=== PATIENT | female | born 1960 | race Caucasian/White ===

== ENCOUNTER 2016-12-14 22:41 | Emergency (ER) | payer SELFPAY ==
[~2016-12-14] VITALS: Ht 157.5 cm; Wt 68.0 kg
[~2016-12-14 22:41] MED LIST: CYCL10TA9 PO; MULT-608 PO; NAPR-243 PO; OMEP40CA36 PO; PRD20T PO; PRX10T PO; TRM50T PO; VITAL; ZANTAC PO
[2016-12-14] MEDS ORDERED: SPIR1POW3 MC (23:03)
[2016-12-14] MEDS ORDERED: FURO-124 PO (23:03)
[2016-12-14] MEDS ORDERED: TETANUS,DIPTH,PERTUSS P/F (BOOSTRIX) 0.5 ML VIAL IM STA (23:11)
--- NOTE | 2016-12-14 23:56 | ED Lower Extremity ---
General Chief Complaint: Lower Extremity Stated Complaint: R FOOT PAIN AFTER STEPPING ON NAIL Nursing Triage Note: PT AMBULATED TO ROOM. PT STATES SHE STEPPED ON A NAIL FRIDAY, BUT PAIN JUST STARTED HURTING TODAY. Nursing Sepsis Screen: No Definite Risk History of Present Illness Time seen by provider: 23:55 Initial Comments evaluation for pain in the right foot. Patient reports that she stepped on a nail in her yard on 12/12/16. He did not initially bother her so she did not seek treatment. Today the pain began to get worse, her mother gave her half of a hydrocodone pain pill she had no improvement. Onset: other (3 days) Pain/Injury Location: right foot (pain swelling and erythema.) Method of Injury: incised (on now with puncture wound to plantar surface approximately second metatarsal head) Modifying Factors: Improves With Rest Allergies and Home Medications Allergies Coded Allergies: morphine (Unverified Allergy, Unknown, HIVES, 09/20/14) Uncoded Allergies: PENICILLIN (Adverse Reaction, Unknown, 09/20/14) Home Medications Cyclobenzaprine Hcl 10 Mg Tablet, 1 EACH PO Q8H, #15 Prescribed by: CHIRAG BELLA on 09/20/14 1736 Doxycycline Hyclate 100 Mg Capsule, 100 MG PO BID, #12 Ref 0 Prescribed by: HORACIO WHEELER on 12/15/16 0056 Furosemide 40 Mg Tablet, 40 MG PO, (Reported) Multivitamins 1 Tab Tablet, 1 TAB PO DAILY, (Reported) Naproxen 500 Mg Tablet, 1 EACH PO TID PRN for PAIN, #20 FOR PAIN Prescribed by: CHIRAG BELLA on 09/20/14 1736 Omeprazole 40 Mg Capsule.dr, 40 MG PO DAILY, (Reported) Paroxetine Hcl 10 Mg Tab, 40 MG PO DAILY, (Reported) Prednisone 20 Mg Tab, 20 MG PO BID for 5 Days, (Reported) Spironolactone, Micronized 1 Gm Powder, 1 GM MC, (Reported) Tramadol Hcl 50 Mg Tab, 50 MG PO every 4-6 hours PRN, (Reported) [Zantac] , 150 MG PO DAILY, (Reported) Constitutional: no symptoms reported, see HPI EENTM: no symptoms reported, see HPI Respiratory: no symptoms reported Cardiovascular: no symptoms reported, see HPI Gastrointestinal: no symptoms reported, see HPI Genitourinary: no symptoms reported, see HPI Musculoskeletal: see HPI, joint pain (right foot) Skin: see HPI, change in color (erythema right foot) Psychiatric/Neurological: No Symptoms Reported, See HPI All Other Systems Reviewed Negative Unless Noted: Yes Past Imzchxb-Lxpojv-Ipukhl Hx Patient Social History Alcohol Use: Denies Use Recreational Drug Use: No Smoking Status: Former Smoker Type Used: Cigarettes 2nd Hand Smoke Exposure: No Recent Foreign Travel: No Contact w/Someone Who Travel: No Recent Infectious Disease Expo: No Recent Hopitalizations: Yes (2 C-SECTIONS, GALLBLADDER) Immunizations Up To Date Tetanus Booster (TDap): Unknown Surgeries HX Surgeries: Yes Surgeries: Adenoidectomy, Appendectomy, Section, Gallbladder, Tonsillectomy Respiratory Hx Respiratory Disorders: No Cardiovascular Hx Cardiac Disorders: Yes Cardiac Disorders: Chronic Edema/Swelling Neurological Hx Neurological Disorders: No Reproductive System Hx Reproductive Disorders: No Genitourinary Hx Genitourinary Disorders: No Gastrointestinal Hx Gastrointestinal Disorders: Yes (HEPATITIS C--NO TREATMENT, SPLENOMEGALY) Gastrointestinal Disorders: Hepatitis, Cirrhosis Musculoskeletal Hx Musculoskeletal Disorders: No Endocrine Hx Endocrine Disorders: No HEENT HX ENT Disorders: No Cancer Hx Cancer: No Psychosocial Hx Psychiatric Problems: No Integumentary HX Skin/Integumentary Disorder: No Blood Transfusions Hx Blood Disorders: No Reviewed Nursing Assessment Reviewed/Agree w Nursing PMH: Yes Physical Exam Vital Signs Vital Sign - Last 12Hours 12/14/16 22:53 Temp 97.8 Pulse 76 Resp 18 B/P (MAP) 115/60 Pulse Ox 99 O2 Delivery Room Air Capillary Refill : Less Than 3 Seconds General Appearance: WD/WN, no apparent distress HEENT: PERRL/EOMI, normal ENT inspection, TMs normal, pharynx normal Neck: non-tender, full range of motion, supple, normal inspection Cardiovascular: normal peripheral pulses, regular rate, rhythm, no JVD, no murmur Respiratory: chest non-tender, lungs clear Gastrointestinal: normal bowel sounds, non tender, soft Feet: left foot non-tender, left foot normal range of motion, left foot no evidence of injury, right foot abrasions/lacerations (puncture wound to the plantar surface, over second metatarsal head. No active bleeding or drainage noted), right foot bone tenderness, right foot limited range of motion ( secondary to pain), right foot soft tissue tenderness, right foot swelling, right foot other (warmth and erythema to right foot.) Neurologic/Tendon: normal sensation, normal motor functions, normal tendon functions Neurologic/Psychiatric: no motor/sensory deficits, alert, normal mood/affect, oriented x 3 Skin: warm/dry, pallor (bilateral lower extremities), other (venous stasis changes bilateral lower extremities, Soni appearing) Lymphatic: no adenopathy, No inguinal node tender (R), No inguinal node tender (L) Progress/Results/Core Measures Results/Orders Lab Results Laboratory Tests Test 12/15/16 00:12 12/15/16 00:48 Range/Units White Blood Count 8.0 4.3-11.0 10^3/uL Red Blood Count 4.28 L 4.35-5.85 10^6/uL Hemoglobin 12.7 11.5-16.0 G/DL Hematocrit 37 35-52 % Mean Corpuscular Volume 86 80-99 FL Mean Corpuscular Hemoglobin 30 25-34 PG Mean Corpuscular Hemoglobin Concent 35 32-36 G/DL Red Cell Distribution Width 14.4 10.0-14.5 % Platelet Count 48 L 130-400 10^3/uL Mean Platelet Volume 10.3 7.4-10.4 FL Neutrophils (%) (Auto) 67 42-75 % Lymphocytes (%) (Auto) 14 12-44 % Monocytes (%) (Auto) 16 H 0-12 % Eosinophils (%) (Auto) 3 0-10 % Basophils (%) (Auto) 0 0-10 % Neutrophils # (Auto) 5.4 1.8-7.8 X 10^3 Lymphocytes # (Auto) 1.1 1.0-4.0 X 10^3 Monocytes # (Auto) 1.3 H 0.0-1.0 X 10^3 Eosinophils # (Auto) 0.3 0.0-0.3 10^3/uL Basophils # (Auto) 0.0 0.0-0.1 10^3/uL Erythrocyte Sedimentation Rate 34 H 0-30 MM/HR Sodium Level 133 L 135-145 MMOL/L Potassium Level 3.4 L 3.6-5.0 MMOL/L Chloride Level 100 98-107 MMOL/L Carbon Dioxide Level 22 21-32 MMOL/L Anion Gap 11 5-14 MMOL/L Blood Urea Nitrogen 16 7-18 MG/DL Creatinine 0.79 0.60-1.30 MG/DL Estimat Glomerular Filtration Rate > 60 BUN/Creatinine Ratio 20 Glucose Level 108 H 70-105 MG/DL Calcium Level 8.7 8.5-10.1 MG/DL Total Bilirubin 2.3 H 0.1-1.0 MG/DL Aspartate Amino Transf (AST/SGOT) 34 5-34 U/L Alanine Aminotransferase (ALT/SGPT) 24 0-55 U/L Alkaline Phosphatase 59 40-136 U/L Total Protein 6.9 6.4-8.2 G/DL Albumin 3.3 3.2-4.5 G/DL Urine Color YELLOW Urine Clarity CLEAR Urine pH 6 5-9 Urine Specific [place] 1.015 L 1.016-1.022 Urine Protein NEGATIVE NEGATIVE Urine Glucose (UA) NEGATIVE NEGATIVE Urine Ketones NEGATIVE NEGATIVE Urine Nitrite NEGATIVE NEGATIVE Urine Bilirubin NEGATIVE NEGATIVE Urine Urobilinogen 1 NORMAL MG/DL Urine Leukocyte Esterase 2+ H NEGATIVE Urine RBC (Auto) 2+ H NEGATIVE Urine RBC 0-2 /HPF Urine WBC 0-2 /HPF Urine Squamous Epithelial Cells 2-5 /HPF Urine Crystals NONE /LPF Urine Bacteria TRACE /HPF Urine Casts NONE /LPF Urine Mucus SMALL H /LPF Urine Culture Indicated NO My Orders Orders - HORACIO WHEELER Cbc With Automated Diff (12/15/16 00:01) Comprehensive Metabolic Panel (12/15/16 00:01) Erythrocyte Sedimentation Rate (12/15/16 00:01) Ua Culture If Indicated (12/15/16 00:01) Ibuprofen Tablet (Motrin Tablet) (12/15/16 00:01) Foot, Right, 3 View (12/15/16 00:20) Clindamycin Capsule (Cleocin Capsule) (12/15/16 00:41) Ceftriaxone Injection (Rocephin Injectio (12/15/16 01:00) Rx-Doxycycline Tablet (Rx-Vibramycin Tab (12/15/16 00:51) Medications Given in ED Current Medications Medications Dose Ordered Sig/Guerita Route Start Time Stop Time Status Last Admin Dose Admin Ceftriaxone Sodium 1000 mg/ Sodium Chloride 50 ml @ 100 mls/hr ONCE ONCE IV 12/15/16 01:00 12/15/16 01:29 12/15/16 01:01 100 MLS/HR Vital Signs/I&O Vital Sign - Last 12Hours 12/14/16 22:53 Temp 97.8 Pulse 76 Resp 18 B/P (MAP) 115/60 Pulse Ox 99 O2 Delivery Room Air Blood Pressure Mean: 78 Progress Note : Time: 23:55 Progress Note initial evaluation completed, we will obtain a CBC, ESR, CMP and UA. Temperature 99.6. Ibuprofen 600 mg by mouth. Will reevaluate after labs are completed. 0040 x-rays and CBC essentially normal, WBC 8.0, PLt 48,000 (she has chronic thrombocytopenia with review of labs since 2010.) Will start Rocephin 1 and discharge on doxycycline 100 mg twice a day for 7 days. Discussed the patient's assessment and plan of care with Dr. Barajas, he agreed with this management. 0050 Temp 97.8 ESR 34. 0110 UA essentially normal. Plan discharge after Rocephin has infused. Diagnostic Imaging Diagonstic Imaging: Xray Plain Films/CT/US/NM/MRI: other (right foot) Comments no fractures dislocations or acute bony abnormalities noted Reviewed: Reviewed by Me Departure Impression Impression: Primary Impression: Cellulitis of right foot Disposition: 01 HOME, SELF-CARE Condition: Stable Departure-Patient Inst. Decision time for Depature: 00:30 Referrals: ART WARNER DO (PCP/Family) Primary Care Physician Patient Instructions: Cellulitis (Skin Infection), Adult (DC) Add. Discharge Instructions: warm moist compresses to right foot 20 minutes every 2-3 hours. Alternate between Tylenol 650 mg and ibuprofen 600 mg as needed for pain or fever. Take all of the antibiotic as prescribed. Return to emergency department for increased pain, fevers, discharge or drainage from the right foot, or new problems. [facility] 2-3 days sooner if symptoms worsen All discharge instructions reviewed with patient and/or family. Voiced understanding. Scripts Doxycycline Hyclate (Vibramycin) 100 Mg Capsule 100 MG PO BID, #12 CAP 0 Refills Prov: HORACIO WHEELER 12/15/16 Copy Copies To 1: ART WARNER AMY ARNP Dec 14, 2016 23:55
[2016-12-15] MEDS ORDERED: IBUPROFEN TABLET 200 MG TAB PO STA (00:01)
[2016-12-15 00:21] LABS: BASOPHILS % (AUTO) 0 % (0-10); EOSINOPHILS # (AUTO) 0.3 10^3/uL (0.0-0.3); EOSINOPHILS % (AUTO) 3 % (0-10); LYMPHOCYTES # (AUTO) 1.1 X 10^3 (1.0-4.0); LYMPHOCYTES % (AUTO) 14 % (12-44); MEAN CORPUSCULAR HEMOGLOBIN 30 PG (25-34); MEAN CORPUSCULAR HGB CONC 35 G/DL (32-36); MEAN CORPUSCULAR VOLUME 86 FL (80-99); MEAN PLATELET VOLUME 10.3 FL (7.4-10.4); MONOCYTES # (AUTO) 1.3 X 10^3 (0.0-1.0); MONOCYTES % (AUTO) 16 % (0-12); NEUTROPHILS # (AUTO) 5.4 X 10^3 (1.8-7.8); NEUTROPHILS % (AUTO) 67 % (42-75); PLATELET COUNT 48 10^3/uL (130-400); RED BLOOD COUNT 4.28 10^6/uL (4.35-5.85); RED CELL DISTRIBUTION WIDTH 14.4 % (10.0-14.5)
[2016-12-15] MEDS ORDERED: CLINDAMYCIN 150 MG (CLEOCIN) CAP PO STA (00:41)
[2016-12-15 00:44] LABS: ANION GAP 11 MMOL/L (5-14); BLOOD UREA NITROGEN 16 MG/DL (7-18); CARBON DIOXIDE 22 MMOL/L (21-32); CHLORIDE 100 MMOL/L (98-107); CREATININE SERUM 0.79 MG/DL (0.60-1.30); POTASSIUM 3.4 MMOL/L (3.6-5.0); SODIUM 133 MMOL/L (135-145)
[2016-12-15 00:45] LABS: ALANINE AMINOTRANSFERASE 24 U/L (0-55); ALBUMIN 3.3 G/DL (3.2-4.5); ASPARTATE AMINO TRANSFERASE 34 U/L (5-34); BILIRUBIN,TOTAL 2.3 MG/DL (0.1-1.0); BUN/CREATININE RATIO 20; CALCIUM 8.7 MG/DL (8.5-10.1); GFR ESTIMATED > 60; GLUCOSE 108 MG/DL (70-105); TOTAL PROTEIN 6.9 G/DL (6.4-8.2)
[2016-12-15] MEDS ORDERED: RX-DOXYCYCLINE 100 MG (VIBRAMYCIN) TAB PPK#2 PO STA (00:51)
[2016-12-15 00:56] LABS: BILIRUBIN,URINE NEGATIVE (NEGATIVE); KETONES,URINE NEGATIVE (NEGATIVE); LEUKOCYTE ESTERASE ,URINE 2+ (NEGATIVE); NITRITE,URINE NEGATIVE (NEGATIVE); PH,URINE 6 (5-9); PROTEIN,URINE NEGATIVE (NEGATIVE); UROBILINOGEN,URINE 1 MG/DL (NORMAL)
[2016-12-15] MEDS ORDERED: DOXY100C PO (00:56)
[2016-12-15] MEDS ORDERED: cefTRIAXone INJECTION 1,000 MG in NS (IVPB) 50 ML IV ONE (01:00)
[2016-12-15 01:05] LABS: ERYTHROCYTE SEDIMENTATION RATE 34 MM/HR (0-30)
[2016-12-15 01:07] LABS: WBC,URINE 0-2 /HPF
[2016-12-15 01:35] VITALS: BP 110/64
--- NOTE | 2016-12-15 09:24 | Diagnostic Imaging Report ---
INDICATION: Stepped on a nail. 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 There is no fracture or dislocation. There are otherwise mild diffuse degenerative changes. There are no radiopaque foreign bodies. IMPRESSION: Degenerative changes as well as metatarsus primus varus with hallux valgus, otherwise unremarkable. Dictated by: Dictated on workstation # [id number]
== END 2016-12-15 01:35 | disposition home or self-care (01) ==
LOC: EDUNIT# 22:41 → ER 22:43
DX: L03.115 Cellulitis of right lower limb (principal); Z87.891 Personal history of nicotine dependence; X58.XXXA Exposure to other specified factors, initial encounter
CPT/HCPCS: 36415; 73630; 80053; 81000; 85025; 85652; 90715

== ENCOUNTER 2017-04-20 04:04 | Emergency (ER) | payer SELFPAY ==
[~2017-04-20] VITALS: Ht 157.5 cm; Wt 63.5 kg
[~2017-04-20 04:04] MED LIST changes: +DOXY100C PO; +FURO-124 PO; +SPIR1POW3 MC
--- OUTSIDE RECORDS SUMMARY | 2017-04-20 04:11 | XMS REPORT ---
Author Author DENZEL QUINN Organization [facility] Address [address] [place] [address] Care Team Providers Care Frame Sample And Pattern Supervisor Name Role Phone DENZEL QUINN Unavailable PROBLEMS Type Condition ICD9-CM Code [id number] Code Onset Dates Condition Status SNOMED Code Problem Other ascites R18.8 Active 072530370 Problem Increased ammonia level R79.89 Active 823386565 Problem Cirrhosis of liver with ascites, unspecified hepatic cirrhosis type K74.60 Active 81988483 Problem Cirrhosis of liver without ascites, unspecified hepatic cirrhosis type K74.60 Active 132674204 Problem Dysthymia F34.1 Active 65444851 Problem Psoriasis L40.9 Active 6759413 Problem Drug abuse and dependence F19.20 Active 3998852 ALLERGIES Substance Reaction Event Type Date Status N.K.D.A. Unknown Non Drug Allergy Jul, Unknown SOCIAL HISTORY No smoking Hx information available PLAN OF CARE Activity Details Follow Up 3 Months Reason:cirrhosis VITAL SIGNS Height 62 in 2016-07-23 Weight 164.4 lbs 2016-07-23 Temperature 97.9 degrees Fahrenheit 2016-07-23 Heart Rate 82 bpm 2016-07-23 Respiratory Rate 20 2016-07-23 BMI 30.07 kg/m2 2016-07-23 Blood pressure systolic 122 mmHg 2016-07-23 Blood pressure diastolic 74 mmHg 2016-07-23 MEDICATIONS Medication Instructions Dosage Frequency Start Date End Date Duration Status Tumersaid by oral route Jun, Active Ascorbic Acid 1,000 mg 1 Tablet 1 time per day Jun, Active Multivitamin Active Sertraline HCl 50 mg Orally Once a day 1/2 tablet daily X 4 days then 1 tab a day 24h Jul, 90 days Active Clobetasol Propionate 0.05 % Externally Twice a day Stop when rash gets better and then restart when gets bad again 1 application to affected area Feb, Active Spironolactone 100 MG Orally Once a day 1 tablet 24h 90 days Active Furosemide 40 MG Orally Once a day 1 tablet 24h Jul, 90 days Active Potassium Chloride 20 MEQ Orally Once a day 1 tablet 24h Jul, 90 days Active RESULTS Name Result Date Reference Range [facility] 2016-07-23 Glucose, Serum 108 65-99 BUN 13 6-24 Creatinine, Serum 0.71 0.57-1.00 eGFR If NonAfricn Am 95 >59 eGFR If Africn Am 109 >59 BUN/Creatinine Ratio 18 9-23 Sodium, Serum 141 134-144 Potassium, Serum 3.6 3.5-5.2 Chloride, Serum 102 96-106 Carbon Dioxide, Total 24 18-29 Calcium, Serum 9.0 8.7-10.2 Protein, Total, Serum 6.9 6.0-8.5 Albumin, Serum 3.5 3.5-5.5 Globulin, Total 3.4 1.5-4.5 A/G Ratio 1.0 1.1-2.5 Bilirubin, Total 1.5 0.0-1.2 Alkaline Phosphatase, S 70 39-117 AST (SGOT) 133 0-40 ALT (SGPT) 95 0-32 PROCEDURES Procedure Date Ordered Related Diagnosis Body Site COMPREHEN METABOLIC PANEL Jul 23, 2016 VENIPUNCT, ROUTINE* Jul 23, 2016 FLUARIX QUAD P-FREE 3 AND UP .50 2015Jul 23, 2016 Office Visit, Est Pt., Level 3 Jul 23, 2016 SINGLE IMMUNIZATION ADMIN Jul 23, 2016 IMMUNIZATIONS Vaccine Route Administration Date Status FLUARIX QUAD P-FREE 3 AND UP .50 2015 IM Intramuscular Jul 23, 2016 Administered
[2017-04-20 04:24] LABS: BASOPHILS # (AUTO) 0.1 10^3/uL (0.0-0.1); BASOPHILS % (AUTO) 2 % (0-10); EOSINOPHILS # (AUTO) 0.2 10^3/uL (0.0-0.3); EOSINOPHILS % (AUTO) 6 % (0-10); LYMPHOCYTES % (AUTO) 24 % (12-44); MEAN CORPUSCULAR HEMOGLOBIN 30 PG (25-34); MEAN CORPUSCULAR HGB CONC 34 G/DL (32-36); MEAN CORPUSCULAR VOLUME 87 FL (80-99); MONOCYTES # (AUTO) 0.7 X 10^3 (0.0-1.0); MONOCYTES % (AUTO) 17 % (0-12); NEUTROPHILS # (AUTO) 2.1 X 10^3 (1.8-7.8); NEUTROPHILS % (AUTO) 52 % (42-75); PLATELET COUNT 69 10^3/uL (130-400); RED BLOOD COUNT 4.57 10^6/uL (4.35-5.85); RED CELL DISTRIBUTION WIDTH 14.1 % (10.0-14.5)
[2017-04-20 04:37] LABS: INR 1.2 (0.8-1.4); PROTHROMBIN TIME PATIENT 14.9 SEC (12.2-14.7)
[2017-04-20 04:45] LABS: ALBUMIN 3.6 GM/DL (3.2-4.5); BILIRUBIN,TOTAL 1.4 MG/DL (0.1-1.0); CALCIUM 9.3 MG/DL (8.5-10.1); CREATININE SERUM 0.98 MG/DL (0.60-1.30); POTASSIUM 3.4 MMOL/L (3.6-5.0); TOTAL PROTEIN 7.3 GM/DL (6.4-8.2)
[2017-04-20] MEDS ORDERED: MUPI15CR TP (05:12)
[2017-04-20] MEDS ORDERED: SULF1TAB35 PO (05:12)
--- NOTE | 2017-04-20 05:13 | ED Lower Extremity ---
General Chief Complaint: Lower Extremity Stated Complaint: SWELLING IN LEGS Nursing Triage Note: PT TO ED 5 W/ C/O CHRONIC LEG SWELLING, WORSE TODAY. REPORTS SHE HAS BEEN ON HER FEET MORE RECENTLY SHE HAS FAMILY COMING TO VISIT Nursing Sepsis Screen: No Definite Risk Source: patient, old records History of Present Illness Time seen by provider: 04:15 Initial Comments PT ARRIVES VIA POV FROM HOME C/O SWELLING TO BOTH LEGS--CHRONIC PROBLEMS WITH LEG SWELLING, BUT WORSE THE LAST COUPLE OF DAYS STATES SHE HAS BEEN ON HER FEET ALOT MORE THE LAST COUPLE OF DAYS, CLEANING HOUSE PT STATES SHE IS SUPPOSED TO TAKE BOTH SPIRONOLACTONE AND LASIX ONCE A DAY FOR THIS PROBLEM, BUT HAS NOT BEEN TAKING IT, BUT DID TAKE THEM TODAY PT HAS CIRRHOSIS AND HEPATITIS C, AND IS SUPPOSED TO BE TAKING LACTULOSE EVERY DAY, BUT HAS BEEN OUT FOR OVER A WEEK AND STATES SHE CANNOT AFFORD TO GET IT REFILLED--PT HAS NOT ATTEMPTED TO CONTACT [facility] FOR ASSISTANCE IN GETTING HER PRESCRIPTIONS FILLED NO CHEST PAIN NO SHORTNESS OF BREATH NO FEVER 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 AND HAS CHRONIC SORES TO BILATERAL LOWER LEGS WELL--NO DRAINAGE FROM WOUNDS PCP: [facility] Allergies and Home Medications Allergies Coded Allergies: morphine (Unverified Allergy, Unknown, HIVES, 09/20/14) Uncoded Allergies: PENICILLIN (Adverse Reaction, Unknown, 09/20/14) Home Medications Furosemide 40 Mg Tablet, 40 MG PO, (Reported) Multivitamins 1 Tab Tablet, 1 TAB PO DAILY, (Reported) Mupirocin Calcium 15 Gm Cream..g., 15 GM TP BID, #22 Prescribed by: CHIRAG BELLA on 04/20/17511 Omeprazole 40 Mg Capsule.dr, 40 MG PO DAILY, (Reported) Paroxetine Hcl 10 Mg Tab, 40 MG PO DAILY, (Reported) Spironolactone, Micronized 1 Gm Powder, 1 GM MC, (Reported) Sulfamethoxazole/Trimethoprim 1 Each Tablet, 1 EACH PO BID, #20 Prescribed by: CHIRAG BELLA on 04/20/17511 Constitutional: no symptoms reported Respiratory: no symptoms reported, No dyspnea on exertion, No short of breath Cardiovascular: see HPI, No chest pain, edema, No palpitations, No syncope Gastrointestinal: no symptoms reported Genitourinary: no symptoms reported Musculoskeletal: see HPI Skin: see HPI Psychiatric/Neurological: No Symptoms Reported, Denies Numbness, Denies Paresthesia, Denies Tingling, Denies Weakness Past Gwelxjn-Hfuclq-Xscsdw Hx Patient Social History Alcohol Use: Past History (HISTORY OF ABUSE, DENIES RECENT USE, PER PT ON 04/20) Recreational Drug Use: Yes (HX OF IV METH USE, CLAIMS NO RECENT USE, PER PT ON 04/20/17) Smoking Status: Former Smoker (1 PPD, QUIT > 25 YEARS AGO) Type Used: Cigarettes Former Smoker, Quit: Apr 06, 1978 2nd Hand Smoke Exposure: No Recent Foreign Travel: No Contact w/Someone Who Travel: No Recent Infectious Disease Expo: No Recent Hopitalizations: No Physical Abuse: No Sexual Abuse: No Mistreated: No Fear: No Immunizations Up To Date Tetanus Booster (TDap): Unknown Surgeries History of Surgeries: Yes Surgeries: Adenoidectomy, Appendectomy, Section, Gallbladder, Tonsillectomy Respiratory History of Respiratory Disorde: No Cardiovascular History of Cardiac Disorders: Yes Cardiac Disorders: Chronic Edema/Swelling Neurological History of Neurological Disord: No Reproductive System Hx Reproductive Disorders: No Genitourinary History of Genitourinary Disor: No Gastrointestinal History of Gastrointestinal Di: Yes (HEPATITIS C--NO TREATMENT, SPLENOMEGALY) Gastrointestinal Disorders: Liver Disease/Jaundice, Hepatitis, Cirrhosis Musculoskeletal History of Musculoskeletal Dis: No Endocrine History of Endocrine Disorders: No HEENT History of HEENT Disorders: No Cancer History of Cancer: No Psychosocial History of Psychiatric Problem: No Suicide Risk Score: 0 Integumentary History of Skin or Integumenta: Yes ("PSORIASIS" TO LOWER LEGS ( ? SELF DX ? ) ) Blood Transfusions History of Blood Disorders: No Physical Exam Vital Signs Vital Sign - Last 12Hours 04/20/17 04:08 Temp 97.4 Pulse 81 Resp 18 B/P (MAP) 133/70 Pulse Ox 100 O2 Delivery Room Air Capillary Refill : Less Than 3 Seconds General Appearance: WD/WN, no apparent distress HEENT: other (EXTENSIVE DENTAL DECAY--FEW REMAINING TEETH DECAYED DOWN TO GUMS) Neck: normal inspection Cardiovascular: regular rate, rhythm, no JVD, no murmur Respiratory: normal breath sounds, no respiratory distress, no accessory muscle use Gastrointestinal: non tender, soft Legs: bilateral leg non-tender, bilateral leg normal range of motion, bilateral leg other (BILATERAL LOWER LEGS WITH 2+ EDEMA, WITH CHRONIC VENOUS STASIS CHANGES BILATERALLY. EXTENSIVE SORES/SCABS/SCARS TO MOSTLY THE ANTERIOR ASPECT OF BOTH LOWER LEGS, WITH MILD ERYTHEMA TO BILATERAL LOWER LEGS--RIGHT > LEFT. NO AREAS OF FLUCTUANCE. NO DRAINAGE OR STREAKS FROM WOUNDS. DISTAL MOTOR/ SENSORY/VASCULAR INTACT. ) Ankles: bilateral ankle other ( ABOVE) Feet: bilateral foot other (NO SWELLING TO FEET THEMSELVES. ) Neurologic/Tendon: normal sensation, normal motor functions, normal tendon functions Neurologic/Psychiatric: [employer] II-XII nml as tested, no motor/sensory deficits, alert, normal mood/affect, oriented x 3 Skin: normal color, warm/dry, other ( ABOVE) Progress/Results/Core Measures Results/Orders Lab Results Laboratory Tests Test 04/20/17 04:16 Range/Units White Blood Count 4.0 L 4.3-11.0 10^3/uL Red Blood Count 4.57 4.35-5.85 10^6/uL Hemoglobin 13.5 11.5-16.0 G/DL Hematocrit 40 35-52 % Mean Corpuscular Volume 87 80-99 FL Mean Corpuscular Hemoglobin 30 25-34 PG Mean Corpuscular Hemoglobin Concent 34 32-36 G/DL Red Cell Distribution Width 14.1 10.0-14.5 % Platelet Count 69 L 130-400 10^3/uL Mean Platelet Volume 10.0 7.4-10.4 FL Neutrophils (%) (Auto) 52 42-75 % Lymphocytes (%) (Auto) 24 12-44 % Monocytes (%) (Auto) 17 H 0-12 % Eosinophils (%) (Auto) 6 0-10 % Basophils (%) (Auto) 2 0-10 % Neutrophils # (Auto) 2.1 1.8-7.8 X 10^3 Lymphocytes # (Auto) 1.0 1.0-4.0 X 10^3 Monocytes # (Auto) 0.7 0.0-1.0 X 10^3 Eosinophils # (Auto) 0.2 0.0-0.3 10^3/uL Basophils # (Auto) 0.1 0.0-0.1 10^3/uL Prothrombin Time 14.9 H 12.2-14.7 SEC INR Comment 1.2 0.8-1.4 Activated Partial Thromboplast Time 34 24-35 SEC Sodium Level 135 135-145 MMOL/L Potassium Level 3.4 L 3.6-5.0 MMOL/L Chloride Level 104 98-107 MMOL/L Carbon Dioxide Level 19 L 21-32 MMOL/L Anion Gap 12 5-14 MMOL/L Blood Urea Nitrogen 18 7-18 MG/DL Creatinine 0.98 0.60-1.30 MG/DL Estimat Glomerular Filtration Rate 58 BUN/Creatinine Ratio 18 Glucose Level 116 H 70-105 MG/DL Calcium Level 9.3 8.5-10.1 MG/DL Magnesium Level 2.0 1.8-2.4 MG/DL Total Bilirubin 1.4 H 0.1-1.0 MG/DL Aspartate Amino Transf (AST/SGOT) 78 H 5-34 U/L Alanine Aminotransferase (ALT/SGPT) 76 H 0-55 U/L Alkaline Phosphatase 78 40-136 U/L B-Type Natriuretic Peptide 10.9 <100.0 PG/ML Total Protein 7.3 6.4-8.2 GM/DL Albumin 3.6 3.2-4.5 GM/DL [facility] [place] Testing 2.05 0.35-4.94 UIU/ML My Orders Orders - CHIRAG BELLA DO BNP (04/20/17 04:16) Cbc With Automated Diff (04/20/17 04:16) Comprehensive Metabolic Panel (04/20/17 04:16) Magnesium (04/20/17 04:16) Protime With Inr (04/20/17 04:16) Partial Thromboplastin Time (04/20/17 04:16) Thyroid Analyzer (04/20/17 04:16) Vital Signs/I&O Vital Sign - Last 12Hours 04/20/17 04:08 Temp 97.4 Pulse 81 Resp 18 B/P (MAP) 133/70 Pulse Ox 100 O2 Delivery Room Air Blood Pressure Mean: 91 Departure Impression Impression: Primary Impression: DEPENDENT LEG EDEMA Additional Impressions: Non-compliance Bilateral lower leg cellulitis HX OF CIRRHOSIS AND HEPATITIS C Disposition: 01 HOME, SELF-CARE Condition: Stable Departure-Patient Inst. Referrals: [facility] (PCP) Primary Care Physician ART WARNER DO (Family) Primary Care Physician Patient Instructions: Cellulitis (Skin Infection), Adult (DC), Dependent Edema (DC) Add. Discharge Instructions: RESTART YOUR LACTULOSE AND TAKE PRESCRIBED FOR THE NEXT 2 DAYS, TAKE YOUR SPIRONOLACTONE AND LASIX TWICE A DAY CALL [facility] TOMORROW FOR FOLLOW UP APPOINTMENT AND FOR MEDICATION REFILLS All discharge instructions reviewed with patient and/or family. Voiced understanding. Scripts Mupirocin Calcium (Bactroban) 15 Gm Cream..g. 15 GM TP BID, #22 TUBE Prov: CHIRAG BELLA DO 04/20/17 Sulfamethoxazole/Trimethoprim (Bactrim Ds Tablet) 1 Each Tablet 1 EACH PO BID, #20 TAB Prov: CHIRAG BELLA DO 04/20/17 CHIRAG BELLA DO Apr 20, 2017 05:13
[2017-04-20 05:15] VITALS: BP 0/0
== END 2017-04-20 05:15 | disposition home or self-care (01) ==
LOC: EDUNIT# 04:04 → ER 04:07
DX: R60.0 Localized edema (principal); L03.116 Cellulitis of left lower limb; L03.115 Cellulitis of right lower limb; B19.20 Unspecified viral hepatitis C without hepatic coma; Z87.19 Personal history of other diseases of the digestive system; Z87.891 Personal history of nicotine dependence; Z90.49 Acquired absence of other specified parts of digestive tract; Z87.59 Personal history of other complications of pregnancy, childbirth and the puerperium; Z91.19 Patient's noncompliance with other medical treatment and regimen
CPT/HCPCS: 36415; 80053; 83735; 83880; 84443; 85025; 85610; 85730; 99282

== ENCOUNTER 2017-09-17 19:41 | Emergency (ER) | payer SELFPAY ==
[~2017-09-17] VITALS: Ht 157.5 cm; Wt 70.3 kg
[~2017-09-17 19:41] MED LIST changes: +MUPI15CR TP; +SULF1TAB35 PO
[2017-09-17] MEDS ORDERED: LACT10SO33 PO (20:27)
--- NOTE | 2017-09-17 20:49 | ED Integumentary General ---
General Chief Complaint: Skin/Wound Problems Stated Complaint: LEG RASH Nursing Triage Note: pt c/o itchy rash to bilat lower legs x 1 month. multiple open areas. fever/chills x 1 week. has seen miguel luna at [facility], but is transitioning to dr oneil for treatment of cirrhosis of the liver. Source: patient Exam Limitations: no limitations (EDSON JACKSON) History of Present Illness Date Seen by Provider: Sep 17, 2017 Time Seen by Provider: 20:49 (EDSON JACKSON) Allergies and Home Medications Allergies Coded Allergies: morphine (Unverified Allergy, Unknown, HIVES, 09/20/14) meperidine (Unverified Adverse Reaction, Unknown, 09/17/17) Home Medications Clindamycin HCl 300 Mg Capsule, 300 MG PO QID Prescribed by: EDSON JACKSON on 09/17/172201 Clotrimazole/Betamethasone Dip 15 Gm Cream..g., 15 GM TP UD Apply to the affected area twice daily 2-3 weeks for rash Prescribed by: EDSON JACKSON on 09/17/17 4429 Patient Home Medication List Home Medication List Reviewed: Yes (FRANK HUERTA) Past Hjgjhwu-Wlofgu-Dlscli Hx Patient Social History Alcohol Use: Past History Recreational Drug Use: Yes Smoking Status: Former Smoker Type Used: Cigarettes Former Smoker, Quit: Apr 06, 1978 2nd Hand Smoke Exposure: No Recent Foreign Travel: No Contact w/Someone Who Travel: No Recent Infectious Disease Expo: No Recent Hopitalizations: No (EDSON JACKSON) Immunizations Up To Date Tetanus Booster (TDap): Unknown Date of Influenza Vaccine: Apr 07, 2017 (EDSON JACKSON) Surgeries History of Surgeries: Yes Surgeries: Adenoidectomy, Appendectomy, Section, Gallbladder, Tonsillectomy (EDSON JACKSON) Respiratory History of Respiratory Disorde: No (EDSON JACKSON) Cardiovascular History of Cardiac Disorders: Yes Cardiac Disorders: Chronic Edema/Swelling (EDSON JACKSON) Neurological History of Neurological Disord: No (EDSON JACKSON) Reproductive System Hx Reproductive Disorders: No (EDSON JACKSON) Genitourinary History of Genitourinary Disor: No (EDSON JACKSON) Gastrointestinal History of Gastrointestinal Di: Yes (HEPATITIS C--NO TREATMENT, SPLENOMEGALY) Gastrointestinal Disorders: Liver Disease/Jaundice, Hepatitis, Cirrhosis (EDSON JACKSON) Musculoskeletal History of Musculoskeletal Dis: No (EDSON JACKSON) Endocrine History of Endocrine Disorders: No (EDSON JACKSON) HEENT History of HEENT Disorders: No (EDSON JACKSON) Cancer History of Cancer: No (EDSON JACKSON) Psychosocial History of Psychiatric Problem: No (EDSON JACKSON) Integumentary History of Skin or Integumenta: Yes ("PSORIASIS" TO LOWER LEGS ) (EDSON JACKSON) Blood Transfusions History of Blood Disorders: No (EDSON JACKSON) Physical Exam Vital Signs Vital Signs - First Documented 09/17/17 20:17 Temp 99.8 Pulse 87 Resp 18 B/P (MAP) 110/66 (81) Pulse Ox 97 O2 Delivery Room Air (FRANK HUERTA) Vital Signs Capillary Refill : Less Than 3 Seconds (EDSON JACKSON) Progress/Results/Core Measures Results/Orders Lab Results Laboratory Tests Test 09/17/17 20:40 Range/Units White Blood Count 4.8 4.3-11.0 10^3/uL Red Blood Count 4.11 L 4.35-5.85 10^6/uL Hemoglobin 12.6 11.5-16.0 G/DL Hematocrit 35 35-52 % Mean Corpuscular Volume 86 80-99 FL Mean Corpuscular Hemoglobin 31 25-34 PG Mean Corpuscular Hemoglobin Concent 36 32-36 G/DL Red Cell Distribution Width 14.5 10.0-14.5 % Platelet Count 72 L 130-400 10^3/uL Mean Platelet Volume 11.1 H 7.4-10.4 FL Neutrophils (%) (Auto) 63 42-75 % Lymphocytes (%) (Auto) 18 12-44 % Monocytes (%) (Auto) 13 H 0-12 % Eosinophils (%) (Auto) 6 0-10 % Basophils (%) (Auto) 1 0-10 % Neutrophils # (Auto) 3.0 1.8-7.8 X 10^3 Lymphocytes # (Auto) 0.9 L 1.0-4.0 X 10^3 Monocytes # (Auto) 0.6 0.0-1.0 X 10^3 Eosinophils # (Auto) 0.3 0.0-0.3 10^3/uL Basophils # (Auto) 0.0 0.0-0.1 10^3/uL Sodium Level 132 L 135-145 MMOL/L Potassium Level 4.0 3.6-5.0 MMOL/L Chloride Level 100 98-107 MMOL/L Carbon Dioxide Level 23 21-32 MMOL/L Anion Gap 9 5-14 MMOL/L Blood Urea Nitrogen 16 7-18 MG/DL Creatinine 0.81 0.60-1.30 MG/DL Estimat Glomerular Filtration Rate > 60 BUN/Creatinine Ratio 20 Glucose Level 99 70-105 MG/DL Calcium Level 8.6 8.5-10.1 MG/DL Total Bilirubin 1.7 H 0.1-1.0 MG/DL Aspartate Amino Transf (AST/SGOT) 149 H 5-34 U/L Alanine Aminotransferase (ALT/SGPT) 161 H 0-55 U/L Alkaline Phosphatase 74 40-136 U/L C-Reactive Protein High Sensitivity 3.07 H 0.00-0.50 MG/DL Total Protein 7.1 6.4-8.2 GM/DL Albumin 3.3 3.2-4.5 GM/DL (FRANK HUERTA) Micro Results Microbiology 09/17/17 Gram Stain - Final, Resulted 09/17/17 Wound Culture - Preliminary, Resulted Staphylococcus aureus (FRANK HUERTA) Vital Signs/I&O Vital Sign - Last 12Hours 09/17/17 09/17/17 20:17 23:15 Temp 99.8 Pulse 87 81 Resp 18 18 B/P (MAP) 110/66 (81) 98/56 Pulse Ox 97 98 O2 Delivery Room Air Room Air (FRANK HUERTA) Blood Pressure Mean: 81 Progress Note : Time: 17:37 Progress Note 09/18/17: Patient called this afternoon stating that the cream and antibiotic there were sent to the pharmacy were too expensive and she does not have insurance therefore she cannot afford them because they're over $70 piece. She says that her allergy to penicillin is not a real allergy; she gets yeast infections when she took penicillin in the past. She would like the penicillin allergy removed from her allergy list. We will send out Keflex to [facility]. (FRANK HUERTA) Departure Impression Impression: Primary Impression: Cellulitis of lower extremity Additional Impression: Cirrhosis of liver Disposition: 01 HOME, SELF-CARE Condition: Improved Departure-Patient Inst. Decision time for Depature: 22:00 (EDSON JACKSON) Referrals: [facility] (PCP) Primary Care Physician ART WARNER DO (Family) Primary Care Physician Patient Instructions: Cellulitis (Skin Infection), Adult (DC), Cirrhosis (DC) Add. Discharge Instructions: All discharge instructions reviewed with patient and/or family. Voiced understanding. Medications as instructed. Continue usual home medications. Elevate the bilateral legs on pillows above the level of the heart. Cover with 4 x 4 gauze and Marco A wrap's. Follow-up with [facility] tomorrow for recheck. Return to the emergency department for worsened redness, fever, or any other concerns. Scripts Cephalexin (Cephalexin) 500 Mg Tablet 500 MG PO QID for 10 Days, #40 TAB 0 Refills Prov: FRANK HUERTA 09/18/17 Clotrimazole/Betamethasone Dip (Lotrisone Cream) 15 Gm Cream..g. 15 GM TP UD, #1 TUBE 1 Refill Apply to the affected area twice daily 2-3 weeks for rash Prov: EDSON JACKSON 09/17/17 EDSON JACKSON Sep 17, 2017 20:49 FRANK HUERTA Sep 18, 2017 17:41
--- OUTSIDE RECORDS SUMMARY | 2017-09-17 21:04 | XMS REPORT ---
Author Author DENZEL QUINN [facility] Address [address] [place] [address] Care Team Providers Care Realtime Court Reporter Name Role Phone DENZEL QUINN Unavailable PROBLEMS Type Condition ICD9-CM Code [id number] Code Onset Dates Condition Status SNOMED Code Problem Cirrhosis of liver without ascites, unspecified hepatic cirrhosis type K74.60 Active 258318873 Problem Other ascites R18.8 Active 397293251 Problem Other cirrhosis of liver K74.69 Active 39248234 Problem Chronic hepatitis C without hepatic coma B18.2 Active 006024473 Problem Drug abuse and dependence F19.20 Active 5122834 Problem Dysthymia F34.1 Active 94351587 Problem Increased ammonia level R79.89 Active 454384275 Problem Psoriasis L40.9 Active 7703401 ALLERGIES No Information SOCIAL HISTORY Never Assessed PLAN OF CARE VITAL SIGNS MEDICATIONS Medication Instructions Dosage Frequency Start Date End Date Duration Status Lactulose 20 GM/30ML Orally twice a day 30 ml 12h November, 30 days Active RESULTS No Results PROCEDURES No Known procedures IMMUNIZATIONS No Known Immunizations MEDICAL (GENERAL) HISTORY Type Description Date Medical History post cholecystectomy Medical History viral infection hepatitis C D x 11/14 Dr. 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
--- OUTSIDE RECORDS SUMMARY | 2017-09-17 21:04 | XMS REPORT ---
Author Author DENZEL QUINN [facility] Address [address] [place] [address] Care Team Providers Care Tire Repairer Name Role Phone DENZEL QUINN Unavailable PROBLEMS Type Condition ICD9-CM Code [id number] Code Onset Dates Condition Status SNOMED Code Problem Cirrhosis of liver without ascites, unspecified hepatic cirrhosis type K74.60 Active 862162801 Problem Other ascites R18.8 Active 209017700 Problem Other cirrhosis of liver K74.69 Active 88222750 Problem Chronic hepatitis C without hepatic coma B18.2 Active 836564433 Problem Drug abuse and dependence F19.20 Active 4650449 Problem Dysthymia F34.1 Active 67807908 Problem Increased ammonia level R79.89 Active 078689210 Problem Psoriasis L40.9 Active 9093064 ALLERGIES No Known Allergies SOCIAL HISTORY Never Assessed PLAN OF CARE Activity Details Follow Up 4 Weeks Reason:cirrhosis VITAL SIGNS Height 62 in 2016-11-20 Weight 161.4 lbs 2016-11-20 Temperature 98.1 degrees Fahrenheit 2016-11-20 Heart Rate 88 bpm 2016-11-20 Respiratory Rate 20 2016-11-20 BMI 29.52 kg/m2 2016-11-20 Blood pressure systolic 116 mmHg 2016-11-20 Blood pressure diastolic 60 mmHg 2016-11-20 MEDICATIONS Medication Instructions Dosage Frequency Start Date End Date Duration Status Spironolactone 100 MG Orally Once a day 1 tablet 24h 90 days Active Tumersaid - Orally Once a day 1 tablet 24h Jun, Active Ascorbic Acid 1,000 mg 1 Tablet 1 time per day Jun, Active Benadryl Allergy 25 MG Orally every 8 hrs 1 tablet as needed 8h Active Furosemide 40 MG Orally Once a day 1 tablet 24h Jul, 90 days Active Potassium Chloride 20 MEQ Orally Once a day 1 tablet 24h Jul, 90 days Active Milk Thistle by oral route Jun, Active Cranberry Concentrate 140-100 mg 6 Capsule 1 time per day Jun, Active RESULTS Name Result Date Reference Range AMMONIA 2016-11-20 Ammonia, Plasma 132 19-87 CMP 2016-11-20 Glucose, Serum 108 65-99 BUN 10 6-24 Creatinine, Serum 0.77 0.57-1.00 eGFR If NonAfricn Am 86 >59 eGFR If Africn Am 99 >59 BUN/Creatinine Ratio 13 9-23 Sodium, Serum 139 134-144 Potassium, Serum 3.7 3.5-5.2 Chloride, Serum 104 96-106 Carbon Dioxide, Total 21 18-29 Calcium, Serum 8.5 8.7-10.2 Protein, Total, Serum 6.2 6.0-8.5 Albumin, Serum 3.3 3.5-5.5 Globulin, Total 2.9 1.5-4.5 A/G Ratio 1.1 1.2-2.2 Bilirubin, Total 1.2 0.0-1.2 Alkaline Phosphatase, S 63 39-117 AST (SGOT) 44 0-40 ALT (SGPT) 23 0-32 PROCEDURES Procedure Date Ordered Result Body Site COMPREHEN METABOLIC PANEL November 20, 2016 ASSAY OF AMMONIA November 20, 2016 KENALOG 40 MG/ML (PER 10 MG) November 20, 2016 VENIPUNCT, ROUTINE* November 20, 2016 THER/PROPH/DIAG INJ, SC/IM November 20, 2016 IMMUNIZATIONS Vaccine Route Administration Date Status KENALOG 40 MG/ML (PER 10 MG) IM Intramuscular November 20, 2016 Administered MEDICAL (GENERAL) HISTORY Type Description Date Medical History post cholecystectomy Medical History viral infection hepatitis C D x 11/14 Dr. 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
--- OUTSIDE RECORDS SUMMARY | 2017-09-17 21:04 | XMS REPORT ---
Author Author DNEZEL QUINN [facility] Address [address] [place] [address] Care Team Providers Care Tenant Relations Coordinator Name Role Phone DENZEL QUINN Unavailable PROBLEMS Type Condition ICD9-CM Code [id number] Code Onset Dates Condition Status SNOMED Code Problem Cirrhosis of liver without ascites, unspecified hepatic cirrhosis type K74.60 Active 447687265 Problem Other ascites R18.8 Active 665441574 Problem Other cirrhosis of liver K74.69 Active 40284338 Problem Chronic hepatitis C without hepatic coma B18.2 Active 189934460 Problem Drug abuse and dependence F19.20 Active 1813321 Problem Dysthymia F34.1 Active 88304981 Problem Increased ammonia level R79.89 Active 467508925 Problem Psoriasis L40.9 Active 0974333 ALLERGIES No Information SOCIAL HISTORY Never Assessed PLAN OF CARE VITAL SIGNS MEDICATIONS No Known Medications RESULTS No Results PROCEDURES No Known procedures [...]
--- OUTSIDE RECORDS SUMMARY | 2017-09-17 21:05 | XMS REPORT | Continuity of Care Document ---
Author Author [facility] [address] Organization [facility] [address] Address Unknown Phone Unavailable Allergies Active Description Code Type Severity Reaction Onset Reported/Identified Relationship to Patient Clinical Status Yes morphine [id number] Drug Allergy Unknown HIVES 09/20/2014 Yes PENICILLIN PENICILLIN Unknown N/A 09/20/2014 Medications There is no data. Problems Date Dx Coded Attending Type Code Diagnosis Diagnosed By 02/11/2008 DENZEL QUINN APRN S 784.0 HEADACHE 02/11/2008 MAGAN QUINN APRNNDA S V58.69 MEDICATION HIGH RISK 02/11/2008 LIO GARCIA APRNINA R 784.0 HEADACHE 02/11/2008 LIO GARCIA APRNINA R V58.69 MEDICATION HIGH RISK 02/11/2008 KAI HAILE DENZEL S 784.0 HEADACHE 02/11/2008 KAI HAILE, DENZEL S V58.69 MEDICATION HIGH RISK 02/11/2008 KAI HAILE DENZEL S 784.0 HEADACHE 02/11/2008 KAI HAILE, DENZEL S V58.69 MEDICATION HIGH RISK 02/11/2008 KAI HAILE DENZEL S 784.0 HEADACHE 02/11/2008 KAI HAILE DENZEL S V58.69 MEDICATION HIGH RISK 02/11/2008 KAI HAILE, DENZEL S 784.0 HEADACHE 02/11/2008 KAI HAILE, DENZEL S V58.69 MEDICATION HIGH RISK 02/25/2008 MAGAN QUINN APRNNDA S 780.52 INSOMNIA UNSPECIFIED 02/25/2008 RADHA HAILE CATERINA R 780.52 INSOMNIA UNSPECIFIED 02/25/2008 KAI HAILE DENZEL S 780.52 INSOMNIA UNSPECIFIED 02/25/2008 MAGAN QUINN APRNNDA S 780.52 INSOMNIA UNSPECIFIED 02/25/2008 KAI ASSISTANT PROFESSOR OF CHEMISTRY, DENZEL S 780.52 INSOMNIA UNSPECIFIED 02/25/2008 KAI ASSISTANT PROFESSOR OF CHEMISTRY, DENZEL S 780.52 INSOMNIA UNSPECIFIED 05/30/2008 KAI ASSISTANT PROFESSOR OF CHEMISTRY, DENZEL S 465.9 UPPER RESPIRATORY INFECTION 05/30/2008 KAI ASSISTANT PROFESSOR OF CHEMISTRY, DENZEL S 625.6 STRESS INCONTINENCE FEMALE 05/30/2008 RADHA ASSISTANT PROFESSOR OF CHEMISTRY, CATERINA R 465.9 UPPER RESPIRATORY INFECTION 05/30/2008 RADHA ASSISTANT PROFESSOR OF CHEMISTRY, CATERINA R 625.6 STRESS INCONTINENCE FEMALE 05/30/2008 KAI ASSISTANT PROFESSOR OF CHEMISTRY, DENZEL S 465.9 UPPER RESPIRATORY INFECTION 05/30/2008 KAI ASSISTANT PROFESSOR OF CHEMISTRY, DENZEL S 625.6 STRESS INCONTINENCE FEMALE 05/30/2008 KAI ASSISTANT PROFESSOR OF CHEMISTRY, DENZEL S 465.9 UPPER RESPIRATORY INFECTION 05/30/2008 KAI ASSISTANT PROFESSOR OF CHEMISTRY, DENZEL S 625.6 STRESS INCONTINENCE FEMALE 05/30/2008 KAI ASSISTANT PROFESSOR OF CHEMISTRY, DENZEL S 465.9 UPPER RESPIRATORY INFECTION 05/30/2008 KAI ASSISTANT PROFESSOR OF CHEMISTRY, DENZEL S 625.6 STRESS INCONTINENCE FEMALE 05/30/2008 KAI ASSISTANT PROFESSOR OF CHEMISTRY, DENZEL S 465.9 UPPER RESPIRATORY INFECTION 05/30/2008 KAI ASSISTANT PROFESSOR OF CHEMISTRY, DENZEL S 625.6 STRESS INCONTINENCE FEMALE 06/22/2008 KAI ASSISTANT PROFESSOR OF CHEMISTRY, DENZEL S 782.1 RASH 06/22/2008 RADHA ASSISTANT PROFESSOR OF CHEMISTRY, CATERINA R 782.1 RASH 06/22/2008 KAI ASSISTANT PROFESSOR OF CHEMISTRY, DENZEL S 782.1 RASH 06/22/2008 KAI ASSISTANT PROFESSOR OF CHEMISTRY, DENZEL S 782.1 RASH 06/22/2008 KAI ASSISTANT PROFESSOR OF CHEMISTRY, DENZEL S 782.1 RASH 06/22/2008 KAI ASSISTANT PROFESSOR OF CHEMISTRY, DENZEL S 782.1 RASH 09/12/2009 KAI ASSISTANT PROFESSOR OF CHEMISTRY, DENZEL S 780.4 DIZZINESS AND GIDDINESS 09/12/2009 KAI ASSISTANT PROFESSOR OF CHEMISTRY, DENZEL S 787.02 NAUSEA ALONE 09/12/2009 RADHA ASSISTANT PROFESSOR OF CHEMISTRY, CATERINA R 780.4 DIZZINESS AND GIDDINESS 09/12/2009 RADHA ASSISTANT PROFESSOR OF CHEMISTRY, CATERINA R 787.02 NAUSEA ALONE 09/12/2009 KAI ASSISTANT PROFESSOR OF CHEMISTRY, DENZEL S 780.4 DIZZINESS AND GIDDINESS 09/12/2009 KAI ASSISTANT PROFESSOR OF CHEMISTRY, DENZEL S 787.02 NAUSEA ALONE 09/12/2009 KAI ASSISTANT PROFESSOR OF CHEMISTRY, DENZEL S 780.4 DIZZINESS AND GIDDINESS 09/12/2009 KAI ASSISTANT PROFESSOR OF CHEMISTRY, DENZEL S 787.02 NAUSEA ALONE 09/12/2009 KAI ASSISTANT PROFESSOR OF CHEMISTRY, DENZEL S 780.4 DIZZINESS AND GIDDINESS 09/12/2009 KAI ASSISTANT PROFESSOR OF CHEMISTRY, DENZEL S 787.02 NAUSEA ALONE 09/12/2009 KAI ASSISTANT PROFESSOR OF CHEMISTRY, DENZEL S 780.4 DIZZINESS AND GIDDINESS 09/12/2009 KAI ASSISTANT PROFESSOR OF CHEMISTRY, DENZEL S 787.02 NAUSEA ALONE 09/28/2009 KAI ASSISTANT PROFESSOR OF CHEMISTRYMAGANDENZEL S 354.0 CARPAL TUNNEL SYNDROME 09/28/2009 KAI FAJARDON DENZEL S 381.81 DYSFUNCTION OF EUSTACHIAN TUBE 09/28/2009 RADHA HAILE CATERINA R 354.0 CARPAL TUNNEL SYNDROME 09/28/2009 LIO GARCIA APRNINA R 381.81 DYSFUNCTION OF EUSTACHIAN TUBE 09/28/2009 MAGAN QUINN APRNNDA S 354.0 CARPAL TUNNEL SYNDROME 09/28/2009 MAGAN QUINN APRNNDA S 381.81 DYSFUNCTION OF EUSTACHIAN TUBE 09/28/2009 KAI FAJARDON DENZEL S 354.0 CARPAL TUNNEL SYNDROME 09/28/2009 KAI HAILE DENZEL S 381.81 DYSFUNCTION OF EUSTACHIAN TUBE 09/28/2009 MAGAN QUINN APRNNDA S 354.0 CARPAL TUNNEL SYNDROME 09/28/2009 MAGAN QUINN APRNNDA S 381.81 DYSFUNCTION OF EUSTACHIAN TUBE 09/28/2009 KAI FAJARDON DENZEL S 354.0 CARPAL TUNNEL SYNDROME 09/28/2009 KAI HAILE DENZEL S 381.81 DYSFUNCTION OF EUSTACHIAN TUBE 05/01/2010 MAGAN QUINN APRNNDA S 715.04 OSTEOARTHROSIS GENERALIZED INVOLVING HAND 05/01/2010 RADHA FAJARDON CATERINA R 715.04 OSTEOARTHROSIS GENERALIZED INVOLVING HAND 05/01/2010 MAGAN QUINN APRNNDA S 715.04 OSTEOARTHROSIS GENERALIZED INVOLVING HAND 05/01/2010 KAI ASSISTANT PROFESSOR OF CHEMISTRY, DENZEL S 715.04 OSTEOARTHROSIS GENERALIZED INVOLVING HAND 05/01/2010 KAI ASSISTANT PROFESSOR OF CHEMISTRY, DENZEL S 715.04 OSTEOARTHROSIS GENERALIZED INVOLVING HAND 05/01/2010 KAI ASSISTANT PROFESSOR OF CHEMISTRY, DENZEL S 715.04 OSTEOARTHROSIS GENERALIZED INVOLVING HAND 06/15/2010 KAI ASSISTANT PROFESSOR OF CHEMISTRY, DENZEL S 466.0 BRONCHITIS, ACUTE 06/15/2010 RADHA ASSISTANT PROFESSOR OF CHEMISTRY, CATERINA R 466.0 BRONCHITIS, ACUTE 06/15/2010 KAI ASSISTANT PROFESSOR OF CHEMISTRY, DENZEL S 466.0 BRONCHITIS, ACUTE 06/15/2010 KAI ASSISTANT PROFESSOR OF CHEMISTRY, DENZEL S 466.0 BRONCHITIS, ACUTE 06/15/2010 KAI ASSISTANT PROFESSOR OF CHEMISTRY, DENZEL S 466.0 BRONCHITIS, ACUTE 06/15/2010 KAI ASSISTANT PROFESSOR OF CHEMISTRY, DENZEL S 466.0 BRONCHITIS, ACUTE 10/11/2010 KAI ASSISTANT PROFESSOR OF CHEMISTRY, DENZEL S 382.9 OTITIS MEDIA 10/11/2010 RADHA ASSISTANT PROFESSOR OF CHEMISTRY, CATERINA R 382.9 OTITIS MEDIA 10/11/2010 KAI ASSISTANT PROFESSOR OF CHEMISTRY, DENZEL S 382.9 OTITIS MEDIA 10/11/2010 KAI ASSISTANT PROFESSOR OF CHEMISTRY, DENZEL S 382.9 OTITIS MEDIA 10/11/2010 KAI ASSISTANT PROFESSOR OF CHEMISTRY, DENZEL S 382.9 OTITIS MEDIA 10/11/2010 KAI ASSISTANT PROFESSOR OF CHEMISTRY, DENZEL S 382.9 OTITIS MEDIA 11/27/2010 KAI ASSISTANT PROFESSOR OF CHEMISTRY, DENZEL S 070.70 UNSPECIFIED VIRAL HEPATITIS C WITHOUT HEPATIC COMA 11/27/2010 KAI ASSISTANT PROFESSOR OF CHEMISTRY, DENZEL S 682.4 CELLULITIS AND ABSCESS OF HAND EXCEPT FINGERS AND THUMB 11/27/2010 RADHA ASSISTANT PROFESSOR OF CHEMISTRY, CATERINA R 070.70 UNSPECIFIED VIRAL HEPATITIS C WITHOUT HEPATIC COMA 11/27/2010 RADHA ASSISTANT PROFESSOR OF CHEMISTRY, CATERINA R 682.4 CELLULITIS AND ABSCESS OF HAND EXCEPT FINGERS AND THUMB 11/27/2010 KAI ASSISTANT PROFESSOR OF CHEMISTRY, DENZEL S 070.70 UNSPECIFIED VIRAL HEPATITIS C WITHOUT HEPATIC COMA 11/27/2010 KAI ASSISTANT PROFESSOR OF CHEMISTRY, DENZEL S 682.4 CELLULITIS AND ABSCESS OF HAND EXCEPT FINGERS AND THUMB 11/27/2010 KAI ASSISTANT PROFESSOR OF CHEMISTRY, DENZEL S 070.70 UNSPECIFIED VIRAL HEPATITIS C WITHOUT HEPATIC COMA 11/27/2010 KAI ASSISTANT PROFESSOR OF CHEMISTRY, DENZEL S 682.4 CELLULITIS AND ABSCESS OF HAND EXCEPT FINGERS AND THUMB 11/27/2010 KAI ASSISTANT PROFESSOR OF CHEMISTRY, DENZEL S 070.70 UNSPECIFIED VIRAL HEPATITIS C WITHOUT HEPATIC COMA 11/27/2010 KAI ASSISTANT PROFESSOR OF CHEMISTRY, DENZEL S 682.4 CELLULITIS AND ABSCESS OF HAND EXCEPT FINGERS AND THUMB 11/27/2010 KAI ASSISTANT PROFESSOR OF CHEMISTRY, DENZEL S 070.70 UNSPECIFIED VIRAL HEPATITIS C WITHOUT HEPATIC COMA 11/27/2010 KAI ASSISTANT PROFESSOR OF CHEMISTRY, DENZEL S 682.4 CELLULITIS AND ABSCESS OF HAND EXCEPT FINGERS AND THUMB 03/23/2011 KAI ASSISTANT PROFESSOR OF CHEMISTRY, DENZEL S 296.30 MAJOR DEPRESSIVE AFFECTIVE DISORDER RECURRENT EPISODE UNSPECIFIED DEGREE 03/23/2011 KAI ASSISTANT PROFESSOR OF CHEMISTRY, DENZEL S 461.9 ACUTE SINUSITIS UNSPECIFIED 03/23/2011 RADHA ASSISTANT PROFESSOR OF CHEMISTRY, CATERINA R 296.30 MAJOR DEPRESSIVE AFFECTIVE DISORDER RECURRENT EPISODE UNSPECIFIED DEGREE 03/23/2011 RADHA FAJARDON, CATERINA R 461.9 ACUTE SINUSITIS UNSPECIFIED 03/23/2011 KAI HAILE, DENZEL S 296.30 MAJOR DEPRESSIVE AFFECTIVE DISORDER RECURRENT EPISODE UNSPECIFIED DEGREE 03/23/2011 KAI FAJARDON, DENZEL S 461.9 ACUTE SINUSITIS UNSPECIFIED 03/23/2011 KAI FAJARDON, DENZEL S 296.30 MAJOR DEPRESSIVE AFFECTIVE DISORDER RECURRENT EPISODE UNSPECIFIED DEGREE 03/23/2011 KAI ASSISTANT PROFESSOR OF CHEMISTRY, DENZEL S 461.9 ACUTE SINUSITIS UNSPECIFIED 03/23/2011 KAI HAILE, DENZEL S 296.30 MAJOR DEPRESSIVE AFFECTIVE DISORDER RECURRENT EPISODE UNSPECIFIED DEGREE 03/23/2011 KAI ASSISTANT PROFESSOR OF CHEMISTRY, DENZEL S 461.9 ACUTE SINUSITIS UNSPECIFIED 03/23/2011 KAI ASSISTANT PROFESSOR OF CHEMISTRY, DENZEL S 296.30 MAJOR DEPRESSIVE AFFECTIVE DISORDER RECURRENT EPISODE UNSPECIFIED DEGREE 03/23/2011 KAI ASSISTANT PROFESSOR OF CHEMISTRY, DENZEL S 461.9 ACUTE SINUSITIS UNSPECIFIED 06/08/2012 KAI HAILE, DENZEL S 300.00 ANXIETY UNSPEC 06/08/2012 RADHA ASSISTANT PROFESSOR OF CHEMISTRY, CATERINA R 300.00 ANXIETY UNSPEC 06/08/2012 KAI HAILE, DENZEL S 300.00 ANXIETY UNSPEC 06/08/2012 KAI ASSISTANT PROFESSOR OF CHEMISTRY, DENZEL S 300.00 ANXIETY UNSPEC 06/08/2012 KAI ASSISTANT PROFESSOR OF CHEMISTRY, DENZEL S 300.00 ANXIETY UNSPEC 06/08/2012 KAI ASSISTANT PROFESSOR OF CHEMISTRY, DENZEL S 300.00 ANXIETY UNSPEC 06/26/2013 RADHA LIO HAILEINA R 786.09 RESPIRATORY ABNORMALITY OTHER 06/26/2013 KAI ASSISTANT PROFESSOR OF CHEMISTRY, DENZEL S 786.09 RESPIRATORY ABNORMALITY OTHER 06/26/2013 KAI ASSISTANT PROFESSOR OF CHEMISTRY, DENZEL S 786.09 RESPIRATORY ABNORMALITY OTHER 06/26/2013 KAI ASSISTANT PROFESSOR OF CHEMISTRY, DENZEL S 786.09 RESPIRATORY ABNORMALITY OTHER 06/26/2013 KAI ASSISTANT PROFESSOR OF CHEMISTRY, DENZEL S 786.09 RESPIRATORY ABNORMALITY OTHER 07/01/2013 KAI ASSISTANT PROFESSOR OF CHEMISTRY, DENZEL S 070.54 HEPATITIS C CHRONIC 07/01/2013 KAI ASSISTANT PROFESSOR OF CHEMISTRY, DENZEL S 789.59 ASCITES OTHER 07/01/2013 KAI ASSISTANT PROFESSOR OF CHEMISTRY, DENZEL S V04.81 FLU SHOT 07/01/2013 KAI ASSISTANT PROFESSOR OF CHEMISTRY, DENZEL S 070.54 HEPATITIS C CHRONIC 07/01/2013 KAI ASSISTANT PROFESSOR OF CHEMISTRY, DENZEL S 789.59 ASCITES OTHER 07/01/2013 KAI ASSISTANT PROFESSOR OF CHEMISTRY, DENZEL S V04.81 FLU SHOT 07/01/2013 KAI ASSISTANT PROFESSOR OF CHEMISTRY, DENZEL S 070.54 HEPATITIS C CHRONIC 07/01/2013 KAI ASSISTANT PROFESSOR OF CHEMISTRY, DENZEL S 789.59 ASCITES OTHER 07/01/2013 KAI FAJARDON, DENZEL S V04.81 FLU SHOT 07/01/2013 KAI ASSISTANT PROFESSOR OF CHEMISTRY, DENZEL S 070.54 HEPATITIS C CHRONIC 07/01/2013 KAI ASSISTANT PROFESSOR OF CHEMISTRY, DENZEL S 789.59 ASCITES OTHER 07/01/2013 KAI ASSISTANT PROFESSOR OF CHEMISTRY, DENZEL S V04.81 FLU SHOT 07/26/2013 KAI ASSISTANT PROFESSOR OF CHEMISTRY, DENZEL S 729.82 CRAMP OF LIMB 07/26/2013 KAI ASSISTANT PROFESSOR OF CHEMISTRY, DENZEL S 729.82 CRAMP OF LIMB 07/26/2013 KAI ASSISTANT PROFESSOR OF CHEMISTRY, DENZEL S 729.82 CRAMP OF LIMB 09/14/2013 KAI FAJARDON, DENZEL S 287.5 THROMBOCYTOPENIA 09/14/2013 KAI ASSISTANT PROFESSOR OF CHEMISTRY, DENZEL S 288.3 EOSINOPHILIA 09/14/2013 KAI ASSISTANT PROFESSOR OF CHEMISTRY, DENZEL S 287.5 THROMBOCYTOPENIA 09/14/2013 KAI ASSISTANT PROFESSOR OF CHEMISTRY, DENZEL S 288.3 EOSINOPHILIA 09/14/2013 KAI ASSISTANT PROFESSOR OF CHEMISTRY, DENZEL S 287.5 THROMBOCYTOPENIA 09/14/2013 KAI ASSISTANT PROFESSOR OF CHEMISTRY, DENZEL S 288.3 EOSINOPHILIA 01/03/2014 JESUS GREEN MD Ot 070.70 UNSPECIFIED VIRAL HEPATITIS C WITHOUT HE 01/03/2014 JESUS GREEN MD Ot 287.5 THROMBOCYTOPENIA NOS 01/03/2014 JESUS GREEN MD Ot 288.50 LEUKOCYTOPENIA, UNSPECIFIED 01/03/2014 JESUS GREEN MD Ot 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 01/03/2014 JESUS GREEN MD Ot 571.5 CIRRHOSIS OF LIVER NOS 01/03/2014 JESUS GREEN MD Ot 780.79 OTH MALAISE FATIGUE 05/30/2014 Ot 070.70 05/30/2014 Ot 287.5 05/30/2014 Ot 288.50 05/30/2014 Ot 305.90 05/30/2014 Ot 571.5 05/30/2014 Ot 780.79 09/20/2014 Ot 786.50 CHEST PAIN NOS 09/20/2014 Ot 786.52 PAINFUL RESPIRATION 12/15/2016 HORACIO WHEELER Ot L03.115 CELLULITIS OF RIGHT LOWER LIMB 12/15/2016 HORACIO WHEELER Ot M79.671 PAIN IN RIGHT FOOT 12/15/2016 HORACIO WHEELER Ot X58.XXXA EXPOSURE TO OTHER SPECIFIED FACTORS, INI 12/15/2016 HORACIO WHEELER Ot Z87.891 PERSONAL HISTORY OF NICOTINE DEPENDENCE 12/15/2016 DENZEL QUINN Ot 070.54 CHRONIC HEPATITIS C W/O HEPATIC COMA 12/15/2016 DENZEL QUINN Ot 789.59 OTHER ASCITES 04/20/2017 DENZEL QUINN Ot 070.54 CHRONIC HEPATITIS C W/O HEPATIC COMA 04/20/2017 DENZEL QUINN Ot 789.59 OTHER ASCITES 04/20/2017 CHIRAG BELLA DO Ot B19.20 UNSPECIFIED VIRAL HEPATITIS C WITHOUT HE 04/20/2017 CHIRAG BELLA DO Ot L03.115 CELLULITIS OF RIGHT LOWER LIMB 04/20/2017 SHAYNE CARRERO CHIRAG Mak Ot L03.116 CELLULITIS OF LEFT LOWER LIMB 04/20/2017 CHIRAG BELLA DO Ot M79.89 OTHER SPECIFIED SOFT TISSUE DISORDERS 04/20/2017 SHAYNE CARRERO CHIRAG Mak Ot R60.0 LOCALIZED EDEMA 04/20/2017 SHAYNE CARRERO CHIRAG Aubree Ot Z87.19 PERSONAL HISTORY OF OTHER DISEASES OF TH 04/20/2017 SHAYNE CARRERO CHIRAG Aubree Ot Z87.59 PERSONAL HISTORY OF COMP OF PREG, CHLDBR 04/20/2017 SHAYNE CARRERO CHIRAG Aubree Chaparro Z87.891 PERSONAL HISTORY OF NICOTINE DEPENDENCE 04/20/2017 SHAYNE CARRERO CHIRAG Aubree Ot Z90.49 ACQUIRED ABSENCE OF OTHER SPECIFIED PART 04/20/2017 SHAYNE CARRERO CHIRAG Mak Ot Z91.19 PATIENT'S NONCOMPLIANCE W [facility] Procedures Code Description [place] [address] OXIMETRY 06/26/2013 97814 ROUTINE VENIPUNCTURE 07/01/2013 17340 XRAY CHEST 2 VIEW 07/01/2013 23801 HEP B SURFACE ANTIGEN (STATE ) 07/01/2013 63027 OXIMETRY 07/01/2013 55919 URINE DRUG SCREEN (IN-HOUSE ) 07/01/2013 29346 CMP 07/01/2013 [id number] GFR CALC (RESULT ONLY) 07/01/2013 85213 HEP A ANTIBODY, IGM (RML) 07/01/2013 13309 PT/INR 07/01/2013 20362 CBC 07/01/2013 97735 HIV ANTIBODIES (RML) 07/02/2013 92883 HEP B SURFACE ANTIBODY 07/02/2013 86735 HEP C PCR QUANT W/KRYSTAL 07/06/2013 88081 US ABDOMINAL ULTRASOUND, COMPLETE 07/14/2013 13262 GENOTYPE DNA HEPATITIS C 07/15/2013 53905 ROUTINE VENIPUNCTURE 07/26/2013 Medical O [facility] 07/26/2013 54151 URINE DRUG SCREEN (IN-HOUSE ) 07/26/2013 [id number] GFR CALC (RESULT ONLY) 07/26/2013 57847 CMP 07/26/2013 85287 FERRITIN 07/26/2013 Results Test Result Range Complete blood count (CBC) with automated white blood cell (WBC) differential - 12/15/16 00:12 Blood leukocytes automated count (number/volume) 8.0 10*3/uL 4.3-11.0 Blood erythrocytes automated count (number/volume) 4.28 10*6/uL 4.35-5.85 Venous blood hemoglobin measurement (mass/volume) 12.7 g/dL 11.5-16.0 Blood hematocrit (volume fraction) 37 % 35-52 Automated erythrocyte mean corpuscular volume 86 [foz_us] 80-99 Automated erythrocyte mean corpuscular hemoglobin (mass per erythrocyte) 30 pg 25-34 Automated erythrocyte mean corpuscular hemoglobin concentration measurement ( mass/volume) 35 g/dL 32-36 Automated erythrocyte distribution width ratio 14.4 % 10.0-14.5 Automated blood platelet count (count/volume) 48 10*3/uL 130-400 Automated blood platelet mean volume measurement 10.3 [foz_us] 7.4-10.4 Automated blood neutrophils/100 leukocytes 67 % 42-75 Automated blood lymphocytes/100 leukocytes 14 % 12-44 Blood monocytes/100 leukocytes 16 % 0-12 Automated blood eosinophils/100 leukocytes 3 % 0-10 Automated blood basophils/100 leukocytes 0 % 0-10 Blood neutrophils automated count (number/volume) 5.4 10*3 1.8-7.8 Blood lymphocytes automated count (number/volume) 1.1 10*3 1.0-4.0 Blood monocytes automated count (number/volume) 1.3 10*3 0.0-1.0 Automated eosinophil count 0.3 10*3/uL 0.0-0.3 Automated blood basophil count (count/volume) 0.0 10*3/uL 0.0-0.1 Comprehensive metabolic panel - 12/15/16 00:12 Serum or plasma sodium measurement (moles/volume) 133 mmol/L 135-145 Serum or plasma potassium measurement (moles/volume) 3.4 mmol/L 3.6-5.0 Serum or plasma chloride measurement (moles/volume) 100 mmol/L 98-107 Carbon dioxide 22 mmol/L 21-32 Serum or plasma anion gap determination (moles/volume) 11 mmol/L 5-14 Serum or plasma urea nitrogen measurement (mass/volume) 16 mg/dL 7-18 Serum or plasma creatinine measurement (mass/volume) 0.79 mg/dL 0.60-1.30 Serum or plasma urea nitrogen/creatinine mass ratio 20 NRG Serum or plasma creatinine measurement with calculation of estimated glomerular filtration rate > NRG Serum or plasma glucose measurement (mass/volume) 108 mg/dL 70-105 Serum or plasma calcium measurement (mass/volume) 8.7 mg/dL 8.5-10.1 Serum or plasma total bilirubin measurement (mass/volume) 2.3 mg/dL 0.1-1.0 Serum or plasma alkaline phosphatase measurement (enzymatic activity/volume) 59 U/L 40-136 Serum or plasma aspartate aminotransferase measurement (enzymatic activity/ volume) 34 U/L 5-34 Serum or plasma alanine aminotransferase measurement (enzymatic activity/volume ) 24 U/L 0-55 Serum or plasma protein measurement (mass/volume) 6.9 g/dL 6.4-8.2 Serum or plasma albumin measurement (mass/volume) 3.3 g/dL 3.2-4.5 Erythrocyte sedimentation rate by westergren method - 12/15/16 00:12 Erythrocyte sedimentation rate by westergren method 34 mm 0-30 Complete urinalysis with reflex to culture - 12/15/16 00:48 Urine color determination YELLOW NRG Urine clarity determination CLEAR NRG Urine pH measurement by test strip 6 5-9 Specific gravity of urine by test strip 1.015 1.016- 1.022 Urine protein assay by test strip, semi-quantitative NEGATIVE NEGATIVE Urine glucose detection by automated test strip NEGATIVE NEGATIVE Erythrocytes detection in urine sediment by light microscopy 2+ NEGATIVE Urine ketones detection by automated test strip NEGATIVE NEGATIVE Urine nitrite detection by test strip NEGATIVE NEGATIVE Urine total bilirubin detection by test strip NEGATIVE NEGATIVE Urine urobilinogen measurement by automated test strip (mass/volume) 1 mg/dL NORMAL Urine leukocyte esterase detection by dipstick 2+ NEGATIVE Automated urine sediment erythrocyte count by microscopy (number/high power field) [HPF] NRG Automated urine sediment leukocyte count by microscopy (number/high power field ) [HPF] NRG Bacteria detection in urine sediment by light microscopy TRACE NRG Squamous epithelial cells detection in urine sediment by light microscopy 2-5 NRG Crystals detection in urine sediment by light microscopy NONE NRG Casts detection in urine sediment by light microscopy NONE NRG Mucus detection in urine sediment by light microscopy SMALL NRG Complete urinalysis with reflex to culture NO NRG Complete blood count (CBC) with automated white blood cell (WBC) differential - 04/20/17 04:16 Blood leukocytes automated count (number/volume) 4.0 10*3/uL 4.3-11.0 Blood erythrocytes automated count (number/volume) 4.57 10*6/uL 4.35-5.85 Venous blood hemoglobin measurement (mass/volume) 13.5 g/dL 11.5-16.0 Blood hematocrit (volume fraction) 40 % 35-52 Automated erythrocyte mean corpuscular volume 87 [foz_us] 80-99 Automated erythrocyte mean corpuscular hemoglobin (mass per erythrocyte) 30 pg 25-34 Automated erythrocyte mean corpuscular hemoglobin concentration measurement ( mass/volume) 34 g/dL 32-36 Automated erythrocyte distribution width ratio 14.1 % 10.0-14.5 Automated blood platelet count (count/volume) 69 10*3/uL 130-400 Automated blood platelet mean volume measurement 10.0 [foz_us] 7.4-10.4 Automated blood neutrophils/100 leukocytes 52 % 42-75 Automated blood lymphocytes/100 leukocytes 24 % 12-44 Blood monocytes/100 leukocytes 17 % 0-12 Automated blood eosinophils/100 leukocytes 6 % 0-10 Automated blood basophils/100 leukocytes 2 % 0-10 Blood neutrophils automated count (number/volume) 2.1 10*3 1.8-7.8 Blood lymphocytes automated count (number/volume) 1.0 10*3 1.0-4.0 Blood monocytes automated count (number/volume) 0.7 10*3 0.0-1.0 Automated eosinophil count 0.2 10*3/uL 0.0-0.3 Automated blood basophil count (count/volume) 0.1 10*3/uL 0.0-0.1 PT panel in platelet poor plasma by coagulation assay - 04/20/17 04:16 Prothrombin time (PT) in platelet poor plasma by coagulation assay 14.9 s 12.2-14.7 INR in platelet poor plasma or blood by coagulation assay 1.2 0.8-1.4 Activated partial thromboplastin time (aPTT) in platelet poor plasma bycoagulation assay - 04/20/17 04:16 Activated partial thromboplastin time (aPTT) in platelet poor plasma bycoagulation assay 34 s 24-35 Comprehensive metabolic panel - 04/20/17 04:16 Serum or plasma sodium measurement (moles/volume) 135 mmol/L 135-145 Serum or plasma potassium measurement (moles/volume) 3.4 mmol/L 3.6-5.0 Serum or plasma chloride measurement (moles/volume) 104 mmol/L 98-107 Carbon dioxide 19 mmol/L 21-32 Serum or plasma anion gap determination (moles/volume) 12 mmol/L 5-14 Serum or plasma urea nitrogen measurement (mass/volume) 18 mg/dL 7-18 Serum or plasma creatinine measurement (mass/volume) 0.98 mg/dL 0.60-1.30 Serum or plasma urea nitrogen/creatinine mass ratio 18 NRG Serum or plasma creatinine measurement with calculation of estimated glomerular filtration rate 58 NRG Serum or plasma glucose measurement (mass/volume) 116 mg/dL 70-105 Serum or plasma calcium measurement (mass/volume) 9.3 mg/dL 8.5-10.1 Serum or plasma total bilirubin measurement (mass/volume) 1.4 mg/dL 0.1-1.0 Serum or plasma alkaline phosphatase measurement (enzymatic activity/volume) 78 U/L 40-136 Serum or plasma aspartate aminotransferase measurement (enzymatic activity/ volume) 78 U/L 5-34 Serum or plasma alanine aminotransferase measurement (enzymatic activity/volume ) 76 U/L 0-55 Serum or plasma protein measurement (mass/volume) 7.3 g/dL 6.4-8.2 Serum or plasma albumin measurement (mass/volume) 3.6 g/dL 3.2-4.5 Magnesium - 04/20/17 04:16 Magnesium 2.0 mg/dL 1.8-2.4 Serum or plasma lithium measurement (moles/volume) - 04/20/17 04:16 BNP level 10.9 pg/mL <100.0 Serum or plasma thyrotropin measurement by detection limit <=0.05 miu/l (units/ volume) - 04/20/17 04:16 Serum or plasma thyrotropin measurement by detection limit <=0.05 miu/l (units/ volume) 2.05 u[iU]/mL 0.35-4.94 Encounters ACCT No. Visit Date/Time Discharge Status Pt. Type Provider Facility Loc./Unit Complaint [id number] 04/20/2017 04:07:00 04/20/2017 05:15:00 DIS Emergency SHAYNE CHIRAG CARRERO K [facility] [address] ER SWELLING IN LEGS [id number] 12/14/2016 22:43:00 12/15/2016 01:35:00 DIS Emergency HORACIO WHEELER [facility] [address] ER R FOOT PAIN AFTER STEPPING ON NAIL [id number] 02/16/2014 12:22:00 02/16/2014 23:59:59 CLS Outpatient [id number] 10/05/2013 13:03:00 01/03/2014 00:01:00 DIS Outpatient PETER REYES, SHERRILLDWAYNE [facility] [address] ONC [id number] 07/12/2013 07:23:00 07/12/2013 23:59:59 CLS Outpatient DENZEL QUINN [facility] [address] RAD HX OF HEP C, ASCITES [id number] 09/20/2014 14:22:00 Document Registration [id number] 06/07/2014 14:06:00 Document Registration [id number] 07/06/2014 10:23:00 07/06/2014 23:59:59 CLS Outpatient DENZEL QUINN APRN [id number] 01/25/2014 00:00:00 01/25/2014 23:59:59 CLS Outpatient DENZEL QUINN APRN [id number] 07/26/2013 11:42:00 07/26/2013 23:59:59 CLS Outpatient DENZEL QUINN APRN [id number] 07/01/2013 10:39:00 07/01/2013 23:59:59 CLS Outpatient DENZEL QUINN APRN [id number] 06/26/2013 09:01:00 06/26/2013 23:59:59 CLS Outpatient CATERINA GARCIA APRN [id number] 06/08/2012 10:08:00 06/08/2012 23:59:59 CLS Outpatient DENZEL QUINN APRN S
[2017-09-17] MEDS ORDERED: KETOROLAC 30 MG/ML VIAL IVP STA (21:06)
[2017-09-17 21:14] LABS: BASOPHILS % (AUTO) 1 % (0-10); EOSINOPHILS # (AUTO) 0.3 10^3/uL (0.0-0.3); EOSINOPHILS % (AUTO) 6 % (0-10); HEMATOCRIT 35 % (35-52); HEMOGLOBIN 12.6 G/DL (11.5-16.0); LYMPHOCYTES # (AUTO) 0.9 X 10^3 (1.0-4.0); LYMPHOCYTES % (AUTO) 18 % (12-44); MEAN CORPUSCULAR HEMOGLOBIN 31 PG (25-34); MEAN CORPUSCULAR HGB CONC 36 G/DL (32-36); MEAN CORPUSCULAR VOLUME 86 FL (80-99); MEAN PLATELET VOLUME 11.1 FL (7.4-10.4); MONOCYTES # (AUTO) 0.6 X 10^3 (0.0-1.0); MONOCYTES % (AUTO) 13 % (0-12); NEUTROPHILS % (AUTO) 63 % (42-75); PLATELET COUNT 72 10^3/uL (130-400); RED BLOOD COUNT 4.11 10^6/uL (4.35-5.85); RED CELL DISTRIBUTION WIDTH 14.5 % (10.0-14.5); WHITE BLOOD COUNT 4.8 10^3/uL (4.3-11.0)
[2017-09-17 21:26] LABS: ALANINE AMINOTRANSFERASE 161 U/L (0-55); ALBUMIN 3.3 GM/DL (3.2-4.5); ALKALINE PHOSPHATASE 74 U/L (40-136); BILIRUBIN,TOTAL 1.7 MG/DL (0.1-1.0); BUN/CREATININE RATIO 20; CALCIUM 8.6 MG/DL (8.5-10.1); CARBON DIOXIDE 23 MMOL/L (21-32); CHLORIDE 100 MMOL/L (98-107); CREATININE SERUM 0.81 MG/DL (0.60-1.30); GFR ESTIMATED > 60; GLUCOSE 99 MG/DL (70-105); SODIUM 132 MMOL/L (135-145); TOTAL PROTEIN 7.1 GM/DL (6.4-8.2)
[2017-09-17] MEDS ORDERED: CLIN300C11 PO (22:02)
[2017-09-17] MEDS ORDERED: SILVER SULFADIAZINE 50 GM CREAM ONE (22:49)
[2017-09-17] MEDS ORDERED: FUROSEMIDE 20 MG (LASIX) TAB ONE (22:59)
[2017-09-17] MEDS ORDERED: CLOT15CR4 TP (22:59)
[2017-09-17] MEDS ORDERED: FUROSEMIDE 40 MG (LASIX) TAB PO ONE (23:00)
[2017-09-17] MEDS ORDERED: CLINDAMYCIN 150 MG (CLEOCIN) CAP PO ONE (23:00)
[2017-09-17 23:15] VITALS: BP 98/56
[2017-09-18] MEDS ORDERED: SILVER SULFADIAZINE 50 GM CREAM TOP SCH (09:00)
[2017-09-18] MEDS ORDERED: CEPH500T PO (17:41)
== END 2017-09-17 23:15 | disposition home or self-care (01) ==
LOC: EDUNIT# 19:41 → ER 19:43
DX: L03.115 Cellulitis of right lower limb (principal); L03.116 Cellulitis of left lower limb; K74.60 Unspecified cirrhosis of liver; B19.20 Unspecified viral hepatitis C without hepatic coma; Z87.19 Personal history of other diseases of the digestive system; Z88.5 Allergy status to narcotic agent; Z87.891 Personal history of nicotine dependence; Z90.49 Acquired absence of other specified parts of digestive tract; Z87.59 Personal history of other complications of pregnancy, childbirth and the puerperium; Z90.89 Acquired absence of other organs
CPT/HCPCS: 36415; 80053; 85025; 86141; 87070; 87077; 87186; 87205

== ENCOUNTER → 2017-10-02 | Outpatient (CLI) | payer SELFPAY ==
[~2017-10-02] MED LIST changes: +CEPH500T PO; +CLIN300C11 PO; +CLOT15CR4 TP; +LACT10SO33 PO
--- NOTE | 2017-10-02 10:50 | Diagnostic Imaging Report ---
INDICATION: Cirrhosis. FINDINGS: The liver measures 12.6 cm in size. There is somewhat of a nodular contour. There is diffuse parenchymal heterogeneity and features are suggestive of cirrhosis. No discrete liver mass is identified. The portal vein remains patent and demonstrates normal direction of flow. The gallbladder is surgically absent. No biliary ductal dilatation is seen. The pancreas is obscured. The right kidney is unremarkable. No ascites is detected. IMPRESSION: Findings are suggestive of cirrhosis. No discrete liver mass is detected. No ascites is seen. Dictated by: Dictated on workstation # [id number]
== END ==
LOC: RAD 09:36
PROVIDERS: ATTEND Pediatrics
DX: K74.60 Unspecified cirrhosis of liver (principal)
CPT/HCPCS: 76705

== ENCOUNTER 2017-10-08 22:52 | Emergency (ER) | payer SELFPAY ==
[~2017-10-08] VITALS: Ht 157.5 cm; Wt 70.3 kg
[2017-10-09 00:45] LABS: BASOPHILS % (AUTO) 1 % (0-10); EOSINOPHILS # (AUTO) 0.4 10^3/uL (0.0-0.3); EOSINOPHILS % (AUTO) 6 % (0-10); HEMATOCRIT 41 % (35-52); HEMOGLOBIN 14.5 G/DL (11.5-16.0); LYMPHOCYTES # (AUTO) 0.9 X 10^3 (1.0-4.0); LYMPHOCYTES % (AUTO) 13 % (12-44); MEAN CORPUSCULAR HEMOGLOBIN 31 PG (25-34); MEAN CORPUSCULAR HGB CONC 36 G/DL (32-36); MEAN CORPUSCULAR VOLUME 86 FL (80-99); MEAN PLATELET VOLUME 10.3 FL (7.4-10.4); MONOCYTES # (AUTO) 0.7 X 10^3 (0.0-1.0); MONOCYTES % (AUTO) 11 % (0-12); NEUTROPHILS # (AUTO) 4.5 X 10^3 (1.8-7.8); NEUTROPHILS % (AUTO) 69 % (42-75); PLATELET COUNT 84 10^3/uL (130-400); RED BLOOD COUNT 4.76 10^6/uL (4.35-5.85); RED CELL DISTRIBUTION WIDTH 14.4 % (10.0-14.5); WHITE BLOOD COUNT 6.4 10^3/uL (4.3-11.0)
[2017-10-09 01:03] LABS: ALBUMIN 3.8 GM/DL (3.2-4.5); BILIRUBIN,TOTAL 1.8 MG/DL (0.1-1.0); CALCIUM 9.6 MG/DL (8.5-10.1); CREATININE SERUM 1.27 MG/DL (0.60-1.30); POTASSIUM 4.3 MMOL/L (3.6-5.0); TOTAL PROTEIN 8.3 GM/DL (6.4-8.2)
[2017-10-09] MEDS ORDERED: LORA-404 PO (01:40)
[2017-10-09] MEDS ORDERED: PERM60CR17 TP (01:40)
--- NOTE | 2017-10-09 01:40 | ED General ---
General Chief Complaint: Lower Extremity Stated Complaint: SCRATCHES ON LEGS, POSS INFECTION Nursing Triage Note: PT PRESENTS TO ER WITH COMPLAINT OF LOWER EXTREMITY ITCHING AND CELLUTITIS. STATES SHE WAS SEEN A FEW WEEKS AGO HERE IN THE ER. Nursing Sepsis Screen: No Definite Risk Source of Information: Patient, Old Records Exam Limitations: No Limitations History of Present Illness Date Seen by Provider: Oct 08, 2017 Time Seen by Provider: 23:51 Initial Comments This 57-year-old woman presents to the emergency room with complaints of extreme itching and irritation to the lower extremities. This has been an ongoing problem for 2 months. She has been treated for cellulitis. The itching is believed to be primarily related to cirrhosis. She has tried numerous therapies including Lotrisone cream, anti-itch creams, antihistamine such as hydroxyzine and Benadryl, lorazepam, lidocaine spray, etc. She has found no relief. She is afebrile at present. She has numerous excoriated wounds on her lower extremities from scratching. Allergies and Home Medications Allergies Coded Allergies: morphine (Unverified Allergy, Unknown, HIVES, 09/20/14) meperidine (Unverified Adverse Reaction, Unknown, 09/17/17) Home Medications Cephalexin 500 Mg Tablet, 500 MG PO QID Prescribed by: FRANK HUERTA on 09/18/17 174 Cephalexin 500 Mg Capsule, 500 MG PO TID Prescribed by: DAMIAN GUY on 10/09/17 014 Cholestyramine (with Sugar) 4 Gm Powd.pack, 4 GM PO BID PRN for ITCHING Prescribed by: DAMIAN GUY on 10/09/17 0611 Clotrimazole/Betamethasone Dip 15 Gm Cream..g., 15 GM TP UD Apply to the affected area twice daily 2-3 weeks for rash Prescribed by: EDSON JACKSON on 09/17/17 6601 Lorazepam 0.5 Mg Tablet, 0.5 MG PO Q6H PRN for ITCHING Prescribed by: DAMIAN GUY on 10/09/17 014 Permethrin 60 Gm Cream..g., 60 GM TP ONCE Repeat in one week if needed. Prescribed by: DAMIAN GUY on 10/09/17 014 Sertraline HCl 50 Mg Tablet, 50 MG PO DAILY Prescribed by: DAMIAN GUY on 10/09/17 0611 Patient Home Medication List Home Medication List Reviewed: Yes Constitutional: no symptoms reported EENTM: no symptoms reported Respiratory: no symptoms reported Cardiovascular: no symptoms reported Gastrointestinal: see HPI Genitourinary: no symptoms reported : No Musculoskeletal: no symptoms reported Skin: see HPI Psychiatric/Neurological: No Symptoms Reported Hematologic/Lymphatic: No Symptoms Reported Immunological/Allergic: no symptoms reported Past Kwigwnl-Tqwwpj-Dsptyn Hx Patient Social History Alcohol Use: Past History Recreational Drug Use: Yes Smoking Status: Former Smoker Type Used: Cigarettes Former Smoker, Quit: Apr 06, 1978 2nd Hand Smoke Exposure: No Recent Foreign Travel: No Contact w/Someone Who Travel: No Recent Infectious Disease Expo: No Recent Hopitalizations: No Immunizations Up To Date Tetanus Booster (TDap): Unknown Date of Influenza Vaccine: Apr 07, 2017 Surgeries History of Surgeries: Yes Surgeries: Adenoidectomy, Appendectomy, Section, Gallbladder, Tonsillectomy Respiratory History of Respiratory Disorde: No Cardiovascular History of Cardiac Disorders: Yes Cardiac Disorders: Chronic Edema/Swelling Neurological History of Neurological Disord: No Reproductive System Hx Reproductive Disorders: No Genitourinary History of Genitourinary Disor: No Gastrointestinal History of Gastrointestinal Di: Yes (HEPATITIS C--NO TREATMENT, SPLENOMEGALY) Gastrointestinal Disorders: Liver Disease/Jaundice, Hepatitis, Cirrhosis Musculoskeletal History of Musculoskeletal Dis: No Endocrine History of Endocrine Disorders: No HEENT History of HEENT Disorders: No Cancer History of Cancer: No Psychosocial History of Psychiatric Problem: No Integumentary History of Skin or Integumenta: Yes ("PSORIASIS" TO LOWER LEGS ) Blood Transfusions History of Blood Disorders: No Family Medical History Significant Family History: No Pertinent Family Hx Physical Exam Vital Signs Vital Signs - First Documented 10/08/17 23:30 Temp 98.1 Pulse 92 Resp 20 B/P (MAP) 120/68 (85) Pulse Ox 98 O2 Delivery Room Air Capillary Refill : Less Than 3 Seconds General Appearance: No Apparent Distress, Mild Distress HEENT: PERRL/EOMI, Normal ENT Inspection Neck: Normal Inspection Respiratory: Lungs Clear, Normal Breath Sounds, No Accessory Muscle Use, No Respiratory Distress Cardiovascular: Regular Rate, Rhythm, No Edema, No Murmur Extremity: Swelling, Other (Erythematous rash distributed evenly on the lower legs with numerous excoriated areas on both legs.) Neurologic/Psychiatric: Alert, Oriented x3, No Motor/Sensory Deficits, Normal 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, 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 Norm as Tested Skin: Other (See above) Progress/Results/Core Measures Suspected Sepsis Recent Fever Within 48 Hours: No Infection Criteria Present: None New/Unexplained Altered Menta: No Sepsis Screen: No Definite Risk Sepsis Diagnosis: SIRS Temperature:98.1 Pulse: 92 Respiratory Rate: 20 Laboratory Tests 10/09/17 00:19: White Blood Count 6.4 Blood Pressure 120 /68 Mean: 85 Laboratory Tests 10/09/17 00:19: Creatinine 1.27, Platelet Count 84L, Total Bilirubin 1.8H Results/Orders Lab Results Laboratory Tests Test 10/09/17 00:19 Range/Units White Blood Count 6.4 4.3-11.0 10^3/uL Red Blood Count 4.76 4.35-5.85 10^6/uL Hemoglobin 14.5 11.5-16.0 G/DL Hematocrit 41 35-52 % Mean Corpuscular Volume 86 80-99 FL Mean Corpuscular Hemoglobin 31 25-34 PG Mean Corpuscular Hemoglobin Concent 36 32-36 G/DL Red Cell Distribution Width 14.4 10.0-14.5 % Platelet Count 84 L 130-400 10^3/uL Mean Platelet Volume 10.3 7.4-10.4 FL Neutrophils (%) (Auto) 69 42-75 % Lymphocytes (%) (Auto) 13 12-44 % Monocytes (%) (Auto) 11 0-12 % Eosinophils (%) (Auto) 6 0-10 % Basophils (%) (Auto) 1 0-10 % Neutrophils # (Auto) 4.5 1.8-7.8 X 10^3 Lymphocytes # (Auto) 0.9 L 1.0-4.0 X 10^3 Monocytes # (Auto) 0.7 0.0-1.0 X 10^3 Eosinophils # (Auto) 0.4 H 0.0-0.3 10^3/uL Basophils # (Auto) 0.0 0.0-0.1 10^3/uL Sodium Level 132 L 135-145 MMOL/L Potassium Level 4.3 3.6-5.0 MMOL/L Chloride Level 97 L 98-107 MMOL/L Carbon Dioxide Level 22 21-32 MMOL/L Anion Gap 13 5-14 MMOL/L Blood Urea Nitrogen 21 H 7-18 MG/DL Creatinine 1.27 0.60-1.30 MG/DL Estimat Glomerular Filtration Rate 43 BUN/Creatinine Ratio 17 Glucose Level 89 70-105 MG/DL Calcium Level 9.6 8.5-10.1 MG/DL Total Bilirubin 1.8 H 0.1-1.0 MG/DL Aspartate Amino Transf (AST/SGOT) 174 H 5-34 U/L Alanine Aminotransferase (ALT/SGPT) 157 H 0-55 U/L Alkaline Phosphatase 83 40-136 U/L Ammonia 72 H 11-32 UMOL/L C-Reactive Protein High Sensitivity 1.44 H 0.00-0.50 MG/DL Total Protein 8.3 H 6.4-8.2 GM/DL Albumin 3.8 3.2-4.5 GM/DL My Orders Orders - DAMIAN GRIMALDO MD Ammonia (10/09/17 00:01) Cbc With Automated Diff (10/09/17 00:01) Comprehensive Metabolic Panel (10/09/17 00:01) Saline Lock/Iv-Start (10/09/17 00:01) Hs C Reactive Protein (10/09/17 00:01) Lorazepam Tablet (Ativan Tablet) (10/09/17 01:45) Medications Given in ED Current Medications Medications Dose Ordered Sig/Guerita Route Start Time Stop Time Status Last Admin Dose Admin Lorazepam 0.5 mg ONCE ONCE PO 10/09/17 01:45 10/09/17 01:46 DC 10/09/17 01:57 0.5 MG Vital Signs/I&O Vital Sign - Last 12Hours 10/08/17 10/09/17 23:30 02:02 Temp 98.1 98.1 Pulse 92 92 Resp 20 20 B/P (MAP) 120/68 (85) 120/68 (85) Pulse Ox 98 98 O2 Delivery Room Air Capillary Refill : Less Than 3 Seconds Blood Pressure Mean: 85 Progress Note : Progress Note Labs were obtained. Patient was found to have elevated ammonia levels. I suggested increasing actual dosing but patient stated that was recently increased to 3 times a day. Every suggestion I had for the patient she had already tried. I gave her a dose of lorazepam before dismissal. Patient called later stating that the itching was uncontrolled and she was very distraught and tearful. I advised icing which she states she had already tried. I then additionally prescribed sertraline and cholestyramine. Departure Impression Impression: Primary Impression: Pruritus Additional Impressions: Liver failure Qualified Codes: K72.10 - Chronic hepatic failure without coma Cellulitis of leg Qualified Codes: L03.119 - Cellulitis of unspecified part of limb Disposition: HOME, SELF-CARE Condition: Improved Departure-Patient Inst. Decision time for Depature: 01:30 Referrals: [facility]/ (PCP) Primary Care Physician Patient Instructions: Cirrhosis Add. Discharge Instructions: Your itching is likely due to liver failure but we will treat with permethrin cream to treat potential scabies. Continue with the lactulose as prescribed and discuss increasing dosing again with your provider. Try Ativan as prescribed for itching. Follow-up with your primary care provider soon as possible to evaluate other treatment possibilities and discuss referral to a calf skinner. Continue with antibiotic therapy as prescribed. All discharge instructions reviewed with patient and/or family. Voiced understanding. Scripts Sertraline HCl (Sertraline HCl) 50 Mg Tablet 50 MG PO DAILY, #30 TAB Prov: DAMIAN GRIMALDO MD 10/09/17 Cholestyramine (with Sugar) (Questran Packet) 4 Gm Powd.pack 4 GM PO BID Y for ITCHING, #30 EACH Prov: DAMIAN GRIMALDO MD 10/09/17 Cephalexin (Keflex) 500 Mg Capsule 500 MG PO TID, #30 CAP Prov: DAMIAN GRIMALDO MD 10/09/17 Permethrin (Elimite) 60 Gm Cream..g. 60 GM TP ONCE, #1 TUBE 1 Refill Repeat in one week if needed. Prov: DAMIAN GRIMALDO MD 10/09/17 Lorazepam (Ativan) 0.5 Mg Tablet 0.5 MG PO Q6H Y for ITCHING, #10 TAB Prov: DAMIAN GRIMALDO MD 10/09/17 Copy Copies To 1: FABRICIO ROSALES MD, JOSHUA T MD Oct 09, 2017 01:40
[2017-10-09] MEDS ORDERED: CEPH-507 PO (01:42)
[2017-10-09] MEDS ORDERED: LORazepam 0.5 MG (ATIVAN) TABLET PO ONE (01:45)
[2017-10-09 02:02] VITALS: BP 120/68
[2017-10-09] MEDS ORDERED: CHOL4PAC16 PO (06:11)
[2017-10-09] MEDS ORDERED: SERT50TA9 PO (06:11)
--- OUTSIDE RECORDS SUMMARY | 2017-10-09 10:00 | XMS REPORT | Continuity of Care Document ---
Author Author [facility] Organization [facility] Address Unknown Phone Unavailable Allergies Active Description Code Type Severity Reaction Onset Reported/Identified Relationship to Patient Clinical Status Yes morphine [id number] Drug Allergy Unknown HIVES 09/20/2014 Yes PENICILLIN PENICILLIN Unknown N/A 09/20/2014 Yes meperidine [id number] Drug Allergy Unknown N/A 09/17/2017 Medications There is no data. Problems Date Dx Coded Attending Type Code Diagnosis Diagnosed By 02/11/2008 DENZEL QUINN APRN S 784.0 HEADACHE 02/11/2008 MAGAN QUINN APRNNDA S V58.69 MEDICATION HIGH RISK 02/11/2008 RADHA HAILE CATERINA R 784.0 HEADACHE 02/11/2008 RADHA HAILE CATERINA R V58.69 MEDICATION HIGH RISK 02/11/2008 KAI HAILE DENZEL S 784.0 HEADACHE 02/11/2008 KAI HAILE DENZEL S V58.69 MEDICATION HIGH RISK 02/11/2008 KAI HAILE DENZEL S 784.0 HEADACHE 02/11/2008 KAI AHILE, DENZEL S V58.69 MEDICATION HIGH RISK 02/11/2008 MAGAN QUINN APRNNDA S 784.0 HEADACHE 02/11/2008 KAI HAILE, DENZEL S V58.69 MEDICATION HIGH RISK 02/11/2008 KAI HAILE DENZEL S 784.0 HEADACHE 02/11/2008 KAI HAILE DENZEL S V58.69 MEDICATION HIGH RISK 02/25/2008 MAGAN QUINN APRNNDA S 780.52 INSOMNIA UNSPECIFIED 02/25/2008 RADHA HAILE CATERINA R 780.52 INSOMNIA UNSPECIFIED 02/25/2008 MAGAN QUINN APRNNDA S 780.52 INSOMNIA UNSPECIFIED 02/25/2008 MAGAN QUINN APRNNDA S 780.52 INSOMNIA UNSPECIFIED 02/25/2008 KAI SQL DATABASE ADMINISTRATOR, DENZEL S 780.52 INSOMNIA UNSPECIFIED 02/25/2008 KAI SQL DATABASE ADMINISTRATOR, DENZEL S 780.52 INSOMNIA UNSPECIFIED 05/30/2008 KAI SQL DATABASE ADMINISTRATOR, DENZEL S 465.9 UPPER RESPIRATORY INFECTION 05/30/2008 KAI SQL DATABASE ADMINISTRATOR, DENZEL S 625.6 STRESS INCONTINENCE FEMALE 05/30/2008 RADHA SQL DATABASE ADMINISTRATOR, CATERINA R 465.9 UPPER RESPIRATORY INFECTION 05/30/2008 RADHA SQL DATABASE ADMINISTRATOR, CATERINA R 625.6 STRESS INCONTINENCE FEMALE 05/30/2008 KAI SQL DATABASE ADMINISTRATOR, DENZEL S 465.9 UPPER RESPIRATORY INFECTION 05/30/2008 KAI SQL DATABASE ADMINISTRATOR, DNEZEL S 625.6 STRESS INCONTINENCE FEMALE 05/30/2008 KAI SQL DATABASE ADMINISTRATOR, DENZEL S 465.9 UPPER RESPIRATORY INFECTION 05/30/2008 KAI SQL DATABASE ADMINISTRATOR, DENZEL S 625.6 STRESS INCONTINENCE FEMALE 05/30/2008 KAI SQL DATABASE ADMINISTRATOR, DENZEL S 465.9 UPPER RESPIRATORY INFECTION 05/30/2008 KAI SQL DATABASE ADMINISTRATOR, DENZEL S 625.6 STRESS INCONTINENCE FEMALE 05/30/2008 KAI SQL DATABASE ADMINISTRATOR, DENZEL S 465.9 UPPER RESPIRATORY INFECTION 05/30/2008 KAI SQL DATABASE ADMINISTRATOR, DENZEL S 625.6 STRESS INCONTINENCE FEMALE 06/22/2008 KAI SQL DATABASE ADMINISTRATOR, DENZEL S 782.1 RASH 06/22/2008 RADHA SQL DATABASE ADMINISTRATOR, CATERINA R 782.1 RASH 06/22/2008 KAI SQL DATABASE ADMINISTRATOR, DENZEL S 782.1 RASH 06/22/2008 KAI SQL DATABASE ADMINISTRATOR, DENZEL S 782.1 RASH 06/22/2008 KAI SQL DATABASE ADMINISTRATOR, DENZEL S 782.1 RASH 06/22/2008 KAI SQL DATABASE ADMINISTRATOR, DENZEL S 782.1 RASH 09/12/2009 KAI SQL DATABASE ADMINISTRATOR, DENZEL S 780.4 DIZZINESS AND GIDDINESS 09/12/2009 KAI SQL DATABASE ADMINISTRATOR, DENZEL S 787.02 NAUSEA ALONE 09/12/2009 RADHA SQL DATABASE ADMINISTRATOR, CATERINA R 780.4 DIZZINESS AND GIDDINESS 09/12/2009 RADHA FAJARDON, CATERINA R 787.02 NAUSEA ALONE 09/12/2009 KAI SQL DATABASE ADMINISTRATOR, DNEZEL S 780.4 DIZZINESS AND GIDDINESS 09/12/2009 KAI SQL DATABASE ADMINISTRATOR, DENZEL S 787.02 NAUSEA ALONE 09/12/2009 KAI SQL DATABASE ADMINISTRATOR, DENZEL S 780.4 DIZZINESS AND GIDDINESS 09/12/2009 KAI SQL DATABASE ADMINISTRATOR, DENZEL S 787.02 NAUSEA ALONE 09/12/2009 KAI SQL DATABASE ADMINISTRATOR, DENZEL S 780.4 DIZZINESS AND GIDDINESS 09/12/2009 KAI SQL DATABASE ADMINISTRATOR, DENZEL S 787.02 NAUSEA ALONE 09/12/2009 KAI SQL DATABASE ADMINISTRATOR, DENZEL S 780.4 DIZZINESS AND GIDDINESS 09/12/2009 KAI SQL DATABASE ADMINISTRATOR, DENZEL S 787.02 NAUSEA ALONE 09/28/2009 KAI SQL DATABASE ADMINISTRATORMAGANDENZEL S 354.0 CARPAL TUNNEL SYNDROME 09/28/2009 KAI FAJARDON DENZEL S 381.81 DYSFUNCTION OF EUSTACHIAN TUBE 09/28/2009 LIO GARCIA APRNINA R 354.0 CARPAL TUNNEL SYNDROME 09/28/2009 LIO GARCIA APRNINA R 381.81 DYSFUNCTION OF EUSTACHIAN TUBE 09/28/2009 MAGAN QUINN APRNNDA S 354.0 CARPAL TUNNEL SYNDROME 09/28/2009 MAGAN QUINN APRNNDA S 381.81 DYSFUNCTION OF EUSTACHIAN TUBE 09/28/2009 KAI FAJARDONMAGANDENZEL S 354.0 CARPAL TUNNEL SYNDROME 09/28/2009 KAI HAILE DENZEL S 381.81 DYSFUNCTION OF EUSTACHIAN TUBE 09/28/2009 KAI FAJARDON DENZEL S 354.0 CARPAL TUNNEL SYNDROME 09/28/2009 KAI FAJARDON DENZEL S 381.81 DYSFUNCTION OF EUSTACHIAN TUBE 09/28/2009 KAI SQL DATABASE ADMINISTRATOR DENZEL S 354.0 CARPAL TUNNEL SYNDROME 09/28/2009 KAI FAJARDON DENZEL S 381.81 DYSFUNCTION OF EUSTACHIAN TUBE 05/01/2010 MAGAN QUINN APRNNDA S 715.04 OSTEOARTHROSIS GENERALIZED INVOLVING HAND 05/01/2010 RADHA FAJARDON, CATERINA R 715.04 OSTEOARTHROSIS GENERALIZED INVOLVING HAND 05/01/2010 KAI SQL DATABASE ADMINISTRATOR, DENZEL S 715.04 OSTEOARTHROSIS GENERALIZED INVOLVING HAND 05/01/2010 KAI SQL DATABASE ADMINISTRATOR, DENZEL S 715.04 OSTEOARTHROSIS GENERALIZED INVOLVING HAND 05/01/2010 KAI SQL DATABASE ADMINISTRATOR, DENZEL S 715.04 OSTEOARTHROSIS GENERALIZED INVOLVING HAND 05/01/2010 KAI SQL DATABASE ADMINISTRATOR, DENZEL S 715.04 OSTEOARTHROSIS GENERALIZED INVOLVING HAND 06/15/2010 KAI SQL DATABASE ADMINISTRATOR, DENZEL S 466.0 BRONCHITIS, ACUTE 06/15/2010 RADHA SQL DATABASE ADMINISTRATOR, CATERINA R 466.0 BRONCHITIS, ACUTE 06/15/2010 KAI SQL DATABASE ADMINISTRATOR, DENZEL S 466.0 BRONCHITIS, ACUTE 06/15/2010 KAI SQL DATABASE ADMINISTRATOR, DENZEL S 466.0 BRONCHITIS, ACUTE 06/15/2010 KAI SQL DATABASE ADMINISTRATOR, DENZEL S 466.0 BRONCHITIS, ACUTE 06/15/2010 KAI SQL DATABASE ADMINISTRATOR, DENZEL S 466.0 BRONCHITIS, ACUTE 10/11/2010 KAI SQL DATABASE ADMINISTRATOR, DENZEL S 382.9 OTITIS MEDIA 10/11/2010 RADHA SQL DATABASE ADMINISTRATOR, CATERINA R 382.9 OTITIS MEDIA 10/11/2010 KAI SQL DATABASE ADMINISTRATOR, DENZEL S 382.9 OTITIS MEDIA 10/11/2010 KAI SQL DATABASE ADMINISTRATOR, DENZEL S 382.9 OTITIS MEDIA 10/11/2010 KAI SQL DATABASE ADMINISTRATOR, DENZEL S 382.9 OTITIS MEDIA 10/11/2010 KAI SQL DATABASE ADMINISTRATOR, DENZEL S 382.9 OTITIS MEDIA 11/27/2010 KAI SQL DATABASE ADMINISTRATOR, DENZEL S 070.70 UNSPECIFIED VIRAL HEPATITIS C WITHOUT HEPATIC COMA 11/27/2010 KAI SQL DATABASE ADMINISTRATOR, DENZEL S 682.4 CELLULITIS AND ABSCESS OF HAND EXCEPT FINGERS AND THUMB 11/27/2010 RADHA SQL DATABASE ADMINISTRATOR, CATERINA R 070.70 UNSPECIFIED VIRAL HEPATITIS C WITHOUT HEPATIC COMA 11/27/2010 RADHA SQL DATABASE ADMINISTRATOR, CATERINA R 682.4 CELLULITIS AND ABSCESS OF HAND EXCEPT FINGERS AND THUMB 11/27/2010 KAI SQL DATABASE ADMINISTRATOR, DENZEL S 070.70 UNSPECIFIED VIRAL HEPATITIS C WITHOUT HEPATIC COMA 11/27/2010 KAI SQL DATABASE ADMINISTRATOR, DENZEL S 682.4 CELLULITIS AND ABSCESS OF HAND EXCEPT FINGERS AND THUMB 11/27/2010 KAI SQL DATABASE ADMINISTRATOR, DENZEL S 070.70 UNSPECIFIED VIRAL HEPATITIS C WITHOUT HEPATIC COMA 11/27/2010 KAI SQL DATABASE ADMINISTRATOR, EDNZEL S 682.4 CELLULITIS AND ABSCESS OF HAND EXCEPT FINGERS AND THUMB 11/27/2010 KAI SQL DATABASE ADMINISTRATOR, DENEZL S 070.70 UNSPECIFIED VIRAL HEPATITIS C WITHOUT HEPATIC COMA 11/27/2010 KAI SQL DATABASE ADMINISTRATOR, DENZEL S 682.4 CELLULITIS AND ABSCESS OF HAND EXCEPT FINGERS AND THUMB 11/27/2010 KAI SQL DATABASE ADMINISTRATOR, DENZEL S 070.70 UNSPECIFIED VIRAL HEPATITIS C WITHOUT HEPATIC COMA 11/27/2010 KAI SQL DATABASE ADMINISTRATOR, DENZEL S 682.4 CELLULITIS AND ABSCESS OF HAND EXCEPT FINGERS AND THUMB 03/23/2011 KAI FAJARDON, DENZEL S 296.30 MAJOR DEPRESSIVE AFFECTIVE DISORDER RECURRENT EPISODE UNSPECIFIED DEGREE 03/23/2011 KAI SQL DATABASE ADMINISTRATOR, DENZEL S 461.9 ACUTE SINUSITIS UNSPECIFIED 03/23/2011 RADHA SQL DATABASE ADMINISTRATOR, CATERINA R 296.30 MAJOR DEPRESSIVE AFFECTIVE DISORDER RECURRENT EPISODE UNSPECIFIED DEGREE 03/23/2011 RADHA SQL DATABASE ADMINISTRATOR, CATERINA R 461.9 ACUTE SINUSITIS UNSPECIFIED 03/23/2011 KAI SQL DATABASE ADMINISTRATOR, DENZEL S 296.30 MAJOR DEPRESSIVE AFFECTIVE DISORDER RECURRENT EPISODE UNSPECIFIED DEGREE 03/23/2011 KAI FAJARDON, DENZEL S 461.9 ACUTE SINUSITIS UNSPECIFIED 03/23/2011 KAI SQL DATABASE ADMINISTRATOR, DENZEL S 296.30 MAJOR DEPRESSIVE AFFECTIVE DISORDER RECURRENT EPISODE UNSPECIFIED DEGREE 03/23/2011 KAI SQL DATABASE ADMINISTRATOR, DENZEL S 461.9 ACUTE SINUSITIS UNSPECIFIED 03/23/2011 KAI SQL DATABASE ADMINISTRATOR, DENZEL S 296.30 MAJOR DEPRESSIVE AFFECTIVE DISORDER RECURRENT EPISODE UNSPECIFIED DEGREE 03/23/2011 KAI SQL DATABASE ADMINISTRATOR, DENZEL S 461.9 ACUTE SINUSITIS UNSPECIFIED 03/23/2011 KAI SQL DATABASE ADMINISTRATOR, DENZEL S 296.30 MAJOR DEPRESSIVE AFFECTIVE DISORDER RECURRENT EPISODE UNSPECIFIED DEGREE 03/23/2011 KAI SQL DATABASE ADMINISTRATOR, DENZEL S 461.9 ACUTE SINUSITIS UNSPECIFIED 06/08/2012 KAI SQL DATABASE ADMINISTRATOR, DENZEL S 300.00 ANXIETY UNSPEC 06/08/2012 RADHA SQL DATABASE ADMINISTRATOR, CATERINA R 300.00 ANXIETY UNSPEC 06/08/2012 KAI SQL DATABASE ADMINISTRATOR, DENZEL S 300.00 ANXIETY UNSPEC 06/08/2012 KAI SQL DATABASE ADMINISTRATOR, DENZEL S 300.00 ANXIETY UNSPEC 06/08/2012 KAI SQL DATABASE ADMINISTRATOR, DENZEL S 300.00 ANXIETY UNSPEC 06/08/2012 KAI SQL DATABASE ADMINISTRATOR, DENZEL S 300.00 ANXIETY UNSPEC 06/26/2013 RADHA LIO HAILEINA R 786.09 RESPIRATORY ABNORMALITY OTHER 06/26/2013 KAI SQL DATABASE ADMINISTRATOR, DENZEL S 786.09 RESPIRATORY ABNORMALITY OTHER 06/26/2013 KAI SQL DATABASE ADMINISTRATOR, DENZEL S 786.09 RESPIRATORY ABNORMALITY OTHER 06/26/2013 KAI SQL DATABASE ADMINISTRATOR, DENZEL S 786.09 RESPIRATORY ABNORMALITY OTHER 06/26/2013 KAI SQL DATABASE ADMINISTRATOR, DENZEL S 786.09 RESPIRATORY ABNORMALITY OTHER 07/01/2013 KAI SQL DATABASE ADMINISTRATOR, DENZEL S 070.54 HEPATITIS C CHRONIC 07/01/2013 KAI SQL DATABASE ADMINISTRATOR, DENZEL S 789.59 ASCITES OTHER 07/01/2013 KAI SQL DATABASE ADMINISTRATOR, DENZEL S V04.81 FLU SHOT 07/01/2013 KAI SQL DATABASE ADMINISTRATOR, DENZEL S 070.54 HEPATITIS C CHRONIC 07/01/2013 KAI SQL DATABASE ADMINISTRATOR, DENZEL S 789.59 ASCITES OTHER 07/01/2013 KAI SQL DATABASE ADMINISTRATOR, DENZEL S V04.81 FLU SHOT 07/01/2013 KAI SQL DATABASE ADMINISTRATOR, DENZEL S 070.54 HEPATITIS C CHRONIC 07/01/2013 KAI SQL DATABASE ADMINISTRATOR, DENZEL S 789.59 ASCITES OTHER 07/01/2013 KAI SQL DATABASE ADMINISTRATOR, DENZEL S V04.81 FLU SHOT 07/01/2013 KIA SQL DATABASE ADMINISTRATOR, DENZEL S 070.54 HEPATITIS C CHRONIC 07/01/2013 KAI SQL DATABASE ADMINISTRATOR, DENZEL S 789.59 ASCITES OTHER 07/01/2013 KAI SQL DATABASE ADMINISTRATOR, DENZEL S V04.81 FLU SHOT 07/26/2013 KAI SQL DATABASE ADMINISTRATOR, DENZEL S 729.82 CRAMP OF LIMB 07/26/2013 KAI SQL DATABASE ADMINISTRATOR, DENZEL S 729.82 CRAMP OF LIMB 07/26/2013 KAI SQL DATABASE ADMINISTRATOR, DENZEL S 729.82 CRAMP OF LIMB 09/14/2013 KAI SQL DATABASE ADMINISTRATOR, DENZEL S 287.5 THROMBOCYTOPENIA 09/14/2013 KAI SQL DATABASE ADMINISTRATOR, DENZEL S 288.3 EOSINOPHILIA 09/14/2013 KAI SQL DATABASE ADMINISTRATOR, DENZEL S 287.5 THROMBOCYTOPENIA 09/14/2013 KAI SQL DATABASE ADMINISTRATOR, DENZEL S 288.3 EOSINOPHILIA 09/14/2013 KAI SQL DATABASE ADMINISTRATOR, DENZEL S 287.5 THROMBOCYTOPENIA 09/14/2013 KAI SQL DATABASE ADMINISTRATOR, DENZEL S 288.3 EOSINOPHILIA 01/03/2014 JESUS GREEN [...] DENZEL QUINN Ot 789.59 OTHER ASCITES 04/20/2017 SHAYNE CARRERO, CHIRAG K Ot B19.20 UNSPECIFIED VIRAL HEPATITIS C WITHOUT HE 04/20/2017 RAHEEL BELLA DOA K Ot L03.115 CELLULITIS OF RIGHT LOWER LIMB 04/20/2017 SHAYNE CARRERO, CHIRAG K Ot L03.116 CELLULITIS OF LEFT LOWER LIMB 04/20/2017 SHAYNE , CHIRAG K Ot M79.89 OTHER SPECIFIED SOFT TISSUE DISORDERS 04/20/2017 SHAYNE CHIRAG K Ot R60.0 LOCALIZED EDEMA 04/20/2017 SHAYNE , CHIRAG K Ot Z87.19 PERSONAL HISTORY OF OTHER DISEASES OF 04/20/2017 SHAYNE RAHEEL CARREROA K Ot Z87.59 PERSONAL HISTORY OF COMP OF PREG, CHLDBR 04/20/2017 SHAYNE CHIRAG K Ot Z87.891 PERSONAL HISTORY OF NICOTINE DEPENDENCE 04/20/2017 SHAYNE CHIRAG K Ot Z90.49 ACQUIRED ABSENCE OF OTHER SPECIFIED PART 04/20/2017 SHAYNE CHIRAG K Ot Z91.19 PATIENT'S NONCOMPLIANCE W [facility] 09/17/2017 EDSON DOVER Ot B19.20 UNSPECIFIED VIRAL HEPATITIS C WITHOUT HE 09/17/2017 EDSON DOVER Ot K74.60 UNSPECIFIED CIRRHOSIS OF LIVER 09/17/2017 EDSON DOVER Ot L03.115 CELLULITIS OF RIGHT LOWER LIMB 09/17/2017 EDSON DOVER Ot L03.116 CELLULITIS OF LEFT LOWER LIMB 09/17/2017 EDSON DOVER Ot R51 HEADACHE 09/17/2017 EDSON DOVER Ot Z87.19 PERSONAL HISTORY OF OTHER DISEASES OF 09/17/2017 EDSON DOVER Ot Z87.59 PERSONAL HISTORY OF COMP OF PREG, CHLDBR 09/17/2017 EDSON DOVER Ot Z87.891 PERSONAL HISTORY OF NICOTINE DEPENDENCE 09/17/2017 EDSON DOVER Ot Z88.5 ALLERGY STATUS TO NARCOTIC AGENT STATUS 09/17/2017 EDSON DOVER Ot Z90.49 ACQUIRED ABSENCE OF OTHER SPECIFIED PART 09/17/2017 EDSON DOVER Ot Z90.89 ACQUIRED ABSENCE OF OTHER ORGANS 09/18/2017 Ot 070.70 UNSPECIFIED VIRAL HEPATITIS C WITHOUT HE 09/18/2017 Ot 287.5 THROMBOCYTOPENIA NOS 09/18/2017 Ot 288.50 LEUKOCYTOPENIA, UNSPECIFIED 09/18/2017 Ot 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 09/18/2017 Ot 571.5 CIRRHOSIS OF LIVER NOS 09/18/2017 Ot 780.79 OTH MALAISE FATIGUE 09/19/2017 Ot 070.70 UNSPECIFIED VIRAL HEPATITIS C WITHOUT HE 09/19/2017 Ot 287.5 THROMBOCYTOPENIA NOS 09/19/2017 Ot 288.50 LEUKOCYTOPENIA, UNSPECIFIED 09/19/2017 Ot 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 09/19/2017 Ot 571.5 CIRRHOSIS OF LIVER NOS 09/19/2017 Ot 780.79 OTH MALAISE FATIGUE 09/24/2017 EDSON DOVER Ot B19.20 UNSPECIFIED VIRAL HEPATITIS C WITHOUT HE 09/24/2017 EDSON DOVER Ot K74.60 UNSPECIFIED CIRRHOSIS OF LIVER 09/24/2017 EDSON DOVER Ot L03.115 CELLULITIS OF RIGHT LOWER LIMB 09/24/2017 EDSON DOVER Ot L03.116 CELLULITIS OF LEFT LOWER LIMB 09/24/2017 EDSON DOVER Ot R51 HEADACHE 09/24/2017 EDSON DOVER Ot Z87.19 PERSONAL HISTORY OF OTHER DISEASES OF TH 09/24/2017 EDSON DOVER Ot Z87.59 PERSONAL HISTORY OF COMP OF PREG, CHLDBR 09/24/2017 EDSON DOVER Ot Z87.891 PERSONAL HISTORY OF NICOTINE DEPENDENCE 09/24/2017 EDSON DOVER Ot Z88.5 ALLERGY STATUS TO NARCOTIC AGENT STATUS 09/24/2017 EDSON DOVER Ot Z90.49 ACQUIRED ABSENCE OF OTHER SPECIFIED PART 09/24/2017 EDSON DOVER Ot Z90.89 ACQUIRED ABSENCE OF OTHER ORGANS 10/03/2017 ALEXANDRO REYES, FABRICIO Naqvi Ot K74.60 UNSPECIFIED CIRRHOSIS OF LIVER Procedures Code Description [place] [address] OXIMETRY 06/26/2013 56324 ROUTINE VENIPUNCTURE 07/01/2013 17533 XRAY CHEST 2 VIEW 07/01/2013 38770 HEP B SURFACE ANTIGEN (STATE ) 07/01/2013 81030 OXIMETRY 07/01/2013 44778 URINE DRUG SCREEN (IN-HOUSE ) 07/01/2013 34218 CMP 07/01/2013 5836779 GFR CALC (RESULT ONLY) 07/01/2013 52662 HEP A ANTIBODY, IGM (RML) 07/01/2013 79496 PT/INR 07/01/2013 94886 CBC 07/01/2013 90119 HIV ANTIBODIES (RML) 07/02/2013 01290 HEP B SURFACE ANTIBODY 07/02/2013 78366 HEP C PCR QUANT W/KRYSTAL 07/06/2013 83669 US ABDOMINAL ULTRASOUND, COMPLETE 07/14/2013 57858 GENOTYPE DNA HEPATITIS C 07/15/2013 26074 ROUTINE VENIPUNCTURE 07/26/2013 Medical O [facility] 07/26/2013 09585 URINE DRUG SCREEN (IN-HOUSE ) 07/26/20135399937 GFR CALC (RESULT ONLY) 07/26/2013 37122 CMP 07/26/2013 83224 FERRITIN 07/26/2013 Results Test Result Range Comp. Metabolic Panel (14) - 07/23/16 10:56 Glucose, Serum 108 mg/dL 65-99 BUN 13 mg/dL 6-24 Creatinine, Serum 0.71 mg/dL 0.57-1.00 eGFR If NonAfricn Am 95 mL/min/1.73 >59 eGFR If Africn Am 109 mL/min/1.73 >59 BUN/Creatinine Ratio 18 9-23 Sodium, Serum 141 mmol/L 134-144 Potassium, Serum 3.6 mmol/L 3.5-5.2 Chloride, Serum 102 mmol/L 96-106 Carbon Dioxide, Total 24 mmol/L 18-29 Calcium, Serum 9.0 mg/dL 8.7-10.2 Protein, Total, Serum 6.9 g/dL 6.0-8.5 Albumin, Serum 3.5 g/dL 3.5-5.5 Globulin, Total 3.4 g/dL 1.5-4.5 A/G Ratio 1.0 1.1-2.5 Bilirubin, Total 1.5 mg/dL 0.0-1.2 Alkaline Phosphatase, S 70 IU/L 39-117 AST (SGOT) 133 IU/L 0-40 ALT (SGPT) 95 IU/L 0-32 Comp. Metabolic Panel (14) - 11/20/16 15:35 Glucose, Serum 108 mg/dL 65-99 BUN 10 mg/dL 6-24 Creatinine, Serum 0.77 mg/dL 0.57-1.00 eGFR If NonAfricn Am 86 mL/min/1.73 >59 eGFR If Africn Am 99 mL/min/1.73 >59 BUN/Creatinine Ratio 13 9-23 Sodium, Serum 139 mmol/L 134-144 Potassium, Serum 3.7 mmol/L 3.5-5.2 Chloride, Serum 104 mmol/L 96-106 Carbon Dioxide, Total 21 mmol/L 18-29 Calcium, Serum 8.5 mg/dL 8.7-10.2 Protein, Total, Serum 6.2 g/dL 6.0-8.5 Albumin, Serum 3.3 g/dL 3.5-5.5 Globulin, Total 2.9 g/dL 1.5-4.5 A/G Ratio 1.1 1.2-2.2 Bilirubin, Total 1.2 mg/dL 0.0-1.2 Alkaline Phosphatase, S 63 IU/L 39-117 AST (SGOT) 44 IU/L 0-40 ALT (SGPT) 23 IU/L 0-32 Ammonia, Plasma - 11/20/16 15:35 Ammonia, Plasma 132 ug/dL 19-87 Complete blood count (CBC) with automated white [...] <=0.05 miu/l (units/ volume) 2.05 u[iU]/mL 0.35-4.94 CBC MORPHOLOGY - 08/18/17 16:00 CBC MORPHOLOGY NORMAL AMMONIA - 08/18/17 16:00 AMMONIA (P) 53 umol/L < OR=47 Complete blood count (CBC) with automated white blood cell (WBC) differential - 09/17/17 20:40 Blood leukocytes automated count (number/volume) 4.8 10*3/uL 4.3-11.0 Blood erythrocytes automated count (number/volume) 4.11 10*6/uL 4.35-5.85 Venous blood hemoglobin measurement (mass/volume) 12.6 g/dL 11.5-16.0 Blood hematocrit (volume fraction) 35 % 35-52 Automated erythrocyte mean corpuscular volume 86 [foz_us] 80-99 Automated erythrocyte mean corpuscular hemoglobin (mass per erythrocyte) 31 pg 25-34 Automated erythrocyte mean corpuscular hemoglobin concentration measurement ( mass/volume) 36 g/dL 32-36 Automated erythrocyte distribution width ratio 14.5 % 10.0-14.5 Automated blood platelet count (count/volume) 72 10*3/uL 130-400 Automated blood platelet mean volume measurement 11.1 [foz_us] 7.4-10.4 Automated blood neutrophils/100 leukocytes 63 % 42-75 Automated blood lymphocytes/100 leukocytes 18 % 12-44 Blood monocytes/100 leukocytes 13 % 0-12 Automated blood eosinophils/100 leukocytes 6 % 0-10 Automated blood basophils/100 leukocytes 1 % 0-10 Blood neutrophils automated count (number/volume) 3.0 10*3 1.8-7.8 Blood lymphocytes automated count (number/volume) 0.9 10*3 1.0-4.0 Blood monocytes automated count (number/volume) 0.6 10*3 0.0-1.0 Automated eosinophil count 0.3 10*3/uL 0.0-0.3 Automated blood basophil count (count/volume) 0.0 10*3/uL 0.0-0.1 Comprehensive metabolic panel - 09/17/17 20:40 Serum or plasma sodium measurement (moles/volume) 132 mmol/L 135-145 Serum or plasma potassium measurement (moles/volume) 4.0 mmol/L 3.6-5.0 Serum or plasma chloride measurement (moles/volume) 100 mmol/L 98-107 Carbon dioxide 23 mmol/L 21-32 Serum or plasma anion gap determination (moles/volume) 9 mmol/L 5-14 Serum or plasma urea nitrogen measurement (mass/volume) 16 mg/dL 7-18 Serum or plasma creatinine measurement (mass/volume) 0.81 mg/dL 0.60-1.30 Serum or plasma urea nitrogen/creatinine mass ratio 20 NRG Serum or plasma creatinine measurement with calculation of estimated glomerular filtration rate > NRG Serum or plasma glucose measurement (mass/volume) 99 mg/dL 70-105 Serum or plasma calcium measurement (mass/volume) 8.6 mg/dL 8.5-10.1 Serum or plasma total bilirubin measurement (mass/volume) 1.7 mg/dL 0.1-1.0 Serum or plasma alkaline phosphatase measurement (enzymatic activity/volume) 74 U/L 40-136 Serum or plasma aspartate aminotransferase measurement (enzymatic activity/ volume) 149 U/L 5-34 Serum or plasma alanine aminotransferase measurement (enzymatic activity/volume ) 161 U/L 0-55 Serum or plasma protein measurement (mass/volume) 7.1 g/dL 6.4-8.2 Serum or plasma albumin measurement (mass/volume) 3.3 g/dL 3.2-4.5 Serum or plasma C reactive protein measurement (mass/volume) - 09/17/17 20:40 Serum or plasma C reactive protein measurement (mass/volume) 3.07 mg /dL 0.00-0.50 Gram stain microscopy - 09/17/17 20:40 GRAM STAIN RESULT ON DIRECT GRAM STAIN NRG Bacteria identification in wound by culture - 09/17/17 20:40 Bacteria identification in wound by culture [id number] NRG FREE TEXT EXTERNAL SENSITIVITY REPORTED AT 1938, 3 NRG QUANTITY OF GROWTH Abundant Growth NRG MRSA AGAR MRSA isolated (Screening test for MRSA is positive) NRG CALL POSITIVES (F1 HELP) REPORT PRINTED TO ED NS NR Bacterial susceptibility panel - 09/17/17 20:40 Oxacillin susceptibility test by minimum inhibitory concentration R NRG Gentamicin susceptibility test by minimum inhibitory concentration < = NRG Clindamycin susceptibility test by minimum inhibitory concentration <= NRG Erythromycin susceptibility test by minimum inhibitory concentration >= NRG Trimethoprim/sulfamethoxazole susceptibility test by minimum inhibitoryconcentration S NRG Vancomycin susceptibility test by minimum inhibitory concentration 1 NRG Levofloxacin susceptibility test by minimum inhibitory concentration <= NRG Rifampin susceptibility test by minimum inhibitory concentration <= NRG Tetracycline susceptibility test by minimum inhibitory concentration <= NRG Complete blood count (CBC) with automated white blood cell (WBC) differential - 10/09/17 00:19 Blood leukocytes automated count (number/volume) 6.4 10*3/uL 4.3-11.0 Blood erythrocytes automated count (number/volume) 4.76 10*6/uL 4.35-5.85 Venous blood hemoglobin measurement (mass/volume) 14.5 g/dL 11.5-16.0 Blood hematocrit (volume fraction) 41 % 35-52 Automated erythrocyte mean corpuscular volume 86 [foz_us] 80-99 Automated erythrocyte mean corpuscular hemoglobin (mass per erythrocyte) 31 pg 25-34 Automated erythrocyte mean corpuscular hemoglobin concentration measurement ( mass/volume) 36 g/dL 32-36 Automated erythrocyte distribution width ratio 14.4 % 10.0-14.5 Automated blood platelet count (count/volume) 84 10*3/uL 130-400 Automated blood platelet mean volume measurement 10.3 [foz_us] 7.4-10.4 Automated blood neutrophils/100 leukocytes 69 % 42-75 Automated blood lymphocytes/100 leukocytes 13 % 12-44 Blood monocytes/100 leukocytes 11 % 0-12 Automated blood eosinophils/100 leukocytes 6 % 0-10 Automated blood basophils/100 leukocytes 1 % 0-10 Blood neutrophils automated count (number/volume) 4.5 10*3 1.8-7.8 Blood lymphocytes automated count (number/volume) 0.9 10*3 1.0-4.0 Blood monocytes automated count (number/volume) 0.7 10*3 0.0-1.0 Automated eosinophil count 0.4 10*3/uL 0.0-0.3 Automated blood basophil count (count/volume) 0.0 10*3/uL 0.0-0.1 Comprehensive metabolic panel - 10/09/17 00:19 Serum or plasma sodium measurement (moles/volume) 132 mmol/L 135-145 Serum or plasma potassium measurement (moles/volume) 4.3 mmol/L 3.6-5.0 Serum or plasma chloride measurement (moles/volume) 97 mmol/L 98-107 Carbon dioxide 22 mmol/L 21-32 Serum or plasma anion gap determination (moles/volume) 13 mmol/L 5-14 Serum or plasma urea nitrogen measurement (mass/volume) 21 mg/dL 7-18 Serum or plasma creatinine measurement (mass/volume) 1.27 mg/dL 0.60-1.30 Serum or plasma urea nitrogen/creatinine mass ratio 17 NRG Serum or plasma creatinine measurement with calculation of estimated glomerular filtration rate 43 NRG Serum or plasma glucose measurement (mass/volume) 89 mg/dL 70-105 Serum or plasma calcium measurement (mass/volume) 9.6 mg/dL 8.5-10.1 Serum or plasma total bilirubin measurement (mass/volume) 1.8 mg/dL 0.1-1.0 Serum or plasma alkaline phosphatase measurement (enzymatic activity/volume) 83 U/L 40-136 Serum or plasma aspartate aminotransferase measurement (enzymatic activity/ volume) 174 U/L 5-34 Serum or plasma alanine aminotransferase measurement (enzymatic activity/volume ) 157 U/L 0-55 Serum or plasma protein measurement (mass/volume) 8.3 g/dL 6.4-8.2 Serum or plasma albumin measurement (mass/volume) 3.8 g/dL 3.2-4.5 Ammonia - 10/09/17 00:19 Ammonia 72 umol/L 11-32 Serum or plasma C reactive protein measurement (mass/volume) - 10/09/17 00:19 Serum or plasma C reactive protein measurement (mass/volume) 1.44 mg /dL 0.00-0.50 Encounters ACCT No. Visit Date/Time Discharge Status Pt. Type Provider Facility Loc./Unit Complaint [id number] 10/02/2017 09:36:00 10/02/2017 23:59:59 CLS Outpatient FABRICIO MC MD [facility] RAD CIRRHOSIS OF LIVER WO ASCITES [id number] 09/17/2017 19:43:00 09/17/2017 23:15:00 DIS Emergency [facility] [place] [facility] LEG RASH [id number] 04/20/2017 04:07:00 04/20/2017 05:15:00 DIS Emergency CHIRAG BELLA DO [facility] SWELLING IN LEGS [id number] 12/14/2016 22:43:00 12/15/2016 01:35:00 DIS Emergency HORACIO WHEELER [facility] ER R FOOT PAIN AFTER STEPPING ON NAIL [id number] 02/16/2014 12:22:00 02/16/2014 23:59:59 CLS Outpatient [id number] 10/05/2013 13:03:00 01/03/2014 00:01:00 DIS Outpatient JESUS GREEN MD [facility] ONC [id number] 07/12/2013 07:23:00 07/12/2013 23:59:59 CLS Outpatient DENZEL QUINN [facility] RAD HX OF HEP C, ASCITES [id number] 10/09/2017 00:46:00 Document Registration [id number] 09/20/2014 14:22:00 Document Registration [id number] 06/07/2014 14:06:00 Document Registration [id number] 11/21/2016 10:09:00 Document Registration [id number] 09/29/2017 15:00:00 09/29/2017 23:59:59 CLS Outpatient DENZEL QUINN APRN [facility] [id number] 08/18/2017 09:40:00 Document Registration [id number] 07/06/2014 10:23:00 07/06/2014 23:59:59 CLS Outpatient DENZEL QUINN APRN [id number] 01/25/2014 00:00:00 01/25/2014 23:59:59 CLS Outpatient DENZEL QUINN APRN [id number] 07/26/2013 11:42:00 07/26/2013 23:59:59 CLS Outpatient DENZEL QUINN APRN [id number] 07/01/2013 10:39:00 07/01/2013 23:59:59 CLS Outpatient DENZEL QUINN APRN [id number] 06/26/2013 09:01:00 06/26/2013 23:59:59 CLS Outpatient CATERINA GARCIA APRN [id number] 06/08/2012 10:08:00 06/08/2012 23:59:59 CLS Outpatient DENZEL QUINN APRN [id number] 07/24/2016 08:42:00 Document Registration [id number] 11/21/2016 10:09:00 Document Registration
== END 2017-10-09 02:02 | disposition home or self-care (01) ==
LOC: EDUNIT# 22:52 → ER 22:54
DX: L29.9 Pruritus, unspecified (principal); K72.90 Hepatic failure, unspecified without coma; L03.115 Cellulitis of right lower limb; L03.116 Cellulitis of left lower limb; B19.20 Unspecified viral hepatitis C without hepatic coma; Z87.19 Personal history of other diseases of the digestive system; Z88.5 Allergy status to narcotic agent; Z87.891 Personal history of nicotine dependence; Z90.89 Acquired absence of other organs; Z90.49 Acquired absence of other specified parts of digestive tract; Z87.59 Personal history of other complications of pregnancy, childbirth and the puerperium
CPT/HCPCS: 36415; 80053; 82140; 85025; 86141

== ENCOUNTER → 2017-12-12 | Outpatient (CLI) | payer MEDICAID ==
[~2017-12-12] MED LIST changes: +CEPH-507 PO; +CHOL4PAC16 PO; +LORA-404 PO; +ONDA4TAB8 PO; +PANT40TA2 PO; +PERM60CR17 TP; +SERT50TA9 PO
== END ==
LOC: WOUNDCARE 10:20
PROVIDERS: ATTEND Surgery
DX: L97.212 Non-pressure chronic ulcer of right calf with fat layer exposed (principal); L97.211 Non-pressure chronic ulcer of right calf limited to breakdown of skin; L97.221 Non-pressure chronic ulcer of left calf limited to breakdown of skin; I87.333 Chronic venous hypertension (idiopathic) with ulcer and inflammation of bilateral lower extremity; I89.0 Lymphedema, not elsewhere classified; B18.2 Chronic viral hepatitis C; K74.69 Other cirrhosis of liver; T43.622A Poisoning by amphetamines, intentional self-harm, initial encounter
CPT/HCPCS: 29580

== ENCOUNTER → 2017-12-15 | Outpatient (CLI) | payer MEDICAID | LOC: WOUNDCARE 10:23 | PROVIDERS: ATTEND Surgery | DX: I87.333 Chronic venous hypertension (idiopathic) with ulcer and inflammation of bilateral lower extremity (principal); L97.211 Non-pressure chronic ulcer of right calf limited to breakdown of skin; L97.221 Non-pressure chronic ulcer of left calf limited to breakdown of skin; I89.0 Lymphedema, not elsewhere classified; B18.2 Chronic viral hepatitis C; K74.69 Other cirrhosis of liver; T43.622A Poisoning by amphetamines, intentional self-harm, initial encounter ==

== ENCOUNTER → 2017-12-22 | Outpatient (CLI) | payer MEDICAID | LOC: WOUNDCARE 10:11 | PROVIDERS: ATTEND Surgery | DX: L97.212 Non-pressure chronic ulcer of right calf with fat layer exposed (principal); L97.221 Non-pressure chronic ulcer of left calf limited to breakdown of skin; I87.333 Chronic venous hypertension (idiopathic) with ulcer and inflammation of bilateral lower extremity; I89.0 Lymphedema, not elsewhere classified; B18.2 Chronic viral hepatitis C; K74.69 Other cirrhosis of liver; T43.622A Poisoning by amphetamines, intentional self-harm, initial encounter | CPT/HCPCS: 11042; 97597 ==

== ENCOUNTER → 2018-01-05 | Outpatient (CLI) | payer MEDICAID | LOC: WOUNDCARE 10:03 | PROVIDERS: ATTEND Surgery | DX: L97.212 Non-pressure chronic ulcer of right calf with fat layer exposed (principal); L97.221 Non-pressure chronic ulcer of left calf limited to breakdown of skin; I87.333 Chronic venous hypertension (idiopathic) with ulcer and inflammation of bilateral lower extremity; I89.0 Lymphedema, not elsewhere classified; B18.2 Chronic viral hepatitis C; K74.69 Other cirrhosis of liver; T43.622A Poisoning by amphetamines, intentional self-harm, initial encounter | CPT/HCPCS: 11042; 97597 ==

== ENCOUNTER → 2018-01-12 | Outpatient (CLI) | payer MEDICAID | LOC: WOUNDCARE 10:14 | PROVIDERS: ATTEND Surgery | DX: I87.332 Chronic venous hypertension (idiopathic) with ulcer and inflammation of left lower extremity (principal); L97.221 Non-pressure chronic ulcer of left calf limited to breakdown of skin; I89.0 Lymphedema, not elsewhere classified; B18.2 Chronic viral hepatitis C; K74.69 Other cirrhosis of liver; T43.622A Poisoning by amphetamines, intentional self-harm, initial encounter | CPT/HCPCS: 97597 ==

== ENCOUNTER → 2018-01-21 | Outpatient (CLI) | payer MEDICAID | LOC: WOUNDCARE 12:48 | PROVIDERS: ATTEND Surgery | DX: I87.323 Chronic venous hypertension (idiopathic) with inflammation of bilateral lower extremity (principal); I89.0 Lymphedema, not elsewhere classified; B18.2 Chronic viral hepatitis C; K74.69 Other cirrhosis of liver; T43.622D Poisoning by amphetamines, intentional self-harm, subsequent encounter ==

== ENCOUNTER → 2018-01-28 | Outpatient (CLI) | payer MEDICAID | LOC: WOUNDCARE 11:19 | PROVIDERS: ATTEND Surgery | DX: I87.323 Chronic venous hypertension (idiopathic) with inflammation of bilateral lower extremity (principal); I89.0 Lymphedema, not elsewhere classified; B18.2 Chronic viral hepatitis C; K74.69 Other cirrhosis of liver; T43.622A Poisoning by amphetamines, intentional self-harm, initial encounter | CPT/HCPCS: 99213 ==

== ENCOUNTER 2018-03-31 05:54 | Outpatient (CLI) | payer MEDICAID ==
[~2018-03-31] VITALS: Ht 157.5 cm; Wt 65.8 kg
[~2018-03-31 05:54] MED LIST changes: +HYDR50CA PO; +MUPI1OIN6 TP
[2018-03-31] MEDS ORDERED: OMEP40CA36 PO (10:09)
[2018-03-31] MEDS ORDERED: FURO40TA4 PO (10:09)
[2018-03-31] MEDS ORDERED: SPIR100T4 PO (10:09)
[2018-03-31] MEDS ORDERED: POTA20TA15 PO (10:09)
== END 2018-03-31 10:14 | disposition home or self-care (01) ==
LOC: PREOP 05:54
PROVIDERS: ATTEND Specialist
DX: Z01.818 Encounter for other preprocedural examination (principal)

== ENCOUNTER 2018-04-01 09:10 | Day surgery (SDC) | payer MEDICAID ==
[~2018-04-01] VITALS: Ht 157.5 cm; Wt 65.8 kg
[~2018-04-01 09:10] MED LIST changes: +FURO40TA4 PO; +POTA20TA15 PO; +SPIR100T4 PO
[2018-04-01] MEDS ORDERED: POVIDONE (BETADINE) OPHTH SOLN 5% 30 ML OP ONE (09:30)
[2018-04-01] MEDS ORDERED: LIDOCAINE PF 1% 2 ML AMP IR PRN (09:30)
[2018-04-01] MEDS ORDERED: EPINEPHrine INJECTION 1 MG/ML AMP INJ ONE (09:30)
[2018-04-01] MEDS ORDERED: MOXIFLOXACIN OPHTH SOLN 5 MG/ML 0.3 ML SYRINGE OP ONE (09:30)
[2018-04-01] MEDS ORDERED: TIMOLOL MALEATE 0.5% 5 ML (TIMOPTIC) BTL OU PRN (09:30)
[2018-04-01 09:37] VITALS: BP 109/45
[2018-04-01] MEDS: TETRACAINE 0.5% OPHTH SOLN 4 ML BTL (SINGLE DOSE ONLY) OU PRN ×4 (09:41→09:57)
[2018-04-01] MEDS: PHENYLEPHRINE 10% OPHTH (NEO-SYN) 5 ML BTL OU SCH ×3 (09:47→09:57)
[2018-04-01] MEDS: CYCLOPENTOLATE 1% (CYCLOGYL) 2 ML DROPS OP SCH ×3 (09:47→09:57)
[2018-04-01] MEDS ORDERED: MIDAZOLAM 2 MG/2 ML (VERSED) VIAL ONE (10:28)
--- NOTE | 2018-04-01 11:15 | Ophthalmologist Pre-Op Note ---
Pre-Operative Progress Note H&P Reviewed The H&P was reviewed, patient examined and no changes noted. Date H&P Reviewed: Apr 01, 2018 Time H&P Reviewed: 10:51 Pre-Op Dx Cataract, Right Eye JORGE YANES MD Apr 01, 2018 11:15
--- NOTE | 2018-04-01 11:15 | Ophthalmology Operative Report ---
Cataract removal/placement IOL PREOPERATIVE DIAGNOSIS: 1. Mature Cataract Right Eye 2. Stain the anterior capsule with Vision Blue. POSTOPERATIVE DIAGNOSIS: 1. Mature Cataract Right Eye 2. Stain the anterior capsule with Vision Blue. PROCEDURE: 1. Cataract removal and placement of posterior chamber implant , right eye. 2. Stain the anterior capsule with Vision Blue. SURGEON: Ralph Yanes ANESTHESIA: Topical with sedation COMPLICATIONS: None ESTIMATED BLOOD LOSS: Minimal DESCRIPTION OF PROCEDURE: After proper informed consent was obtained, the patient was taken to the Operating Room and the right eye was anesthetized with tetracaine. The right eye was then prepped and draped in the usual manner. A wire lid speculum was placed. A paracentesis was made at the left hand position. Preservative free lidocaine was injected into anterior chamber followed by viscoelastic. A clear corneal incision was made in the temporal position. A capsulorrhexis was performed and the central nuclear and cortical material were removed. Vision blue was used to visualize capsule. The posterior capsule was polished and Lawrence 23.0 AU00T0 IOL was placed into the capsular bag. The residual viscoelastic was aspirated and balanced saline solution was injected into the anterior chamber. Moxifloxacin was injected into the anterior chamber. The wound was checked and found to be water tight. The patient tolerated the procedure well without complications. RALPH YANES MD Apr 01, 2018 11:15
[2018-04-01 11:30] VITALS: BP 100/52
== END 2018-04-01 11:30 | disposition home or self-care (01) ==
LOC: SDC 09:10
PROVIDERS: ATTEND Specialist
DX: H26.9 Unspecified cataract (principal); B19.20 Unspecified viral hepatitis C without hepatic coma; K21.9 Gastro-esophageal reflux disease without esophagitis; H81.09 Meniere's disease, unspecified ear; Z79.899 Other long term (current) drug therapy

== ENCOUNTER 2018-04-15 06:36 | Outpatient (CLI) | payer MEDICAID ==
[~2018-04-15] VITALS: Ht 157.5 cm; Wt 65.8 kg
== END 2018-04-15 15:58 | disposition home or self-care (01) ==
LOC: PREOP 06:36
PROVIDERS: ATTEND Specialist
DX: Z01.818 Encounter for other preprocedural examination (principal)

== ENCOUNTER 2018-06-23 22:12 | Emergency (ER) | payer MEDICAID ==
[~2018-06-23] VITALS: Ht 157.5 cm; Wt 65.8 kg
--- OUTSIDE RECORDS SUMMARY | 2018-06-23 22:21 | XMS REPORT ---
Author Author DENZEL QUINN [facility] Address [address] [place] [address] Care Team Providers Care Fiberglass Quality Technician Name Role Phone DENZEL QUINN Unavailable PROBLEMS Type Condition ICD9-CM Code YZV33-OO Code Onset Dates Condition Status SNOMED Code Problem Chronic hepatitis C without hepatic coma B18.2 Active 403951576 Problem Cirrhosis of liver without ascites, unspecified hepatic cirrhosis type K74.60 Active 481153235 Problem Methamphetamine dependence, 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 Active 329459897 Problem Primary osteoarthritis, right hand M19.041 Active 5609837680001144 Problem Venous insufficiency of both lower extremities I87.2 Active 499552383 Problem Lymphedema in adult patient I89.0 Active 169244739 Problem Mild acid reflux K21.9 Active 233273600 Problem 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 Active 99380078 Problem Arthritis of hand M19.049 Active 879076086 Problem Dysthymia F34.1 Active 45645902 Problem Drug abuse and dependence F19.20 Active 7217955 Problem Increased ammonia level R79.89 Active 094680795 Problem Other ascites R18.8 Active 635492890 Problem Other cirrhosis of liver K74.69 Active 11695719 ALLERGIES No Information ENCOUNTERS Encounter Location Date Diagnosis [facility] [id number] [address] Mar, [facility] [id number] [address] Feb, [facility] [address] [address] Feb, [facility] [id number] [address] Feb, [facility] [id number] [place] [address]17- 7675 Jan, [facility] [id number] [place] [address] 28410- 4294 Jan, Dysuria R30.0 and Cystitis N30.90 [facility] [id number] [place] [address] 85832- 7767 Jan, [facility] [address] [address] Dec, Mild acid reflux K21.9 [facility] [id number] [place] [address] 00047- 7179 Dec, [facility] [id number] [place] [address] 11152- 9763 November, Cellulitis of right lower limb L03.115 ; Lymphedema in adult patient I89.0 and Venous insufficiency of both lower extremities I87.2 [facility] [id number] [place] [address] 35884- 7977 November, Lymphedema in adult patient I89.0 ; Cellulitis of right lower limb L03.115 ; Venous insufficiency of both lower extremities I87.2 ; Arthritis of hand M19.049 and Drug abuse and dependence F19.20 [facility] [id number] [place] [address] 79457- 8473 November, Cellulitis of right lower limb L03.115 [facility] [id number] [place] [address] 88768- 9735 November, [facility] [id number] [place] [address] 50889- 9356 November, [facility] [id number] [place] [address] 39100- 4447 November, Ulcer of lower extremity, unspecified laterality, unspecified ulcer stage L97.909 ; Chronic hepatitis C without hepatic coma B18.2 ; Cirrhosis of liver without ascites, unspecified hepatic cirrhosis type K74.60 and Lymphedema in adult patient I89.0 [facility] [id number] [place] [address] 68323- 0056 November, Cellulitis of left lower extremity L03.116 and Cellulitis of right lower extremity L03.115 [facility] [id number] [place] [address] 88741- 5431 Oct, Chronic hepatitis C without hepatic coma B18.2 ; Cirrhosis of liver without ascites, unspecified hepatic cirrhosis type K74.60 ; Methamphetamine dependence, 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 and Dermatitis L30.9 [facility] [id number] [place] [address] 02581- 2772 Oct, [facility] [id number] [place] [address] 75988- 6545 Sep, Cirrhosis of liver without ascites, unspecified hepatic cirrhosis type K74.60 ; Chronic hepatitis C without hepatic coma B18.2 ; Methamphetamine dependence, 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 ; Psoriasis L40.9 and Encounter for immunization Z23 [facility] [id number] [place] [address] 18981- 9947 Sep, Cellulitis of right lower limb L03.115 [facility] [id number] [place] [address] 68445- 4681 Sep, Cellulitis of left lower extremity L03.116 ; Cellulitis of right lower extremity L03.115 ; Cholestatic pruritus L29.8 ; Cirrhosis of liver without ascites, unspecified hepatic cirrhosis type K74.60 and Mild acid reflux K21.9 [id number] [place] [address] 15140- 0673 Sep, Cellulitis of right lower extremity L03.115 and Cellulitis of left lower extremity L03.116 [facility] [id number] [place] [address] 82372- 2930 Sep, Cellulitis of left lower extremity L03.116 and Cellulitis of right lower limb L03.115 [facility] [id number] [place] [address] 92565- 7108 Aug, [facility] [address] [address] Aug, [facility] [id number] [place] [address] 18558- 7599 Aug, Unspecified cirrhosis of liver K74.60 ; Drug abuse and dependence F19.20 and Chronic hepatitis C without hepatic coma B18.2 [facility] [id number] [place] [address] 29359- 6942 Jul, [facility] [id number] [place] [address] 47808- 5558 Jul, [facility] [id number] [place] [address] 28055- 1646 Jul, [facility] [id number] [place] [address] 30245- 5554 Apr, Other cirrhosis of liver K74.69 and Unspecified viral hepatitis C without hepatic coma B19.20 [facility] [address] [address] 60[address] Apr, [facility] [id number] [place] [address] 75595- 2882 Apr, [facility] [address] [address] 7008 Mar, Alopecia L65.9 ; Dysthymia F34.1 and Vision changes H53.9 [facility] [address] [address] 43[address] Feb, [facility] [id number] [place] [address] 96963- 5402 November, Increased ammonia level R79.89 [facility] [address] [address] 3265 November, Cirrhosis of liver with ascites, unspecified hepatic cirrhosis type K74.60 ; Psoriasis L40.9 and Drug abuse and dependence F19.20 [facility] [address] [address]- 0259 November, [address] [address] [address]- 1691 Oct, [facility] [address] [address] Jul, Cirrhosis of liver without ascites, unspecified hepatic cirrhosis type K74.60 ; Encounter for immunization Z23 ; Vision changes H53.9 and Dysthymia F34.1 [address] [address] [address]- [address] Feb, Osteoarthritis of carpometacarpal joint of right thumb, unspecified osteoarthritis type M18.9 [facility] [address] [address] 8435 Feb, Psoriasis L40.9 ; Pain of left thumb M79.645 ; Cirrhosis of liver without ascites, unspecified hepatic cirrhosis type K74.60 ; Chronic hepatitis C without hepatic coma B18.2 ; Urinary tract infection without hematuria, site unspecified N39.0 ; Vision changes H53.9 and Face pain R51 [place] [address] [address]- 9201 Feb, Chronic hepatitis C without hepatic coma B18.2 [place] [address] [address]- 4731 Feb, Psoriasis L40.9 ; Pain of left thumb M79.645 ; Cirrhosis of liver without ascites, unspecified hepatic cirrhosis type K74.60 ; Chronic hepatitis C without hepatic coma B18.2 ; Urinary tract infection without hematuria, site unspecified N39.0 ; Vision changes H53.9 and Face pain R51 [address] [place] [address] [address]- 8456 Jan, [address] [address] [address]- 5850 Sep, [place] [id number] [address]- 7295 Aug, [facility] [address] [address]- 2916 Jun, 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 and Unspecified cirrhosis of liver K74.60 [facility] [address] [place] [address]306 Feb, Eye pain 379.91 [facility] [address] [address]- 6149 Oct, [facility] [address] [place] [address]- 6669 Oct, [facility] [address] [address] [address] Jul, [facility] [address] [address] Jul, [facility] [address] [address]- 6545 Jul, [facility] [address] [address]- 9979 Jul, [facility] [address] [address] 4484 Jul, [facility] [address] 7[address] Jul, [facility] [address] [address] 5844 Jun, [facility] [address] [address]- 6436 Jun, [facility] [address] [address]- 2846 Feb, [facility] [id number] [place] [address]- 4426 Feb, [facility] [place] [facility] [address] [id number] [place] [address]- 5464 Dec, [facility] [place] [facility] [address] [id number] [place] [address]- 1551 Dec, [facility] [place] [facility] [address] [id number] [place] [address]- 3008 Dec, [facility] [place] [facility] [address] [id number] [place] [address]- 1632 Dec, [facility] [place] [facility] [address] [id number] [place] [address]- 9095 November, [facility] [place] [facility] [address] [id number] [place] [address]- 5821 November, [facility] [place] [facility] [address] [id number] [place] [address]- 4264 Sep, [facility] [place] [facility] [address] [id number] [place] [address]- 4113 Sep, [facility] [place] [facility] [address] [id number] [place] [address]- 1494 Sep, [facility] [place] [facility] [address] [id number] [place] [address]- 1101 Sep, [facility] [place] [facility] [address] [id number] [place] [address]- 2846 Sep, [facility] [place] [facility] [address] [id number] [place] [address]- 3352 Sep, [facility] [place] [facility] [address] [id number] [place] [address]- 8645 Jul, [facility] [place] [facility] [address] [id number] [place] [address]- 4155 Jul, [facility] [place] [facility] [address] [id number] [place] [address]- 5193 Jul, [facility] [place] [facility] [address] [id number] [place] [address]- 9085 Jul, [facility] [address] [id number] [place] [address]- 1067 Jul, [facility] [place] [facility] [address] [id number] [place] [address]- 3766 Jul, [facility] [address] [id number] [place] [address]- 5727 Jul, [facility] [address] [id number] [place] [address]- 8715 Jun, [facility] [address] [id number] [place] [address]- 0866 Jun, [facility] [place] [facility] [address] [id number] [place] [address]- 8200 Jun, [facility] [address] [id number] [place] [address]- 0912 Jun, [facility] [address] [id number] [place] [address]- 8784 Jun, [facility] [place] [facility] [address] [id number] [place] [address]- 8975 Jun, [facility] [place] [facility] [address] [id number] [place] [address]- 4525 Jun, [facility] [place] [facility] [address] [id number] [place] [address]- 4053 Jun, [facility] [place] [facility] [address] [id number] [address]- 0182 Jun, [facility] [place] [facility] [address] [id number] [place] [address]- 3801 Jul, [facility] [place] [facility] [address] [id number] [place] [address]- 7881 Jun, [facility] [place] [facility] [address] [id number] [place] [address]- 8537 Jun, [facility] [place] [facility] [address] [facility] [id number] [place] [address]- 2546 Mar, [facility] [id number] [address]- 8086 Jun, [facility] [id number] [address]- 2546 Jun, [facility] [id number] [address]- 6556 Apr, [facility] [id number] [address]- 7326 Apr, IMMUNIZATIONS No Known Immunizations SOCIAL HISTORY Never Assessed REASON FOR VISIT Refill request PLAN OF CARE VITAL SIGNS MEDICATIONS Unknown Medications RESULTS No Results PROCEDURES No Known procedures INSTRUCTIONS MEDICATIONS ADMINISTERED No Known Medications MEDICAL (GENERAL) HISTORY Type Description Date Medical History post cholecystectomy Medical History viral infection hepatitis C D x 11/14 Dr. 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
--- OUTSIDE RECORDS SUMMARY | 2018-06-23 22:21 | XMS REPORT ---
Author Author DENZEL QUINN [facility] Address [address] [place] [address] Care Team Providers Care Architect Manager Name Role Phone DENZEL QUINN Unavailable PROBLEMS Type Condition ICD9-CM Code ZGS79-AN Code Onset Dates Condition Status SNOMED Code Problem Chronic hepatitis C without hepatic coma B18.2 Active 695580182 Problem Cirrhosis of liver without ascites, unspecified hepatic cirrhosis type K74.60 Active 581581515 Problem Methamphetamine dependence, 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 Active 773357223 Problem Primary osteoarthritis, right hand M19.041 Active [id number] Problem Venous insufficiency of both lower extremities I87.2 Active 643819026 Problem Lymphedema in adult patient I89.0 Active 616586737 Problem Mild acid reflux K21.9 Active 078302090 Problem 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 Active 55769430 Problem Arthritis of hand M19.049 Active 583170827 Problem Dysthymia F34.1 Active 90096827 Problem Drug abuse and dependence F19.20 Active 0465684 Problem Increased ammonia level R79.89 Active 679614976 Problem Other ascites R18.8 Active 565311066 Problem Other cirrhosis of liver K74.69 Active 75031860 ALLERGIES No Information ENCOUNTERS Encounter Location Date Diagnosis [facility], [place] [id number] [address] Mar, [facility], [place] [id number] [address] Feb, [facility], [place] [address] [address] Feb, [facility], [place] [id number] [address] Feb, [facility], [place] [id number] [place] [address]33- 6713 Jan, [facility] [facility] [id number] [place] [address] 7[address]88- 4873 Jan, Dysuria R30.0 and Cystitis N30.90 [facility] [facility] [id number] [place] [address] 81125- 8482 Jan, [place] [address] [address] Dec, Mild acid reflux K21.9 [facility] [facility] [id number] [place] [address] 85017- 9067 Dec, [facility] [facility] [id number] [place] [address] 33842- 0167 November, Cellulitis of right lower limb L03.115 ; Lymphedema in adult patient I89.0 and Venous insufficiency of both lower extremities I87.2 [facility] [facility] [id number] [place] [address] 96808- 5339 November, Lymphedema in adult patient I89.0 ; Cellulitis of right lower limb L03.115 ; Venous insufficiency of both lower extremities I87.2 ; Arthritis of hand M19.049 and Drug abuse and dependence F19.20 [facility] [facility] [id number] [place] [address] 09375- 9746 November, Cellulitis of right lower limb L03.115 [facility] [facility] [id number] [place] [address] 29099- 3451 November, [facility] [id number] [place] [address] 44679- 3047 November, [facility] [facility] [id number] [place] [address] 58634- 7443 November, Ulcer of lower extremity, unspecified laterality, unspecified ulcer stage L97.909 ; Chronic hepatitis C without hepatic coma B18.2 ; Cirrhosis of liver without ascites, unspecified hepatic cirrhosis type K74.60 and Lymphedema in adult patient I89.0 [facility] [facility] [id number] [place] [address] 78597- 4495 November, Cellulitis of left lower extremity L03.116 and Cellulitis of right lower extremity L03.115 [facility] [facility] [id number] [place] [address] 14411- 3056 Oct, Chronic hepatitis C without hepatic coma B18.2 ; Cirrhosis of liver without ascites, unspecified hepatic cirrhosis type K74.60 ; Methamphetamine dependence, 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 and Dermatitis L30.9 [place] [id number] [place] [address] 09084- 9395 Oct, [facility] [id number] [place] [address] 09023- 6363 Sep, Cirrhosis of liver without ascites, unspecified hepatic cirrhosis type K74.60 ; Chronic hepatitis C without hepatic coma B18.2 ; Methamphetamine dependence, 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 ; Psoriasis L40.9 and Encounter for immunization Z23 [facility] [facility] [id number] [place] [address] 88868- 1691 Sep, Cellulitis of right lower limb L03.115 [place] [id number] [place] [address] 95133- 5967 Sep, Cellulitis of left lower extremity L03.116 ; Cellulitis of right lower extremity L03.115 ; Cholestatic pruritus L29.8 ; Cirrhosis of liver without ascites, unspecified hepatic cirrhosis type K74.60 and Mild acid reflux K21.9 [place] [id number] [place] [address] 02944- 7528 Sep, Cellulitis of right lower extremity L03.115 and Cellulitis of left lower extremity L03.116 [place] [id number] [place] [address] 14490- 1060 Sep, Cellulitis of left lower extremity L03.116 and Cellulitis of right lower limb L03.115 [facility] [facility] [id number] [place] [address] 03862- 2058 Aug, [facility], [place] [address], [place] [address] 2[address] Aug, [facility], [place] [id number] [place] [address] 39549- 7401 Aug, Unspecified cirrhosis of liver K74.60 ; Drug abuse and dependence F19.20 and Chronic hepatitis C without hepatic coma B18.2 [facility], [place] [id number] [place] [address] 19350- 5623 Jul, [facility], [place] [id number] [place] [address] 84698- 7573 Jul, [facility], [place] [id number] [place] [address] 81880- 2401 Jul, [facility], [place] [id number] [place] [address] 47925- 3985 Apr, Other cirrhosis of liver K74.69 and Unspecified viral hepatitis C without hepatic coma B19.20 [facility], [place] [address], [place] [address] 6953 Apr, [facility], [place] [id number] [place] [address] 21501- 3645 Apr, [facility], [place] [address], [place] [address] 0309 Mar, Alopecia L65.9 ; Dysthymia F34.1 and Vision changes H53.9 [facility], [place] [address], [place] [address] 9460 Feb, [facility], [place] [id number] [place] [address] 75840- 6382 November, Increased ammonia level R79.89 [facility], [place] [address], [place] [address]- 8979 November, Cirrhosis of liver with ascites, unspecified hepatic cirrhosis type K74.60 ; Psoriasis L40.9 and Drug abuse and dependence F19.20 [facility], [place] [address], [place] [address]- 5990 November, [place] [address], [place] [address]- 7839 Oct, [facility], [place] [address], [place] [address]- 9284 Jul, Cirrhosis of liver without ascites, unspecified hepatic cirrhosis type K74.60 ; Encounter for immunization Z23 ; Vision changes H53.9 and Dysthymia F34.1 [place] [address], [place] [address]- 9745 Feb, Osteoarthritis of carpometacarpal joint of right thumb, unspecified osteoarthritis type M18.9 [place] [address], [place] [address]- 9141 Feb, Psoriasis L40.9 ; Pain of left thumb M79.645 ; Cirrhosis of liver without ascites, unspecified hepatic cirrhosis type K74.60 ; Chronic hepatitis C without hepatic coma B18.2 ; Urinary tract infection without hematuria, site unspecified N39.0 ; Vision changes H53.9 and Face pain R51 [place] [address], [place] [address]- 5015 Feb, Chronic hepatitis C without hepatic coma B18.2 [place] [address], [place] [address]- 8405 Feb, Psoriasis L40.9 ; Pain of left thumb M79.645 ; Cirrhosis of liver without ascites, unspecified hepatic cirrhosis type K74.60 ; Chronic hepatitis C without hepatic coma B18.2 ; Urinary tract infection without hematuria, site unspecified N39.0 ; Vision changes H53.9 and Face pain R51 [place] [address], [place] [address]- 5150 Jan, [place] [address], [place] [address]- 0513 Sep, [facility] [id number] [place] [address]- 6364 Aug, [facility], [place] [address], [place] [address]- 0256 Jun, 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 and Unspecified cirrhosis of liver K74.60 [facility] [id number] [place] [address]- 5106 Feb, Eye pain 379.91 [facility] [address], [place] [address]- 6298 Oct, [facility], [place] [id number] [place] [address]- 5207 Oct, [facility] [address] 4000 Jul, [facility], [place] [address] 0227 Jul, [facility] [address], [place] [address]- 1722 Jul, [facility] [address], [place] [address]- 9302 Jul, [facility] [address] 7857 Jul, [facility], [place] [address] 0097 Jul, [facility] [address] 0891 Jun, [facility] [address], [place] [address]- 5016 Jun, [facility] [address], [place] [address]- 5776 Feb, [facility] [id number] [place] [address]- 6916 Feb, [facility] [place] [facility] [address] [id number] [place] [address]- 8679 Dec, [facility] [place] [facility] [address] [id number] [place] [address]- 4173 Dec, [facility] [place] [facility] [address] [id number] [place] [address]- 9986 Dec, [facility] [place] [facility] [address] [id number] [place] [address]- 7000 Dec, [facility] [place] [facility] [address] [id number] [place] [address]- 7132 November, [facility] [place] [facility] [address] [id number] [place] [address]- 5925 November, [facility] [place] [facility] [address] [id number] [place] [address]- 1590 Sep, [facility] [place] [facility] [address] [id number] [place] [address]- 4612 Sep, [facility] [place] [facility] [address] [id number] [place] [address]- 2931 Sep, [facility] [place] [facility] [address] [id number] [place] [address]- 9757 Sep, [facility] [place] [facility] [address] [id number] [place] [address]- 0322 Sep, [facility] [place] [facility] [address] [id number] [place] [address]- 4797 Sep, [facility] [place] [facility] [address] [id number] [place] [address]- 4715 Jul, [facility] [place] [facility] [address] [id number] [place] [address]- 9106 Jul, [facility] [place] [facility] [address] [id number] [place] [address]- 8427 Jul, [facility] [place] [facility] [address] [id number] [place] [address]- 2018 Jul, [facility] [address] [id number] [place] [address]- 4413 Jul, [facility] [place] [facility] [address] [id number] [place] [address]- 4258 Jul, [facility] [address] [id number] [place] [address]- 6432 Jul, [facility] [address] [id number] [place] [address]- 8547 Jun, [facility] [address] [id number] [place] [address]- 3870 Jun, [facility] [place] [facility] [address] [id number] [place] [address]- 4907 Jun, [facility] [address] [id number] [place] [address]- 9296 Jun, [facility] [address] [id number] [place] [address]- 6222 Jun, [facility] [place] [facility] [address] [id number] [place] [address]- 2253 Jun, [facility] [place] [facility] [address] [id number] [place] [address]- 1908 Jun, [facility] [place] [facility] [address] [id number] [place] [address]- 9830 Jun, [facility] [place] [facility] [address] [id number], [place] [address]- 3752 Jun, [facility] [place] [facility] [address] [id number] [place] [address]- 4547 Jul, [facility] [place] [facility] [address] [id number] [place] [address]- 7164 Jun, [facility] [place] [facility] [address] [id number] [place] [address]- 8345 Jun, [facility] [place] [facility] [address] [facility] [id number] [place] [address]- 2546 Mar, [facility] [place] [id number], [place] [address]- 8112 Jun, [facility] [place] [id number] [address]- 6656 Jun, [facility] [place] [address] [facility] [id number], [place] [address]- 4291 Apr, [facility], [place] [address] [facility] [id number], [place] [address]- 4432 Apr, IMMUNIZATIONS No Known Immunizations SOCIAL HISTORY Never Assessed REASON FOR VISIT Home Health Order request PLAN OF CARE VITAL SIGNS MEDICATIONS [...]
--- OUTSIDE RECORDS SUMMARY | 2018-06-23 22:22 | XMS REPORT ---
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 Active 811007390 Problem Primary osteoarthritis, right hand M19.041 Active [id number] Problem Venous insufficiency of both lower extremities I87.2 Active 312095254 Problem Lymphedema in adult patient I89.0 Active 778576215 Problem Mild acid reflux K21.9 Active 622993571 Problem 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 Active 66428043 Problem Arthritis of hand M19.049 Active 018195699 Problem Dysthymia F34.1 Active 75171630 Problem Drug abuse and dependence F19.20 Active 8650089 Problem Increased ammonia level R79.89 Active 427289749 Problem Other ascites R18.8 Active 686084224 Problem Other cirrhosis of liver K74.69 Active 89802376 ALLERGIES No Information ENCOUNTERS Encounter Location Date Diagnosis [facility] [id number] [address] Feb, [facility] [id number], [place] [address] Feb, [facility] [address], [place] [address] Feb, [facility] [id number], [place] [address] Jan, [facility] [id number] [place] [address]85- 0683 13 Jan, 2018 Dysuria R30.0 and Cystitis N30.90 [facility] [address] [address] Jan, [facility] [id number] [place] [address]- 3182 Dec, Mild acid reflux K21.9 [facility] [id number] [place] [address] 66643- 3427 Dec, [facility] [id number] [place] [address]86- 4844 November, Cellulitis of right lower limb L03.115 ; Lymphedema in adult patient I89.0 and Venous insufficiency of both lower extremities I87.2 [facility] [id number] [place] [address]326- 7845 November, Lymphedema in adult patient I89.0 ; Cellulitis of right lower limb L03.115 ; Venous insufficiency of both lower extremities I87.2 ; Arthritis of hand M19.049 and Drug abuse and dependence F19.20 [facility] [id number] [place] [address] 84416- 8192 November, Cellulitis of right lower limb L03.115 [facility] [id number] [place] [address]38- 1350 November, [facility] [id number] [place] [address] 44905- 5131 November, [facility] [id number] [place] [address] 71741- 3484 November, Ulcer of lower extremity, unspecified laterality, unspecified ulcer stage L97.909 ; Chronic hepatitis C without hepatic coma B18.2 ; Cirrhosis of liver without ascites, unspecified hepatic cirrhosis type K74.60 and Lymphedema in adult patient I89.0 [facility] [id number] [place] [address] 20168- 5622 November, Cellulitis of left lower extremity L03.116 and Cellulitis of right lower extremity L03.115 [facility] [address] [address]- [address]33 Oct, Chronic hepatitis C without hepatic coma B18.2 ; Cirrhosis of liver without ascites, unspecified hepatic cirrhosis type K74.60 ; Methamphetamine dependence, 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 and Dermatitis L30.9 [place] [address] [address]- [address] Oct, [facility] [address] [address]- [address] Sep, Cirrhosis of liver without ascites, unspecified hepatic cirrhosis type K74.60 ; Chronic hepatitis C without hepatic coma B18.2 ; Methamphetamine dependence, 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 ; Psoriasis L40.9 and Encounter for immunization Z23 [facility] [address] [address]- [address] Sep, Cellulitis of right lower limb L03.115 [facility] [address] 56[address]- 6554 Sep, Cellulitis of left lower extremity L03.116 ; Cellulitis of right lower extremity L03.115 ; Cholestatic pruritus L29.8 ; Cirrhosis of liver without ascites, unspecified hepatic cirrhosis type K74.60 and Mild acid reflux K21.9 [facility] [id number] [place] [address] 52718- 7938 Sep, Cellulitis of right lower extremity L03.115 and Cellulitis of left lower extremity L03.116 [facility] [id number] [place] [address] 95095- 5251 Sep, Cellulitis of left lower extremity L03.116 and Cellulitis of right lower limb L03.115 [facility] [address] 7[address]14- 0600 Aug, [facility] [address] [address]- 2750 Aug, [facility] [address], [place] [address] Aug, Unspecified cirrhosis of liver K74.60 ; Drug abuse and dependence F19.20 and Chronic hepatitis C without hepatic coma B18.2 [facility] [address] [address] Jul, [facility] [id number] [place] [address] 09735- 1306 Jul, [facility] [id number] [place] [address] 99372- 6659 Jul, [facility] [id number] [place] [address] 00624- 3997 Apr, Other cirrhosis of liver K74.69 and Unspecified viral hepatitis C without hepatic coma B19.20 [facility] [id number] [place] [address] 16450- 5531 Apr, [facility] [id number] [place] [address] 49633- 7276 Apr, [facility] [id number] [place] [address] 15916- 5744 Mar, Alopecia L65.9 ; Dysthymia F34.1 and Vision changes H53.9 [facility] [id number] [place] [address] 37609- 6871 Feb, [facility] [id number] [place] [address] 96093- 8950 November, Increased ammonia level R79.89 [facility] [id number] [place] [address] 36272- 5355 November, Cirrhosis of liver with ascites, unspecified hepatic cirrhosis type K74.60 ; Psoriasis L40.9 and Drug abuse and dependence F19.20 [facility] [id number] [place] [address] 85961- 5586 November, [facility] [address], [place] [address]- 6241 Oct, [facility] [id number] [place] [address] 35430- 9581 Jul, Cirrhosis of liver without ascites, unspecified hepatic cirrhosis type K74.60 ; Encounter for immunization Z23 ; Vision changes H53.9 and Dysthymia F34.1 [facility] [id number] [place] [address] 52629- 8760 Feb, Osteoarthritis of carpometacarpal joint of right thumb, unspecified osteoarthritis type M18.9 [facility] [address] [place] [address] 92562- 9566 Feb, Psoriasis L40.9 ; Pain of left thumb M79.645 ; Cirrhosis of liver without ascites, unspecified hepatic cirrhosis type K74.60 ; Chronic hepatitis C without hepatic coma B18.2 ; Urinary tract infection without hematuria, site unspecified N39.0 ; Vision changes H53.9 and Face pain R51 [facility] [address] [address] 7035 Feb, Chronic hepatitis C without hepatic coma B18.2 [facility] [address] [place] [address] 29259- 0670 Feb, Psoriasis L40.9 ; Pain of left thumb M79.645 ; Cirrhosis of liver without ascites, unspecified hepatic cirrhosis type K74.60 ; Chronic hepatitis C without hepatic coma B18.2 ; Urinary tract infection without hematuria, site unspecified N39.0 ; Vision changes H53.9 and Face pain R51 [facility] [address], [place] [address]- 2285 Jan, [facility] [id number] [place] [address] 90710- 9698 Sep, [facility] [address], [place] [address]- 3133 Aug, [facility] [id number] [address] [address] Jun, 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 and Unspecified cirrhosis of liver K74.60 [facility] [address] [address] Feb, Eye pain 379.91 [facility] [id number] [address]- 3236 Oct, [facility] [address], [place] [address]- 1177 Oct, [facility] [id number] [place] [address]- 2425 Jul, [facility] [address], [place] [address]- 6761 Jul, [facility] [address], [place] [address]- 9879 Jul, [facility] [address], [place] [address]- 2357 Jul, [facility] [address], [place] [address]- 1102 Jul, [facility] [address], [place] [address]- 7867 Jul, [facility] [address], [place] [address]- 4773 Jun, [facility] [address], [place] [address]- 9875 Jun, [facility] [address], [place] [address]- 3449 Feb, [facility] [address] [address] Feb, [facility] [address], [place] [address]- 8141 Dec, [facility] [place] [facility] [address] [facility] [id number] [place] [address]- 3737 Dec, [facility] [place] [facility] [address] [id number] [place] [address]- 3071 Dec, [facility] [place] [facility] [address] [id number] [place] [address]- 3353 Dec, [facility] [place] [facility] [address] [id number] [place] [address]- 8465 November, [facility] [place] [facility] [address] [id number] [place] [address]- 2768 November, [facility] [place] [facility] [address] [id number] [place] [address]- 8534 Sep, [facility] [place] [facility] [address] [id number] [place] [address]- 6358 Sep, [facility] [place] [facility] [address] [id number] [place] [address]- 3770 Sep, [facility] [place] [facility] [address] [id number] [place] [address]- 4031 Sep, [facility] [place] [facility] [address] [id number] [place] [address]- 4893 Sep, [facility] [place] [facility] [address] [id number] [place] [address]- 0416 Sep, [facility] [place] [facility] [address] [id number] [place] [address]- 5472 Jul, [facility] [place] [facility] [address] [id number] [place] [address]- 8494 Jul, [facility] [place] [facility] [address] [id number] [place] [address]- 9551 Jul, [facility] [place] [facility] [address] [id number] [place] [address]- 6986 Jul, [facility] [place] [facility] [address] [id number] [place] [address]- 4063 Jul, [facility] [address] [id number] [place] [address]- 8589 Jul, [facility] [address] [id number] [place] [address]- 5853 Jul, [facility] [address] [id number] [place] [address]- 3343 Jun, [facility] [place] [facility] [address] [id number] [place] [address]- 7190 Jun, [facility] [address] [id number] [place] [address]- 2864 Jun, [facility] [place] [facility] [address] [id number] [place] [address]- 8464 Jun, [facility] [address] [id number] [place] [address]- 5878 Jun, [facility] [address] [id number] [place] [address]- 8988 Jun, [facility] [address] [id number] [place] [address]- 4119 Jun, [facility] [address] [id number] [place] [address]- 4583 Jun, [facility] [place] [facility] [address] [id number] [place] [address]- 8086 Jun, [facility] [place] [facility] [address] [id number] [address]- 2753 Jul, [facility] [place] [facility] [address] [id number] [place] [address]- 7300 Jun, [facility] [place] [facility] [address] [id number] [place] [address]- 1123 Jun, [facility] [place] [facility] [address] [id number] [place] [address]- 3281 17 Mar, 2011 [facility] [place] [facility] [address] [facility] [id number] [place] [address] [address] Jun, [facility] [address] [facility] [id number] [address]- 1890 Jun, [facility] [address] [facility] [id number], [place] [address]- 0329 Apr, [facility] [address] [facility] [id number] [address]14 Apr, IMMUNIZATIONS No Known Immunizations SOCIAL HISTORY Never Assessed REASON FOR VISIT Requests return call PLAN OF CARE VITAL SIGNS MEDICATIONS Unknown [...]
--- OUTSIDE RECORDS SUMMARY | 2018-06-23 22:22 | XMS REPORT ---
Author Author DENZEL QUINN [facility] Address [address] [place] [address] Care Team Providers Care Motor Assembly Supervisor Name Role Phone DENZEL QUINN Unavailable PROBLEMS Type Condition ICD9-CM Code EIM95-XW Code Onset Dates Condition Status SNOMED Code Problem Chronic hepatitis C without hepatic coma B18.2 Active 242081705 Problem Cirrhosis of liver without ascites, unspecified hepatic cirrhosis type K74.60 Active 728847275 Problem Methamphetamine dependence, 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 Active 093086855 Problem Primary osteoarthritis, right hand M19.041 Active [id number] Problem Venous insufficiency of both lower extremities I87.2 Active 794135251 Problem Lymphedema in adult patient I89.0 Active 474410358 Problem Mild acid reflux K21.9 Active 033120451 Problem 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 Active 90083009 Problem Arthritis of hand M19.049 Active 326720908 Problem Dysthymia F34.1 Active 27763182 Problem Drug abuse and dependence F19.20 Active 4334044 Problem Increased ammonia level R79.89 Active 724528895 Problem Other ascites R18.8 Active 767532692 Problem Other cirrhosis of liver K74.69 Active 84319415 ALLERGIES No Information ENCOUNTERS Encounter Location Date Diagnosis [facility] [id number] [address] Feb, [facility] [id number] [address] Feb, [facility] [address] [address] Feb, [facility] [id number] [address] Jan, [facility] [id number] [place] [address]177- 3852 13 Jan, 2018 Dysuria R30.0 and Cystitis N30.90 [facility] [address] [address]- [address] Jan, [facility] [id number] [place] [address]20- 0006 Dec, Mild acid reflux K21.9 [facility] [id number] [place] [address] 50199- 7868 Dec, [facility] [id number] [place] [address] 04348- 7542 November, Cellulitis of right lower limb L03.115 ; Lymphedema in adult patient I89.0 and Venous insufficiency of both lower extremities I87.2 [facility] [id number] [place] [address]1898- 9141 November, Lymphedema in adult patient I89.0 ; Cellulitis of right lower limb L03.115 ; Venous insufficiency of both lower extremities I87.2 ; Arthritis of hand M19.049 and Drug abuse and dependence F19.20 [facility] [id number] [place] [address] 44751- 2685 November, Cellulitis of right lower limb L03.115 [facility] [id number] [place] [address] 82908- 5302 November, [facility] [id number] [place] [address] 45088- 4053 November, [facility] [id number] [place] [address] 55320- 4221 November, Ulcer of lower extremity, unspecified laterality, unspecified ulcer stage L97.909 ; Chronic hepatitis C without hepatic coma B18.2 ; Cirrhosis of liver without ascites, unspecified hepatic cirrhosis type K74.60 and Lymphedema in adult patient I89.0 [facility] [id number] [place] [address] 63472- 2872 November, Cellulitis of left lower extremity L03.116 and Cellulitis of right lower extremity L03.115 [facility] [address] [address]463- 9985 Oct, Chronic hepatitis C without hepatic coma B18.2 ; Cirrhosis of liver without ascites, unspecified hepatic cirrhosis type K74.60 ; Methamphetamine dependence, 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 and Dermatitis L30.9 [place] [facility] [address] [address]- [address] Oct, [facility] [address] [address]- 3648 Sep, Cirrhosis of liver without ascites, unspecified hepatic cirrhosis type K74.60 ; Chronic hepatitis C without hepatic coma B18.2 ; Methamphetamine dependence, 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 ; Psoriasis L40.9 and Encounter for immunization Z23 [place] [address] [address]16- [address]678 Sep, Cellulitis of right lower limb L03.115 [place] [address] 76257- 1240 Sep, Cellulitis of left lower extremity L03.116 ; Cellulitis of right lower extremity L03.115 ; Cholestatic pruritus L29.8 ; Cirrhosis of liver without ascites, unspecified hepatic cirrhosis type K74.60 and Mild acid reflux K21.9 [facility] [id number] [place] [address] 81724- 1931 Sep, Cellulitis of right lower extremity L03.115 and Cellulitis of left lower extremity L03.116 [facility] [id number] [place] [address] 58189- 6612 Sep, Cellulitis of left lower extremity L03.116 and Cellulitis of right lower limb L03.115 [place] [address] 33563- 4715 Aug, [facility] [address] 90503- 5137 Aug, [facility] [address] [address] 27[address] Aug, Unspecified cirrhosis of liver K74.60 ; Drug abuse and dependence F19.20 and Chronic hepatitis C without hepatic coma B18.2 [facility] [address] [address] Jul, [facility] [id number] [place] [address] 88090- 1135 Jul, [facility] [id number] [place] [address] 57651- 9527 Jul, [facility] [id number] [place] [address] 02699- 3300 Apr, Other cirrhosis of liver K74.69 and Unspecified viral hepatitis C without hepatic coma B19.20 [facility] [id number] [place] [address] 58301- 0170 Apr, [facility] [id number] [place] [address] 59237- 6135 Apr, [facility] [id number] [place] [address] 32191- 1333 Mar, Alopecia L65.9 ; Dysthymia F34.1 and Vision changes H53.9 [facility] [id number] [place] [address] 52962- 8608 Feb, [facility] [id number] [place] [address] 83997- 3881 November, Increased ammonia level R79.89 [facility] [id number] [place] [address] 61481- 8599 November, Cirrhosis of liver with ascites, unspecified hepatic cirrhosis type K74.60 ; Psoriasis L40.9 and Drug abuse and dependence F19.20 [facility] [id number] [place] [address] 97013- 6995 November, [facility] [address] [address]- 2225 Oct, [facility] [address] [place] [address] 56302- 2877 Jul, Cirrhosis of liver without ascites, unspecified hepatic cirrhosis type K74.60 ; Encounter for immunization Z23 ; Vision changes H53.9 and Dysthymia F34.1 [facility] [id number] [place] [address] 94281- 3224 Feb, Osteoarthritis of carpometacarpal joint of right thumb, unspecified osteoarthritis type M18.9 [facility] [address] [place] [address] 49467- 8163 Feb, Psoriasis L40.9 ; Pain of left thumb M79.645 ; Cirrhosis of liver without ascites, unspecified hepatic cirrhosis type K74.60 ; Chronic hepatitis C without hepatic coma B18.2 ; Urinary tract infection without hematuria, site unspecified N39.0 ; Vision changes H53.9 and Face pain R51 [facility] [address] [address]- 8223 Feb, Chronic hepatitis C without hepatic coma B18.2 [place] [address] [place] [address] 20764- 1809 Feb, Psoriasis L40.9 ; Pain of left thumb M79.645 ; Cirrhosis of liver without ascites, unspecified hepatic cirrhosis type K74.60 ; Chronic hepatitis C without hepatic coma B18.2 ; Urinary tract infection without hematuria, site unspecified N39.0 ; Vision changes H53.9 and Face pain R51 [place] [address] [address]- 6566 Jan, [facility] [id number] [place] [address] 83842- 8597 Sep, [facility] [address] [address]- 3755 Aug, [facility] [id number] [address] [address] Jun, 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 and Unspecified cirrhosis of liver K74.60 [facility] [address] [address] Feb, Eye pain 379.91 [facility] [address] [place] [address] 8406 Oct, [facility] [address] [address]- 3969 Oct, [facility] [address] [place] [address]- 7261 Jul, [facility] [address] [address]- 4084 Jul, [facility] [address] [address]- 4822 Jul, [facility] [address] [address]- 6913 Jul, [facility] [address] [address]- 8911 Jul, [facility] [address] [address]- 2599 Jul, [facility] [address] [address]- 8697 Jun, [facility] [address] [address]- 2299 Jun, [facility] [address] [address]- 7032 Feb, [facility] [address] [address] Feb, [facility] [address] [address]- 8402 Dec, [facility] [place] [facility] [address] [facility] [id number] [place] [address]- 6896 Dec, [facility] [place] [facility] [address] [id number] [place] [address]- 4333 Dec, [facility] [place] [facility] [address] [id number] [place] [address]- 7664 Dec, [facility] [place] [facility] [address] [id number] [place] [address]- 4113 November, [facility] [place] [facility] [address] [id number] [place] [address]- 4922 November, [facility] [place] [facility] [address] [id number] [place] [address]- 3562 Sep, [facility] [place] [facility] [address] [id number] [place] [address]- 9579 Sep, [facility] [place] [facility] [address] [id number] [place] [address]- 6744 Sep, [facility] [place] [facility] [address] [id number] [place] [address]- 2770 Sep, [facility] [place] [facility] [address] [id number] [place] [address]- 7728 Sep, [facility] [place] [facility] [address] [id number] [place] [address]- 2540 Sep, [facility] [place] [facility] [address] [id number] [place] [address]- 3968 Jul, [facility] [place] [facility] [address] [id number] [place] [address]- 6143 Jul, [facility] [place] [facility] [address] [id number] [place] [address]- 4100 Jul, [facility] [place] [facility] [address] [id number] [place] [address]- 2866 Jul, [facility] [place] [facility] [address] [id number] [place] [address]- 2982 Jul, [facility] [address] [id number] [place] [address]- 5404 Jul, [facility] [address] [id number] [place] [address]- 7022 Jul, [facility] [address] [id number] [place] [address]- 8178 Jun, [facility] [place] [facility] [address] [id number] [place] [address]- 7566 Jun, [facility] [address] [id number] [place] [address]- 2770 Jun, [facility] [place] [facility] [address] [id number] [place] [address]- 2766 Jun, [facility] [address] [id number] [place] [address]- 2350 Jun, [facility] [address] [id number] [place] [address]- 4888 Jun, [facility] [address] [id number] [place] [address]- 1944 Jun, [facility] [address] [id number] [place] [address]- 2693 Jun, [facility] [place] [facility] [address] [id number] [place] [address]- 7945 Jun, [facility] [place] [facility] [address] [id number] [place] [address]- 4695 Jul, [facility] [place] [facility] [address] [id number] [place] [address]- 9691 Jun, [facility] [place] [facility] [address] [id number] [place] [address]- 1199 Jun, [facility] [place] [facility] [address] [id number] [place] [address]- 5073 17 Mar, 2011 [facility] [place] [facility] [address] [facility] [id number] [place] [address]- 4484 Jun, [facility] [address] [facility] [id number] [place] [address]- 5422 Jun, [facility] [address] [facility] [id number] [place] [address]- 7806 Apr, [facility] [address] [facility] [id number] [place] [address]- 6067 Apr, IMMUNIZATIONS No Known Immunizations SOCIAL HISTORY Never Assessed REASON FOR VISIT EYE EXAM PLAN OF CARE VITAL SIGNS MEDICATIONS Unknown [...]
--- OUTSIDE RECORDS SUMMARY | 2018-06-23 22:22 | XMS REPORT ---
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 Active 160263510 Problem Primary osteoarthritis, right hand M19.041 Active 5595262988670761 Problem Venous insufficiency of both lower extremities I87.2 Active 260431739 Problem Lymphedema in adult patient I89.0 Active 671985843 Problem Mild acid reflux K21.9 Active 924362676 Problem 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 Active 61961996 Problem Arthritis of hand M19.049 Active 823635667 Problem Dysthymia F34.1 Active 32607071 Problem Drug abuse and dependence F19.20 Active 9732581 Problem Increased ammonia level R79.89 Active 077798943 Problem Other ascites R18.8 Active 952837381 Problem Other cirrhosis of liver K74.69 Active 14063751 ALLERGIES No Information ENCOUNTERS Encounter Location Date Diagnosis [facility] [id number], [place] [address] Feb, [facility] [id number], [place] [address] Feb, [facility] [address], [place] [address] Feb, [facility] [id number], [place] [address] Jan, [facility] [id number] [place] [address]295- 4014 13 Jan, 2018 Dysuria R30.0 and Cystitis N30.90 [facility] [address] [address] Jan, [facility] [id number] [place] [address]89- 9355 Dec, Mild acid reflux K21.9 [facility] [id number] [place] [address] 83905- 0620 Dec, [facility] [id number] [place] [address] 6[address]67- 2583 November, Cellulitis of right lower limb L03.115 ; Lymphedema in adult patient I89.0 and Venous insufficiency of both lower extremities I87.2 [facility] [id number] [place] [address]- 3[address] November, Lymphedema in adult patient I89.0 ; Cellulitis of right lower limb L03.115 ; Venous insufficiency of both lower extremities I87.2 ; Arthritis of hand M19.049 and Drug abuse and dependence F19.20 [facility] [id number] [place] [address] 68482- 4766 November, Cellulitis of right lower limb L03.115 [facility] [id number] [place] [address] 51380- 1280 November, [facility] [id number] [place] [address] 47319- 8126 November, [facility] [id number] [place] [address] 82516- 5861 November, Ulcer of lower extremity, unspecified laterality, unspecified ulcer stage L97.909 ; Chronic hepatitis C without hepatic coma B18.2 ; Cirrhosis of liver without ascites, unspecified hepatic cirrhosis type K74.60 and Lymphedema in adult patient I89.0 [facility] [id number] [place] [address] 91375- 2911 November, Cellulitis of left lower extremity L03.116 and Cellulitis of right lower extremity L03.115 [facility] [address] [address]- [address] Oct, Chronic hepatitis C without hepatic coma B18.2 ; Cirrhosis of liver without ascites, unspecified hepatic cirrhosis type K74.60 ; Methamphetamine dependence, 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 and Dermatitis L30.9 [facility] [address] [address]- [address] Oct, [facility] [address] [address]- [address] Sep, Cirrhosis of liver without ascites, unspecified hepatic cirrhosis type K74.60 ; Chronic hepatitis C without hepatic coma B18.2 ; Methamphetamine dependence, 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 ; Psoriasis L40.9 and Encounter for immunization Z23 [facility] [facility] [address] [address]- [address] Sep, Cellulitis of right lower limb L03.115 [facility] [address] [address]- 8616 Sep, Cellulitis of left lower extremity L03.116 ; Cellulitis of right lower extremity L03.115 ; Cholestatic pruritus L29.8 ; Cirrhosis of liver without ascites, unspecified hepatic cirrhosis type K74.60 and Mild acid reflux K21.9 [facility] [id number] [place] [address] 16345- 2272 Sep, Cellulitis of right lower extremity L03.115 and Cellulitis of left lower extremity L03.116 [facility] [id number] [place] [address] 24239- 7742 Sep, Cellulitis of left lower extremity L03.116 and Cellulitis of right lower limb L03.115 [facility] [address] 9[address]- [address]337 Aug, [facility] [address] [address]- [address]31 Aug, [facility] [address], [place] [address] Aug, Unspecified cirrhosis of liver K74.60 ; Drug abuse and dependence F19.20 and Chronic hepatitis C without hepatic coma B18.2 [facility] [address], [place] [address] 8[address] Jul, [facility] [id number] [place] [address] 56291- 1109 Jul, [facility] [id number] [place] [address] 99016- 0114 Jul, [facility] [id number] [place] [address] 24760- 2247 Apr, Other cirrhosis of liver K74.69 and Unspecified viral hepatitis C without hepatic coma B19.20 [facility] [id number] [place] [address] 63840- 7252 Apr, [facility] [id number] [place] [address] 99114- 6647 Apr, [facility] [id number] [place] [address] 44756- 3028 Mar, Alopecia L65.9 ; Dysthymia F34.1 and Vision changes H53.9 [facility] [id number] [place] [address] 23657- 0414 Feb, [facility] [id number] [place] [address] 46970- 2845 November, Increased ammonia level R79.89 [facility] [id number] [place] [address] 92689- 9019 November, Cirrhosis of liver with ascites, unspecified hepatic cirrhosis type K74.60 ; Psoriasis L40.9 and Drug abuse and dependence F19.20 [facility] [id number] [place] [address] 31299- 6094 November, [facility] [address], [place] [address]- 30[address] Oct, [facility] [id number] [place] [address] 25921- 4301 Jul, Cirrhosis of liver without ascites, unspecified hepatic cirrhosis type K74.60 ; Encounter for immunization Z23 ; Vision changes H53.9 and Dysthymia F34.1 [facility] [id number] [place] [address] 79245- 3602 Feb, Osteoarthritis of carpometacarpal joint of right thumb, unspecified osteoarthritis type M18.9 [facility] [id number] [place] [address] 83894- 9925 Feb, Psoriasis L40.9 ; Pain of left thumb M79.645 ; Cirrhosis of liver without ascites, unspecified hepatic cirrhosis type K74.60 ; Chronic hepatitis C without hepatic coma B18.2 ; Urinary tract infection without hematuria, site unspecified N39.0 ; Vision changes H53.9 and Face pain R51 [facility] [facility] [address], [place] [address]- 2423 Feb, Chronic hepatitis C without hepatic coma B18.2 [facility] [id number] [place] [address] 74281- 6704 Feb, Psoriasis L40.9 ; Pain of left thumb M79.645 ; Cirrhosis of liver without ascites, unspecified hepatic cirrhosis type K74.60 ; Chronic hepatitis C without hepatic coma B18.2 ; Urinary tract infection without hematuria, site unspecified N39.0 ; Vision changes H53.9 and Face pain R51 [facility] [facility] [address], [place] [address] Jan, [facility] [id number] [place] [address] 17240- 5755 Sep, [facility] [address], [place] [address]- 4358 Aug, [facility] [id number] [address] Jun, 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 and Unspecified cirrhosis of liver K74.60 [facility] [address] [address] [address] Feb, Eye pain 379.91 [facility] [address] [place] [address]- 3956 Oct, [facility] [address], [place] [address]- 1970 Oct, [facility] [address] [place] [address]- 4397 Jul, [facility] [address], [place] [address]- 9049 Jul, [facility] [address], [place] [address]- 0582 Jul, [facility] [address], [place] [address]- 7977 Jul, [facility] [address], [place] [address]- 8856 Jul, [facility] [address], [place] [address]- 0400 Jul, [facility] [address], [place] [address]- 5462 Jun, [facility] [address], [place] [address]- 8129 Jun, [facility] [address], [place] [address]- 8320 Feb, [facility] [address] [address] Feb, [facility] [address], [place] [address]- 1552 Dec, [facility] [place] [facility] [address] [facility] [id number] [place] [address]- 1305 Dec, [facility] [place] [facility] [address] [id number] [place] [address]- 0948 Dec, [facility] [place] [facility] [address] [id number] [place] [address]- 3390 Dec, [facility] [place] [facility] [address] [id number] [place] [address]- 1921 November, [facility] [place] [facility] [address] [id number] [place] [address]- 5480 November, [facility] [place] [facility] [address] [id number] [place] [address]- 4857 Sep, [facility] [place] [facility] [address] [id number] [place] [address]- 7192 Sep, [facility] [place] [facility] [address] [id number] [place] [address]- 4710 Sep, [facility] [place] [facility] [address] [id number] [place] [address]- 0280 Sep, [facility] [place] [facility] [address] [id number] [place] [address]- 8741 Sep, [facility] [place] [facility] [address] [id number] [place] [address]- 6140 Sep, [facility] [place] [facility] [address] [id number] [place] [address]- 0981 Jul, [facility] [place] [facility] [address] [id number] [place] [address]- 1404 Jul, [facility] [place] [facility] [address] [id number] [place] [address]- 0617 Jul, [facility] [place] [facility] [address] [id number] [place] [address]- 3546 Jul, [facility] [place] [facility] [address] [id number] [place] [address]- 1511 Jul, [facility] [address] [id number] [place] [address]- 1073 Jul, [facility] [address] [id number] [place] [address]- 7088 Jul, [facility] [address] [id number] [place] [address]- 0954 Jun, [facility] [place] [facility] [address] [id number] [place] [address]- 1573 Jun, [facility] [address] [id number] [place] [address]- 1511 Jun, [facility] [place] [facility] [address] [id number] [place] [address]- 5916 Jun, [facility] [address] [id number] [place] [address]- 3744 Jun, [facility] [address] [id number] [place] [address]- 9428 Jun, [facility] [address] [id number] [place] [address]- 9021 Jun, [facility] [address] [id number] [place] [address]- 0537 Jun, [facility] [place] [facility] [address] [id number] [place] [address]- 4230 Jun, [facility] [place] [facility] [address] [id number], [place] [address]- 9557 Jul, [facility] [place] [facility] [address] [id number] [place] [address]- 7512 Jun, [facility] [place] [facility] [address] [id number] [place] [address]- 5843 Jun, [facility] [place] [facility] [address] [id number] [place] [address]- 9319 17 Mar, 2011 [facility] [place] [facility] [address] [facility] [id number] [place] [address]- 6868 Jun, [facility] [address] [facility] [id number], [place] [address]- 3702 Jun, [facility] [address] [facility] [id number], [place] [address]- 2399 Apr, [facility] [address] [facility] [id number], [place] [address]- 0424 Apr, IMMUNIZATIONS No Known Immunizations SOCIAL HISTORY Never Assessed REASON FOR VISIT Controlled Med Refill/Denied PLAN OF CARE VITAL SIGNS MEDICATIONS Unknown [...]
--- OUTSIDE RECORDS SUMMARY | 2018-06-23 22:23 | XMS REPORT ---
Author Author FABRICIO ROSALES Organization [facility] Address [address] [place] [address] Care Team Providers Care Rap Artist Name Role Phone FABRICIO ROSALES Unavailable PROBLEMS Type Condition ICD9-CM Code NTV59-IZ Code Onset Dates Condition Status SNOMED Code Problem Chronic hepatitis C without hepatic coma B18.2 Active 203249132 Problem Cirrhosis of liver without ascites, unspecified hepatic cirrhosis type K74.60 Active 445666403 Problem Methamphetamine dependence, 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 Active 140253128 Problem Primary osteoarthritis, right hand M19.041 Active 4632900938998466 Problem Venous insufficiency of both lower extremities I87.2 Active 524189269 Problem Lymphedema in adult patient I89.0 Active 538463026 Problem Mild acid reflux K21.9 Active 089544768 Problem 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 Active 05796051 Problem Arthritis of hand M19.049 Active 855139355 Problem Dysthymia F34.1 Active 75605181 Problem Drug abuse and dependence F19.20 Active 7163506 Problem Increased ammonia level R79.89 Active 181242865 Problem Other ascites R18.8 Active 755913984 Problem Other cirrhosis of liver K74.69 Active 06869479 ALLERGIES No Information ENCOUNTERS Encounter Location Date Diagnosis [facility] [id number] [address] Feb, [facility] [address] [address] Feb, [facility] [address] [address] Feb, [facility] [id number] [address] Jan, [facility] [id number] [place] [address]143- 0765 Jan, Dysuria R30.0 and Cystitis N30.90 [facility] [id number] [place] [address] 59604- 3545 Jan, [facility] [id number] [place] [address] 80665- 1264 Dec, Mild acid reflux K21.9 [facility] [id number] [place] [address] 39582- 1414 Dec, [facility] [id number] [place] [address] 31424- 4714 November, Cellulitis of right lower limb L03.115 ; Lymphedema in adult patient I89.0 and Venous insufficiency of both lower extremities I87.2 [facility] [id number] [place] [address] 27306- 9406 November, Lymphedema in adult patient I89.0 ; Cellulitis of right lower limb L03.115 ; Venous insufficiency of both lower extremities I87.2 ; Arthritis of hand M19.049 and Drug abuse and dependence F19.20 [facility] [id number] [place] [address] 95084- 7577 November, Cellulitis of right lower limb L03.115 [facility] [address] [address] November, [facility] [id number] [place] [address] 11041- 2459 November, [facility] [id number] [place] [address] 05412- 2591 November, Ulcer of lower extremity, unspecified laterality, unspecified ulcer stage L97.909 ; Chronic hepatitis C without hepatic coma B18.2 ; Cirrhosis of liver without ascites, unspecified hepatic cirrhosis type K74.60 and Lymphedema in adult patient I89.0 [facility] [id number] [place] [address] 91954- 3448 November, Cellulitis of left lower extremity L03.116 and Cellulitis of right lower extremity L03.115 [facility] [id number] [place] [address] 04824- 1877 Oct, Chronic hepatitis C without hepatic coma B18.2 ; Cirrhosis of liver without ascites, unspecified hepatic cirrhosis type K74.60 ; Methamphetamine dependence, 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 and Dermatitis L30.9 [facility] [address] [address]- [address] Oct, [facility] [id number] [place] [address] 25124- 8933 Sep, Cirrhosis of liver without ascites, unspecified hepatic cirrhosis type K74.60 ; Chronic hepatitis C without hepatic coma B18.2 ; Methamphetamine dependence, 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 ; Psoriasis L40.9 and Encounter for immunization Z23 [facility] [id number] [place] [address] 01450- 6407 Sep, Cellulitis of right lower limb L03.115 [facility] [id number] [place] [address] 72856- 2922 Sep, Cellulitis of left lower extremity L03.116 ; Cellulitis of right lower extremity L03.115 ; Cholestatic pruritus L29.8 ; Cirrhosis of liver without ascites, unspecified hepatic cirrhosis type K74.60 and Mild acid reflux K21.9 [facility] [id number] [place] [address] 14764- 1520 Sep, Cellulitis of right lower extremity L03.115 and Cellulitis of left lower extremity L03.116 [facility] [id number] [place] [address] 17624- 0029 Sep, Cellulitis of left lower extremity L03.116 and Cellulitis of right lower limb L03.115 [facility] [id number] [place] [address] 24507- 3958 Aug, [facility] [id number] [place] [address] 00923- 9123 Aug, [facility] [id number] [place] [address] 93104- 2694 Aug, Unspecified cirrhosis of liver K74.60 ; Drug abuse and dependence F19.20 and Chronic hepatitis C without hepatic coma B18.2 [facility] [id number] [place] [address] 62635- 5808 Jul, [facility] [address] [address]- [address] Jul, [facility] [id number] [place] [address] 45760- 1809 Jul, [facility] [id number] [place] [address] 32719- 1317 Apr, Other cirrhosis of liver K74.69 and Unspecified viral hepatitis C without hepatic coma B19.20 [facility] [id number] [place] [address] 66843- 1153 Apr, [facility] [id number] [place] [address] 62650- 8712 Apr, [facility] [id number] [place] [address] 57619- 1160 Mar, Alopecia L65.9 ; Dysthymia F34.1 and Vision changes H53.9 [facility] [id number] [place] [address] 38176- 5536 Feb, [facility] [id number] [place] [address] 71936- 3724 November, Increased ammonia level R79.89 [facility] [id number] [place] [address] 31692- 9722 November, Cirrhosis of liver with ascites, unspecified hepatic cirrhosis type K74.60 ; Psoriasis L40.9 and Drug abuse and dependence F19.20 [facility] [id number] [place] [address] 64742- 0804 November, [facility] [address] [address]- 0347 Oct, [facility] [id number] [place] [address] 38929- 9592 Jul, Cirrhosis of liver without ascites, unspecified hepatic cirrhosis type K74.60 ; Encounter for immunization Z23 ; Vision changes H53.9 and Dysthymia F34.1 [facility] [id number] [place] [address] 21758- 3322 Feb, Osteoarthritis of carpometacarpal joint of right thumb, unspecified osteoarthritis type M18.9 [facility] [id number] [place] [address] 10948- 3486 Feb, Psoriasis L40.9 ; Pain of left thumb M79.645 ; Cirrhosis of liver without ascites, unspecified hepatic cirrhosis type K74.60 ; Chronic hepatitis C without hepatic coma B18.2 ; Urinary tract infection without hematuria, site unspecified N39.0 ; Vision changes H53.9 and Face pain R51 [facility] [id number] [place] [address] 92125- 6959 Feb, Chronic hepatitis C without hepatic coma B18.2 [facility] [id number] [place] [address] 00962- 6833 Feb, Psoriasis L40.9 ; Pain of left thumb M79.645 ; Cirrhosis of liver without ascites, unspecified hepatic cirrhosis type K74.60 ; Chronic hepatitis C without hepatic coma B18.2 ; Urinary tract infection without hematuria, site unspecified N39.0 ; Vision changes H53.9 and Face pain R51 [facility] [facility] [address] [address]- 0853 Jan, [facility] [id number] [place] [address] 11856- 3262 Sep, [facility] [id number] [place] [address] 40293- 7431 Aug, [facility] [id number] [place] [address] [place] [address]- 3548 Jun, 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 and Unspecified cirrhosis of liver K74.60 [facility] [address] [address]- 2176 Feb, Eye pain 379.91 [facility] [address] [address] Oct, [facility] [id number] [place] [address] 44058- 6048 Oct, [facility] [address] [address]- 8435 Jul, [facility] [id number] [place] [address] 77422- 7394 Jul, [facility] [address] 3176 Jul, [facility] [address] [address]- 0585 Jul, [facility] [address] [address]- 3109 Jul, [facility] [address] [address] Jul, [facility] [address] [address]- 5845 Jun, [facility] [address] [address]- 1342 Jun, [facility] [address] [address]- 8966 Feb, [facility] [address] [address]- 0496 Feb, [facility] [address] [address]- 0636 Dec, [facility] [id number] [address]- 3274 Dec, [facility] [place] [facility] [address] [id number] [place] [address]- 3388 Dec, [facility] [place] [facility] [address] [id number] [place] [address]- 4209 Dec, [facility] [place] [facility] [address] [id number] [place] [address]- 2165 November, [facility] [place] [facility] [address] [id number] [place] [address]- 5107 November, [facility] [place] [facility] [address] [id number] [place] [address]- 6820 Sep, [facility] [place] [facility] [address] [id number] [place] [address]- 7292 Sep, [facility] [place] [facility] [address] [id number] [place] [address]- 5489 Sep, [facility] [place] [facility] [address] [id number] [place] [address]- 6193 Sep, [facility] [place] [facility] [address] [id number] [place] [address]- 0623 Sep, [facility] [place] [facility] [address] [id number] [place] [address]- 9506 Sep, [facility] [place] [facility] [address] [id number] [place] [address]- 9823 Jul, [facility] [place] [facility] [address] [id number] [place] [address]- 1858 Jul, [facility] [place] [facility] [address] [id number] [place] [address]- 2576 Jul, [facility] [place] [facility] [address] [id number] [place] [address]- 3668 Jul, [facility] [place] [facility] [address] [id number] [place] [address]- 8468 Jul, [facility] [place] [facility] [address] [id number] [place] [address]- 8211 Jul, [facility] [address] [id number] [place] [address]- 8380 Jul, [facility] [address] [id number] [place] [address]- 3755 Jun, [facility] [address] [id number] [place] [address]- 1546 Jun, [facility] [address] [id number] [place] [address] Jun, [facility] [address] [id number] [place] [address]- 2920 Jun, [facility] [address] [id number] [place] [address]- 8262 Jun, [facility] [address] [id number] [place] [address]- 0939 Jun, [facility] [address] [id number] [place] [address]- 2584 Jun, [facility] [address] [id number] [place] [address]- 9509 Jun, [facility] [address] [id number] [place] [address]- 4229 Jun, [facility] [address] [id number] [place] [address]- 0434 Jul, [facility] [address] [id number] [place] [address]- 1459 Jun, [facility] [address] [id number] [place] [address]- 9577 Jun, [facility] [address] [id number] [place] [address]- 0461 Mar, [facility] [address] [id number] [place] [address]- 5836 Jun, [facility] [address] [facility] [id number] [place] [address]- 8876 Jun, [facility] [address] [facility] [id number] [place] [address]- 4496 Apr, [facility] [address] [facility] [id number] [place] [address]- 8456 Apr, IMMUNIZATIONS No Known Immunizations SOCIAL HISTORY Never Assessed REASON FOR VISIT Wound Care FYI PLAN OF CARE VITAL SIGNS MEDICATIONS Unknown [...]
--- OUTSIDE RECORDS SUMMARY | 2018-06-23 22:23 | XMS REPORT ---
Author Author FABRICIO ROSALES Organization [facility] Address [address] 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 Active 251655001 Problem Primary osteoarthritis, right hand M19.041 Active [id number] Problem Venous insufficiency of both lower extremities I87.2 Active 832466754 Problem Lymphedema in adult patient I89.0 Active 016921129 Problem Mild acid reflux K21.9 Active 570215757 Problem 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 Active 29934323 Problem Arthritis of hand M19.049 Active 955622343 Problem Dysthymia F34.1 Active 12964201 Problem Drug abuse and dependence F19.20 Active 4027742 Problem Increased ammonia level R79.89 Active 631639101 Problem Other ascites R18.8 Active 141778614 Problem Other cirrhosis of liver K74.69 Active 79710959 ALLERGIES No Known Allergies ENCOUNTERS Encounter Location Date Diagnosis [facility] [id number] [address] Feb, [facility] [id number], [place] [address] Feb, [facility] [address], [place] [address] Feb, [facility] [id number], [place] [address] Jan, [facility] [address] [place] [address]35- 1564 Jan, Dysuria R30.0 and Cystitis N30.90 [facility] [id number] [place] [address] 24951- 2174 Jan, [facility] [id number] [place] [address] 35215- 0942 Dec, Mild acid reflux K21.9 [facility] [id number] [place] [address] 73686- 8161 Dec, [facility] [id number] [place] [address] 26211- 2539 November, Cellulitis of right lower limb L03.115 ; Lymphedema in adult patient I89.0 and Venous insufficiency of both lower extremities I87.2 [facility] [id number] [place] [address] 21510- 5022 November, Lymphedema in adult patient I89.0 ; Cellulitis of right lower limb L03.115 ; Venous insufficiency of both lower extremities I87.2 ; Arthritis of hand M19.049 and Drug abuse and dependence F19.20 [facility] [id number] [place] [address] 08190- 3701 November, Cellulitis of right lower limb L03.115 [facility] [address], [place] [address] November, [facility] [id number] [place] [address] 02127- 5957 November, [facility] [address] [place] [address] 54636- 7294 November, Ulcer of lower extremity, unspecified laterality, unspecified ulcer stage L97.909 ; Chronic hepatitis C without hepatic coma B18.2 ; Cirrhosis of liver without ascites, unspecified hepatic cirrhosis type K74.60 and Lymphedema in adult patient I89.0 [facility] [address] [place] [address] 16127- 3141 November, Cellulitis of left lower extremity L03.116 and Cellulitis of right lower extremity L03.115 [facility] [id number] [place] [address] 39431- 0396 Oct, Chronic hepatitis C without hepatic coma B18.2 ; Cirrhosis of liver without ascites, unspecified hepatic cirrhosis type K74.60 ; Methamphetamine dependence, 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 and Dermatitis L30.9 [facility] [address] [address]- [address] Oct, [facility] [id number] [place] [address] 30773- 8647 Sep, Cirrhosis of liver without ascites, unspecified hepatic cirrhosis type K74.60 ; Chronic hepatitis C without hepatic coma B18.2 ; Methamphetamine dependence, 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 ; Psoriasis L40.9 and Encounter for immunization Z23 [facility] [id number] [place] [address] 89949- 4533 Sep, Cellulitis of right lower limb L03.115 [facility] [address] [address]49- 7532 Sep, Cellulitis of left lower extremity L03.116 ; Cellulitis of right lower extremity L03.115 ; Cholestatic pruritus L29.8 ; Cirrhosis of liver without ascites, unspecified hepatic cirrhosis type K74.60 and Mild acid reflux K21.9 [facility] [id number] [place] [address] 33751- 3704 Sep, Cellulitis of right lower extremity L03.115 and Cellulitis of left lower extremity L03.116 [facility] [id number] [place] [address] 07462- 5260 Sep, Cellulitis of left lower extremity L03.116 and Cellulitis of right lower limb L03.115 [facility] [id number] [place] [address] 73087- 5261 Aug, [facility] [id number] [place] [address] 51777- 9193 Aug, [facility] [address], [place] [address] 5717 Aug, Unspecified cirrhosis of liver K74.60 ; Drug abuse and dependence F19.20 and Chronic hepatitis C without hepatic coma B18.2 [facility] [id number] [place] [address] 84340- 5580 Jul, [facility] [address] [address]- 7531 Jul, [facility] [id number] [place] [address] 30017- 9988 Jul, [facility] [id number] [place] [address] 43106- 1272 Apr, Other cirrhosis of liver K74.69 and Unspecified viral hepatitis C without hepatic coma B19.20 [facility] [id number] [place] [address] 02043- 2258 Apr, [facility] [id number] [place] [address] 26348- 8996 Apr, [facility] [id number] [place] [address] 36001- 0417 Mar, Alopecia L65.9 ; Dysthymia F34.1 and Vision changes H53.9 [facility] [id number] [place] [address] 18025- 2839 Feb, [facility] [id number] [place] [address] 19938- 1219 November, Increased ammonia level R79.89 [facility] [id number] [place] [address] 67182- 5927 November, Cirrhosis of liver with ascites, unspecified hepatic cirrhosis type K74.60 ; Psoriasis L40.9 and Drug abuse and dependence F19.20 [facility] [id number] [place] [address] 34208- 6335 November, [facility] [address], [place] [address]- 7085 Oct, [facility] [id number] [place] [address] 76541- 9911 Jul, Cirrhosis of liver without ascites, unspecified hepatic cirrhosis type K74.60 ; Encounter for immunization Z23 ; Vision changes H53.9 and Dysthymia F34.1 [facility] [id number] [place] [address] 98108- 7000 Feb, Osteoarthritis of carpometacarpal joint of right thumb, unspecified osteoarthritis type M18.9 [facility] [address] [place] [address] 98939- 1942 Feb, Psoriasis L40.9 ; Pain of left thumb M79.645 ; Cirrhosis of liver without ascites, unspecified hepatic cirrhosis type K74.60 ; Chronic hepatitis C without hepatic coma B18.2 ; Urinary tract infection without hematuria, site unspecified N39.0 ; Vision changes H53.9 and Face pain R51 [facility] [address] [place] [address] 80251- 2502 Feb, Chronic hepatitis C without hepatic coma B18.2 [facility] [id number] [place] [address] 76838- 8359 Feb, Psoriasis L40.9 ; Pain of left thumb M79.645 ; Cirrhosis of liver without ascites, unspecified hepatic cirrhosis type K74.60 ; Chronic hepatitis C without hepatic coma B18.2 ; Urinary tract infection without hematuria, site unspecified N39.0 ; Vision changes H53.9 and Face pain R51 [facility] [address], [place] [address]- 3390 Jan, [facility] [id number] [place] [address] 62966- 1471 Sep, [facility] [address] [place] [address] 63815- 1591 Aug, [facility] [id number], [place] [address]- 8035 Jun, 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 and Unspecified cirrhosis of liver K74.60 [facility] [address], [place] [address]- 5326 Feb, Eye pain 379.91 [facility] [address], [place] [address]- 6896 Oct, [facility] [address], [place] [address]- 9521 Oct, [facility] [address] [address] Jul, [facility] [address], [place] [address]- 0201 Jul, [facility] [address], [place] [address]- 8873 Jul, [facility] [address], [place] [address]- 9780 Jul, [facility] [address] 6444 Jul, [facility] [address], [place] [address]- 5830 Jul, [facility] [id number] 8080 Jun, [facility] [address], [place] [address]- 5512 Jun, [facility] [address], [place] [address]- 9314 Feb, [facility] [address], [place] [address]- 6638 Feb, [facility] [id number], [place] [address]- 0900 Dec, [facility] [id number] [place] [address]- 1115 Dec, [facility] [address] [id number] [place] [address]- 5481 Dec, [facility] [place] [facility] [address] [id number] [place] [address]- 9657 Dec, [facility] [address] [id number] [place] [address]- 1412 November, [facility] [place] [facility] [address] [id number] [place] [address]- 9801 November, [facility] [address] [id number] [place] [address]- 5707 Sep, [facility] [place] [facility] [address] [id number] [place] [address]- 9231 Sep, [facility] [address] [id number] [place] [address]- 1204 Sep, [facility] [address] [id number] [place] [address]- 1325 Sep, [facility] [place] [facility] [address] [id number] [place] [address]- 7704 Sep, [facility] [address] [id number] [place] [address]- 2763 Sep, [facility] [place] [facility] [address] [id number] [place] [address]- 1028 Jul, [facility] [place] [facility] [address] [id number] [place] [address]- 9612 Jul, [facility] [place] [facility] [address] [id number] [place] [address]- 4037 Jul, [facility] [place] [facility] [address] [id number] [place] [address]- 8808 Jul, [facility] [place] [facility] [address] [id number] [place] [address]- 8302 Jul, [facility] [place] [facility] [address] [id number] [place] [address]- 3786 Jul, [facility] [address] [id number] [place] [address]- 3883 Jul, [facility] [address] [id number] [place] [address]- 6826 Jun, [facility] [place] [facility] [address] [id number] [place] [address]- 6361 Jun, [facility] [address] [id number] [place] [address]- 9440 Jun, [facility] [address] [id number] [place] [address]- 2261 Jun, [facility] [address] [id number] [place] [address]- 4331 Jun, [facility] [address] [id number] [place] [address]- 7104 Jun, [facility] [address] [id number] [place] [address]- 8575 Jun, [facility] [address] [id number] [place] [address]- 9375 Jun, [facility] [address] [id number] [place] [address]- 5722 Jun, [facility] [address] [id number] [address]- 1091 Jul, [facility] [address] [id number] [place] [address]- 4969 Jun, [facility] [place] [facility] [address] [id number] [place] [address]- 4840 Jun, [facility] [address] [id number] [place] [address]- 4547 17 Mar, 2011 [facility] [address] [id number] [address]- 0936 Jun, [facility] [address] [facility] [id number] [address]- 2416 Jun, [facility] [address] [facility] [id number] [address]- 0286 Apr, [facility] [address] [facility] [id number] [address]- 5656 Apr, IMMUNIZATIONS No Known Immunizations SOCIAL HISTORY Never Assessed REASON FOR VISIT Wound Care follow up, PT reports she got sick to her stomach this morning which caused her to reschedule her wound care f/U. PT notes that on her way to her apointment today at [facility], she was sitting in the car when she turned her head she felt water in her ears which she feels it is throwing off her equilibrium - [facility] PLAN OF CARE Activity Details Follow Up with Dr Tinoco and Juli Reason: VITAL SIGNS Height 62 in 2017-12-03 Weight 148.0 lbs 2017-12-03 Temperature 97.6 degrees Fahrenheit 2017-12-03 Heart Rate 83 bpm 2017-12-03 Respiratory Rate 20 2017-12-03 BMI 27.07 kg/m2 2017-12-03 Blood pressure systolic 118 mmHg 2017-12-03 Blood pressure diastolic 70 mmHg 2017-12-03 MEDICATIONS Medication Instructions Dosage Frequency Start Date End Date Duration Status Milk Thistle by oral route Jun, Active Spironolactone 100 mg Orally Once a day 2 tablet 24h Active Potassium Chloride 20 meq Orally Once a day 2 tablet 24h Jul, Active Vistaril 50 MG Orally every 8 hrs 1 capsule as needed 8h 30 day(s) Not-Taking Furosemide 40 mg Orally Once a day 2 tablet 24h Jul, 30 Active Omeprazole 40 mg Orally twice a day 1 capsule 12h Sep, 90 days Active Vitamin C 500 MG Active Lactulose 20 GM/30ML Orally twice a day [...] History C - section Hospitalization History cellulitis 2010
--- OUTSIDE RECORDS SUMMARY | 2018-06-23 22:23 | XMS REPORT ---
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 Name Role Phone MAXI GRIJALVA Unavailable PROBLEMS Type Condition ICD9-CM Code RZM59-FX Code Onset Dates Condition Status SNOMED Code Problem Chronic hepatitis C without hepatic coma B18.2 Active 653903428 Problem Cirrhosis of liver without ascites, unspecified hepatic cirrhosis type K74.60 Active 243414712 Problem Methamphetamine dependence, 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 Active 493542323 Problem Primary osteoarthritis, right hand M19.041 Active 0467865712905854 Problem Venous insufficiency of both lower extremities I87.2 Active 525070078 Problem Lymphedema in adult patient I89.0 Active 744360121 Problem Mild acid reflux K21.9 Active 622390722 Problem 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 Active 71788088 Problem Arthritis of hand M19.049 Active 144366465 Problem Dysthymia F34.1 Active 63440276 Problem Drug abuse and dependence F19.20 Active 7449408 Problem Increased ammonia level R79.89 Active 645686978 Problem Other ascites R18.8 Active 189377694 Problem Other cirrhosis of liver K74.69 Active 03508003 ALLERGIES No Known Allergies ENCOUNTERS Encounter Location Date Diagnosis [facility] [id number] [address] Feb, [facility] [id number] [address] Feb, [facility] [address], [place] [address] Feb, [facility] [id number] [address] Jan, [facility] [id number] [place] [address] 38952- 6414 Jan, Dysuria R30.0 and Cystitis N30.90 [facility] [id number] [place] [address] 23855- 8825 Jan, [facility] [id number] [place] [address] 25643- 7009 Dec, Mild acid reflux K21.9 [facility] [id number] [place] [address] 10690- 7615 Dec, [facility] [id number] [place] [address] 90267- 2960 November, Cellulitis of right lower limb L03.115 ; Lymphedema in adult patient I89.0 and Venous insufficiency of both lower extremities I87.2 [place] [facility] [id number] [place] [address] 48473- 6871 November, Lymphedema in adult patient I89.0 ; Cellulitis of right lower limb L03.115 ; Venous insufficiency of both lower extremities I87.2 ; Arthritis of hand M19.049 and Drug abuse and dependence F19.20 [place] [id number] [place] [address] 22273- 1614 November, Cellulitis of right lower limb L03.115 [facility] [address] [address] November, [facility] [id number] [place] [address] 24189- 2666 November, [facility] [id number] [place] [address] 68031- 0951 November, Ulcer of lower extremity, unspecified laterality, unspecified ulcer stage L97.909 ; Chronic hepatitis C without hepatic coma B18.2 ; Cirrhosis of liver without ascites, unspecified hepatic cirrhosis type K74.60 and Lymphedema in adult patient I89.0 [facility] [id number] [place] [address] 89237- 9899 November, Cellulitis of left lower extremity L03.116 and Cellulitis of right lower extremity L03.115 [place] [id number] [place] [address] 55206- 2927 Oct, Chronic hepatitis C without hepatic coma B18.2 ; Cirrhosis of liver without ascites, unspecified hepatic cirrhosis type K74.60 ; Methamphetamine dependence, 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 and Dermatitis L30.9 [place] [address] [address]- [address]254 Oct, [place] [address] 28673- 5112 Sep, Cirrhosis of liver without ascites, unspecified hepatic cirrhosis type K74.60 ; Chronic hepatitis C without hepatic coma B18.2 ; Methamphetamine dependence, 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 ; Psoriasis L40.9 and Encounter for immunization Z23 [place] [id number] [place] [address] 26223- 7244 Sep, Cellulitis of right lower limb L03.115 [place] [address] 94833- 2557 Sep, Cellulitis of left lower extremity L03.116 ; Cellulitis of right lower extremity L03.115 ; Cholestatic pruritus L29.8 ; Cirrhosis of liver without ascites, unspecified hepatic cirrhosis type K74.60 and Mild acid reflux K21.9 [place] [id number] [place] [address] 92602- 3341 Sep, Cellulitis of right lower extremity L03.115 and Cellulitis of left lower extremity L03.116 [place] [id number] [place] [address] 02968- 1643 Sep, Cellulitis of left lower extremity L03.116 and Cellulitis of right lower limb L03.115 [place] [id number] [place] [address] 55121- 3801 Aug, [place] [id number] [place] [address] 68016- 7060 Aug, [facility] [address] [address] 7[address] Aug, Unspecified cirrhosis of liver K74.60 ; Drug abuse and dependence F19.20 and Chronic hepatitis C without hepatic coma B18.2 [facility] [address], [place] [address] Jul, [facility] [id number] [place] [address] 18783- 6086 Jul, [facility] [id number] [place] [address] 60762- 6092 Jul, [facility] [id number] [place] [address] 10117- 8316 Apr, Other cirrhosis of liver K74.69 and Unspecified viral hepatitis C without hepatic coma B19.20 [facility] [id number] [place] [address] 51243- 1517 Apr, [facility] [id number] [place] [address] 37844- 1082 Apr, [facility] [id number] [place] [address] 69160- 0058 Mar, Alopecia L65.9 ; Dysthymia F34.1 and Vision changes H53.9 [facility] [id number] [place] [address] 03559- 4421 Feb, [facility] [id number] [place] [address] 69456- 4290 November, Increased ammonia level R79.89 [facility] [id number] [place] [address] 88808- 8144 November, Cirrhosis of liver with ascites, unspecified hepatic cirrhosis type K74.60 ; Psoriasis L40.9 and Drug abuse and dependence F19.20 [facility] [id number] [place] [address] 33170- 8895 November, [facility] [address], [place] [address] 5510 Oct, [facility] [id number] [place] [address] 54607- 8002 Jul, Cirrhosis of liver without ascites, unspecified hepatic cirrhosis type K74.60 ; Encounter for immunization Z23 ; Vision changes H53.9 and Dysthymia F34.1 [facility] [id number] [place] [address] 55217- 3653 Feb, Osteoarthritis of carpometacarpal joint of right thumb, unspecified osteoarthritis type M18.9 [place] [id number] [place] [address] 33887- 4697 Feb, Psoriasis L40.9 ; Pain of left thumb M79.645 ; Cirrhosis of liver without ascites, unspecified hepatic cirrhosis type K74.60 ; Chronic hepatitis C without hepatic coma B18.2 ; Urinary tract infection without hematuria, site unspecified N39.0 ; Vision changes H53.9 and Face pain R51 [place] [address], [place] [address]- 6770 Feb, Chronic hepatitis C without hepatic coma B18.2 [place] [address] [place] [address] 70589- 1677 Feb, Psoriasis L40.9 ; Pain of left thumb M79.645 ; Cirrhosis of liver without ascites, unspecified hepatic cirrhosis type K74.60 ; Chronic hepatitis C without hepatic coma B18.2 ; Urinary tract infection without hematuria, site unspecified N39.0 ; Vision changes H53.9 and Face pain R51 [place] [address], [place] [address]- 6038 Jan, [place] [id number] [place] [address] 89717- 3083 Sep, [facility] [id number] [place] [address] 68322- 3184 Aug, [place] [id number] [address] Jun, 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 and Unspecified cirrhosis of liver K74.60 [facility] [address] [place] [address]- 7832 Feb, Eye pain 379.91 [facility] [address] [place] [address]- 7916 Oct, [facility] [address] [address] Oct, [facility] [id number] [place] [address]- 6759 Jul, [facility] [address], [place] [address]- 9827 Jul, [facility] [address], [place] [address]- 9829 Jul, [facility] [address], [place] [address]- 6065 Jul, [facility] [address] 4079 Jul, [facility] [address], [place] [address]- 0064 Jul, [facility] [id number] 2812 Jun, [facility] [address] 9759 Jun, [facility] [address] [place] [address]- 1848 Feb, [facility] [address] [address] Feb, [facility] [place] [facility] [id number], [place] [address]- 2586 Dec, [facility] [id number] [place] [address]- 6285 Dec, [facility] [address] [id number] [place] [address]- 5872 Dec, [facility] [place] [facility] [address] [id number] [place] [address]- 3244 Dec, [facility] [address] [id number] [place] [address]- 3666 November, [facility] [place] [facility] [address] [id number] [place] [address]- 3941 November, [facility] [address] [id number] [place] [address]- 6953 Sep, [facility] [place] [facility] [address] [id number] [place] [address]- 3318 Sep, [facility] [place] [facility] [address] [id number] [place] [address]- 5506 Sep, [facility] [address] [id number] [place] [address]- 8328 Sep, [facility] [place] [facility] [address] [id number] [place] [address]- 7110 Sep, [facility] [address] [id number] [place] [address]- 1951 Sep, [facility] [place] [facility] [address] [id number] [place] [address]- 2585 Jul, [facility] [place] [facility] [address] [id number] [place] [address]- 2190 Jul, [facility] [place] [facility] [address] [id number] [place] [address]- 6061 Jul, [facility] [place] [facility] [address] [id number] [place] [address]- 9522 Jul, [facility] [place] [facility] [address] [id number] [place] [address]- 5123 Jul, [facility] [address] [id number] [place] [address]- 1574 Jul, [facility] [address] [id number] [place] [address]- 8506 Jul, [facility] [address] [id number] [place] [address]- 3259 Jun, [facility] [place] [facility] [address] [id number] [place] [address]- 5194 Jun, [facility] [address] [id number] [place] [address]- 2631 Jun, [facility] [address] [id number] [place] [address]- 4756 Jun, [facility] [address] [id number] [place] [address]- 7239 Jun, [facility] [address] [id number] [place] [address]- 6315 Jun, [facility] [address] [id number] [place] [address]- 3459 Jun, [facility] [address] [id number] [place] [address]- 4768 Jun, [facility] [place] [facility] [address] [id number] [place] [address]- 0349 Jun, [facility] [place] [facility] [address] [id number] [address]- 3910 Jul, [facility] [place] [facility] [address] [id number] [place] [address]- 0386 Jun, [facility] [place] [facility] [address] [id number] [place] [address]- 9536 Jun, [facility] [place] [facility] [address] [id number] [address]- 1026 17 Mar, 2011 [facility] [place] [facility] [address] [id number] [address]- 3586 Jun, [facility] [address] [facility] [id number] [address]- 1516 Jun, [facility] [address] [facility] [id number] [address]- 6606 Apr, [facility] [address] [facility] [id number] [address]- 2156 Apr, IMMUNIZATIONS No Known Immunizations SOCIAL HISTORY Never Assessed REASON FOR VISIT Possible UTI, burning, does not feel bladder is emptying x 4 days----DBennettRN PLAN OF CARE Activity Details Follow Up Routine appt Reason: VITAL SIGNS Height 62 in 2018-01-16 Weight 150 lbs 2018-01-16 Temperature 97.8 degrees Fahrenheit 2018-01-16 Heart Rate 90 bpm 2018-01-16 Respiratory Rate 20 2018-01-16 BMI 27.43 kg/m2 2018-01-16 Blood pressure systolic 94 mmHg 2018-01-16 Blood pressure diastolic 62 mmHg 2018-01-16 MEDICATIONS Medication Instructions Dosage Frequency Start Date End Date Duration Status Milk Thistle by oral route Jun, Active Omeprazole 40 mg Orally twice a day 1 capsule 12h Sep, 90 days Active Vistaril 50 MG Orally every 8 hrs 1 capsule as needed 8h 30 day(s) Not-Taking Vitamin C 500 mg Orally Once a day 24h Active Spironolactone 100 mg Orally Once a day 2 tablet 24h 90 Active Bactrim DS 800-160 MG Orally Twice a day 1 tablet 12h 13 Jan, 2018Jan 03 days Active Lactulose 20 GM/30ML Orally 3 times a day 30 ml 8h November, Active Potassium Chloride 20 meq Orally Once a day 1 tablet 24h Jul, Active Furosemide 40 mg Orally Once a day 2 tablet 24h Jul, 90 Active RESULTS Name Result Date Reference Range UA LONG DIP (IN HOUSE) 2018-01-16 Lot # [id number] Exp date 10/23 Clarity cloudy Color yellow Odor foul GLU negative CHER negative KET negative SG 1.025 BLO 1+ pH 6.0 Protein trace URO 1.0 NIT negative NARAYAN 3+ Lot # Exp date PROCEDURES Procedure Date Ordered Result Body Site URINALYSIS, AUTO, W/O SCOPE January 16, 2018 INSTRUCTIONS MEDICATIONS ADMINISTERED No Known Medications MEDICAL [...]
--- OUTSIDE RECORDS SUMMARY | 2018-06-23 22:30 | XMS REPORT | Continuity of Care Document ---
Author Author [facility] [place] Address Unknown Phone Unavailable Allergies Active Description Code Type Severity Reaction Onset Reported/Identified Relationship to Patient Clinical Status Yes NO KNOWN DRUG ALLERGIES UNKNOWN NO KNOWN DRUG ALLERG Yes morphine [id number] Drug Allergy Unknown HIVES 09/20/2014 Yes PENICILLIN PENICILLIN Unknown N/A 09/20/2014 Yes meperidine [id number] Drug Allergy Unknown N/A 09/17/2017 Medications There is no data. Problems Date Dx Coded Attending Type Code Diagnosis Diagnosed By 02/11/2008 VERNELL QUINN APRNA S 784.0 HEADACHE 02/11/2008 MAGAN QUINN APRNNDA S V58.69 MEDICATION HIGH RISK 02/11/2008 RADHA MANAGER PARK, CATERINA R 784.0 HEADACHE 02/11/2008 RADHA MANAGER PARK, CATERINA R V58.69 MEDICATION HIGH RISK 02/11/2008 MAGAN QUINN APRNNDA S 784.0 HEADACHE 02/11/2008 KAI HAILE DENZEL S V58.69 MEDICATION HIGH RISK 02/11/2008 MAGAN QUINN APRNNDA S 784.0 HEADACHE 02/11/2008 MAGAN QUINN APRNNDA S V58.69 MEDICATION HIGH RISK 02/11/2008 KAI HAILE DENZEL S 784.0 HEADACHE 02/11/2008 KAI HAILE DENZEL S V58.69 MEDICATION HIGH RISK 02/11/2008 KAI HAILE DENZEL S 784.0 HEADACHE 02/11/2008 KAI HAILE DENZEL S V58.69 MEDICATION HIGH RISK 02/25/2008 MAGAN QUINN APRNNDA S 780.52 INSOMNIA UNSPECIFIED 02/25/2008 RADHA FAJARDON, CATERINA R 780.52 INSOMNIA UNSPECIFIED 02/25/2008 MAGAN QUINN APRNNDA S 780.52 INSOMNIA UNSPECIFIED 02/25/2008 KAI MANAGER PARK, DENZEL S 780.52 INSOMNIA UNSPECIFIED 02/25/2008 KAI MANAGER PARK, DENZEL S 780.52 INSOMNIA UNSPECIFIED 02/25/2008 KAI MANAGER PARK, DENZEL S 780.52 INSOMNIA UNSPECIFIED 05/30/2008 KAI MANAGER PARK, DENZEL S 465.9 UPPER RESPIRATORY INFECTION 05/30/2008 KAI MANAGER PARK, DENZEL S 625.6 STRESS INCONTINENCE FEMALE 05/30/2008 RADHA MANAGER PARK, CATERINA R 465.9 UPPER RESPIRATORY INFECTION 05/30/2008 RADHA MANAGER PARK, CATERINA R 625.6 STRESS INCONTINENCE FEMALE 05/30/2008 KAI MANAGER PARK, DENZEL S 465.9 UPPER RESPIRATORY INFECTION 05/30/2008 KAI MANAGER PARK, DENZEL S 625.6 STRESS INCONTINENCE FEMALE 05/30/2008 KAI MANAGER PARK, DENZEL S 465.9 UPPER RESPIRATORY INFECTION 05/30/2008 KAI MANAGER PARK, DENZEL S 625.6 STRESS INCONTINENCE FEMALE 05/30/2008 KAI MANAGER PARK, DENZEL S 465.9 UPPER RESPIRATORY INFECTION 05/30/2008 KAI MANAGER PARK, DENZEL S 625.6 STRESS INCONTINENCE FEMALE 05/30/2008 KAI MANAGER PARK, DENZEL S 465.9 UPPER RESPIRATORY INFECTION 05/30/2008 KAI MANAGER PARK, DENZEL S 625.6 STRESS INCONTINENCE FEMALE 06/22/2008 KAI MANAGER PARK, DENZEL S 782.1 RASH 06/22/2008 RADHA MANAGER PARK, CATERINA R 782.1 RASH 06/22/2008 KAI MANAGER PARK, DENZEL S 782.1 RASH 06/22/2008 KAI MANAGER PARK, DENZEL S 782.1 RASH 06/22/2008 KAI MANAGER PARK, DENZEL S 782.1 RASH 06/22/2008 KAI MANAGER PARK, DENZEL S 782.1 RASH 09/12/2009 KAI MANAGER PARK, DENZEL S 780.4 DIZZINESS AND GIDDINESS 09/12/2009 KAI MANAGER PARK, DENZEL S 787.02 NAUSEA ALONE 09/12/2009 RADHA FAJARDON, CATERINA R 780.4 DIZZINESS AND GIDDINESS 09/12/2009 RADHA MANAGER PARK, CATERINA R 787.02 NAUSEA ALONE 09/12/2009 KAI MANAGER PARK, DENZEL S 780.4 DIZZINESS AND GIDDINESS 09/12/2009 KAI MANAGER PARK, DENZEL S 787.02 NAUSEA ALONE 09/12/2009 KAI MANAGER PARK, DENZEL S 780.4 DIZZINESS AND GIDDINESS 09/12/2009 KAI MANAGER PARK, DENZEL S 787.02 NAUSEA ALONE 09/12/2009 KAI MANAGER PARK, DENZEL S 780.4 DIZZINESS AND GIDDINESS 09/12/2009 KAI MANAGER PARK, DENZEL S 787.02 NAUSEA ALONE 09/12/2009 KAI MANAGER PARK, DENZEL S 780.4 DIZZINESS AND GIDDINESS 09/12/2009 KAI MANAGER PARK, DENZEL S 787.02 NAUSEA ALONE 09/28/2009 KAI MANAGER PARK, DENZEL S 354.0 CARPAL TUNNEL SYNDROME 09/28/2009 KAI FAJARDON, DENZEL S 381.81 DYSFUNCTION OF EUSTACHIAN TUBE 09/28/2009 RADHA HAILE CATERINA R 354.0 CARPAL TUNNEL SYNDROME 09/28/2009 RADHA FAJARDON CATERINA R 381.81 DYSFUNCTION OF EUSTACHIAN TUBE 09/28/2009 KAI HAILE, DENZEL S 354.0 CARPAL TUNNEL SYNDROME 09/28/2009 KAI MANAGER PARK, DENZEL S 381.81 DYSFUNCTION OF EUSTACHIAN TUBE 09/28/2009 KAI MANAGER PARK, DENZEL S 354.0 CARPAL TUNNEL SYNDROME 09/28/2009 KAI FAJARDON, DENZEL S 381.81 DYSFUNCTION OF EUSTACHIAN TUBE 09/28/2009 KAI MANAGER PARK, DENZEL S 354.0 CARPAL TUNNEL SYNDROME 09/28/2009 KAI MANAGER PARK, DENZEL S 381.81 DYSFUNCTION OF EUSTACHIAN TUBE 09/28/2009 KAI MANAGER PARK, DENZEL S 354.0 CARPAL TUNNEL SYNDROME 09/28/2009 KAI MANAGER PARK, DENZEL S 381.81 DYSFUNCTION OF EUSTACHIAN TUBE 05/01/2010 KAI FAJARDON, DENZEL S 715.04 OSTEOARTHROSIS GENERALIZED INVOLVING HAND 05/01/2010 RADHA FAJARDON, CATERINA R 715.04 OSTEOARTHROSIS GENERALIZED INVOLVING HAND 05/01/2010 KAI MANAGER PARK, DENZEL S 715.04 OSTEOARTHROSIS GENERALIZED INVOLVING HAND 05/01/2010 KAI MANAGER PARK, DENZEL S 715.04 OSTEOARTHROSIS GENERALIZED INVOLVING HAND 05/01/2010 KAI MANAGER PARK, DENZEL S 715.04 OSTEOARTHROSIS GENERALIZED INVOLVING HAND 05/01/2010 KAI MANAGER PARK, DENZEL S 715.04 OSTEOARTHROSIS GENERALIZED INVOLVING HAND 06/15/2010 KAI MANAGER PARK, DENZEL S 466.0 BRONCHITIS, ACUTE 06/15/2010 RADHA MANAGER PARK, CATERINA R 466.0 BRONCHITIS, ACUTE 06/15/2010 KAI MANAGER PARK, DENZEL S 466.0 BRONCHITIS, ACUTE 06/15/2010 KAI MANAGER PARK, DENZEL S 466.0 BRONCHITIS, ACUTE 06/15/2010 KAI MANAGER PARK, DENZEL S 466.0 BRONCHITIS, ACUTE 06/15/2010 KAI MANAGER PARK, DENZEL S 466.0 BRONCHITIS, ACUTE 10/11/2010 KAI MANAGER PARK, DENZEL S 382.9 OTITIS MEDIA 10/11/2010 RADHA MANAGER PARK, CATERINA R 382.9 OTITIS MEDIA 10/11/2010 KAI MANAGER PARK, DENZEL S 382.9 OTITIS MEDIA 10/11/2010 KAI MANAGER PARK, DENZEL S 382.9 OTITIS MEDIA 10/11/2010 KAI MANAGER PARK, DENZEL S 382.9 OTITIS MEDIA 10/11/2010 KAI MANAGER PARK, DENZEL S 382.9 OTITIS MEDIA 11/27/2010 KAI MANAGER PARK, DENZEL S 070.70 UNSPECIFIED VIRAL HEPATITIS C WITHOUT HEPATIC COMA 11/27/2010 KAI MANAGER PARK, DENZEL S 682.4 CELLULITIS AND ABSCESS OF HAND EXCEPT FINGERS AND THUMB 11/27/2010 RADHA MANAGER PARK, CATERINA R 070.70 UNSPECIFIED VIRAL HEPATITIS C WITHOUT HEPATIC COMA 11/27/2010 RADHA MANAGER PARK, CATERINA R 682.4 CELLULITIS AND ABSCESS OF HAND EXCEPT FINGERS AND THUMB 11/27/2010 KAI MANAGER PARK, DENZEL S 070.70 UNSPECIFIED VIRAL HEPATITIS C WITHOUT HEPATIC COMA 11/27/2010 KAI MANAGER PARK, DENZEL S 682.4 CELLULITIS AND ABSCESS OF HAND EXCEPT FINGERS AND THUMB 11/27/2010 KAI MANAGER PARK, DENZEL S 070.70 UNSPECIFIED VIRAL HEPATITIS C WITHOUT HEPATIC COMA 11/27/2010 KAI MANAGER PARK, DENZEL S 682.4 CELLULITIS AND ABSCESS OF HAND EXCEPT FINGERS AND THUMB 11/27/2010 KAI MANAGER PARK, DENZEL S 070.70 UNSPECIFIED VIRAL HEPATITIS C WITHOUT HEPATIC COMA 11/27/2010 KAI MANAGER PARK, DENZEL S 682.4 CELLULITIS AND ABSCESS OF HAND EXCEPT FINGERS AND THUMB 11/27/2010 KAI MANAGER PARK, DENZEL S 070.70 UNSPECIFIED VIRAL HEPATITIS C WITHOUT HEPATIC COMA 11/27/2010 KAI MANAGER PARK, DENZEL S 682.4 CELLULITIS AND ABSCESS OF HAND EXCEPT FINGERS AND THUMB 03/23/2011 KAI MANAGER PARK, DENZEL S 296.30 MAJOR DEPRESSIVE AFFECTIVE DISORDER RECURRENT EPISODE UNSPECIFIED DEGREE 03/23/2011 KAI MANAGER PARK, DENZEL S 461.9 ACUTE SINUSITIS UNSPECIFIED 03/23/2011 RADHA MANAGER PARK, CATERINA R 296.30 MAJOR DEPRESSIVE AFFECTIVE DISORDER RECURRENT EPISODE UNSPECIFIED DEGREE 03/23/2011 RADHA MANAGER PARK, CATERINA R 461.9 ACUTE SINUSITIS UNSPECIFIED 03/23/2011 KAI MANAGER PARK, DENZEL S 296.30 MAJOR DEPRESSIVE AFFECTIVE DISORDER RECURRENT EPISODE UNSPECIFIED DEGREE 03/23/2011 KAI MANAGER PARK, DENZEL S 461.9 ACUTE SINUSITIS UNSPECIFIED 03/23/2011 KAI MANAGER PARK, DENZEL S 296.30 MAJOR DEPRESSIVE AFFECTIVE DISORDER RECURRENT EPISODE UNSPECIFIED DEGREE 03/23/2011 KAI MANAGER PARK, DENZEL S 461.9 ACUTE SINUSITIS UNSPECIFIED 03/23/2011 KAI MANAGER PARK, DENZEL S 296.30 MAJOR DEPRESSIVE AFFECTIVE DISORDER RECURRENT EPISODE UNSPECIFIED DEGREE 03/23/2011 KAI MANAGER PARK, DENZEL S 461.9 ACUTE SINUSITIS UNSPECIFIED 03/23/2011 KAI MANAGER PARK, DENZEL S 296.30 MAJOR DEPRESSIVE AFFECTIVE DISORDER RECURRENT EPISODE UNSPECIFIED DEGREE 03/23/2011 KAI MANAGER PARK, DENZEL S 461.9 ACUTE SINUSITIS UNSPECIFIED 06/08/2012 KAI MANAGER PARK, DENZEL S 300.00 ANXIETY UNSPEC 06/08/2012 RADHA MANAGER PARK, CATERINA R 300.00 ANXIETY UNSPEC 06/08/2012 KAI MANAGER PARK, DENZEL S 300.00 ANXIETY UNSPEC 06/08/2012 KAI MANAGER PARK, DENZEL S 300.00 ANXIETY UNSPEC 06/08/2012 KAI MANAGER PARK, DENZEL S 300.00 ANXIETY UNSPEC 06/08/2012 KAI MANAGER PARK, DENZEL S 300.00 ANXIETY UNSPEC 06/26/2013 RADHA FAJARDON, CATERINA R 786.09 RESPIRATORY ABNORMALITY OTHER 06/26/2013 KAI MANAGER PARK, DENZEL S 786.09 RESPIRATORY ABNORMALITY OTHER 06/26/2013 KAI MANAGER PARK, DENZEL S 786.09 RESPIRATORY ABNORMALITY OTHER 06/26/2013 KAI MANAGER PARK, DENZEL S 786.09 RESPIRATORY ABNORMALITY OTHER 06/26/2013 KAI MANAGER PARK, DENZEL S 786.09 RESPIRATORY ABNORMALITY OTHER 07/01/2013 KAI FAJARDON, DENZEL S 070.54 HEPATITIS C CHRONIC 07/01/2013 KAI FAJARDON, DENZEL S 789.59 ASCITES OTHER 07/01/2013 KAI MANAGER PARK, DENZEL S V04.81 FLU SHOT 07/01/2013 KAI MANAGER PARK, DENZEL S 070.54 HEPATITIS C CHRONIC 07/01/2013 KAI MANAGER PARK, DENZEL S 789.59 ASCITES OTHER 07/01/2013 KAI MANAGER PARK, DENZEL S V04.81 FLU SHOT 07/01/2013 KAI HAILE, DENZEL S 070.54 HEPATITIS C CHRONIC 07/01/2013 KAI FAJARDON, DENZEL S 789.59 ASCITES OTHER 07/01/2013 KAI MANAGER PARK, DENZEL S V04.81 FLU SHOT 07/01/2013 KAI MANAGER PARK, DENZEL S 070.54 HEPATITIS C CHRONIC 07/01/2013 KAI MANAGER PARK, DENZEL S 789.59 ASCITES OTHER 07/01/2013 KAI MANAGER PARK, DENZEL S V04.81 FLU SHOT 07/26/2013 KAI FAJARDON, DENZEL S 729.82 CRAMP OF LIMB 07/26/2013 KAI FAJARDON, DENZEL S 729.82 CRAMP OF LIMB 07/26/2013 KAI MANAGER PARK, DENZEL S 729.82 CRAMP OF LIMB 09/14/2013 KAI MANAGER PARK, DENZEL S 287.5 THROMBOCYTOPENIA 09/14/2013 KAI MANAGER PARK, DENZEL S 288.3 EOSINOPHILIA 09/14/2013 KAI MANAGER PARK, DENZEL S 287.5 THROMBOCYTOPENIA 09/14/2013 KAI MANAGER PARK, DENZEL S 288.3 EOSINOPHILIA 09/14/2013 KAI MANAGER PARK, DENZEL S 287.5 THROMBOCYTOPENIA 09/14/2013 KAI MANAGER PARK, DENZEL S 288.3 EOSINOPHILIA 01/03/2014 JESUS GREEN [...] C W/O HEPATIC COMA 04/20/2017 DENZEL QUINN PATENT LAWYER Ot 789.59 OTHER ASCITES 04/20/2017 SHAYNE CARRERO CHIRAG Mak Ot B19.20 UNSPECIFIED VIRAL HEPATITIS C WITHOUT HE 04/20/2017 SHAYNE CARRERO CHIRAG K Ot L03.115 CELLULITIS OF RIGHT LOWER LIMB 04/20/2017 SHAYNE CARRERO CHIRAG K Ot L03.116 CELLULITIS OF LEFT LOWER LIMB 04/20/2017 SHAYNE CARRERO CHIRAG K Ot M79.89 OTHER SPECIFIED SOFT TISSUE DISORDERS 04/20/2017 SHAYNE CARRERORAHEELA K Ot R60.0 LOCALIZED EDEMA 04/20/2017 SHAYNE CARRERO CHIRAG K Ot Z87.19 PERSONAL HISTORY OF OTHER DISEASES OF 04/20/2017 SHAYNE CARRERORAHEELA Aubree Ot Z87.59 PERSONAL HISTORY OF COMP OF PREG, CHLDBR 04/20/2017 SHAYNE CARRERORAHEELA K Ot Z87.891 PERSONAL HISTORY OF NICOTINE DEPENDENCE 04/20/2017 SHAYNE CARRERORAHEELA Aubree Ot Z90.49 ACQUIRED ABSENCE OF OTHER SPECIFIED PART 04/20/2017 SHAYNE CARRERORAHEELA K Ot Z91.19 PATIENT'S NONCOMPLIANCE W OT MEDICAL TR 09/17/2017 EDSON DOVER Ot B19.20 UNSPECIFIED VIRAL HEPATITIS C WITHOUT HE 09/17/2017 EDSON DOVER Ot K74.60 UNSPECIFIED CIRRHOSIS OF LIVER 09/17/2017 EDSON DOVER Ot L03.115 CELLULITIS OF RIGHT LOWER LIMB 09/17/2017 EDSON DOVER Ot L03.116 CELLULITIS OF LEFT LOWER LIMB 09/17/2017 EDSON DOVER Ot R51 HEADACHE 09/17/2017 EDSON DOVER Ot Z87.19 PERSONAL HISTORY OF OTHER DISEASES OF TH 09/17/2017 EDSON DOVER Ot Z87.59 PERSONAL HISTORY OF COMP OF PREG, CHLDBR 09/17/2017 EDSON DOVER Ot Z87.891 PERSONAL HISTORY OF NICOTINE DEPENDENCE 09/17/2017 EDSON DOVER Ot Z88.5 ALLERGY STATUS TO NARCOTIC AGENT STATUS 09/17/2017 EDSON DOVER Ot Z90.49 ACQUIRED ABSENCE OF OTHER SPECIFIED PART 09/17/2017 MANUEL PA, EDSON L Ot Z90.89 ACQUIRED ABSENCE OF OTHER ORGANS [...] Z90.89 ACQUIRED ABSENCE OF OTHER ORGANS 10/03/2017 FABRICIO MC MD Ot K74.60 UNSPECIFIED CIRRHOSIS OF LIVER 10/09/2017 DAMIAN GRIMALDO MD Ot B19.20 UNSPECIFIED VIRAL HEPATITIS C WITHOUT HE 10/09/2017 DAMIAN GRIMALDO MD Ot K72.90 HEPATIC FAILURE, UNSPECIFIED WITHOUT COM 10/09/2017 DAMIAN GRIMALDO MD Ot L03.115 CELLULITIS OF RIGHT LOWER LIMB 10/09/2017 DAMIAN GRIMALDO MD Ot L03.116 CELLULITIS OF LEFT LOWER LIMB 10/09/2017 DAMIAN GRIMALDO MD Ot L29.9 PRURITUS, UNSPECIFIED 10/09/2017 DAMIAN GRIMALDO MD Ot Z87.19 PERSONAL HISTORY OF OTHER DISEASES OF 10/09/2017 DAMIAN GRIMALDO MD Ot Z87.59 PERSONAL HISTORY OF COMP OF PREG, CHLDBR 10/09/2017 DAMIAN GRIMALDO MD Ot Z87.891 PERSONAL HISTORY OF NICOTINE DEPENDENCE 10/09/2017 DAMIAN GRIMALDO MD Ot Z88.5 ALLERGY STATUS TO NARCOTIC AGENT STATUS 10/09/2017 DAMIAN GRIMALDO MD Ot Z90.49 ACQUIRED ABSENCE OF OTHER SPECIFIED PART 10/09/2017 DAMIAN GRIMALDO MD Ot Z90.89 ACQUIRED ABSENCE OF OTHER ORGANS 10/09/2017 FABRICIO MC MD Ot K74.60 UNSPECIFIED CIRRHOSIS OF LIVER 10/09/2017 FABRICIO MC MD Ot K74.60 UNSPECIFIED CIRRHOSIS OF LIVER 10/10/2017 DAMIAN GRIMALDO MD Ot B19.20 UNSPECIFIED VIRAL HEPATITIS C WITHOUT HE 10/10/2017 DAMIAN GRIMALDO MD Ot K72.90 HEPATIC FAILURE, UNSPECIFIED WITHOUT COM 10/10/2017 DAMIAN GRIMALDO MD Ot L03.115 CELLULITIS OF RIGHT LOWER LIMB 10/10/2017 DAMIAN GRIMALDO MD Ot L03.116 CELLULITIS OF LEFT LOWER LIMB 10/10/2017 DAMIAN GRIMALDO MD Ot L29.9 PRURITUS, UNSPECIFIED 10/10/2017 DAMIAN GRIMALDO MD Ot Z87.19 PERSONAL HISTORY OF OTHER DISEASES OF 10/10/2017 DAMIAN GRIMALDO MD Ot Z87.59 PERSONAL HISTORY OF COMP OF PREG, CHLDBR 10/10/2017 DAMIAN GRIMALDO MD Ot Z87.891 PERSONAL HISTORY OF NICOTINE DEPENDENCE 10/10/2017 DAMIAN GRIMALDO MD Ot Z88.5 ALLERGY STATUS TO NARCOTIC AGENT STATUS 10/10/2017 RE REYES, DAMIAN Davis Ot Z90.49 ACQUIRED ABSENCE OF OTHER SPECIFIED PART 10/10/2017 DAMIAN GRIMALDO MD Ot Z90.89 ACQUIRED ABSENCE OF OTHER ORGANS 10/27/2017 SHAYNE DO CHIRAG K Ot B19.20 UNSPECIFIED VIRAL HEPATITIS C WITHOUT HE 10/27/2017 SHAYNE DO CHIRAG K Ot F14.10 COCAINE ABUSE, UNCOMPLICATED 10/27/2017 SHAYNE DO CHIRAG K Ot F15.10 OTHER STIMULANT ABUSE, UNCOMPLICATED 10/27/2017 SHAYNE DO CHIRAG K Ot F19.10 OTHER PSYCHOACTIVE SUBSTANCE ABUSE, UNCO 10/27/2017 SHAYNE RAHEEL CARREROA K Ot K21.9 GASTRO-ESOPHAGEAL REFLUX DISEASE WITHOUT 10/27/2017 SHAYNE DO CHIRAG K Ot K72.90 HEPATIC FAILURE, UNSPECIFIED WITHOUT COM 10/27/2017 RAHEEL BELLA DOA K Ot R11.2 NAUSEA WITH VOMITING, UNSPECIFIED 10/27/2017 SHAYNE RAHEEL CARREROA K Ot R93.5 ABN FINDINGS ON DX IMAGING OF ABD REGION 10/27/2017 RAHEEL BELLA DOA K Ot Z87.19 PERSONAL HISTORY OF OTHER DISEASES OF TH 10/27/2017 CHIRAG BELLA DO Ot Z87.59 PERSONAL HISTORY OF COMP OF PREG, CHLDBR 10/27/2017 RAHEEL BELLA DOA K Ot Z87.891 PERSONAL HISTORY OF NICOTINE DEPENDENCE 10/27/2017 RAHEEL BELLA DOA K Ot Z88.5 ALLERGY STATUS TO NARCOTIC AGENT STATUS 10/27/2017 SHAYNE RAHEEL CARREROA K Ot Z88.6 ALLERGY STATUS TO ANALGESIC AGENT STATUS 10/27/2017 SHAYNE RAHEEL CARREROA K Ot Z90.49 ACQUIRED ABSENCE OF OTHER SPECIFIED PART 10/27/2017 SHAYNE RAHEEL CARREROA K Ot Z90.89 ACQUIRED ABSENCE OF OTHER ORGANS 10/27/2017 SHAYNE DO CHIRAG K Ot Z91.14 PATIENT'S OTHER NONCOMPLIANCE WITH MEDIC 10/29/2017 RAHEEL BELLA DOA K Ot B19.20 UNSPECIFIED VIRAL HEPATITIS C WITHOUT HE 10/29/2017 SHAYNE DO, CHIRAG K Ot F14.10 COCAINE ABUSE, UNCOMPLICATED 10/29/2017 SHAYNE CHIRAG Ot F15.10 OTHER STIMULANT ABUSE, UNCOMPLICATED 10/29/2017 CHIRAG BELLA DO Ot F19.10 OTHER PSYCHOACTIVE SUBSTANCE ABUSE, UNCO 10/29/2017 CHIRAG BELLA DO Ot K21.9 GASTRO-ESOPHAGEAL REFLUX DISEASE WITHOUT 10/29/2017 SHAYNE RAHEEL CARREROA Aubree Ot K72.90 HEPATIC FAILURE, UNSPECIFIED WITHOUT COM 10/29/2017 CHIRAG BELLA DO Ot R11.2 NAUSEA WITH VOMITING, UNSPECIFIED 10/29/2017 CHIRAG BELLA DO Ot R93.5 ABN FINDINGS ON DX IMAGING OF ABD REGION 10/29/2017 CHIRAG BELLA DO, Ot Z87.19 PERSONAL HISTORY OF OTHER DISEASES OF TH 10/29/2017 HCIRAG BELLA DO Ot Z87.59 PERSONAL HISTORY OF COMP OF PREG, CHLDBR 10/29/2017 CHIRAG BELLA DO Ot Z87.891 PERSONAL HISTORY OF NICOTINE DEPENDENCE 10/29/2017 CHIRAG BELLA DO Ot Z88.5 ALLERGY STATUS TO NARCOTIC AGENT STATUS 10/29/2017 CHIRAG BELLA DO Ot Z88.6 ALLERGY STATUS TO ANALGESIC AGENT STATUS 10/29/2017 CHIRAG BELLA DO Ot Z90.49 ACQUIRED ABSENCE OF OTHER SPECIFIED PART 10/29/2017 CHIRAG BELLA DO Ot Z90.89 ACQUIRED ABSENCE OF OTHER ORGANS 10/29/2017 CHIRAG BELLA DO Ot Z91.14 PATIENT'S OTHER NONCOMPLIANCE WITH MEDIC 11/24/2017 YARY HAMILTON MD Ot B18.2 CHRONIC VIRAL HEPATITIS C 11/24/2017 YARY HAMILTON MD, Ot I70.232 ATHSCL [place] ARTERIES OF RIGHT LEG W UL 11/24/2017 YARY HAMILTON MD, Ot I87.322 CHRONIC VENOUS HYPERTENSION W INFLAMMATI 11/24/2017 YARY HAMILTON MD, Ot I87.331 CHRONIC VENOUS HTN W ULCER AND INFLAMMAT 11/24/2017 YARY HAMILTON MD, Ot I89.0 LYMPHEDEMA, NOT ELSEWHERE CLASSIFIED 11/24/2017 YARY HAMILTON MD, Ot K74.69 OTHER CIRRHOSIS OF LIVER 11/24/2017 YARY HAMILTON MD, Ot L97.212 NON-PRESSURE CHRONIC ULCER OF RIGHT CALF 11/24/2017 YARY HAMILTON MD, Ot M05.241 RHEUMATOID VASCULITIS W RHEUMATOID ARTHR 11/24/2017 YARY HAMILTON MD, Ot 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, INTENTIONAL S 11/24/2017 YARY HAMILTON MD, Ot B18.2 CHRONIC VIRAL HEPATITIS C 11/24/2017 YARY HAMILTON MD Ot I70.232 ATHSCL [place] ARTERIES OF RIGHT LEG W UL 11/24/2017 YARY HAMILTON MD Ot I87.322 CHRONIC VENOUS HYPERTENSION W INFLAMMATI 11/24/2017 YARY HAMILTON MD Ot I87.331 CHRONIC VENOUS HTN W ULCER AND INFLAMMAT 11/24/2017 YARY HAMILTON MD Ot I89.0 LYMPHEDEMA, NOT ELSEWHERE CLASSIFIED 11/24/2017 YARY HAMILTON MD Ot K74.69 OTHER CIRRHOSIS OF LIVER 11/24/2017 YARY HAMILTON MD, Ot L97.212 NON-PRESSURE CHRONIC ULCER OF RIGHT CALF 11/24/2017 YARY HAMILTON MD, Ot M05.241 RHEUMATOID VASCULITIS W RHEUMATOID ARTHR 11/24/2017 YARY HAMILTON MD, Ot 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, INTENTIONAL S 11/24/2017 YARY HAMILTON MD, Ot B18.2 CHRONIC VIRAL HEPATITIS C 11/24/2017 YARY HAMILTON MD Ot I70.232 ATHSCL [place] ARTERIES OF RIGHT LEG W UL 11/24/2017 YARY HAMILTON MD Ot I87.322 CHRONIC VENOUS HYPERTENSION W INFLAMMATI 11/24/2017 YARY HAMILTON MD Ot I87.331 CHRONIC VENOUS HTN W ULCER AND INFLAMMAT 11/24/2017 YARY HAMILTON MD Ot I89.0 LYMPHEDEMA, NOT ELSEWHERE CLASSIFIED 11/24/2017 YARY HAMILTON MD Ot K74.69 OTHER CIRRHOSIS OF LIVER 11/24/2017 YARY HAMILTON MD Ot L97.212 NON-PRESSURE CHRONIC ULCER OF RIGHT CALF 11/24/2017 YARY HAMILTON MD, Ot M05.241 RHEUMATOID VASCULITIS W RHEUMATOID ARTHR 11/24/2017 YARY HAMILTON MD, Ot 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, INTENTIONAL S 11/24/2017 YARY HAMILTON MD Ot B18.2 CHRONIC VIRAL HEPATITIS C 11/24/2017 YARY HAMILTON MD Ot I70.232 ATHSCL [place] ARTERIES OF RIGHT LEG W UL 11/24/2017 YARY HAMILTON MD Ot I87.322 CHRONIC VENOUS HYPERTENSION W INFLAMMATI 11/24/2017 YARY HAMILTON MD Ot I87.331 CHRONIC VENOUS HTN W ULCER AND INFLAMMAT 11/24/2017 YARY HAMILTON MD Ot I89.0 LYMPHEDEMA, NOT ELSEWHERE CLASSIFIED 11/24/2017 YARY HAMILTON MD Ot K74.69 OTHER CIRRHOSIS OF LIVER 11/24/2017 YARY HAMILTON MD Ot L97.212 NON-PRESSURE CHRONIC ULCER OF RIGHT CALF 11/24/2017 YARY HAMILTON MD Ot M05.241 RHEUMATOID VASCULITIS W RHEUMATOID ARTHR 11/24/2017 YARY HAMILTON MD Ot 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, INTENTIONAL S 11/27/2017 YARY HAMILTON MD, Ot B18.2 CHRONIC VIRAL HEPATITIS C 11/27/2017 YARY HAMILTON MD Ot I70.232 ATHSCL [place] ARTERIES OF RIGHT LEG W UL 11/27/2017 YARY HAMILTON MD, Ot I87.322 CHRONIC VENOUS HYPERTENSION W INFLAMMATI 11/27/2017 YARY HAMILTON MD Ot I87.331 CHRONIC VENOUS HTN W ULCER AND INFLAMMAT 11/27/2017 YARY HAMILTON MD Ot I89.0 LYMPHEDEMA, NOT ELSEWHERE CLASSIFIED 11/27/2017 YARY HAMILTON MD Ot K74.69 OTHER CIRRHOSIS OF LIVER 11/27/2017 YARY HAMILTON MD Ot L97.212 NON-PRESSURE CHRONIC ULCER OF RIGHT CALF 11/27/2017 YARY HAMILTON MD Ot M05.241 RHEUMATOID VASCULITIS W RHEUMATOID ARTHR 11/27/2017 YARY HAMILTON MD Ot 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, INTENTIONAL S 12/03/2017 YARY HAMILTON MD Ot B18.2 CHRONIC VIRAL HEPATITIS C 12/03/2017 YARY HAMILTON MD Ot I70.232 ATHSCL [place] ARTERIES OF RIGHT LEG W UL 12/03/2017 YARY HAMILTON MD Ot I87.322 CHRONIC VENOUS HYPERTENSION W INFLAMMATI 12/03/2017 YARY HAMILTON MD Ot I87.331 CHRONIC VENOUS HTN W ULCER AND INFLAMMAT 12/03/2017 YARY HAMILTON MD Ot I89.0 LYMPHEDEMA, NOT ELSEWHERE CLASSIFIED 12/03/2017 YARY HAMILTON MD Ot K74.69 OTHER CIRRHOSIS OF LIVER 12/03/2017 YARY HAMILTON MD, Ot L97.212 NON-PRESSURE CHRONIC ULCER OF RIGHT CALF 12/03/2017 YARY HAMILTON MD, Ot M05.241 RHEUMATOID VASCULITIS W RHEUMATOID ARTHR 12/03/2017 YARY HAMILTON MD, Ot 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, INTENTIONAL S 12/03/2017 YARY HAMILTON MD, Ot B18.2 CHRONIC VIRAL HEPATITIS C 12/03/2017 YARY HAMILTON MD, Ot I70.232 ATHSCL [place] ARTERIES OF RIGHT LEG W UL 12/03/2017 YARY HAMILTON MD, Ot I87.322 CHRONIC VENOUS HYPERTENSION W INFLAMMATI 12/03/2017 YARY HAMILTON MD, Ot I87.331 CHRONIC VENOUS HTN W ULCER AND INFLAMMAT 12/03/2017 YARY HAMILTON MD, Ot I89.0 LYMPHEDEMA, NOT ELSEWHERE CLASSIFIED 12/03/2017 YARY HAMILTON MD, Ot K74.69 OTHER CIRRHOSIS OF LIVER 12/03/2017 YARY HAMILTON MD, Ot L97.212 NON-PRESSURE CHRONIC ULCER OF RIGHT CALF 12/03/2017 YARY HAMILTON MD, Ot M05.241 RHEUMATOID VASCULITIS W RHEUMATOID ARTHR 12/03/2017 YARY HAMILTON MD, Ot 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, INTENTIONAL S 12/15/2017 YARY HAMILTON MD, Ot B18.2 CHRONIC VIRAL HEPATITIS C 12/15/2017 YARY HAMILTON MD, Ot I87.333 CHRONIC VENOUS HTN W ULCER AND INFLAM OF 12/15/2017 YARY HAMILTON MD, Ot I89.0 LYMPHEDEMA, NOT ELSEWHERE CLASSIFIED 12/15/2017 YARY HAMILTON MD, Ot K74.69 OTHER CIRRHOSIS OF LIVER 12/15/2017 YARY HAMILTON MD, Ot L97.211 NON-PRS CHRONIC ULCER OF RIGHT CALF LIMI 12/15/2017 YARY HAMILTON MD Ot L97.212 NON-PRESSURE CHRONIC ULCER OF RIGHT CALF 12/15/2017 YARY HAMILTON MD, Ot L97.221 NON-PRS CHRONIC ULCER OF LEFT CALF LIMIT 12/15/2017 YARY HAMILTON MD, Ot 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, INTENTIONAL S 12/16/2017 YARY HAMILTON MD, Ot B18.2 CHRONIC VIRAL HEPATITIS C 12/16/2017 YARY HAMILTON MD Ot I87.333 CHRONIC VENOUS HTN W ULCER AND INFLAM OF 12/16/2017 YARY HAMILTON MD, Ot I89.0 LYMPHEDEMA, NOT ELSEWHERE CLASSIFIED 12/16/2017 YARY HAMILTON MD Ot K74.69 OTHER CIRRHOSIS OF LIVER 12/16/2017 AYRY HAMILTON MD, Ot L97.211 NON-PRS CHRONIC ULCER OF RIGHT CALF LIMI 12/16/2017 YARY HAMILTON MD, Ot L97.221 NON-PRS CHRONIC ULCER OF LEFT CALF LIMIT 12/16/2017 YARY HAMILTON MD, Ot 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, INTENTIONAL S 12/18/2017 FABRICIO MC MD, Ot K74.60 UNSPECIFIED CIRRHOSIS OF LIVER 12/18/2017 FABRICIO MC MD, Ot K74.60 UNSPECIFIED CIRRHOSIS OF LIVER 12/18/2017 YARY HAMILTON MD, Ot B18.2 CHRONIC VIRAL HEPATITIS C 12/18/2017 YARY HAMILTON MD, Ot I70.232 ATHSCL [place] ARTERIES OF RIGHT LEG W UL 12/18/2017 YARY HAMILTON MD Ot I87.322 CHRONIC VENOUS HYPERTENSION W INFLAMMATI 12/18/2017 YARY HAMILOTN MD Ot I87.331 CHRONIC VENOUS HTN W ULCER AND INFLAMMAT 12/18/2017 YARY HAMILTON MD, Ot I89.0 LYMPHEDEMA, NOT ELSEWHERE CLASSIFIED 12/18/2017 YARY HAMILTON MD, Ot K74.69 OTHER CIRRHOSIS OF LIVER 12/18/2017 YARY HAMILTON MD, Ot L97.212 NON-PRESSURE CHRONIC ULCER OF RIGHT CALF 12/18/2017 YARY HAMILTON MD Ot M05.241 RHEUMATOID VASCULITIS W RHEUMATOID ARTHR 12/18/2017 YARY HAMILTON MD, Ot 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, INTENTIONAL S 12/18/2017 YARY HAMILTON MD Ot B18.2 CHRONIC VIRAL HEPATITIS C 12/18/2017 YARY HAMILTON MD Ot I70.232 ATHSCL [place] ARTERIES OF RIGHT LEG W UL 12/18/2017 YARY HAMILTON MD Ot I87.322 CHRONIC VENOUS HYPERTENSION W INFLAMMATI 12/18/2017 YARY HAMILTON MD Ot I87.331 CHRONIC VENOUS HTN W ULCER AND INFLAMMAT 12/18/2017 YARY HAMILTON MD Ot I89.0 LYMPHEDEMA, NOT ELSEWHERE CLASSIFIED 12/18/2017 YARY HAMILTON MD Ot K74.69 OTHER CIRRHOSIS OF LIVER 12/18/2017 YARY HAMILTON MD Ot L97.212 NON-PRESSURE CHRONIC ULCER OF RIGHT CALF 12/18/2017 YARY HAMILTON MD Ot M05.241 RHEUMATOID VASCULITIS W RHEUMATOID ARTHR 12/18/2017 YARY HAMILTON MD, Ot 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, INTENTIONAL S 12/18/2017 YARY HAMILTON MD, Ot B18.2 CHRONIC VIRAL HEPATITIS C 12/18/2017 YARY HAMILTON MD Ot I87.333 CHRONIC VENOUS HTN W ULCER AND INFLAM OF 12/18/2017 YARY HAMILTON MD Ot I89.0 LYMPHEDEMA, NOT ELSEWHERE CLASSIFIED 12/18/2017 YARY HAMILTON MD Ot K74.69 OTHER CIRRHOSIS OF LIVER 12/18/2017 YARY HAMILTON MD Ot L97.211 NON-PRS CHRONIC ULCER OF RIGHT CALF LIMI 12/18/2017 YARY HAMILTON MD Ot L97.212 NON-PRESSURE CHRONIC ULCER OF RIGHT CALF 12/18/2017 YARY HAMILTON MD Ot L97.221 NON-PRS CHRONIC ULCER OF LEFT CALF LIMIT 12/18/2017 YARY HAMILTON MD, Ot 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, INTENTIONAL S 12/18/2017 YARY HAMILTON MD Ot B18.2 CHRONIC VIRAL HEPATITIS C 12/18/2017 YARY HAMILTON MD, Ot I87.333 CHRONIC VENOUS HTN W ULCER AND INFLAM OF 12/18/2017 YARY HAMILTON MD Ot I89.0 LYMPHEDEMA, NOT ELSEWHERE CLASSIFIED 12/18/2017 YARY HAMILTON MD Ot K74.69 OTHER CIRRHOSIS OF LIVER 12/18/2017 YARY HAMILTON MD Ot L97.211 NON-PRS CHRONIC ULCER OF RIGHT CALF LIMI 12/18/2017 YARY HAMILTON MD Ot L97.221 NON-PRS CHRONIC ULCER OF LEFT CALF LIMIT 12/18/2017 YARY HAMILTON MD Ot 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, INTENTIONAL S 12/23/2017 YARY HAMILTON MD Ot B18.2 CHRONIC VIRAL HEPATITIS C 12/23/2017 YARY HAMILTON MD Ot I87.333 CHRONIC VENOUS HTN W ULCER AND INFLAM OF 12/23/2017 YARY HAMILTON MD Ot I89.0 LYMPHEDEMA, NOT ELSEWHERE CLASSIFIED 12/23/2017 YARY HAMILTON MD Ot K74.69 OTHER CIRRHOSIS OF LIVER 12/23/2017 YARY HAMILTON MD Ot L97.211 NON-PRS CHRONIC ULCER OF RIGHT CALF LIMI 12/23/2017 YARY HAMILTON MD Ot L97.212 NON-PRESSURE CHRONIC ULCER OF RIGHT CALF 12/23/2017 YARY HAMILTON MD Ot L97.221 NON-PRS CHRONIC ULCER OF LEFT CALF LIMIT 12/23/2017 YARY HAMILTON MD Ot 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, INTENTIONAL S 12/25/2017 YARY HAMILTON MD Ot B18.2 CHRONIC VIRAL HEPATITIS C 12/25/2017 YARY HAMILTON MD, Ot I87.333 CHRONIC VENOUS HTN W ULCER AND INFLAM OF 12/25/2017 YARY HAMILTON MD, Ot I89.0 LYMPHEDEMA, NOT ELSEWHERE CLASSIFIED 12/25/2017 YARY HAMILTON MD Ot K74.69 OTHER CIRRHOSIS OF LIVER 12/25/2017 YARY HAMILTON MD Ot L97.212 NON-PRESSURE CHRONIC ULCER OF RIGHT CALF 12/25/2017 YARY HAMILTON MD Ot L97.221 NON-PRS CHRONIC ULCER OF LEFT CALF LIMIT 12/25/2017 YARY HAMILTON MD, Ot 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, INTENTIONAL S 12/26/2017 YARY HAMILTON MD Ot B18.2 CHRONIC VIRAL HEPATITIS C 12/26/2017 YARY HAMILTON MD Ot I87.333 CHRONIC VENOUS HTN W ULCER AND INFLAM OF 12/26/2017 YARY HAMILTON MD Ot I89.0 LYMPHEDEMA, NOT ELSEWHERE CLASSIFIED 12/26/2017 YARY HAMILTON MD Ot K74.69 OTHER CIRRHOSIS OF LIVER 12/26/2017 YARY HAMILTON MD Ot L97.211 NON-PRS CHRONIC ULCER OF RIGHT CALF LIMI 12/26/2017 YARY HAMILTON MD Ot L97.221 NON-PRS CHRONIC ULCER OF LEFT CALF LIMIT 12/26/2017 YARY HAMILTON MD, Ot 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, INTENTIONAL S 12/28/2017 YARY HAMILTON MD Ot B18.2 CHRONIC VIRAL HEPATITIS C 12/28/2017 YARY HAMILTON MD Ot I87.333 CHRONIC VENOUS HTN W ULCER AND INFLAM OF 12/28/2017 YARY HAMILTON MD Ot I89.0 LYMPHEDEMA, NOT ELSEWHERE CLASSIFIED 12/28/2017 YARY HAMILTON MD, Ot K74.69 OTHER CIRRHOSIS OF LIVER 12/28/2017 YARY HAMILTON MD, Ot L97.212 NON-PRESSURE CHRONIC ULCER OF RIGHT CALF 12/28/2017 YARY HAMILTON MD Ot L97.221 NON-PRS CHRONIC ULCER OF LEFT CALF LIMIT 12/28/2017 YARY HAMILTON MD, Ot 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, INTENTIONAL S 01/02/2018 FABRICIO MC MD Ot K74.60 UNSPECIFIED CIRRHOSIS OF LIVER 01/02/2018 YARY HAMILTON MD Ot B18.2 CHRONIC VIRAL HEPATITIS C 01/02/2018 YARY HAMILTON MD Ot I87.333 CHRONIC VENOUS HTN W ULCER AND INFLAM OF 01/02/2018 YARY HAMILTON MD, Ot I89.0 LYMPHEDEMA, NOT ELSEWHERE CLASSIFIED 01/02/2018 YARY HAMILTON MD Ot K74.69 OTHER CIRRHOSIS OF LIVER 01/02/2018 YARY HAMILTON MD, Ot L97.212 NON-PRESSURE CHRONIC ULCER OF RIGHT CALF 01/02/2018 YARY HAMILTON MD, Ot L97.221 NON-PRS CHRONIC ULCER OF LEFT CALF LIMIT 01/02/2018 YARY HAMILTON MD, Ot 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, INTENTIONAL S 01/08/2018 YARY HAMILTON MD, Ot B18.2 CHRONIC VIRAL HEPATITIS C 01/08/2018 YARY HAMILTON MD, Ot I87.333 CHRONIC VENOUS HTN W ULCER AND INFLAM OF 01/08/2018 YARY HAMILTON MD Ot I89.0 LYMPHEDEMA, NOT ELSEWHERE CLASSIFIED 01/08/2018 YARY HAMILTON MD Ot K74.69 OTHER CIRRHOSIS OF LIVER 01/08/2018 YARY HAMILTON MD Ot L97.212 NON-PRESSURE CHRONIC ULCER OF RIGHT CALF 01/08/2018 YARY HAMILTON MD Ot L97.221 NON-PRS CHRONIC ULCER OF LEFT CALF LIMIT 01/08/2018 YARY HAMILTON MD, Ot 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, INTENTIONAL S 01/14/2018 YARY HAMILTON MD, Ot B18.2 CHRONIC VIRAL HEPATITIS C 01/14/2018 YARY HAMILTON MD Ot I87.332 CHRONIC VENOUS HTN W ULCER AND INFLAMMAT 01/14/2018 YARY HAMILTON MD Ot I89.0 LYMPHEDEMA, NOT ELSEWHERE CLASSIFIED 01/14/2018 YARY HAMILTON MD, Ot K74.69 OTHER CIRRHOSIS OF LIVER 01/14/2018 YARY HAMILTON MD, Ot L97.221 NON-PRS CHRONIC ULCER OF LEFT CALF LIMIT 01/14/2018 YARY HAMILTON MD, Ot 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, INTENTIONAL S 01/16/2018 YARY HAMILTON MD, Ot B18.2 CHRONIC VIRAL HEPATITIS C 01/16/2018 YARY HAMILTON MD Ot I87.333 CHRONIC VENOUS HTN W ULCER AND INFLAM OF 01/16/2018 YARY HAMILTON MD Ot I89.0 LYMPHEDEMA, NOT ELSEWHERE CLASSIFIED 01/16/2018 YARY HAMILTON MD Ot K74.69 OTHER CIRRHOSIS OF LIVER 01/16/2018 YARY HAMILTON MD, Ot L97.212 NON-PRESSURE CHRONIC ULCER OF RIGHT CALF 01/16/2018 YARY HAMILTON MD, Ot L97.221 NON-PRS CHRONIC ULCER OF LEFT CALF LIMIT 01/16/2018 YARY HAMILTON MD, Ot 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, INTENTIONAL S 01/22/2018 YARY HAMILTON MD, Ot B18.2 CHRONIC VIRAL HEPATITIS C 01/22/2018 YARY HAMILTON MD, Ot I87.323 CHRONIC VENOUS HTN W INFLAMMATION OF CHER 01/22/2018 YARY HAMILTON MD, Ot I89.0 LYMPHEDEMA, NOT ELSEWHERE CLASSIFIED 01/22/2018 YARY HAMILTON MD Ot K74.69 OTHER CIRRHOSIS OF LIVER 01/22/2018 YARY HAMILTON MD, Ot T43.622D 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, INTENTIONAL S 01/23/2018 YARY HAMILTON MD, Ot B18.2 CHRONIC VIRAL HEPATITIS C 01/23/2018 YARY HAMILTON MD, Ot I87.332 CHRONIC VENOUS HTN W ULCER AND INFLAMMAT 01/23/2018 YARY HAMILTON MD Ot I89.0 LYMPHEDEMA, NOT ELSEWHERE CLASSIFIED 01/23/2018 YARY HAMILTON MD Ot K74.69 OTHER CIRRHOSIS OF LIVER 01/23/2018 YARY HAMILTON MD, Ot L97.221 NON-PRS CHRONIC ULCER OF LEFT CALF LIMIT 01/23/2018 YARY HAMILTON MD Ot 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, INTENTIONAL S 02/02/2018 YARY HAMILTON MD Ot B18.2 CHRONIC VIRAL HEPATITIS C 02/02/2018 YARY HAMILTON MD Ot I87.323 CHRONIC VENOUS HTN W INFLAMMATION OF CHER 02/02/2018 YARY HAMILTON MD, Ot I89.0 LYMPHEDEMA, NOT ELSEWHERE CLASSIFIED 02/02/2018 YARY HAMILTON MD, Ot K74.69 OTHER CIRRHOSIS OF LIVER 02/02/2018 YARY HAMILTON MD, Ot T43.622D 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, INTENTIONAL S 02/03/2018 YARY HAMILTON MD Ot B18.2 CHRONIC VIRAL HEPATITIS C 02/03/2018 YARY HAMILTON MD, Ot I87.323 CHRONIC VENOUS HTN W INFLAMMATION OF CHER 02/03/2018 YARY HAMILTON MD, Ot I89.0 LYMPHEDEMA, NOT ELSEWHERE CLASSIFIED 02/03/2018 YARY HAMILTON MD, Ot K74.69 OTHER CIRRHOSIS OF LIVER 02/03/2018 YARY HAMILTON MD, Ot 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, INTENTIONAL S 02/21/2018 YARY HAMILTON MD, Ot B18.2 CHRONIC VIRAL HEPATITIS C 02/21/2018 YARY HAMILTON MD, Ot I87.333 CHRONIC VENOUS HTN W ULCER AND INFLAM OF 02/21/2018 YARY HAMILTON MD, Ot I89.0 LYMPHEDEMA, NOT ELSEWHERE CLASSIFIED 02/21/2018 YARY HAMILTON MD, Ot K74.69 OTHER CIRRHOSIS OF LIVER 02/21/2018 YARY HAMILTON MD Ot L97.212 NON-PRESSURE CHRONIC ULCER OF RIGHT CALF 02/21/2018 YARY HAMILTON MD Ot L97.221 NON-PRS CHRONIC ULCER OF LEFT CALF LIMIT 02/21/2018 YARY HAMILTON MD, Ot 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, INTENTIONAL S 02/26/2018 Martin, Marni A W 564.00 CONSTIPATION, UNSPECIFIED 02/26/2018 Martin, Marni A A 698.9 UNSPECIFIED PRURITIC DISORDER 02/26/2018 Martin, Marni A W K59.00 CONSTIPATION, UNSPECIFIED 02/26/2018NovemberMartin, Marni A A L29.9 PRURITUS, UNSPECIFIED 03/04/2018 CHIRAG BELLA DO Ot B19.20 UNSPECIFIED VIRAL HEPATITIS C WITHOUT HE 03/04/2018 CHIRAG BELLA DO Ot F14.10 COCAINE ABUSE, UNCOMPLICATED 03/04/2018 CHIRAG BELLA DO Ot F15.10 OTHER STIMULANT ABUSE, UNCOMPLICATED 03/04/2018 CHIRAG BELLA DO Ot K21.9 GASTRO-ESOPHAGEAL REFLUX DISEASE WITHOUT 03/04/2018 SHAYNE CHIRAG Ot K72.90 HEPATIC FAILURE, UNSPECIFIED WITHOUT COM 03/04/2018 CHIRAG BELLA DO Ot L03.115 CELLULITIS OF RIGHT LOWER LIMB 03/04/2018 SHAYNE CHIRAG Ot L03.116 CELLULITIS OF LEFT LOWER LIMB 03/04/2018 SHAYNE CHIRAG Ot L29.9 PRURITUS, UNSPECIFIED 03/04/2018 SHAYNE CHIRAG Ot L98.8 OTH DISRD OF THE SKIN AND SUBCUTANEOUS T 03/04/2018 SHAYNE CHIRAG Ot R16.1 SPLENOMEGALY, NOT ELSEWHERE CLASSIFIED 03/04/2018 CHIRAG BELLA DO Ot Z86.14 PERSONAL HISTORY OF METHICILLIN RESIS ST 03/04/2018 CHIRAG BELLA DO Ot Z87.19 PERSONAL HISTORY OF OTHER DISEASES OF TH 03/04/2018 CHIRAG BELLA DO Ot Z87.891 PERSONAL HISTORY OF NICOTINE DEPENDENCE 03/04/2018 CHIRAG BELLA DO Ot Z91.14 PATIENT'S OTHER NONCOMPLIANCE WITH MEDIC 03/04/2018 CHIRAG BELLA DO Ot Z98.890 OTHER SPECIFIED POSTPROCEDURAL STATES 03/06/2018 CHIRAG BELLA DO Ot B19.20 UNSPECIFIED VIRAL HEPATITIS C WITHOUT HE 03/06/2018 CHIRAG BELLA DO Ot F14.10 COCAINE ABUSE, UNCOMPLICATED 03/06/2018 CHIRAG BELLA DO Ot F15.10 OTHER STIMULANT ABUSE, UNCOMPLICATED 03/06/2018 CHIRAG BELLA DO Ot K21.9 GASTRO-ESOPHAGEAL REFLUX DISEASE WITHOUT 03/06/2018 SHAYNE CHIRAG CARRERO Ot K72.90 HEPATIC FAILURE, UNSPECIFIED WITHOUT COM 03/06/2018 CHIRAG BELLA DO Ot L03.115 CELLULITIS OF RIGHT LOWER LIMB 03/06/2018 CHIRAG BELLA DO Ot L03.116 CELLULITIS OF LEFT LOWER LIMB 03/06/2018 SHAYNE CHIRAG CARRERO Ot L29.9 PRURITUS, UNSPECIFIED 03/06/2018 CHIRAG BELLA DO Ot L98.8 OTH DISRD OF THE SKIN AND SUBCUTANEOUS T 03/06/2018 SHAYNE CHIRAG CARRERO Ot R16.1 SPLENOMEGALY, NOT ELSEWHERE CLASSIFIED 03/06/2018 CHIRAG BELLA DO Ot Z86.14 PERSONAL HISTORY OF METHICILLIN RESIS ST 03/06/2018 CHIRAG BELLA DO Ot Z87.19 PERSONAL HISTORY OF OTHER DISEASES OF TH 03/06/2018 CHIRAG BELLA DO Ot Z87.891 PERSONAL HISTORY OF NICOTINE DEPENDENCE 03/06/2018 CHIRAG BELLA DO Ot Z91.14 PATIENT'S OTHER NONCOMPLIANCE WITH MEDIC 03/06/2018 CHIRAG BELLA DO Ot Z98.890 OTHER SPECIFIED POSTPROCEDURAL STATES 03/31/2018 FARZANA REYES, JORGE Riojas Ot Z01.818 ENCOUNTER FOR OTHER PREPROCEDURAL EXAMIN 03/31/2018 ALEXANDRO REYES, FABRICIO Naqvi Ot K74.60 UNSPECIFIED CIRRHOSIS OF LIVER 03/31/2018 YARY HAMILTON MD, Ot B18.2 CHRONIC VIRAL HEPATITIS C 03/31/2018 YARY HAMILTON MD, Ot I70.232 ATHSCL [place] ARTERIES OF RIGHT LEG W UL 03/31/2018 YARY HAMILTON MD, Ot I87.322 CHRONIC VENOUS HYPERTENSION W INFLAMMATI 03/31/2018 YARY HAMILTON MD, Ot I87.331 CHRONIC VENOUS HTN W ULCER AND INFLAMMAT 03/31/2018 YARY HAMILTON MD, Ot I89.0 LYMPHEDEMA, NOT ELSEWHERE CLASSIFIED 03/31/2018 YARY HAMILTON MD Ot K74.69 OTHER CIRRHOSIS OF LIVER 03/31/2018 YARY HAMILTON MD Ot L97.212 NON-PRESSURE CHRONIC ULCER OF RIGHT CALF 03/31/2018 YARY HAMILTON MD Ot M05.241 RHEUMATOID VASCULITIS W RHEUMATOID ARTHR 03/31/2018 YARY HAMILTON MD, Ot 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, INTENTIONAL S 03/31/2018 YARY HAMILTON MD, Ot B18.2 CHRONIC VIRAL HEPATITIS C 03/31/2018 YARY HAMILTON MD, Ot I70.232 ATHSCL [place] ARTERIES OF RIGHT LEG W UL 03/31/2018 YARY HAMILTON MD, Ot I87.322 CHRONIC VENOUS HYPERTENSION W INFLAMMATI 03/31/2018 YARY HAMILTON MD Ot I87.331 CHRONIC VENOUS HTN W ULCER AND INFLAMMAT 03/31/2018 YARY HAMILTON MD, Ot I89.0 LYMPHEDEMA, NOT ELSEWHERE CLASSIFIED 03/31/2018 YARY HAMILTON MD Ot K74.69 OTHER CIRRHOSIS OF LIVER 03/31/2018 YARY HAMILTON MD Ot L97.212 NON-PRESSURE CHRONIC ULCER OF RIGHT CALF 03/31/2018 YARY HAMILTON MD Ot M05.241 RHEUMATOID VASCULITIS W RHEUMATOID ARTHR 03/31/2018 YARY HAMILTON MD, Ot 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, INTENTIONAL S 03/31/2018 YARY HAMILTON MD Ot B18.2 CHRONIC VIRAL HEPATITIS C 03/31/2018 YARY HAMILTNO MD Ot I87.333 CHRONIC VENOUS HTN W ULCER AND INFLAM OF 03/31/2018 YARY HAMILTON MD Ot I89.0 LYMPHEDEMA, NOT ELSEWHERE CLASSIFIED 03/31/2018 YARY HAMILTON MD Ot K74.69 OTHER CIRRHOSIS OF LIVER 03/31/2018 YARY HAMILTON MD Ot L97.211 NON-PRS CHRONIC ULCER OF RIGHT CALF LIMI 03/31/2018 YARY HAMILTON MD Ot L97.212 NON-PRESSURE CHRONIC ULCER OF RIGHT CALF 03/31/2018 YARY HAMILTON MD Ot L97.221 NON-PRS CHRONIC ULCER OF LEFT CALF LIMIT 03/31/2018 YARY HAMILTON MD, Ot 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, INTENTIONAL S 03/31/2018 YARY HAMILTON MD, Ot B18.2 CHRONIC VIRAL HEPATITIS C 03/31/2018 YARY HAMILTON MD Ot I87.333 CHRONIC VENOUS HTN W ULCER AND INFLAM OF 03/31/2018 YARY HAMILTON MD Ot I89.0 LYMPHEDEMA, NOT ELSEWHERE CLASSIFIED 03/31/2018 YARY HAMILTON MD Ot K74.69 OTHER CIRRHOSIS OF LIVER 03/31/2018 YARY HAMILTON MD Ot L97.211 NON-PRS CHRONIC ULCER OF RIGHT CALF LIMI 03/31/2018 YARY HAMILTON MD Ot L97.221 NON-PRS CHRONIC ULCER OF LEFT CALF LIMIT 03/31/2018 YARY HAMILTON MD Ot 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, INTENTIONAL S 03/31/2018 YARY HAMILTON MD Ot B18.2 CHRONIC VIRAL HEPATITIS C 03/31/2018 YARY HAMILTON MD Ot I87.333 CHRONIC VENOUS HTN W ULCER AND INFLAM OF 03/31/2018 YARY HAMILTON MD Ot I89.0 LYMPHEDEMA, NOT ELSEWHERE CLASSIFIED 03/31/2018 YARY HAMILTON MD Ot K74.69 OTHER CIRRHOSIS OF LIVER 03/31/2018 YARY HAMILTON MD, Ot L97.212 NON-PRESSURE CHRONIC ULCER OF RIGHT CALF 03/31/2018 YARY HAMILTON MD, Ot L97.221 NON-PRS CHRONIC ULCER OF LEFT CALF LIMIT 03/31/2018 YARY HAMILTON MD, Ot 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, INTENTIONAL S 03/31/2018 YARY HAMILTON MD, Ot B18.2 CHRONIC VIRAL HEPATITIS C 03/31/2018 YARY HAMILTON MD Ot I87.333 CHRONIC VENOUS HTN W ULCER AND INFLAM OF 03/31/2018 YARY HAMILTON MD Ot I89.0 LYMPHEDEMA, NOT ELSEWHERE CLASSIFIED 03/31/2018 YARY HAMILTON MD Ot K74.69 OTHER CIRRHOSIS OF LIVER 03/31/2018 YARY HAMILTON MD, Ot L97.212 NON-PRESSURE CHRONIC ULCER OF RIGHT CALF 03/31/2018 YARY HAMILTON MD Ot L97.221 NON-PRS CHRONIC ULCER OF LEFT CALF LIMIT 03/31/2018 YARY HAMILTON MD, Ot 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, INTENTIONAL S 03/31/2018 YARY HAMILTON MD Ot B18.2 CHRONIC VIRAL HEPATITIS C 03/31/2018 YARY HAMILTON MD Ot I87.332 CHRONIC VENOUS HTN W ULCER AND INFLAMMAT 03/31/2018 YARY HAMILTON MD Ot I89.0 LYMPHEDEMA, NOT ELSEWHERE CLASSIFIED 03/31/2018 YARY HAMILTON MD Ot K74.69 OTHER CIRRHOSIS OF LIVER 03/31/2018 YARY HAMILTON MD, Ot L97.221 NON-PRS CHRONIC ULCER OF LEFT CALF LIMIT 03/31/2018 YARY HAMILTON MD Ot 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, INTENTIONAL S 03/31/2018 YARY HAMILTON MD Ot B18.2 CHRONIC VIRAL HEPATITIS C 03/31/2018 YARY HAMILTON MD Ot I87.323 CHRONIC VENOUS HTN W INFLAMMATION OF CHER 03/31/2018 YARY HAMILTON MD Ot I89.0 LYMPHEDEMA, NOT ELSEWHERE CLASSIFIED 03/31/2018 YARY HAMILTON MD Ot K74.69 OTHER CIRRHOSIS OF LIVER 03/31/2018 YARY HAMILTON MD Ot T43.622D 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, INTENTIONAL S 03/31/2018 YARY HAMILTON MD Ot B18.2 CHRONIC VIRAL HEPATITIS C 03/31/2018 YARY HAMILTON MD Ot I87.323 CHRONIC VENOUS HTN W INFLAMMATION OF CHER 03/31/2018 YARY HAMILTON MD Ot I89.0 LYMPHEDEMA, NOT ELSEWHERE CLASSIFIED 03/31/2018 YARY HAMILTON MD Ot K74.69 OTHER CIRRHOSIS OF LIVER 03/31/2018 YARY HAMILTON MD Ot 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, INTENTIONAL S 04/01/2018 JORGE YANES MD Ot B19.20 UNSPECIFIED VIRAL HEPATITIS C WITHOUT HE 04/01/2018 JORGE YANES MD Ot H26.9 UNSPECIFIED CATARACT 04/01/2018 JORGE YANES MD Ot H81.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, UNSPECIFIED EAR 04/01/2018 JORGE YANES MD Ot K21.9 GASTRO-ESOPHAGEAL REFLUX DISEASE WITHOUT 04/01/2018 JORGE YANES MD Ot Z79.899 OTHER LONGTERM (CURRENT) DRUG THERAPY 04/02/2018 JORGE YANES MD Ot B19.20 UNSPECIFIED VIRAL HEPATITIS C WITHOUT HE 04/02/2018 JORGE YANES MD Ot H26.9 UNSPECIFIED CATARACT 04/02/2018 JORGE YANES MD Ot H81.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, UNSPECIFIED EAR 04/02/2018 JORGE YANES MD Ot K21.9 GASTRO-ESOPHAGEAL REFLUX DISEASE WITHOUT 04/02/2018 JORGE YANES MD Ot Z79.899 OTHER LONGTERM (CURRENT) DRUG THERAPY 04/06/2018 JORGE YANES MD Ot Z01.818 ENCOUNTER FOR OTHER PREPROCEDURAL EXAMIN 04/15/2018 JORGE YANES MD Ot Z01.818 ENCOUNTER FOR OTHER PREPROCEDURAL EXAMIN 04/16/2018 JORGE YANES MD, Ot Z01.818 ENCOUNTER FOR OTHER PREPROCEDURAL EXAMIN Procedures Code Description [place] [address] OXIMETRY 06/26/2013 38166 ROUTINE VENIPUNCTURE 07/01/2013 28315 XRAY CHEST 2 VIEW 07/01/2013 77747 HEP B SURFACE ANTIGEN (STATE ) 07/01/2013 75264 OXIMETRY 07/01/2013 42533 URINE DRUG SCREEN (IN-HOUSE ) 07/01/2013 23198 CMP 07/01/2013 [id number] GFR CALC (RESULT ONLY) 07/01/2013 16273 HEP A ANTIBODY, IGM (RML) 07/01/2013 02291 PT/INR 07/01/2013 10460 CBC 07/01/2013 86010 HIV ANTIBODIES (RML) 07/02/2013 90331 HEP B SURFACE ANTIBODY 07/02/2013 74424 HEP C PCR QUANT W/KRYSTAL 07/06/2013 28937 US ABDOMINAL ULTRASOUND, COMPLETE 07/14/2013 36431 GENOTYPE DNA HEPATITIS C 07/15/2013 59857 ROUTINE VENIPUNCTURE 07/26/2013 Medical O [facility] 07/26/2013 30325 URINE DRUG SCREEN (IN-HOUSE ) 07/26/2013 [id number] GFR CALC (RESULT ONLY) 07/26/2013 30761 CMP 07/26/2013 75097 FERRITIN 07/26/2013 Results Test Result Range Comp. [...] GRAM STAIN RESULT ON DIRECT GRAM STAIN NR Bacteria identification in wound by culture - 09/17/17 20:40 Bacteria identification in wound by culture [id number] NRG FREE TEXT EXTERNAL SENSITIVITY REPORTED AT 1939, 318 NRG QUANTITY OF GROWTH Abundant Growth NRG [...] protein measurement (mass/volume) 1.44 mg /dL 0.00-0.50 Complete blood count (CBC) with automated white blood cell (WBC) differential - 10/27/17 01:15 Blood leukocytes automated count (number/volume) 4.1 10*3/uL 4.3-11.0 Blood erythrocytes automated count (number/volume) 4.12 10*6/uL 4.35-5.85 Venous blood hemoglobin measurement (mass/volume) 12.5 g/dL 11.5-16.0 Blood hematocrit (volume fraction) 36 % 35-52 Automated erythrocyte mean corpuscular volume 87 [foz_us] 80-99 Automated erythrocyte mean corpuscular hemoglobin (mass per erythrocyte) 30 pg 25-34 Automated erythrocyte mean corpuscular hemoglobin concentration measurement ( mass/volume) 35 g/dL 32-36 Automated erythrocyte distribution width ratio 13.9 % 10.0-14.5 Automated blood platelet count (count/volume) 65 10*3/uL 130-400 Automated blood platelet mean volume measurement 9.6 [foz_us] 7.4-10.4 Automated blood neutrophils/100 leukocytes 84 % 42-75 Automated blood lymphocytes/100 leukocytes 6 % 12-44 Blood monocytes/100 leukocytes 6 % 0-12 Automated blood eosinophils/100 leukocytes 4 % 0-10 Automated blood basophils/100 leukocytes 1 % 0-10 Blood neutrophils automated count (number/volume) 3.4 10*3 1.8-7.8 Blood lymphocytes automated count (number/volume) 0.2 10*3 1.0-4.0 Blood monocytes automated count (number/volume) 0.2 10*3 0.0-1.0 Automated eosinophil count 0.2 10*3/uL 0.0-0.3 Automated blood basophil count (count/volume) 0.0 10*3/uL 0.0-0.1 PT panel in platelet poor plasma by coagulation assay - 10/27/17 01:15 Prothrombin time (PT) in platelet poor plasma by coagulation assay 16.0 s 12.2-14.7 INR in platelet poor plasma or blood by coagulation assay 1.3 0.8-1.4 Activated partial thromboplastin time (aPTT) in platelet poor plasma bycoagulation assay - 10/27/17 01:15 Activated partial thromboplastin time (aPTT) in platelet poor plasma bycoagulation assay 33 s 24-35 Comprehensive metabolic panel - 10/27/17 01:15 Serum or plasma sodium measurement (moles/volume) 138 mmol/L 135-145 Serum or plasma potassium measurement (moles/volume) 3.6 mmol/L 3.6-5.0 Serum or plasma chloride measurement (moles/volume) 106 mmol/L 98-107 Carbon dioxide 22 mmol/L 21-32 Serum or plasma anion gap determination (moles/volume) 10 mmol/L 5-14 Serum or plasma urea nitrogen measurement (mass/volume) 15 mg/dL 7-18 Serum or plasma creatinine measurement (mass/volume) 0.76 mg/dL 0.60-1.30 Serum or plasma urea nitrogen/creatinine mass ratio 20 NRG Serum or plasma creatinine measurement with calculation of estimated glomerular filtration rate > NRG Serum or plasma glucose measurement (mass/volume) 111 mg/dL 70-105 Serum or plasma calcium measurement (mass/volume) 8.1 mg/dL 8.5-10.1 Serum or plasma total bilirubin measurement (mass/volume) 2.0 mg/dL 0.1-1.0 Serum or plasma alkaline phosphatase measurement (enzymatic activity/volume) 72 U/L 40-136 Serum or plasma aspartate aminotransferase measurement (enzymatic activity/ volume) 116 U/L 5-34 Serum or plasma alanine aminotransferase measurement (enzymatic activity/volume ) 107 U/L 0-55 Serum or plasma protein measurement (mass/volume) 6.4 g/dL 6.4-8.2 Serum or plasma albumin measurement (mass/volume) 3.0 g/dL 3.2-4.5 Magnesium - 10/27/17 01:15 Magnesium 1.8 mg/dL 1.8-2.4 Serum or plasma amylase measurement (enzymatic activity/volume) - 10/27/17 01: 15 Serum or plasma amylase measurement (enzymatic activity/volume) 45 U /L 25-125 Lipase - 10/27/17 01:15 Lipase 22 U/L 8-78 Ammonia - 10/27/17 01:15 Ammonia 70 umol/L 11-32 Serum or plasma acetaminophen measurement (mass/volume) - 10/27/17 01:15 Serum or plasma acetaminophen measurement (mass/volume) < ug/mL 10-30 Serum or plasma ethanol measurement (mass/volume) - 10/27/17 01:15 Serum or plasma ethanol measurement (mass/volume) < mg/dL <10 Urine drug screening test - 10/27/17 02:20 Urine phencyclidine detection by screening method NEGATIVE NEGATIVE Urine benzodiazepines detection by screening method POSITIVE NEGATIVE Urine cocaine detection NEGATIVE NEGATIVE Urine amphetamines detection by screening method POSITIVE NEGATIVE Urine methamphetamine detection by screening method POSITIVE NEGATIVE Urine cannabinoids detection by screening method NEGATIVE NEGATIVE Urine opiates detection by screening method NEGATIVE NEGATIVE Urine barbiturates detection NEGATIVE NEGATIVE Screening urine tricyclic antidepressants detection NEGATIVE NEGATIVE Urine methadone detection by screening method NEGATIVE NEGATIVE Urine oxycodone detection NEGATIVE NEGATIVE Urine propoxyphene detection NEGATIVE NEGATIVE Complete urinalysis with reflex to culture - 10/27/17 02:20 Urine color determination HAILEE NRG Urine clarity determination CLEAR NRG Urine pH measurement by test strip 6 5-9 Specific gravity of urine by test strip 1.020 1.016- 1.022 Urine protein assay by test strip, semi-quantitative 1+ NEGATIVE Urine glucose detection by automated test strip NEGATIVE NEGATIVE Erythrocytes detection in urine sediment by light microscopy NEGATIVE NEGATIVE Urine ketones detection by automated test strip 1+ NEGATIVE Urine nitrite detection by test strip NEGATIVE NEGATIVE Urine total bilirubin detection by test strip 1+ NEGATIVE Urine urobilinogen measurement by automated test strip (mass/volume) 4 mg/dL NORMAL Urine leukocyte esterase detection by dipstick 2+ NEGATIVE Automated urine sediment erythrocyte count by microscopy (number/high power field) NONE NRG Automated urine sediment leukocyte count by microscopy (number/high power field ) [HPF] NRG Bacteria detection in urine sediment by light microscopy TRACE NRG Squamous epithelial cells detection in urine sediment by light microscopy 5-10 NRG Crystals detection in urine sediment by light microscopy NONE NRG Casts detection in urine sediment by light microscopy NONE NRG Mucus detection in urine sediment by light microscopy LARGE NRG Complete urinalysis with reflex to culture NO NRG Blood lactic acid measurement (moles/volume) - 10/27/17 04:05 Blood lactic acid measurement (moles/volume) 1.38 mmol/L 0.50-2.00 Serum or plasma rheumatoid factor measurement (units/volume) - 11/21/17 16:29 Serum or plasma rheumatoid factor measurement (units/volume) NEGATIVE NEGATIVE CCP ANTIBODY - 11/24/17 13:15 CYCLIC CITRULLINATED PEPTIDE (CCP) AB (IGG) <16 UNITS NRG ANH ANALYZER - 11/24/17 13:15 ANH SCREEN, IFA NEGATIVE NEGATIVE VITAMIN C - 11/24/17 13:15 VITAMIN C, LC/MS/MS 1.2 mg/dL 0.3-2.7 Bacterial blood culture - 03/04/18 19:50 Bacterial blood culture NG NRG Bacterial blood culture - 03/04/18 20:10 Bacterial blood culture NG NRG Encounters ACCT No. Visit Date/Time Discharge Status Pt. Type Provider Facility Loc./Unit Complaint [id number] 07/06/2014 10:23:00 07/06/2014 23:59:59 CLS Outpatient DENZEL QUINN APRN [id number] 01/25/2014 00:00:00 01/25/2014 23:59:59 CLS Outpatient DENZEL QUINN APRN [id number] 07/26/2013 11:42:00 07/26/2013 23:59:59 CLS Outpatient DENZEL QUINN APRN [id number] 07/01/2013 10:39:00 07/01/2013 23:59:59 CLS Outpatient DENZEL QUINN APRN [id number] 06/26/2013 09:01:00 06/26/2013 23:59:59 CLS Outpatient CATERINA GARCIA APRN [id number] 06/08/2012 10:08:00 06/08/2012 23:59:59 CLS Outpatient DENZEL QUINN APRN [id number] 11/21/2016 10:09:00 Document Registration [id number] 02/06/2018 15:40:00 02/06/2018 23:59:59 CLS Outpatient DENZEL QUINN APRN [facility] [id number] 11/24/2017 12:00:00 Document Registration [id number] 08/18/2017 09:40:00 Document Registration [id number] 02/26/2018 02:57:00 02/26/2018 03:57:00 DIS Outpatient [facility] [id number] 04/17/2018 09:30:00 04/17/2018 23:59:59 CLS Preadmit FARZANA REYES, JORGE Still [facility] SDC LEFT CATARACT [id number] 04/15/2018 06:36:00 04/15/2018 15:58:00 DIS Outpatient JORGE YANES MD Via [facility] PREOP CATARAAT LEFT [id number] 04/01/2018 09:10:00 04/01/2018 11:30:00 DIS Outpatient JORGE YANES MD Via [facility] SDC CATARACT RIGHT EYE [id number] 03/31/2018 05:54:00 03/31/2018 10:14:00 DIS Outpatient JORGE YANES MD [facility] PREOP CATARACT RIGHT EYE [id number] 03/04/2018 18:45:00 03/04/2018 22:04:00 DIS Emergency SHAYNE DO CHIRAG Aubree [facility] ER LEG WOUND;ITCHING [id number] 01/28/2018 11:19:00 01/28/2018 23:59:59 CLS Outpatient YARY HAMILTON MD [facility] WOUNDCARE [id number] 01/21/2018 12:48:00 01/21/2018 23:59:59 CLS Outpatient YARY HAMILTON MD [facility] WOUNDCARE [id number] 01/12/2018 10:14:00 01/12/2018 23:59:59 CLS Outpatient YARY HAMILTON MD [facility] WOUNDCARE [id number] 01/05/2018 10:03:00 01/05/2018 23:59:59 CLS Outpatient YARY HAMILTON MD [facility] WOUNDCARE [id number] 12/22/2017 10:11:00 12/22/2017 23:59:59 CLS Outpatient YARY HAMILTON MD [facility] WOUNDCARE [id number] 12/15/2017 10:23:00 12/15/2017 23:59:59 CLS Outpatient YARY HAMILTON MD [facility] WOUNDCARE [id number] 12/12/2017 10:20:00 12/12/2017 23:59:59 CLS Outpatient YARY HAMILTON MD [facility] WOUNDCARE [id number] 11/21/2017 16:09:00 11/21/2017 23:59:59 CLS Outpatient YARY HAMILTON MD [facility] LAB M05.241 [id number] 11/21/2017 14:13:00 11/21/2017 23:59:59 CLS Outpatient YARY HAMILTON MD [facility] WOUNDCARE [id number] 10/27/2017 00:26:00 10/27/2017 05:08:00 DIS Emergency CHIRAG BELLA DO [facility] ER N/V [id number] 10/08/2017 22:54:00 10/09/2017 02:02:00 DIS Emergency RE REYES, DAMIAN Davis [facility] ER SCRATCHES ON LEGS, POSS INFECTION [id number] 10/02/2017 09:36:00 10/02/2017 23:59:59 CLS Outpatient FABRICIO MC MD [facility] RAD CIRRHOSIS OF LIVER WO ASCITES [id number] 09/17/2017 19:43:00 09/17/2017 23:15:00 DIS Emergency EDSON DOVER [facility] ER LEG RASH [id number] 04/20/2017 04:07:00 04/20/2017 05:15:00 DIS Emergency CHIRAG BELLA DO [facility] ER SWELLING IN LEGS [id number] 12/14/2016 22:43:00 12/15/2016 01:35:00 DIS Emergency HORACIO WHEELER [facility] ER R FOOT PAIN AFTER STEPPING ON NAIL [id number] 02/16/2014 12:22:00 02/16/2014 23:59:59 CLS Outpatient [id number] 10/05/2013 13:03:00 01/03/2014 00:01:00 DIS Outpatient JESUS GREEN MD [facility] ONC [id number] 07/12/2013 07:23:00 07/12/2013 23:59:59 CLS Outpatient DENZEL QUINN [facility] RAD HX OF HEP C, ASCITES [id number] 09/20/2014 14:22:00 Document Registration [id number] 06/07/2014 14:06:00 Document Registration [id number] 07/24/2016 08:42:00 Document Registration [id number] 11/21/2016 10:09:00 Document Registration
[2018-06-23 22:53] LABS: BASOPHILS # (AUTO) 0.1 10^3/uL (0.0-0.1); BASOPHILS % (AUTO) 1 % (0-10); EOSINOPHILS # (AUTO) 0.3 10^3/uL (0.0-0.3); EOSINOPHILS % (AUTO) 8 % (0-10); HEMATOCRIT 32 % (35-52); HEMOGLOBIN 10.8 G/DL (11.5-16.0); LYMPHOCYTES # (AUTO) 0.7 X 10^3 (1.0-4.0); LYMPHOCYTES % (AUTO) 15 % (12-44); MEAN CORPUSCULAR HEMOGLOBIN 28 PG (25-34); MEAN CORPUSCULAR HGB CONC 34 G/DL (32-36); MEAN CORPUSCULAR VOLUME 84 FL (80-99); MEAN PLATELET VOLUME 8.8 FL (7.4-10.4); MONOCYTES # (AUTO) 0.6 X 10^3 (0.0-1.0); MONOCYTES % (AUTO) 14 % (0-12); NEUTROPHILS # (AUTO) 2.7 X 10^3 (1.8-7.8); NEUTROPHILS % (AUTO) 62 % (42-75); PLATELET COUNT 127 10^3/uL (130-400); RED BLOOD COUNT 3.85 10^6/uL (4.35-5.85); RED CELL DISTRIBUTION WIDTH 14.9 % (10.0-14.5); WHITE BLOOD COUNT 4.4 10^3/uL (4.3-11.0)
[2018-06-23 23:13] LABS: ALANINE AMINOTRANSFERASE 49 U/L (0-55); ALBUMIN 2.4 GM/DL (3.2-4.5); ALKALINE PHOSPHATASE 86 U/L (40-136); AMMONIA 66 UMOL/L (11-32); BILIRUBIN,TOTAL 1.1 MG/DL (0.1-1.0); BUN/CREATININE RATIO 13; CALCIUM 8.3 MG/DL (8.5-10.1); CARBON DIOXIDE 25 MMOL/L (21-32); CHLORIDE 103 MMOL/L (98-107); CREATININE SERUM 0.76 MG/DL (0.60-1.30); GFR ESTIMATED > 60; GLUCOSE 107 MG/DL (70-105); MAGNESIUM 1.7 MG/DL (1.8-2.4); POTASSIUM 3.5 MMOL/L (3.6-5.0); SODIUM 136 MMOL/L (135-145); TOTAL PROTEIN 6.4 GM/DL (6.4-8.2)
[2018-06-23 23:31] LABS: CLARITY,URINE CLEAR; COLOR,URINE AMBER; GLUCOSE, URINE (UA) NEGATIVE (NEGATIVE); KETONES,URINE 1+ (NEGATIVE); LEUKOCYTE ESTERASE ,URINE 2+ (NEGATIVE); NITRITE,URINE NEGATIVE (NEGATIVE); PH,URINE 6 (5-9); PROTEIN,URINE 1+ (NEGATIVE); UROBILINOGEN,URINE 8 MG/DL (NORMAL)
[2018-06-23 23:38] LABS: BACTERIA,URINE FEW /HPF; SQUAMOUS EPITHELIAL CELL,UR >50 /HPF
[2018-06-23 23:39] LABS: BILIRUBIN,URINE 1+ (NEGATIVE)
[2018-06-23 23:44] LABS: AMPHETAMINE SCREEN, URINE POSITIVE (NEGATIVE); BARBITURATE SCREEN URINE NEGATIVE (NEGATIVE); BENZODIAZEPINES SCREEN URINE POSITIVE (NEGATIVE); CANNABINOID SCREEN, URINE NEGATIVE (NEGATIVE); COCAINE SCREEN URINE NEGATIVE (NEGATIVE); METHADONE STAT NEGATIVE (NEGATIVE); METHAMPHETAMINE SCREEN URINE S POSITIVE (NEGATIVE); OPIATE SCREEN URINE POSITIVE (NEGATIVE); OXYCODONE STAT NEGATIVE (NEGATIVE); PROPOXYPHENE STAT NEGATIVE (NEGATIVE); TRICYCLIC ANTIDEPRESSANTS SCRE NEGATIVE (NEGATIVE)
[2018-06-24] MEDS ORDERED: OXYC-529 PO (00:26)
[2018-06-24] MEDS ORDERED: CEPH-507 PO (00:26)
--- NOTE | 2018-06-24 00:27 | ED General ---
General Chief Complaint: Skin/Wound Problems Stated Complaint: SWELLING IN LEGS, LEGS PAINFULL,SWELLING IN FACE Nursing Triage Note: bilateral leg swelling/redness/drainage Nursing Sepsis Screen: No Definite Risk Source of Information: Patient Exam Limitations: No Limitations History of Present Illness Date Seen by Provider: Jun 23, 2018 Time Seen by Provider: 22:23 Initial Comments This 58-year-old woman presents to the emergency room with complaints of facial swelling and redness, swelling, and weeping of the legs. She has cirrhosis from hepatitis C. She complains of increased itching. She presents at the urging of her daughter because of the notable facial swelling today. Patient also complains of intense itching. Her legs are painful. She has been seeing Juli Solo and Fabricio Rosales at [facility]. Patient reports she has been taking her diuretics as directed. She has not taken her lactulose today. Patient has a history of substance abuse and has used drugs within the past week according to her daughter. Patient is a fairly poor historian and gives scattered history. Allergies and Home Medications Allergies Coded Allergies: meperidine (Unverified Adverse Reaction, Unknown, 09/17/17) Home Medications Cephalexin 500 Mg Capsule, 500 MG PO QID Prescribed by: DAMIAN GUY on 06/24/1825 Furosemide 40 Mg Tablet, 80 MG PO DAILY, (Reported) take 2 (40mg) tabs Lactulose 10 Gm/15 Ml Solution, 20 GM PO BID, (Reported) Omeprazole 40 Mg Capsule.dr, 40 MG PO BID, (Reported) Oxycodone HCl 5 Mg Tablet, 5 MG PO Q6H PRN for PAIN-MODERATE TO SEVERE Prescribed by: DAMIAN GUY on 06/24/18 0026 Potassium Chloride 20 Meq Tab.er.prt, 40 MEQ PO DAILY, (Reported) take 2 (20MEQ) tabs last filled 02/09/18 Spironolactone 100 Mg Tablet, 200 MG PO DAILY, (Reported) take 2 (100mg) tabs Patient Home Medication List Home Medication List Reviewed: Yes Review of Systems Review of Systems Constitutional: no symptoms reported EENTM: no symptoms reported Respiratory: no symptoms reported Cardiovascular: no symptoms reported Gastrointestinal: see HPI : No Musculoskeletal: no symptoms reported Skin: see HPI Psychiatric/Neurological: See HPI Past Plqslhe-Hkcqnv-Qvcqju Hx Patient Social History Alcohol Use: Denies Use Recreational Drug Use: Yes Drug of Choice: COCAINE, BENZODIAZEPINES, + IV METH Smoking Status: Former Smoker Type Used: Cigarettes Former Smoker, Quit: Apr 06, 1978 2nd Hand Smoke Exposure: No Recent Foreign Travel: No Contact w/Someone Who Travel: No Recent Infectious Disease Expo: No Recent Hopitalizations: No Immunizations Up To Date Tetanus Booster (TDap): Unknown Date of Influenza Vaccine: Apr 07, 2017 Seasonal Allergies Seasonal Allergies: No Past Medical History Surgeries: Yes ( X 2; BILATERAL CARPAL TUNNEL; EGD) Adenoidectomy, Appendectomy, Section, Gallbladder, Orthopedic, Tonsillectomy Respiratory: No Cardiac: Yes Chronic Edema/Swelling Neurological: No Reproductive Disorders: No 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 0.0oz. [id number]; 26.52 BMI Method:Estimated General Appearance: WD/WN, Mild Distress HEENT: PERRL/EOMI, Normal ENT Inspection, Other (oropharynx somewhat dry) Neck: Normal Inspection Respiratory: Lungs Clear, Normal Breath Sounds, No Accessory Muscle Use, No Respiratory Distress Cardiovascular: Regular Rate, Rhythm, No Edema, No Murmur Gastrointestinal: Normal Bowel Sounds, Non Tender, Soft, Distended (slightly) Extremity: Other (tight woody edema of the lower extremities bilateral with serous oozing. Excoriations over the lower legs as well.) Neurologic/Psychiatric: Alert, Oriented x3, No Motor/Sensory Deficits, Normal Mood/Affect, program admin II-XII Norm as Tested, Other (has difficulty providing a clear history) Skin: Other (see above) Progress/Results/Core Measures Suspected Sepsis Recent Fever Within 48 Hours: No Infection Criteria Present: Suspected New Infection New/Unexplained Altered Menta: No Sepsis Screen: No Definite Risk SIRS Temperature:97.9 Pulse: 88 Respiratory Rate: 16 Laboratory Tests 06/23/18 22:45: White Blood Count 4.4 Blood Pressure 111 /79 Mean: 90 Laboratory Tests 06/23/18 22:45: Creatinine 0.76, Platelet Count 127L, Total Bilirubin 1.1H Results/Orders Lab Results Laboratory Tests Test 06/23/18 22:45 06/23/18 23:22 Range/Units White Blood Count 4.4 4.3-11.0 10^3/uL Red Blood Count 3.85 L 4.35-5.85 10^6/uL Hemoglobin 10.8 L 11.5-16.0 G/DL Hematocrit 32 L 35-52 % Mean Corpuscular Volume 84 80-99 FL Mean Corpuscular Hemoglobin 28 25-34 PG Mean Corpuscular Hemoglobin Concent 34 32-36 G/DL Red Cell Distribution Width 14.9 H 10.0-14.5 % Platelet Count 127 L 130-400 10^3/uL Mean Platelet Volume 8.8 7.4-10.4 FL Neutrophils (%) (Auto) 62 42-75 % Lymphocytes (%) (Auto) 15 12-44 % Monocytes (%) (Auto) 14 H 0-12 % Eosinophils (%) (Auto) 8 0-10 % Basophils (%) (Auto) 1 0-10 % Neutrophils # (Auto) 2.7 1.8-7.8 X 10^3 Lymphocytes # (Auto) 0.7 L 1.0-4.0 X 10^3 Monocytes # (Auto) 0.6 0.0-1.0 X 10^3 Eosinophils # (Auto) 0.3 0.0-0.3 10^3/uL Basophils # (Auto) 0.1 0.0-0.1 10^3/uL Sodium Level 136 135-145 MMOL/L Potassium Level 3.5 L 3.6-5.0 MMOL/L Chloride Level 103 98-107 MMOL/L Carbon Dioxide Level 25 21-32 MMOL/L Anion Gap 8 5-14 MMOL/L Blood Urea Nitrogen 10 7-18 MG/DL Creatinine 0.76 0.60-1.30 MG/DL Estimat Glomerular Filtration Rate > 60 BUN/Creatinine Ratio 13 Glucose Level 107 H 70-105 MG/DL Calcium Level 8.3 L 8.5-10.1 MG/DL Corrected Calcium 9.6 8.5-10.1 MG/DL Magnesium Level 1.7 L 1.8-2.4 MG/DL Total Bilirubin 1.1 H 0.1-1.0 MG/DL Aspartate Amino Transf (AST/SGOT) 80 H 5-34 U/L Alanine Aminotransferase (ALT/SGPT) 49 0-55 U/L Alkaline Phosphatase 86 40-136 U/L Ammonia 66 H 11-32 UMOL/L C-Reactive Protein High Sensitivity 3.58 H 0.00-0.50 MG/DL Total Protein 6.4 6.4-8.2 GM/DL Albumin 2.4 L 3.2-4.5 GM/DL Serum Alcohol < 10 <10 MG/DL Urine Color HAILEE H Urine Clarity CLEAR Urine pH 6 5-9 Urine Specific [place] 1.020 1.016-1.022 Urine Protein 1+ H NEGATIVE Urine Glucose (UA) NEGATIVE NEGATIVE Urine Ketones 1+ H NEGATIVE Urine Nitrite NEGATIVE NEGATIVE Urine Bilirubin 1+ H NEGATIVE Urine Urobilinogen 8 H NORMAL MG/DL Urine Leukocyte Esterase 2+ H NEGATIVE Urine RBC (Auto) NEGATIVE NEGATIVE Urine RBC NONE /HPF Urine WBC 2-5 /HPF Urine Squamous Epithelial Cells >50 H /HPF Urine Crystals NONE /LPF Urine Bacteria FEW H /HPF Urine Casts NONE /LPF Urine Mucus LARGE H /LPF Urine Culture Indicated NO Urine Opiates Screen POSITIVE H NEGATIVE Urine Oxycodone Screen NEGATIVE NEGATIVE Urine Methadone Screen NEGATIVE NEGATIVE Urine Propoxyphene Screen NEGATIVE NEGATIVE Urine Barbiturates Screen NEGATIVE NEGATIVE Ur Tricyclic Antidepressants Screen NEGATIVE NEGATIVE Urine Phencyclidine Screen NEGATIVE NEGATIVE Urine Amphetamines Screen POSITIVE H NEGATIVE Urine Methamphetamines Screen POSITIVE H NEGATIVE Urine Benzodiazepines Screen POSITIVE H NEGATIVE Urine Cocaine Screen NEGATIVE NEGATIVE Urine Cannabinoids Screen NEGATIVE NEGATIVE My Orders Orders - DAMIAN GRIMALDO MD Alcohol (06/23/18 22:34) Ammonia (06/23/18 22:34) Cbc With Automated Diff (06/23/18 22:34) Comprehensive Metabolic Panel (06/23/18 22:34) Hs C Reactive Protein (06/23/18 22:34) Magnesium (06/23/18 22:34) Ua Culture If Indicated (06/23/18 22:34) Saline Lock/Iv-Start (06/23/18 22:34) Drug Screen Stat (Urine) (06/23/18 22:34) Wound Culture (06/23/18 22:45) Oxycodone Immediate Rel Tablet (Oxyir Ta (06/24/18 00:30) Cephalexin Capsule (Keflex Capsule) (06/24/18 00:30) Medications Given in ED Current Medications Medications Dose Ordered Sig/Guerita Route Start Time Stop Time Status Last Admin Dose Admin Cephalexin HCl 500 mg ONCE ONCE PO 06/24/18 00:30 06/24/18 00:31 DC 06/24/18 00:36 500 MG Oxycodone HCl 5 mg ONCE ONCE PO 06/24/18 00:30 12 00:31 DC 06/24/18 00:36 5 MG Vital Signs/I&O 06/23/18 06/24/18 06/24/18 22:15 00:36 00:39 Temp 97.9 97.9 98.0 Pulse 88 74 Resp 16 16 B/P (MAP) 111/79 (90) 105/63 (77) Pulse Ox 98 95 O2 Delivery Room Air Room Air Capillary Refill : Less Than 3 Seconds Blood Pressure Mean: 90 Progress Note : Progress Note Labs were assessed. There were no critical findings. Culture was obtained from the serous drainage on the left leg. Pain was treated with oxycodone. Antibiotic therapy was started for possible cellulitis of the legs. Patient did not meet admission criteria. I recommended that she return to wound care which she was extremely reluctant to do. I also advised that she be strictly compliant with her lactulose to improve the itching. Patient did test positive for methamphetamines. Departure Impression Primary Impression: Hyperammonemia Additional Impressions: Liver failure Qualified Codes: K72.10 - Chronic hepatic failure without coma Pruritic condition Bilateral cellulitis of lower leg Anasarca Disposition: 01 HOME, SELF-CARE Condition: Stable Departure-Patient Inst. Decision time for Depature: 00:25 Referrals: FABRICIO ROSALES MD (PCP) Primary Care Physician [facility] (Family) Primary Care Physician Add. Discharge Instructions: Eat a low-salt diet with plenty of fresh fruits and vegetables. Continue with your medications as prescribed, especially your diuretics and lactulose. Follow-up with your primary care provider soon as possible. Discuss dosing of your diuretics and lactulose. Also discuss the potential for hospice or home health. Elevate your feet as much as possible. Return to care if symptoms are worsening. All discharge instructions reviewed with patient and/or family. Voiced understanding. Scripts Cephalexin (Keflex) 500 Mg Capsule 500 MG PO QID, #40 CAP Prov: DAMIAN GRIMALDO MD 06/24/18 Oxycodone HCl (Oxycodone HCl) 5 Mg Tablet 5 MG PO Q6H PRN for PAIN-MODERATE TO SEVERE, #10 TAB Prov: DAMIAN GRIMALDO MD 06/24/18 Copy Copies To 1: FABRICIO ROSALES MD, JOSHUA T MD Jun 24, 2018 00:27
[2018-06-24] MEDS ORDERED: CEPHALEXIN 250 MG (KEFLEX) CAP PO ONE (00:30)
[2018-06-24 00:39] VITALS: BP 105/63
== END 2018-06-24 00:38 | disposition home or self-care (01) ==
LOC: EDUNIT# 22:12 → ER 22:14
DX: E72.20 Disorder of urea cycle metabolism, unspecified (principal); K72.90 Hepatic failure, unspecified without coma; L29.9 Pruritus, unspecified; L03.115 Cellulitis of right lower limb; L03.116 Cellulitis of left lower limb; R60.1 Generalized edema; B19.20 Unspecified viral hepatitis C without hepatic coma; K21.9 Gastro-esophageal reflux disease without esophagitis; F14.10 Cocaine abuse, uncomplicated; F15.10 Other stimulant abuse, uncomplicated; F12.10 Cannabis abuse, uncomplicated; Z87.891 Personal history of nicotine dependence; Z88.8 Allergy status to other drugs, medicaments and biological substances; Z98.890 Other specified postprocedural states; Z90.49 Acquired absence of other specified parts of digestive tract; Z90.89 Acquired absence of other organs; Z87.19 Personal history of other diseases of the digestive system
CPT/HCPCS: 36415; 80053; 80306; 80320; 81000; 82140; 83735; 85025; 86141; 87070; 87077; 87186; 87205

== ENCOUNTER 2018-09-11 00:22 | Inpatient (IN) | payer MEDICAID ==
[~2018-09-11] VITALS: Ht 157.5 cm; Wt 88.0 kg
[2018-09-11] VITALS (21 sets, daily range): BP systolic 73–150; BP diastolic 47–77
[~2018-09-11 00:22] MED LIST changes: +OXYC-529 PO
[2018-09-11] MEDS ORDERED: IBUPROFEN 800 MG (MOTRIN) TAB PO ONE (02:30)
[2018-09-11] MEDS ORDERED: ACETAMINOPHEN 500 MG TAB (TYLENOL) PO ONE (02:30)
[2018-09-11] MEDS ORDERED: LACTATED RINGERS 1,000 ML IV ONE (03:08)
[2018-09-11 03:38] LABS: BASOPHILS % (AUTO) 0 % (0-10); EOSINOPHILS % (AUTO) 0 % (0-10); HEMATOCRIT 33 % (35-52); HEMOGLOBIN 11.3 G/DL (11.5-16.0); LYMPHOCYTES # (AUTO) 0.7 X 10^3 (1.0-4.0); LYMPHOCYTES % (AUTO) 4 % (12-44); MEAN CORPUSCULAR HEMOGLOBIN 28 PG (25-34); MEAN CORPUSCULAR HGB CONC 35 G/DL (32-36); MEAN CORPUSCULAR VOLUME 81 FL (80-99); MEAN PLATELET VOLUME 10.2 FL (7.4-10.4); MONOCYTES # (AUTO) 0.7 X 10^3 (0.0-1.0); MONOCYTES % (AUTO) 4 % (0-12); NEUTROPHILS # (AUTO) 16.8 X 10^3 (1.8-7.8); NEUTROPHILS % (AUTO) 92 % (42-75); PLATELET COUNT 101 10^3/uL (130-400); RED CELL DISTRIBUTION WIDTH 16.5 % (10.0-14.5); WHITE BLOOD COUNT 18.2 10^3/uL (4.3-11.0)
[2018-09-11 03:55] LABS: INR 1.5 (0.8-1.4); PROTHROMBIN TIME PATIENT 18.4 SEC (12.2-14.7)
[2018-09-11 04:03] LABS: ALANINE AMINOTRANSFERASE 28 U/L (0-55); ALBUMIN 2.8 GM/DL (3.2-4.5); ALKALINE PHOSPHATASE 101 U/L (40-136); AMMONIA 29 UMOL/L (11-32); AMYLASE 27 U/L (25-125); BILIRUBIN,TOTAL 1.8 MG/DL (0.1-1.0); BUN/CREATININE RATIO 25; CALCIUM 9.3 MG/DL (8.5-10.1); CARBON DIOXIDE 19 MMOL/L (21-32); CHLORIDE 100 MMOL/L (98-107); CREATININE SERUM 0.87 MG/DL (0.60-1.30); GFR ESTIMATED > 60; GLUCOSE 86 MG/DL (70-105); LIPASE 14 U/L (8-78); MAGNESIUM 1.9 MG/DL (1.8-2.4); POTASSIUM 4.2 MMOL/L (3.6-5.0); SODIUM 129 MMOL/L (135-145); TOTAL PROTEIN 7.2 GM/DL (6.4-8.2)
[2018-09-11 04:06] LABS: ACETAMINOPHEN < 10 UG/ML (10-30)
[2018-09-11 04:11] LABS: BAND NEUTROPHILS 14 %; LYMPHOCYTES % (MANUAL) 2 %; MONOCYTES % (MANUAL) 2 %; NEUTROPHILS % (MANUAL) 82 %; RBC MORPH NORMAL
[2018-09-11] MEDS ORDERED: NS IV 1000 ML 1,000 ML IV ONE ×4 (04:23→06:18)
[2018-09-11 05:03] LABS: CLARITY,URINE CLEAR; COLOR,URINE YELLOW; GLUCOSE, URINE (UA) NEGATIVE (NEGATIVE); KETONES,URINE NEGATIVE (NEGATIVE); LEUKOCYTE ESTERASE ,URINE 1+ (NEGATIVE); NITRITE,URINE NEGATIVE (NEGATIVE); PH,URINE 6 (5-9); PROTEIN,URINE 2+ (NEGATIVE); UROBILINOGEN,URINE 1 MG/DL (NORMAL)
[2018-09-11] MEDS ORDERED: PIPERACILLIN SODIUM/TAZOBACTAM 4.5 GM in NS (IVPB) 100 ML IV ONE (05:15)
[2018-09-11] MEDS ORDERED: VANCOMYCIN INJECTION 1,000 MG in NS (IVPB) 250 ML IV ONE (05:15)
[2018-09-11 05:23] LABS: AMPHETAMINE SCREEN, URINE POSITIVE (NEGATIVE); BARBITURATE SCREEN URINE NEGATIVE (NEGATIVE); BENZODIAZEPINES SCREEN URINE POSITIVE (NEGATIVE); CANNABINOID SCREEN, URINE NEGATIVE (NEGATIVE); COCAINE SCREEN URINE NEGATIVE (NEGATIVE); METHADONE STAT NEGATIVE (NEGATIVE); METHAMPHETAMINE SCREEN URINE S POSITIVE (NEGATIVE); OPIATE SCREEN URINE POSITIVE (NEGATIVE); OXYCODONE STAT NEGATIVE (NEGATIVE); PROPOXYPHENE STAT NEGATIVE (NEGATIVE); TRICYCLIC ANTIDEPRESSANTS SCRE NEGATIVE (NEGATIVE)
[2018-09-11 05:24] LABS: BACTERIA,URINE FEW /HPF; BILIRUBIN,URINE 1+ (NEGATIVE); SQUAMOUS EPITHELIAL CELL,UR 0-2 /HPF; WBC,URINE 0-2 /HPF
--- NOTE | 2018-09-11 06:24 | Diagnostic Imaging Report ---
INDICATION: Chest pain. Upright portable AP view of the chest is obtained with comparison made to study of 09/20/2014. There is mild cardiomegaly. Pulmonary vascularity is within normal limits. There is no pneumothorax or consolidation. There is slight blunting of left costophrenic sulcus. IMPRESSION: Mild cardiomegaly with possible small left pleural effusion or thickening. Otherwise, no acute abnormalities detected. Dictated by: Dictated on workstation # [id number]
--- NOTE | 2018-09-11 06:34 | ED General ---
General Chief Complaint: Fever-Adult/Adol Stated Complaint: SEVERE SEPSIS;BILATERAL LEG CELLULITIS;HEPATITIS C Nursing Triage Note: FEVER Nursing Sepsis Screen: Possible Sepsis Risk Source of Information: Patient (VERY POOR HISTORIAN), Old Records (ALL PMH IS FROM OLD RECORDS) History of Present Illness Date Seen by Provider: Sep 11, 2018 Time Seen by Provider: 02:05 Initial Comments PT ARRIVES VIA POV FROM HOME--PT'S BROTHER BROUGHT HER HERE AND THEN LEFT PT HAS HAD SUBJECTIVE FEVER FOR THE LAST 4 DAYS--HAS NOT TAKEN ANYTHING FOR FEVER AT ANY TIME. TEMP IS 103.3 ON ARRIVAL TO ER PT WITH GENERALIZED WEAKNESS PT WITH QUESTIONABLE COUGH PT DENIES CHEST PAIN OR SHORTNESS OF BREATH PT HAS KNOWN HEPATITIS C THAT HAS NOT BEEN TREATED, WITH END STAGE LIVER FAILURE / CIRRHOSIS WITH CHRONIC LEG SWELLING PT HAS CHRONIC ITCHING ALL OVER, ESPECIALLY OF LOWER LEGS PT IS LATER ABLE TO STATE THAT THE LAST 2 DAYS SHE HAS HAD REDNESS, WARMTH, INCREASED PAIN TO BOTH LEGS. NO OTHER INFORMATION IS OBTAINABLE ON ARRIVAL PT WITH LONG HISTORY OF NON-COMPLIANCE IN ALL ASPECTS OF CARE PT HAS REPEATEDLY CLAIMED THAT SHE HAS NOT USED IV DRUGS OR DRUGS OF ANY KIND "FOR YEARS", BUT HAS REPEATEDLY TESTED + FOR THC, METH/AMPHETAMINES AND BENZODIAZEPINES ON MULTIPLE PRIOR VISITS. 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 Obed ROSALES Allergies and Home Medications Allergies Coded Allergies: meperidine (Unverified Adverse Reaction, Unknown, 09/17/17) Home Medications Furosemide 40 Mg Tablet, 80 MG PO DAILY, (Reported) take 2 (40mg) tabs Lactulose 10 Gm/15 Ml Solution, 20 GM PO BID, (Reported) Omeprazole 40 Mg Capsule.dr, 40 MG PO BID, (Reported) Potassium Chloride 20 Meq Tab.er.prt, 40 MEQ PO DAILY, (Reported) take 2 (20MEQ) tabs last filled 02/09/18 Spironolactone 100 Mg Tablet, 200 MG PO DAILY, (Reported) take 2 (100mg) tabs Patient Home Medication List Home Medication List Reviewed: Yes Review of Systems Review of Systems Constitutional: fever, malaise Respiratory: cough Cardiovascular: edema Musculoskeletal: see HPI Skin: see HPI Psychiatric/Neurological: See HPI Past Mfhwwfu-Xzaggy-Vaulxc Hx Patient Social History Alcohol Use: Past History (HISTORY OF ABUSE) Recreational Drug Use: Yes (+ IV METH USE, COCAINE, BENZODIAZEPINES--SEE OLD RECORDS) Drug of Choice: COCAINE, BENZODIAZEPINES, + IV METH Smoking Status: Former Smoker (1 PPD) Type Used: Cigarettes (1 PPD) Former Smoker, Quit: Apr 06, 1978 2nd Hand Smoke Exposure: No Recent Foreign Travel: No Contact w/Someone Who Travel: No Recent Infectious Disease Expo: No Recent Hopitalizations: No Immunizations Up To Date Tetanus Booster (TDap): Unknown Date of Influenza Vaccine: Apr 07, 2017 Seasonal Allergies Seasonal Allergies: No Past Medical History Surgeries: Yes ( X 2; BILATERAL CARPAL TUNNEL; EGD; BILATERAL CATARACT SURGERY ) Adenoidectomy, Appendectomy, Section, Eye Surgery, Gallbladder, Orthopedic, Tonsillectomy Respiratory: No Cardiac: Yes Chronic Edema/Swelling Neurological: No Reproductive Disorders: No 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 END STAGE LIVER FAILURE; SPLENOMEGALY; GI BLEED IN HER 30'S--NO SURGERY OR TRANSFUSIONS-PT REPORTS DX WITH ULCERS) Gastroesophageal Reflux, Liver Disease/Jaundice, Gastrointestinal Bleed, Hepatitis, Ulcer, Cirrhosis, Gall Bladder Disease Musculoskeletal: Yes (CHRONIC GENERALIZED PAIN COMPLAINTS. 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 0.0oz. 81.920733mb; 26.52 BMI Method:Stated General Appearance: Chronically ill, Other (MILDLY LETHARGIC/DROWSY, PT UNABLE TO GIVE MUCH INFORMATION ON ARRIVAL--NOT TALKING MUCH ON ARRIVAL, BUT NOT ACTUALLY CONFUSED. ) HEENT: PERRL/EOMI, Other (EXTENSIVE DENTAL DECAY--"METH MOUTH" WITH MOST TEETH MISSING AND REMAINING FEW TEETH ARE DECAYED DOWN TO GUMS. ORAL MUCOSA AND LIPS VERY DRY WITH PEELING OF LIPS) Neck: Normal Inspection Respiratory: Normal Breath Sounds, No Accessory Muscle Use, No Respiratory Distress Cardiovascular: Regular Rate, Rhythm, No Murmur Gastrointestinal: Normal Bowel Sounds, Non Tender, Soft, Distended (MILDLY DISTENDED BUT SOFT AND NON-TENDER AND NO SIGNIFICANT FLUID WAVE), Hepatomegaly Back: No CVA Tenderness Extremity: Normal Capillary Refill, Normal Inspection, Normal Range of Motion, Non Tender, No Calf Tenderness, No Pedal Edema, Calf Tenderness, Inflammation, Pedal Edema, Pelvis Stable, Slow Capillary Refill, Swelling, Other (3-4+ EDEMA OF BILATERAL LEGS, WITH EXTENSIVE CHRONIC VENOUS STASIS CHANGES TO BILATERAL LOWER LEGS, WITH EXTENSIVE FISSURING AND MACERATION FROM PT SCRATCHING,MANY AREAS WITH SCABS AND SCALING AND SOME AREAS WITH DRIED FLUID FROM WEEPING. WOODY INDURAITON TO BILATERAL LOWER LEGS. PT WITH SIGNFICANT ERYTHEMA, WARMTH AND TENDERNESS TO BILATERAL THIGHS--THIS HAS EXTENDED FROM LOWER LEGS, UP TO PROXIMAL THIGHS BILATERALLY. ) Neurologic/Psychiatric: Alert, No Motor/Sensory Deficits, Other (MENTATION NOTED ABOVE) Skin: Warm/Dry, Jaundice (SLIGHT), Other ( ABOVE. SKIN WARM TO TOUCH) Focused Exam Sepsis Stage: Septic Shock Possible Source: Skin/Soft Tissue Lactate Level 09/11/18 03:20: Lactic Acid Level 2.66*H 09/11/18 05:18: Lactic Acid Level 1.69 Time of Focused Exam: 05:00 Respiratory: Normal Breath Sounds, No Accessory Muscle Use, No Respiratory Distress Cardiovascular: Regular Rate, Rhythm Skin: warm/dry, other (LEGS UNCHANGED FROM INITAL EXAM) Lactic Acid Level Laboratory Tests Test 09/11/18 05:18 Lactic Acid Level 1.69 MMOL/L (0.50-2.00) Within 3hrs of presentation: Admin fluids, Admin ABX, Blood cultures prior to ABX's, Focus exam, Lactate level Progress/Results/Core Measures Suspected Sepsis Recent Fever Within 48 Hours: Yes Infection Criteria Present: Suspected New Infection New/Unexplained Altered Menta: No Sepsis Screen: Possible Sepsis Risk SIRS Temperature:103.3 Pulse: 96 Respiratory Rate: 28 Laboratory Tests 09/11/18 03:20: White Blood Count 18.2H Blood Pressure 114 /87 Mean: 96 09/11/18 03:20: Lactic Acid Level 2.66*H 09/11/18 05:18: Lactic Acid Level 1.69 Laboratory Tests 09/11/18 03:20: Creatinine 0.87, INR Comment 1.5H, Platelet Count 101L, Total Bilirubin 1.8H Results/Orders Lab Results Laboratory Tests Test 09/11/18 03:20 09/11/18 04:50 09/11/18 05:18 09/11/18 08:30 Range/Units White Blood Count 18.2 H 4.3-11.0 10^3/uL Red Blood Count 4.03 L 4.35-5.85 10^6/uL Hemoglobin 11.3 L 11.5-16.0 G/DL Hematocrit 33 L 35-52 % Mean Corpuscular Volume 81 80-99 FL Mean Corpuscular Hemoglobin 28 25-34 PG Mean Corpuscular Hemoglobin Concent 35 32-36 G/DL Red Cell Distribution Width 16.5 H 10.0-14.5 % Platelet Count 101 L 130-400 10^3/uL Mean Platelet Volume 10.2 7.4-10.4 FL Neutrophils (%) (Auto) 92 H 42-75 % Lymphocytes (%) (Auto) 4 L 12-44 % Monocytes (%) (Auto) 4 0-12 % Eosinophils (%) (Auto) 0 0-10 % Basophils (%) (Auto) 0 0-10 % Neutrophils # (Auto) 16.8 H 1.8-7.8 X 10^3 Lymphocytes # (Auto) 0.7 L 1.0-4.0 X 10^3 Monocytes # (Auto) 0.7 0.0-1.0 X 10^3 Eosinophils # (Auto) 0.0 0.0-0.3 10^3/uL Basophils # (Auto) 0.0 0.0-0.1 10^3/uL Neutrophils % (Manual) 82 % Lymphocytes % (Manual) 2 % Monocytes % (Manual) 2 % Band Neutrophils 14 % Blood Morphology Comment NORMAL Prothrombin Time 18.4 H 12.2-14.7 SEC INR Comment 1.5 H 0.8-1.4 Activated Partial Thromboplast Time 46 H 24-35 SEC Sodium Level 129 L 135-145 MMOL/L Potassium Level 4.2 3.6-5.0 MMOL/L Chloride Level 100 98-107 MMOL/L Carbon Dioxide Level 19 L 21-32 MMOL/L Anion Gap 10 5-14 MMOL/L Blood Urea Nitrogen 22 H 7-18 MG/DL Creatinine 0.87 0.60-1.30 MG/DL Estimat Glomerular Filtration Rate > 60 BUN/Creatinine Ratio 25 Glucose Level 86 70-105 MG/DL Lactic Acid Level 2.66 *H 1.69 0.50-2.00 MMOL/L Calcium Level 9.3 8.5-10.1 MG/DL Corrected Calcium 10.3 H 8.5-10.1 MG/DL Magnesium Level 1.9 1.8-2.4 MG/DL Total Bilirubin 1.8 H 0.1-1.0 MG/DL Aspartate Amino Transf (AST/SGOT) 72 H 5-34 U/L Alanine Aminotransferase (ALT/SGPT) 28 0-55 U/L Alkaline Phosphatase 101 40-136 U/L Ammonia 29 56 H 11-32 UMOL/L Total Protein 7.2 6.4-8.2 GM/DL Albumin 2.8 L 3.2-4.5 GM/DL Amylase Level 27 25-125 U/L Lipase 14 8-78 U/L Acetaminophen Level < 10 L 10-30 UG/ML Serum Alcohol < 10 <10 MG/DL Urine Color YELLOW Urine Clarity CLEAR Urine pH 6 5-9 Urine Specific [place] 1.010 L 1.016-1.022 Urine Protein 2+ H NEGATIVE Urine Glucose (UA) NEGATIVE NEGATIVE Urine Ketones NEGATIVE NEGATIVE Urine Nitrite NEGATIVE NEGATIVE Urine Bilirubin 1+ H NEGATIVE Urine Urobilinogen 1 NORMAL MG/DL Urine Leukocyte Esterase 1+ H NEGATIVE Urine RBC (Auto) 5+ H NEGATIVE Urine RBC 2-5 H /HPF Urine WBC 0-2 /HPF Urine Squamous Epithelial Cells 0-2 /HPF Urine Crystals NONE /LPF Urine Bacteria FEW H /HPF Urine Casts NONE /LPF Urine Mucus MODERATE H /LPF Urine Culture Indicated YES Urine Opiates Screen POSITIVE H NEGATIVE Urine Oxycodone Screen NEGATIVE NEGATIVE Urine Methadone Screen NEGATIVE NEGATIVE Urine Propoxyphene Screen NEGATIVE NEGATIVE Urine Barbiturates Screen NEGATIVE NEGATIVE Ur Tricyclic Antidepressants Screen NEGATIVE NEGATIVE Urine Phencyclidine Screen NEGATIVE NEGATIVE Urine Amphetamines Screen POSITIVE H NEGATIVE Urine Methamphetamines Screen POSITIVE H NEGATIVE Urine Benzodiazepines Screen POSITIVE H NEGATIVE Urine Cocaine Screen NEGATIVE NEGATIVE Urine Cannabinoids Screen NEGATIVE NEGATIVE Micro Results Microbiology 09/11/18 Influenza Types A,B Antigen (JOSE) - Final, Complete My Orders Orders - CHIRAG BELLA DO Influenza A And B Antigens (09/11/18 02:16) Acetaminophen Tablet (Tylenol Tablet) (09/11/18 02:30) Ibuprofen Tablet (Motrin Tablet) (09/11/18 02:30) Saline Lock/Iv-Start (09/11/18 03:08) Monitor-Rhythm Ecg Trace Only (09/11/18 03:08) Straight Cath For Spec.-Adult (09/11/18 03:08) Acetaminophen (09/11/18 03:08) Alcohol (09/11/18 03:08) Ammonia (09/11/18 03:08) Amylase (09/11/18 03:08) Cbc With Automated Diff (09/11/18 03:08) Comprehensive Metabolic Panel (09/11/18 03:08) Drug Screen Stat (Urine) (09/11/18 03:08) Lactic Acid Analyzer (09/11/18 03:08) Lipase (09/11/18 03:08) Magnesium (09/11/18 03:08) Protime With Inr (09/11/18 03:08) Partial Thromboplastin Time (09/11/18 03:08) Ua Culture If Indicated (09/11/18 03:08) Blood Culture (09/11/18 03:08) Chest 1 View, Ap/Pa Only (09/11/18 03:08) Saline Lock/Iv-Start (09/11/18 03:08) Lactated Ringers (Lr 1000 Ml Iv Solution (09/11/18 03:08) Manual Differential (09/11/18 03:20) Saline Lock/Iv-Start (09/11/18 04:23) Ns Iv 1000 Ml (Sodium Chloride 0.9%) (09/11/18 04:23) Saline Lock/Iv-Start (09/11/18 05:13) Ns Iv 1000 Ml (Sodium Chloride 0.9%) (09/11/18 05:13) Piperacillin Sodium/Tazobactam (Zosyn Vi (09/11/18 05:15) Vancomycin Injection (Vancomycin Injecti (09/11/18 05:15) Urine Culture (09/11/18 04:50) Saline Lock/Iv-Start (09/11/18 05:35) Ns Iv 1000 Ml (Sodium Chloride 0.9%) (09/11/18 05:35) Saline Lock/Iv-Start (09/11/18 06:18) Ns Iv 1000 Ml (Sodium Chloride 0.9%) (09/11/18 06:18) Medications Given in ED Current Medications Medications Dose Ordered Sig/Guerita Route Start Time Stop Time Status Last Admin Dose Admin Acetaminophen 1,000 mg ONCE ONCE PO 09/11/18 02:30 09/11/18 02:31 DC 09/11/18 03:01 1,000 MG Ibuprofen 800 mg ONCE ONCE PO 09/11/18 02:30 09/11/18 02:31 DC 09/11/18 03:02 800 MG Lactated Ringer's 1,000 ml @ 0 mls/hr Q0M ONCE IV 09/11/18 03:08 09/11/18 03:11 DC 09/11/18 03:24 0 MLS/HR Piperacillin Sod/ Tazobactam Sod 4.5 gm/Sodium Chloride 100 ml @ 200 mls/hr ONCE ONCE IV 09/11/18 05:15 09/11/18 05:44 DC 09/11/18 05:41 200 MLS/HR Sodium Chloride 1,000 ml @ 0 mls/hr Q0M ONCE IV 09/11/18 04:23 09/11/18 04:25 DC 09/11/18 04:35 0 MLS/HR Sodium Chloride 1,000 ml @ 0 mls/hr Q0M ONCE IV 09/11/18 05:13 09/11/18 05:16 DC 09/11/18 05:41 0 MLS/HR Sodium Chloride 1,000 ml @ 0 mls/hr Q0M ONCE IV 09/11/18 05:35 09/11/18 05:36 DC 09/11/18 05:47 0 MLS/HR Vancomycin HCl 1000 mg/Sodium Chloride 250 ml @ 250 mls/hr ONCE ONCE IV 09/11/18 05:15 09/11/18 06:14 DC 09/11/18 05:41 250 MLS/HR Vital Signs/I&O 09/11/18 09/11/18 09/11/18 09/11/18 02:02 03:01 03:02 06:30 Temp 103.3 103.3 103.3 96.6 Pulse 96 69 Resp 28 14 B/P (MAP) 114/87 (96) 78/48 (58) Pulse Ox 99 98 O2 Delivery Room Air Room Air 09/11/18 09/11/18 09/11/18 06:45 08:00 08:04 Temp 96.1 97.0 Pulse 60 66 Resp 16 14 B/P (MAP) 80/48 (59) 150/57 (88) Pulse Ox 99 99 O2 Delivery Room Air Room Air Room Air Capillary Refill : Less Than 3 Seconds Blood Pressure Mean: 96 Progress Note : Progress Note PT PERSISTENTLY HYPOTENSIVE IN 80'S SYSTOLIC --GIVEN 4 LITERS OF FLUIDS WITH NO SIGNIFICANT IMPROVEMENT IN BLOOD PRESSURE--REMAINED IN 80'S SYSTOLIC PULSE AND O2 SATS REMAINED IN NORMAL RANGE PT WITH MUCH IMPROVEMENT IN MENTATION AFTER TYLENOL AND MOTRIN GIVEN AND TEMP DOWN --PT ABLE TO SIT UP, IS LESS LETHARGIC/LESS DROWSY AND MORE CONVERSIVE AND ABLE TO ANSWER QUESTIONS. STATES SHE FEELS MUCH BETTER Diagnostic Imaging Comments CXR--CARDIOMEGALY WITH POSSIBLE SMALL LEFT PLEURAL EFFUSION, OTHERWISE NO ACUTE PROCESS, PER RADIOLOGIST REPORT @ 0634 Reviewed: Reviewed by Me Departure Communication (Admissions) 0540--SPOKE WITH DR. CHING, ACCEPTS PT FOR ADMIT/ WILL GO TO ICU 06--SPOKE WITH DR. WOLF, INFANT BABYSITTER, AND DISCUSSED PT'S BLOOD PRESSURES, HE IS CURRENTLY IN ICU AND ADVISES/IS AGREEABLE TO SENDING PT UP TO ICU NOW AND HE WILL SEE PT THERE, PLACE CENTRAL LINE AND START PRESSORS THERE. 09--MESSAGE LEFT ON DR. CHING'S CELL, AND SHE RETURNED CALL AT 0912 AND DISCUSSED THE ABOVE. Impression Primary Impression: Septic shock Additional Impressions: Severe sepsis Bilateral lower leg cellulitis Polysubstance abuse Hepatitis C Hyponatremia Chronic liver failure CHRONIC LEG EDEMA UTI (urinary tract infection) Disposition: 09 ADMITTED INPATIENT Condition: Stable Admissions Decision to Admit Reason: Admit from ER (General) Decision to Admit/Date: Sep 11, 2018 Time/Decision to Admit Time: 05:40 Departure-Patient Inst. Referrals: FABRICIO ROSALES MD (PCP/Family) Primary Care Physician CHIRAG BELLA DO Sep 11, 2018 06:34
[2018-09-11] MEDS: NOREPINEPHRINE 4 MG in NS (IVPB) 250 ML IV SCH ×3 (06:45→22:14)
[2018-09-11] MEDS ORDERED: NOREPINEPHRINE 4 MG/4 ML (LEVOPHED) AMP IV ONE (06:49)
[2018-09-11] MEDS ORDERED: NS (IVPB) 250 ML ONE (06:49)
[2018-09-11] MEDS ORDERED: ACETAMINOPHEN 500 MG TAB (TYLENOL) PO PRN (07:00)
[2018-09-11] MEDS ORDERED: NS IV 1000 ML 1,000 ML IV SCH (07:02)
[2018-09-11] MEDS ORDERED: VANCOMYCIN 1500 MG/NS 500 ML IVPB IV ONE ×2 (07:15)
[2018-09-11] MEDS ORDERED: NS IV 1000 ML 2,449.41 ML IV ONE (07:15)
[2018-09-11] MEDS ORDERED: ONDANSETRON 4 MG/2 ML (SDV) Z0FRAN IV PRN (07:15)
[2018-09-11] MEDS ORDERED: PIPERACILLIN/TAZO 4.5 GM/NS 100 ML IV ONE ×2 (07:15)
--- NOTE | 2018-09-11 07:28 | Pulmonary Procedures ---
Pulmonary Procedures Date of Procedure Date of Service: Sep 11, 2018 Lumen: triple (US guided needle visulized going into IJ vein. ) Central Line Procedure: betadine prep, sterile drapes applied Position: internal jugular (R) Anesthesia: Lidocaine Volume Anesthetic (ccs): 5 Complications: none Post Position: sutured, good blood return, position confirmed w/ CXR LAURIE WOLF DO Sep 11, 2018 07:27
--- NOTE | 2018-09-11 07:33 | Pulmonary Consultation ---
History of Present Illness History of Present Illness Date of Consultation 09/11/18 07:28 Date of Admission Allergies and Home Medications Allergies Coded Allergies: meperidine (Unverified Adverse Reaction, Unknown, 09/17/17) Home Medications Furosemide 40 Mg Tablet, 40 MG PO BID, (Reported) Spironolactone 100 Mg Tablet, 100 MG PO BID, (Reported) Past [id number]-[id number] Hx Patient Social History Alcohol Use: Denies Use Recreational Drug Use: Yes Drug of Choice: COCAINE, BENZODIAZEPINES, + IV METH Smoking Status: Former Smoker Type Used: Cigarettes Former Smoker, Quit: Apr 06, 1978 2nd Hand Smoke Exposure: No Recent Foreign Travel: No Contact w/Someone Who Travel: No Recent Infectious Disease Expo: No Recent Hopitalizations: No Immunizations Up To Date Tetanus Booster (TDap): Unknown Date of Influenza Vaccine: Apr 07, 2017 Seasonal Allergies Seasonal Allergies: No Past Medical History Surgeries: Yes ( X 2; BILATERAL CARPAL TUNNEL; EGD) Adenoidectomy, Appendectomy, Section, Gallbladder, Orthopedic, Tonsillectomy Respiratory: No Cardiac: Yes Chronic Edema/Swelling Neurological: No 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 0.0oz. 81.522849pd; 26.52 BMI Method:Stated Exam Exam Vital Signs Date Time Temp Pulse Resp B/P (MAP) Pulse Ox O2 Delivery O2 Flow Rate FiO2 09/11/18 06:30 96.6 69 14 78/48 (58) 98 Room Air 09/11/18 03:02 103.3 09/11/18 03:01 103.3 09/11/18 02:02 103.3 96 28 114/87 (96) 99 Room Air I & O 09/11/18 07:00 Intake Total 4000 ml Balance 4000 ml Height & Weight Height: 5'2.00" Weight: 180lbs. 0.0oz. 81.103782ho; 26.52 BMI Method:Stated General Appearance: Mild Distress HEENT: PERRL/EOMI, Pharynx Normal Neck: Full Range of Motion, Non Tender, Supple Respiratory: Chest Non Tender, No Accessory Muscle Use, No Respiratory Distress , Decreased Breath Sounds Cardiovascular: Regular Rate, Rhythm, No Edema, No Murmur Capillary Refill: Less Than 3 Seconds Gastrointestinal: normal bowel sounds, non tender, soft, no organomegaly, no pulsatile mass Extremity: Normal Capillary Refill, Normal Inspection, Normal Range of Motion, Non Tender, No Calf Tenderness Neurologic/Psychiatric: Alert, Oriented x3, No Motor/Sensory Deficits Skin: Normal Color, Warm/Dry Lymphatic: No Adenopathy Results Lab Laboratory Tests 09/11/18 03:20 Assessment/Plan Assessment/Plan Severe sepsis with septic shock secondary to Cellulitis. -Chandler culture -Vanco, Zosyn -Influenza neg -Will place central line -Start Solu Cortef 100mg IV Q 6 -Start Vasopressin Metabolic lactic acidosis -IVF Hyponatremia -monitor Anemia -Monitor UDS is positive for methamphetamines, benzos, and opioids -Education Hepatitis -Check ammonia level LAURIE WOLF DO Sep 11, 2018 07:33
[2018-09-11] MEDS: VASOPRESSIN INJECTION 20 UNIT in NS (IVPB) 100 ML IV SCH ×2 (07:44→15:18)
--- NOTE | 2018-09-11 07:46 | NUR ---
0645-PT TO ROOM ICU 10, SBP IN 70'S, LEVOPHED STARTED 0650-SAUNDERS CATH PLACED, PT TOLERATED WELL 0700-DR WOLF NOTIFIED TO PLACE CENTRAL LINE 0710-DR WOLF AND CIERRA TELLES AT BEDSIDE, VERBAL CONSENT OBTAINED FOR CENTRAL LINE PLACEMENT 0730-CENTRAL LINE PLACED, PLACEMENT CONFIRMED VIA CHEST XRAY,PT TOLERATED PROCEDURE WELL
--- NOTE | 2018-09-11 08:02 | Diagnostic Imaging Report ---
INDICATION: Central line placement. TECHNIQUE: Single view chest 7:42 AM. CORRELATION STUDY: 09/11/2018 FINDINGS: Right IJ central line present tip projects over the low SVC near the cavoatrial junction. Heart size is stable. Vascular slightly increased from prior study. Likely trace atelectasis and effusion left lung base. No pneumothorax. Old left posterior lateral rib fracture. IMPRESSION: 1. Right IJ central line is in place, tip projects over the cavoatrial junction. Dictated by: Dictated on workstation # [id number]
[2018-09-11] MEDS ORDERED: FLU QUADRIvalent (5+ YOA) 2018-2019 (AFLURIA) 0.5 ML IM ONE (08:30)
[2018-09-11] MEDS: NS IV 1000 ML 1,000 ML IV SCH ×2 (08:42→16:25)
[2018-09-11] MEDS ORDERED: VANCOMYCIN 500 MG/NS 100 ML IV ONE ×2 (08:45)
--- NOTE | 2018-09-11 09:06 | NUR ---
SPOKE WITH THE PATIENT ABOUT HER MEDICATIONS. SHE STATES SHE TAKES TWO WATER PILLS BID, THEY HAVE BEEN FILLED RECENTLY ACCORDING TO THE EXT MED HX. SHE STATES SHE IS SUPPOSED TO TAKE POTASSIUM HOWEVER ADMITS SHE DOES NOT TAKE IT OFTEN, IT WAS LAST FILLED FOR 30 DAYS IN FEBRUARY. I DID NOT INCLUDE IT ON THE MED REC AT THIS TIME. SHE ALSO FILLED OMEPRAZOLE SOME TIME AGO, SHE STATES THEY WERE NOT ABLE TO REFILL IT WHEN SHE ASKED WHEN SHE RAN OUT OF IT AND HAS NOT PURSUED GETTING A REFILL AUTHORIZED SINCE. SHE STATES SHE OCCASIONALLY GETS MORPHINE FROM A FAMILY MEMBER AND TAKES NEEDED HOWEVER IT RUNS HER FAMILY MEMBER SHORT SO SHE DOES NOT LIKE TO USE IT OFTEN. SHE ADMITS TO SMOKING METH ON OCCASION BUT FEELS IT HAS NOT BEEN HELPING HER RECENTLY SO HAS STOPPED.
[2018-09-11] MEDS: PIPERACILLIN/TAZOBACTAM (BULK) 4.5 GM in NS (IVPB) 100 ML IV SCH ×2 (11:26→20:27)
[2018-09-11] MEDS ORDERED: PIPERACILLIN/TAZOBACTAM (BULK) 4.5 GM in NS (IVPB) 100 ML IV SCH (13:15)
--- NOTE | 2018-09-11 14:21 | History & Physicial (CHS) ---
HPI History of Present Illness: 58 yo female admitted after being found to have septic shock. She presented to ER with fever and malaise for 5-6 days. She denies chest pain, shortness of breath. Has had some cough. Denies abdominal pain, nausea, vomiting, diarrhea. Has had rash on legs for a week or so. She admits to smoking meth once a week or so. She also takes her mother's opiates and valium at times when she isn't feeling well. She denies alcohol use. She does have hepatitis C and chronic liver disease. Date seen by provider: Sep 11, 2018 Time Seen by Provider: 08:35 Attending Physician Diana Olivo MD PCP Yessy Man MD Consult Date of Admission Sep 11, 2018 at 05:40 Home Medications Home Medications Reviewed patient Home Medication Reconciliation performed by pharmacy medication reconciliations oven technician and/or nursing. Patients Allergies have been reviewed. Allergies Coded Allergies: meperidine (Unverified Adverse Reaction, Unknown, 09/17/17) QDA-Cfvmzs-Ynqkjl Hx Patient Social History Alcohol Use: Past History (HISTORY OF ABUSE) Recreational Drug Use: Yes (+ IV METH USE, COCAINE, BENZODIAZEPINES--SEE OLD RECORDS) Drug of Choice: COCAINE, BENZODIAZEPINES, + IV METH Smoking Status: Former Smoker (1 PPD) Type Used: Cigarettes (1 PPD) 2nd Hand Smoke Exposure: No Recent Foreign Travel: No Contact w/other who traveled: No Recent Hopitalizations: No Recent Infectious Disease Expo: No Immunizations Up To Date Tetanus Booster (TDap): Unknown Date of Influenza Vaccine: Apr 07, 2017 Past Medical History PMHx: Hep C Cirrhosis SurgHx: Tonsillectomy Family Medical History Significant Family History: No Pertinent Family Hx Review of Systems (CHC) Constitutional: see HPI EENTM: No nose congestion Respiratory: see HPI Cardiovascular: see HPI Gastrointestinal: see HPI Genitourinary: dysuria Musculoskeletal: no symptoms reported Skin: see HPI Psychiatric/Neurological: No Symptoms Reported Reviewed Test Results Reviewed Test Results Lab Laboratory Tests Test 09/11/18 03:20 09/11/18 04:50 09/11/18 05:18 09/11/18 08:30 Range/Units White Blood Count 18.2 H 4.3-11.0 10^3/uL Red Blood Count 4.03 L 4.35-5.85 10^6/uL Hemoglobin 11.3 L 11.5-16.0 G/DL Hematocrit 33 L 35-52 % Mean Corpuscular Volume 81 80-99 FL Mean Corpuscular Hemoglobin 28 25-34 PG Mean Corpuscular Hemoglobin Concent 35 32-36 G/DL Red Cell Distribution Width 16.5 H 10.0-14.5 % Platelet Count 101 L 130-400 10^3/uL Mean Platelet Volume 10.2 7.4-10.4 FL Neutrophils (%) (Auto) 92 H 42-75 % Lymphocytes (%) (Auto) 4 L 12-44 % Monocytes (%) (Auto) 4 0-12 % Eosinophils (%) (Auto) 0 0-10 % Basophils (%) (Auto) 0 0-10 % Neutrophils # (Auto) 16.8 H 1.8-7.8 X 10^3 Lymphocytes # (Auto) 0.7 L 1.0-4.0 X 10^3 Monocytes # (Auto) 0.7 0.0-1.0 X 10^3 Eosinophils # (Auto) 0.0 0.0-0.3 10^3/uL Basophils # (Auto) 0.0 0.0-0.1 10^3/uL Neutrophils % (Manual) 82 % Lymphocytes % (Manual) 2 % Monocytes % (Manual) 2 % Band Neutrophils 14 % Blood Morphology Comment NORMAL Prothrombin Time 18.4 H 12.2-14.7 SEC INR Comment 1.5 H 0.8-1.4 Activated Partial Thromboplast Time 46 H 24-35 SEC Sodium Level 129 L 135-145 MMOL/L Potassium Level 4.2 3.6-5.0 MMOL/L Chloride Level 100 98-107 MMOL/L Carbon Dioxide Level 19 L 21-32 MMOL/L Anion Gap 10 5-14 MMOL/L Blood Urea Nitrogen 22 H 7-18 MG/DL Creatinine 0.87 0.60-1.30 MG/DL Estimat Glomerular Filtration Rate > 60 BUN/Creatinine Ratio 25 Glucose Level 86 70-105 MG/DL Lactic Acid Level 2.66 *H 1.69 0.50-2.00 MMOL/L Calcium Level 9.3 8.5-10.1 MG/DL Corrected Calcium 10.3 H 8.5-10.1 MG/DL Magnesium Level 1.9 1.8-2.4 MG/DL Total Bilirubin 1.8 H 0.1-1.0 MG/DL Aspartate Amino Transf (AST/SGOT) 72 H 5-34 U/L Alanine Aminotransferase (ALT/SGPT) 28 0-55 U/L Alkaline Phosphatase 101 40-136 U/L Ammonia 29 56 H 11-32 UMOL/L Total Protein 7.2 6.4-8.2 GM/DL Albumin 2.8 L 3.2-4.5 GM/DL Amylase Level 27 25-125 U/L Lipase 14 8-78 U/L Acetaminophen Level < 10 L 10-30 UG/ML Serum Alcohol < 10 <10 MG/DL Urine Color YELLOW Urine Clarity CLEAR Urine pH 6 5-9 Urine Specific [place] 1.010 L 1.016-1.022 Urine Protein 2+ H NEGATIVE Urine Glucose (UA) NEGATIVE NEGATIVE Urine Ketones NEGATIVE NEGATIVE Urine Nitrite NEGATIVE NEGATIVE Urine Bilirubin 1+ H NEGATIVE Urine Urobilinogen 1 NORMAL MG/DL Urine Leukocyte Esterase 1+ H NEGATIVE Urine RBC (Auto) 5+ H NEGATIVE Urine RBC 2-5 H /HPF Urine WBC 0-2 /HPF Urine Squamous Epithelial Cells 0-2 /HPF Urine Crystals NONE /LPF Urine Bacteria FEW H /HPF Urine Casts NONE /LPF Urine Mucus MODERATE H /LPF Urine Culture Indicated YES Urine Opiates Screen POSITIVE H NEGATIVE Urine Oxycodone Screen NEGATIVE NEGATIVE Urine Methadone Screen NEGATIVE NEGATIVE Urine Propoxyphene Screen NEGATIVE NEGATIVE Urine Barbiturates Screen NEGATIVE NEGATIVE Ur Tricyclic Antidepressants Screen NEGATIVE NEGATIVE Urine Phencyclidine Screen NEGATIVE NEGATIVE Urine Amphetamines Screen POSITIVE H NEGATIVE Urine Methamphetamines Screen POSITIVE H NEGATIVE Urine Benzodiazepines Screen POSITIVE H NEGATIVE Urine Cocaine Screen NEGATIVE NEGATIVE Urine Cannabinoids Screen NEGATIVE NEGATIVE Radiology CXR 09/11: IMPRESSION: Mild cardiomegaly with possible small left pleural effusion or thickening. Otherwise, no acute abnormalities detected. Physical Exam-([facility]) Physical Exam Vital Signs VS - Last 72 Hours, by Label 09/11/18 09/11/18 09/11/18 09/11/18 02:02 03:01 03:02 06:30 Temp 103.3 103.3 103.3 96.6 Pulse 96 69 Resp 28 14 B/P (MAP) 114/87 (96) 78/48 (58) Pulse Ox 99 98 O2 Delivery Room Air Room Air 09/11/18 09/11/18 09/11/18 09/11/18 06:45 07:00 07:03 07:15 Temp 96.1 Pulse 60 61 62 65 Resp 16 13 16 B/P (MAP) 80/48 (59) 73/52 (59) 106/59 (75) Pulse Ox 99 100 100 O2 Delivery Room Air Room Air Room Air 09/11/18 09/11/18 09/11/18 09/11/18 07:30 07:45 08:00 08:00 Temp 97.0 Pulse 65 65 66 Resp 14 17 14 B/P (MAP) 109/59 (76) 112/61 (78) 150/57 (88) Pulse Ox 99 100 99 99 O2 Delivery Room Air Room Air Room Air Room Air 09/11/18 09/11/18 09/11/18 09/11/18 08:04 09:00 10:00 11:00 Pulse 72 68 65 Resp 16 13 12 B/P (MAP) 106/61 (76) 106/60 (75) 103/59 (74) Pulse Ox 98 98 98 O2 Delivery Room Air Room Air Room Air Room Air 09/11/18 09/11/18 09/11/18 11:00 12:00 12:30 Temp 97.3 Pulse 67 Resp 13 B/P (MAP) 102/58 (73) Pulse Ox 98 99 O2 Delivery Room Air Room Air Capillary Refill : Less Than 3 Seconds General Appearance: other (drowsy but arousable) HEENT: PERRL/EOMI Respiratory: lungs clear, normal breath sounds Cardiovascular: regular rate, rhythm, no murmur Gastrointestinal: normal bowel sounds, non tender, soft Neurologic/Psychiatric: assembler molded frames II-XII nml as tested; No abnormal cerebellar tests , No motor weakness; other (oriented to self and location) Skin: other (bilateral lower legs with erythema, scaling and multiple abrasions ) Assessment/Plan Assessment/Plan Admission Status: Inpatient Order (span 2 midnights) Reason for Inpatient Admission: Septic shock requiring pressors (1) Septic shock Status: Acute Assessment & Plan: Suspect secondary to cellulitis. Blood pressure initially responsive to fluid, but fell again, requiring norepi drip, Pulm/Critical care consulted, appreciate recommendations. Lactic acid mildly elevated, resolved on repeat. (2) Bilateral lower leg cellulitis Status: Acute Assessment & Plan: Suspect source of infection, treating with vancomycin and zosyn for now. (3) UTI (urinary tract infection) Status: Acute Assessment & Plan: Possible, urine culture pending. (4) Hyponatremia Assessment & Plan: Likely secondary to cirrhosis, monitor. (5) Chronic liver failure Status: Chronic Assessment & Plan: With anemia and thrombocytopenia and elevated INR. Monitor. Qualifiers: Qualified Codes: K72.10 - Chronic hepatic failure without coma (6) Hepatitis C Status: Chronic Qualifiers: (7) Polysubstance abuse Status: Chronic (8) DVT prophylaxis Status: Acute Assessment & Plan: Enoxaparin Clinical Quality Measures DVT/VTE Risk/Contraindication: Risk Factor Score Per Nursin RFS Level Per Nursing on Admit: 4+=Very High DIANA OLIVO MD Sep 11, 2018 14:21
[2018-09-11] MEDS: HYDROCORTISONE 100 MG/2 ML (Solu-CORTEF) VIAL IV SCH ×2 (14:26→23:15)
[2018-09-11] MEDS: ENOXAPARIN 40 MG/0.4 ML (LOVENOX) SYR SC SCH (16:25)
[2018-09-11] MEDS ORDERED: LACT10SO PO (16:37)
[2018-09-11] MEDS ORDERED: OMEP40CA36 PO (16:37)
[2018-09-11] MEDS: VANCOMYCIN INJECTION 1,250 MG in NS (IVPB) 250 ML IV SCH (18:48)
[2018-09-11] MEDS: LACTULOSE SYRUP 10GM/15ML (ENULOSE) 30ML UDC PO SCH (20:46)
[2018-09-12] VITALS (24 sets, daily range): BP systolic 80–124; BP diastolic 40–83
[2018-09-12] MEDS: VASOPRESSIN INJECTION 20 UNIT in NS (IVPB) 100 ML IV SCH (00:12)
[2018-09-12] MEDS: NS IV 1000 ML 1,000 ML IV SCH ×3 (00:40→19:11)
[2018-09-12] MEDS ORDERED: diphenhydrAMINE 25 MG TAB (BENADRYL) PO ONE (02:15)
[2018-09-12] MEDS: guaiFENesin/DM (ROBITUSSIN DM) 10 ML UDC PO PRN ×2 (03:31→23:53)
[2018-09-12 03:46] LABS: BASOPHILS % (AUTO) 0 % (0-10); EOSINOPHILS % (AUTO) 0 % (0-10); HEMATOCRIT 30 % (35-52); HEMOGLOBIN 10.3 G/DL (11.5-16.0); LYMPHOCYTES # (AUTO) 0.6 X 10^3 (1.0-4.0); LYMPHOCYTES % (AUTO) 3 % (12-44); MEAN CORPUSCULAR HEMOGLOBIN 28 PG (25-34); MEAN CORPUSCULAR HGB CONC 34 G/DL (32-36); MEAN CORPUSCULAR VOLUME 81 FL (80-99); MEAN PLATELET VOLUME 9.8 FL (7.4-10.4); MONOCYTES # (AUTO) 1.2 X 10^3 (0.0-1.0); MONOCYTES % (AUTO) 5 % (0-12); NEUTROPHILS # (AUTO) 23.1 X 10^3 (1.8-7.8); NEUTROPHILS % (AUTO) 93 % (42-75); PLATELET COUNT 107 10^3/uL (130-400); RED CELL DISTRIBUTION WIDTH 17.1 % (10.0-14.5); WHITE BLOOD COUNT 24.9 10^3/uL (4.3-11.0)
[2018-09-12 04:05] LABS: ALANINE AMINOTRANSFERASE 23 U/L (0-55); ALBUMIN 2.3 GM/DL (3.2-4.5); ALKALINE PHOSPHATASE 96 U/L (40-136); BILIRUBIN,TOTAL 1.1 MG/DL (0.1-1.0); BUN/CREATININE RATIO 29; CALCIUM 7.7 MG/DL (8.5-10.1); CARBON DIOXIDE 15 MMOL/L (21-32); CHLORIDE 108 MMOL/L (98-107); CREATININE SERUM 0.83 MG/DL (0.60-1.30); GFR ESTIMATED > 60; GLUCOSE 159 MG/DL (70-105); MAGNESIUM 1.9 MG/DL (1.8-2.4); PHOSPHORUS 1.7 MG/DL (2.3-4.7); POTASSIUM 3.5 MMOL/L (3.6-5.0); SODIUM 132 MMOL/L (135-145); TOTAL PROTEIN 6.2 GM/DL (6.4-8.2)
[2018-09-12] MEDS: PIPERACILLIN/TAZOBACTAM (BULK) 4.5 GM in NS (IVPB) 100 ML IV SCH ×3 (05:20→20:08)
[2018-09-12] MEDS: POTASSIUM CL 10MEQ/50ML IVPB 50 ML IV SCH ×2 (05:21→06:26)
[2018-09-12] MEDS: HYDROCORTISONE 100 MG/2 ML (Solu-CORTEF) VIAL IV SCH ×3 (05:21→22:15)
[2018-09-12] MEDS: IBUPROFEN 800 MG (MOTRIN) TAB PO PRN ×3 (05:21→20:53)
[2018-09-12] MEDS: BENZONATATE 100 MG (TESSALON) CAPSULE PO PRN ×2 (05:21→23:53)
--- NOTE | 2018-09-12 05:52 | Pulmonary Progress Note ---
Subjective Time Seen by a Provider: 06:02 Subjective/Events-last exam Complains of LE pain secondary to cellulitis. Sepsis Event Evaluation Height, Weight, BMI Height: 5'2.00" Weight: 180lbs. 0.0oz. 81.413108ty; 26.52 BMI Method:Stated Focused Exam Lactate Level 09/11/18 03:20: Lactic Acid Level 2.66*H 09/11/18 05:18: Lactic Acid Level 1.69 Time of Focused Exam: 05:00 Exam Exam Vital Signs Date Time Temp Pulse Resp B/P (MAP) Pulse Ox O2 Delivery O2 Flow Rate FiO2 09/12/18 05:00 71 20 101/61 (74) 96 Room Air 09/12/18 04:00 75 24 112/63 (79) 99 Room Air 09/12/18 03:00 74 24 111/62 (78) 100 Room Air 09/12/18 02:00 75 26 102/70 (81) 98 Room Air 09/12/18 01:00 70 23 117/65 (82) 98 Room Air 09/12/18 01:00 71 09/12/18 00:00 73 17 116/66 (83) 97 Room Air 09/12/18 00:00 Room Air 09/11/18 23:00 73 20 118/69 (85) 96 Room Air 09/11/18 22:00 78 22 105/68 (80) 100 Room Air 09/11/18 21:00 72 21 96/77 (83) 98 Room Air 09/11/18 20:00 Room Air 09/11/18 20:00 72 19 114/70 (85) 99 Room Air 09/11/18 19:00 76 15 107/51 (69) 97 Room Air 09/11/18 19:00 74 09/11/18 18:00 68 16 106/63 (77) 100 Room Air 09/11/18 17:00 71 22 109/68 (82) 100 Room Air 09/11/18 16:46 97.7 Room Air 09/11/18 16:00 99 Room Air 09/11/18 16:00 77 22 107/53 (71) 98 Room Air 09/11/18 15:00 60 12 113/61 (78) 97 Room Air 09/11/18 14:00 62 14 107/58 (74) 96 Room Air 09/11/18 13:01 65 09/11/18 13:00 66 13 84/47 (59) 94 Room Air 09/11/18 12:30 97.3 09/11/18 12:00 99 Room Air 09/11/18 12:00 66 13 102/59 (73) 96 Room Air 09/11/18 11:00 67 13 102/58 (73) 98 Room Air 09/11/18 11:00 65 12 103/59 (74) 98 Room Air 09/11/18 10:00 68 13 106/60 (75) 98 Room Air 09/11/18 09:00 72 16 106/61 (76) 98 Room Air 09/11/18 08:04 Room Air 09/11/18 08:00 99 Room Air 09/11/18 08:00 97.0 66 14 150/57 (88) 99 Room Air 09/11/18 07:45 65 17 112/61 (78) 100 Room Air 09/11/18 07:30 65 14 109/59 (76) 99 Room Air 09/11/18 07:15 65 16 106/59 (75) 100 Room Air 09/11/18 07:03 62 09/11/18 07:00 61 13 73/52 (59) 100 Room Air 09/11/18 06:45 96.1 60 16 80/48 (59) 99 Room Air 09/11/18 06:30 96.6 69 14 78/48 (58) 98 Room Air I & O 09/12/18 07:00 Intake Total 2338 ml Output Total 950 ml Balance 1388 ml Height & Weight Height: 5'2.00" Weight: 180lbs. 0.0oz. 81.297846uq; 26.52 BMI Method:Stated General Appearance: Anxious, Chronically ill, Mild Distress HEENT: PERRL/EOMI, Other (EXTENSIVE DENTAL DECAY--"METH MOUTH" WITH MOST TEETH MISSING AND REMAINING FEW TEETH ARE DECAYED DOWN TO GUMS. ORAL MUCOSA AND LIPS VERY DRY WITH PEELING OF LIPS) Neck: Normal Inspection Respiratory: Normal Breath Sounds, No Accessory Muscle Use, No Respiratory Distress Cardiovascular: Regular Rate, Rhythm Capillary Refill: Less Than 3 Seconds Gastrointestinal: normal bowel sounds, non tender, soft Extremity: Normal Capillary Refill, Normal Inspection, Normal Range of Motion, Non Tender, No Calf Tenderness, No Pedal Edema, Calf Tenderness, Inflammation, Pedal Edema, Pelvis Stable, Slow Capillary Refill, Swelling, Other (3-4+ EDEMA OF BILATERAL LEGS, WITH EXTENSIVE CHRONIC VENOUS STASIS CHANGES TO BILATERAL LOWER LEGS, WITH EXTENSIVE FISSURING AND MACERATION FROM PT SCRATCHING,MANY AREAS WITH SCABS AND SCALING AND SOME AREAS WITH DRIED FLUID FROM WEEPING. WOODY INDURAITON TO BILATERAL LOWER LEGS. PT WITH SIGNFICANT ERYTHEMA, WARMTH AND TENDERNESS TO BILATERAL THIGHS--THIS HAS EXTENDED FROM LOWER LEGS, UP TO PROXIMAL THIGHS BILATERALLY. ) Neurologic/Psychiatric: Alert, No Motor/Sensory Deficits Skin: Warm/Dry, Jaundice (SLIGHT), Other ( ABOVE. SKIN WARM TO TOUCH) Lymphatic: No Adenopathy Results Lab Laboratory Tests 09/11/18 03:20 09/12/18 03:20 Assessment/Plan Assessment/Plan Severe sepsis with septic shock secondary to Cellulitis. -Chandler culture -Vanco, Zosyn -Influenza neg -Start Solu Cortef 100mg IV Q 6 -Consult wound care -Levophed - D/C Metabolic lactic acidosis -IVF -Repeat LA this AM Hyponatremia -monitor Anemia -Monitor UDS is positive for methamphetamines, benzos, and opioids -Education Hepatitis C with high ammonia level -Lactulose LAURIE WOLF DO Sep 12, 2018 05:52
[2018-09-12] MEDS ORDERED: SODIUM PHOSPHATE INJ 30 MM in NS (IVPB) 250 ML IV ONE (06:00)
[2018-09-12] MEDS ORDERED: NS IV 500 ML 0 ML ONE (06:06)
[2018-09-12] MEDS ORDERED: NS 1000 ML IV BAG IV ONE (06:15)
[2018-09-12] MEDS: VANCOMYCIN INJECTION 1,250 MG in NS (IVPB) 250 ML IV SCH ×2 (06:26→22:15)
[2018-09-12] MEDS: LACTULOSE SYRUP 10GM/15ML (ENULOSE) 30ML UDC PO SCH ×3 (08:49→22:15)
--- NOTE | 2018-09-12 08:50 | Diagnostic Imaging Report ---
INDICATION: Dyspnea. TIME OF EXAM: 3:39 AM Correlation is made with prior study from one day earlier. FINDINGS: The heart size is stable. Right IJ line has tip overlying the right atrium. There is central congestion but no evidence of overt failure. No effusion or pneumothorax is seen. IMPRESSION: Mild central congestion. Dictated by: Dictated on workstation # [id number]
--- NOTE | 2018-09-12 09:39 | Physical Therapy Evaluation ---
PT Evaluation-General Medical Diagnosis Admission Date Sep 11, 2018 at 05:40 Medical Diagnosis: sepsis Onset Date: Sep 11, 2018 Therapy Diagnosis Therapy Diagnosis: limited mobility Height/Weight Height (Feet): 5 Height (Inches): 2.00 Weight (Pounds): 187 Weight (Ounces): 0.0 Precautions Precautions/Isolations: Standard Precautions, Contact/Enteric Isolation Referral Physician: Shaquille Torre DO Reason for Referral: Evaluation/Treatment Medical History Additional Medical History hepatitis c, cirrhosis, tonsillectomy, c section Current History Presented in ED with fever. Found to be septic with (B) LE cellulitis. Reviewed History: Yes Social History Home: Single Level Current Living Status: Alone Prior/Core FIM Prior Level of Function Therapy Code Descriptions/Definitions Functional [place] Measure: 0=Not Assessed/NA 4=Minimal Assistance 1=Total Assistance 5=Supervision or Setup 2=Maximal Assistance 6=Modified [place] 3=Moderate Assistance 7=Complete [place] Therapy Quality Codes: 6 Independent with activity with or without an assistive device 5 Patient requires set up or clean up by helper. Patient completes activity by themselves 4 Supervision or touching assist (CGA). Hanna provide cues , steadying assist 3 The helper provides less than half the effort to complete the activity 2 The helper provides more than half the effort to complete the activity 1 Dependent. The helper does all the effort to complete an activity 7 Patient refused to complete or attempt activity 9 The patient did not perform the activity before the current illness or injury 88 Not attempted due to Medical conditions or safety concerns Functional Abilities and Goals: Independent: Patient completed the activities by him/herself, with or without an assistive device, with no assistance from a helper. Needed Some Help: Patient needed partial assistance from another person to complete activities. Dependent: A helper completed the activities for the patient. Unknown: Not Applicable: Bed Mobility: 7 Transfers (B,C,W/C) (FIM): 7 Gait: 7 Stairs: 7 Indoor Mobility (Ambulation): Independent Stairs: Independent Prior Devices Use: None PT Evaluation-Current Subjective (B) LE pain and confusion. Pain Numeric Pain Scale: 5-Moderate Pain Location: Right Location Body Site: Calf Pain Description: Throbbing Comment: Same sx in (L) LE Pt/Family Goals Return home Objective Patient Orientation: Confused Problem Solving: Poor Attachments: Central Line, Tony Catheter ROM/Strength ROM Upper Extremities WFL ROM Lower Extremities WFL Strength Upper Extremities 4-/5 (B) UEs Strength Lower Extremities 3+/5 (B) LEs with pt able to assist with supine to/from sit. Neuromuscular (Tone, Coordination, Reflexes) Sensation and reflexes are intact for (B) UEs and LEs. Sensory Vision: Functional Hearing: Functional Sensation Right Upper Extremit: Intact Sensation Left Upper Extremity: Intact Sensation Right Lower Extremit: Intact Sensation Left Lower Extremity: Intact Transfers Therapy Code Descriptions/Definitions Functional [place] Measure: 0=Not Assessed/NA 4=Minimal Assistance 1=Total Assistance 5=Supervision or Setup 2=Maximal Assistance 6=Modified [place] 3=Moderate Assistance 7=Complete [place] Transfers (B, C, W/C) (FIM): 5 Scootin Rollin Supine to/from Sit: 5 Did not attempt to stand due to confusion while seated. Pt was able to sit edge of bed for 5 minutes. Gait Mode of Locomotion: Walk Anticipated Mode of Locomotion: Walk Distance (FIM): 0=does not occure Balance Sitting Static: Normal Sitting Dynamic: Good Special Test Comments Pt was able to sit edge of bed without assistance. Good stability during transfer. Assessment/Needs Pt has (B) LE weakness and confusion. She will benefit from PT to address mobility and help her return to ambulation in a safe environment. Rehab Potential: Good PT Short Term Goals Short Term Goals Time Frame: Sep 19, 2018 Transfers (B,C,W/C) (FIM): 7 Gait (FIM): 7 Distance (FIM): 3=150 ft Gait Distance Comment: 300ft Gait Level of Assist: 7 Gait Assistive Device: None PT Plan Problem List Problem List: Activity Tolerance, Functional Strength, Safety, Balance, Gait, Transfer Treatment/Plan Treatment Plan: Continue Plan of Care Treatment Plan: Bed Mobility, Functional Activity Arjun, Gait, Safety, Therapeutic Exercise, Transfers Treatment Duration: Sep 19, 2018 Frequency: 6 times per week Estimated Hrs Per Day: .25 hour per day Patient and/or Family Agrees t: Yes Time/GCodes Time In: 904 Time Out: 929 Total Billed Treatment Time: 25 Total Billed Treatment 1, lovely 25 ALISHA LOVELL PT Sep 12, 2018 09:39
--- NOTE | 2018-09-12 11:16 | Progress Note (SOAP) ---
Subjective Subjective/Events-last exam Pt complains of pain. BP has been borderline low, currently off Levophed. Review of Systems Date Seen by Provider: Sep 12, 2018 Time Seen by Provider: 10:45 Focused Exam Lactate Level 09/11/18 05:18: Lactic Acid Level 1.69 09/12/18 06:21: Lactic Acid Level 2.06*H 09/12/18 10:00: Lactic Acid Level 2.36*H Time of Focused Exam: 05:00 Lactic Acid Level Laboratory Tests Test 09/12/18 10:00 Lactic Acid Level 2.36 MMOL/L (0.50-2.00) *H Objective Exam Last Set of Vital Signs Vital Signs Date Time Temp Pulse Resp B/P (MAP) Pulse Ox O2 Delivery O2 Flow Rate FiO2 09/12/18 08:00 75 29 97/50 (66) 95 Room Air 09/12/18 06:59 2.00 09/12/18 04:00 98.6 Capillary Refill : Less Than 3 Seconds I&O Intake and Output 09/12/18 00:00 Intake Total 5218 ml Output Total 600 ml Balance 4618 ml Intake Oral 240 ml IV Total 4978 ml Output Urine Total 600 ml Daily Weight Change No General: Alert, Oriented X3 Lungs: Clear to Auscultation Heart: Regular Rate Skin: Other (cellulitis w/ crusting and scabbing to jamal LE) Results/Procedures Lab Laboratory Tests 09/12/18 03:20: White Blood Count 24.9H, Red Blood Count 3.71L, Hemoglobin 10.3L, Hematocrit 30L , Mean Corpuscular Volume 81, Mean Corpuscular Hemoglobin 28, Mean Corpuscular Hemoglobin Concent 34, Red Cell Distribution Width 17.1H, Platelet Count 107L, Mean Platelet Volume 9.8, Neutrophils (%) (Auto) 93H, Lymphocytes (%) (Auto) 3L , Monocytes (%) (Auto) 5, Eosinophils (%) (Auto) 0, Basophils (%) (Auto) 0, Neutrophils # (Auto) 23.1H, Lymphocytes # (Auto) 0.6L, Monocytes # (Auto) 1.2H, Eosinophils # (Auto) 0.0, Basophils # (Auto) 0.0, Sodium Level 132L, Potassium Level 3.5L, Chloride Level 108H, Carbon Dioxide Level 15L, Anion Gap 9, Blood Urea Nitrogen 24H, Creatinine 0.83, Estimat Glomerular Filtration Rate > 60, BUN /Creatinine Ratio 29, Glucose Level 159H, Calcium Level 7.7L, Corrected Calcium 9.1, Phosphorus Level 1.7L, Magnesium Level 1.9, Total Bilirubin 1.1H, Aspartate Amino Transf (AST/SGOT) 52H, Alanine Aminotransferase (ALT/SGPT) 23, Alkaline Phosphatase 96, Total Protein 6.2L, Albumin 2.3L 09/12/18 06:21: Lactic Acid Level 2.06*H 09/12/18 10:00: Lactic Acid Level 2.36*H Microbiology 09/11/18 Influenza Types A,B Antigen (JOSE) - Final, Complete 09/11/18 Urine Culture - Preliminary, Resulted Culture In Progress Radiology CXR 09/11: IMPRESSION: Mild cardiomegaly with possible small left pleural effusion or thickening. Otherwise, no acute abnormalities detected. Assessment/Plan Assessment/Plan (1) Septic shock Status: Acute Assessment & Plan: Suspect secondary to cellulitis. Blood pressure initially responsive to fluid, but fell again, requiring norepi drip, Pulm/Critical care consulted, appreciate recommendations. Lactic acid mildly elevated, resolved on repeat. 09/12 - Dr. Torre managing critical care; currently off Levophed but BP remains los - metabolic lactic acidosis w/ elevated lactic acid, increased to 2.36 on last draw. - wbc 24.9 (2) Bilateral lower leg cellulitis Status: Acute Assessment & Plan: Suspect source of infection, treating with vancomycin and zosyn for now. (3) UTI (urinary tract infection) Status: Acute Assessment & Plan: Possible, urine culture pending. (4) Hyponatremia Assessment & Plan: Likely secondary to cirrhosis, monitor. (5) Chronic liver failure Status: Chronic Assessment & Plan: With anemia and thrombocytopenia and elevated INR. Monitor. Elevated ammonia level - on lactulose Qualifiers: Qualified Codes: K72.10 - Chronic hepatic failure without coma (6) Hepatitis C Status: Chronic Qualifiers: (7) Polysubstance abuse Status: Chronic (8) DVT prophylaxis Status: Acute Assessment & Plan: Enoxaparin Clinical Quality Measures DVT/VTE Risk/Contraindication: Risk Factor Score Per Nursin RFS Level Per Nursing on Admit: 4+=Very High ART WARNER DO Sep 12, 2018 11:16
[2018-09-12] MEDS ORDERED: NS IV 1000 ML 1,000 ML IV SCH (15:30)
[2018-09-12] MEDS: ENOXAPARIN 40 MG/0.4 ML (LOVENOX) SYR SC SCH (15:50)
--- NOTE | 2018-09-12 17:30 | NUR ---
Pt has become more belligerent throughout today. This RN has tried to comfort pt, position pt, console pt, offer warm blankets and medication. Pt is screaming and crying when this RN doesn't come to room right when pt hits the light, pt pulled off central line dressing, pt not leaving vitals equipment on. Pt is refusing any help this RN has offered. Pt is yelling that her IV is beeping, and when this RN explained that is was just the noise the machine makes every time medication is released into the IV tubing, pt stated "thats not what it is". Pt States she is leaving. This RN explained to pt the if she should leave, that there was a possibility that she could if she left now. This RN also explained that someone would have to be here to take her home. Pt continues to cry and scream stating that she just wants to sleep. When this RN offered a dark quiet room, pt yelled "thats not going to work". This RN made sure pt was safe, left the room and called pt daughter to explain what the situation was at this time. Daughter stated she would come to see her mother. Dr. Napoles notified of situation.
[2018-09-13] VITALS (10 sets, daily range): BP systolic 100–133; BP diastolic 58–79
[2018-09-13] MEDS: NS IV 1000 ML 1,000 ML IV SCH (00:13)
[2018-09-13] MEDS ORDERED: QUEtiapine 25 MG (SEROquel) TAB IMMEDIATE RELEASE ONE (01:41)
[2018-09-13] MEDS ORDERED: QUEtiapine 25 MG (SEROquel) TAB IMMEDIATE RELEASE PO ONE (03:15)
[2018-09-13 04:01] LABS: BASOPHILS % (AUTO) 0 % (0-10); EOSINOPHILS % (AUTO) 0 % (0-10); HEMATOCRIT 28 % (35-52); HEMOGLOBIN 9.6 G/DL (11.5-16.0); LYMPHOCYTES # (AUTO) 0.6 X 10^3 (1.0-4.0); LYMPHOCYTES % (AUTO) 4 % (12-44); MEAN CORPUSCULAR HEMOGLOBIN 28 PG (25-34); MEAN CORPUSCULAR HGB CONC 34 G/DL (32-36); MEAN CORPUSCULAR VOLUME 82 FL (80-99); MEAN PLATELET VOLUME 10.6 FL (7.4-10.4); MONOCYTES % (AUTO) 6 % (0-12); NEUTROPHILS # (AUTO) 14.5 X 10^3 (1.8-7.8); NEUTROPHILS % (AUTO) 90 % (42-75); PLATELET COUNT 68 10^3/uL (130-400); WHITE BLOOD COUNT 16.2 10^3/uL (4.3-11.0)
[2018-09-13 04:18] LABS: ALANINE AMINOTRANSFERASE 25 U/L (0-55); ALBUMIN 2.3 GM/DL (3.2-4.5); ALKALINE PHOSPHATASE 73 U/L (40-136); BILIRUBIN,TOTAL 0.7 MG/DL (0.1-1.0); BUN/CREATININE RATIO 30; CALCIUM 7.4 MG/DL (8.5-10.1); CARBON DIOXIDE 12 MMOL/L (21-32); CHLORIDE 113 MMOL/L (98-107); CREATININE SERUM 0.79 MG/DL (0.60-1.30); GFR ESTIMATED > 60; GLUCOSE 128 MG/DL (70-105); MAGNESIUM 1.9 MG/DL (1.8-2.4); PHOSPHORUS 1.9 MG/DL (2.3-4.7); SODIUM 136 MMOL/L (135-145); TOTAL PROTEIN 6.2 GM/DL (6.4-8.2)
[2018-09-13] MEDS ORDERED: LACTATED RINGERS 1,000 ML IV ONE (04:37)
[2018-09-13] MEDS ORDERED: diphenhydrAMINE 50 MG/ML INJ (BENADRYL) ONE (04:37)
[2018-09-13] MEDS ORDERED: HALOPERIDOL 5 MG/ML (HALDOL) AMP ONE (04:41)
--- NOTE | 2018-09-13 04:49 | Pulmonary Progress Note ---
Subjective Time Seen by a Provider: 05:00 Subjective/Events-last exam Pt has been off Levophed since yesterday Sepsis Event Evaluation Height, Weight, BMI Height: 5'2.00" Weight: 187lbs. 0.0oz. 84.621761ps; 26.52 BMI Method:Stated Focused Exam Lactate Level 09/12/18 10:00: Lactic Acid Level 2.36*H 09/12/18 13:40: Lactic Acid Level 3.09*H 09/13/18 03:42: Lactic Acid Level 2.11*H Time of Focused Exam: 05:00 Lactic Acid Level Laboratory Tests Test 09/13/18 03:42 Lactic Acid Level 2.11 MMOL/L (0.50-2.00) *H Exam Exam Vital Signs Date Time Temp Pulse Resp B/P (MAP) Pulse Ox O2 Delivery O2 Flow Rate FiO2 09/13/18 04:00 75 25 108/65 (79) 98 Room Air 09/13/18 01:00 70 15 105/68 (80) 100 Room Air 09/13/18 01:00 71 09/13/18 00:00 67 104/63 (77) 99 Room Air 09/13/18 00:00 Room Air 09/12/18 23:00 67 109/61 (77) 99 Room Air 09/12/18 22:00 69 98/40 (59) 100 Room Air 09/12/18 21:00 78 28 110/83 (92) 98 Room Air 09/12/18 20:00 Room Air 09/12/18 20:00 68 19 100/57 (71) 100 Room Air 09/12/18 19:00 68 09/12/18 19:00 97.6 71 26 124/71 (88) 97 Room Air 09/12/18 18:00 75 16 101/56 (71) Room Air 09/12/18 17:00 74 24 108/66 (80) 97 Room Air 09/12/18 16:00 75 19 110/62 (78) 99 Room Air 09/12/18 16:00 Room Air 09/12/18 15:00 75 15 110/51 (70) 97 Room Air 09/12/18 14:00 75 34 92/47 (62) 96 Room Air 09/12/18 13:05 74 09/12/18 13:00 75 23 80/58 (65) 96 Room Air 09/12/18 12:00 Room Air 09/12/18 12:00 72 19 95/53 (67) 97 Room Air 09/12/18 11:00 70 22 96/49 (65) 95 Room Air 09/12/18 10:00 75 17 100/65 (77) 96 Room Air 09/12/18 09:00 74 29 86/49 (61) 94 Room Air 09/12/18 08:00 75 29 97/50 (66) 95 Room Air 09/12/18 08:00 Room Air 09/12/18 07:15 77 09/12/18 07:00 72 21 90/52 (65) 95 Room Air 09/12/18 06:59 Nasal Cannula 2.00 09/12/18 06:00 74 16 106/59 (75) 96 Room Air 09/12/18 05:00 71 20 101/61 (74) 96 Room Air I & O 09/13/18 07:00 Intake Total 2350 ml Output Total 1175 ml Balance 1175 ml Height & Weight Height: 5'2.00" Weight: 187lbs. 0.0oz. 84.779522rc; 26.52 BMI Method:Stated General Appearance: Anxious, Chronically ill, Mild Distress HEENT: PERRL/EOMI, Other (EXTENSIVE DENTAL DECAY--"METH MOUTH" WITH MOST TEETH MISSING AND REMAINING FEW TEETH ARE DECAYED DOWN TO GUMS. ORAL MUCOSA AND LIPS VERY DRY WITH PEELING OF LIPS) Neck: Normal Inspection Respiratory: Normal Breath Sounds, No Accessory Muscle Use, No Respiratory Distress Cardiovascular: Regular Rate, Rhythm Capillary Refill: Less Than 3 Seconds Gastrointestinal: normal bowel sounds, non tender, soft Extremity: Normal Capillary Refill, Normal Inspection, Normal Range of Motion, Non Tender, No Calf Tenderness, No Pedal Edema, Calf Tenderness, Inflammation, Pedal Edema, Pelvis Stable, Slow Capillary Refill, Swelling, Other (3-4+ EDEMA OF BILATERAL LEGS, WITH EXTENSIVE CHRONIC VENOUS STASIS CHANGES TO BILATERAL LOWER LEGS, WITH EXTENSIVE FISSURING AND MACERATION FROM PT SCRATCHING,MANY AREAS WITH SCABS AND SCALING AND SOME AREAS WITH DRIED FLUID FROM WEEPING. WOODY INDURAITON TO BILATERAL LOWER LEGS. PT WITH SIGNFICANT ERYTHEMA, WARMTH AND TENDERNESS TO BILATERAL THIGHS--THIS HAS EXTENDED FROM LOWER LEGS, UP TO PROXIMAL THIGHS BILATERALLY. ) Neurologic/Psychiatric: Alert, No Motor/Sensory Deficits Skin: Warm/Dry, Jaundice (SLIGHT), Other ( ABOVE. SKIN WARM TO TOUCH) Lymphatic: No Adenopathy Results Lab Laboratory Tests 09/12/18 03:20 09/13/18 03:42 Assessment/Plan Assessment/Plan Severe sepsis with septic shock secondary to Cellulitis. -Chandler culture -VancoStacysyn -Influenza neg -Start Solu Cortef 100mg IV Q 6 -D/C -Consult wound care -Levophed - D/C Pt was very agitated last night -She pulled out her central line -Will add PRN haldol -Start Risperdal 1mg BID -Ativan 1mg IV Q 4 Metabolic lactic acidosis -IVF -Repeat LA this AM Hyponatremia -monitor Anemia -Monitor UDS is positive for methamphetamines, benzos, and opioids -Education Hepatitis C with high ammonia level -Lactulose LAURIE WOLF DO Sep 13, 2018 04:49
[2018-09-13] MEDS ORDERED: LORazepam INJ 2 MG/ML (ATIVAN) VIAL ONE (04:52)
[2018-09-13] MEDS ORDERED: SODIUM BICARB 8.4% 50 MEQ/50 ML (ABBOTT) SYR IV ONE (05:00)
[2018-09-13] MEDS ORDERED: LACTATED RINGERS 1,000 ML IV SCH (05:00)
[2018-09-13] MEDS ORDERED: LORazepam INJ 2 MG/ML (ATIVAN) VIAL IM ONE (05:00)
[2018-09-13] MEDS ORDERED: LORazepam INJ 2 MG/ML (ATIVAN) VIAL IVP PRN (05:00)
[2018-09-13] MEDS ORDERED: HALOPERIDOL 5 MG/ML (HALDOL) AMP IV PRN (05:00)
[2018-09-13] MEDS ORDERED: diphenhydrAMINE 50 MG/ML INJ (BENADRYL) IVP ONE (05:00)
[2018-09-13] MEDS: PIPERACILLIN/TAZOBACTAM (BULK) 4.5 GM in NS (IVPB) 100 ML IV SCH ×3 (05:10→20:02)
[2018-09-13] MEDS ORDERED: morphine INJ 10 MG/ML 1ML (SYR OR VIAL) IVP STA (05:11)
[2018-09-13] MEDS: morphine INJ 4 MG/ML 1 ML (VIAL/SYRINGE) IVP PRN (05:15)
[2018-09-13] MEDS: LACTATED RINGERS 1,000 ML IV SCH ×3 (05:23→22:54)
[2018-09-13] MEDS: POTASSIUM CL 10MEQ/50ML IVPB 50 ML IV SCH ×5 (05:41→09:15)
[2018-09-13] MEDS ORDERED: POTASSIUM CL 10MEQ/50ML IVPB 50 ML IV SCH (06:00)
[2018-09-13] MEDS ORDERED: MAGNESIUM 1 GM/100 ML IVPB 100 ML IV SCH (06:00)
[2018-09-13] MEDS ORDERED: KCL 20 MEQ TAB (K-DUR) PO SCH (06:00)
--- NOTE | 2018-09-13 06:16 | NUR ---
09/12/2018 2100: THIS RN ASSUMED CARE OF PATIENT AT THIS TIME. PATIENT IS VERY AGITATED AND RESTLESS. PT IS CONTINUOUSLY REMOVING B/P CUFF AND MONITORS AND PULLING AT LINES. THIS RN ATTEMPTED TO COMFORT PATIENT BY REPOSITIONING HER AND ADDING PILLOWS. PRN MEDICATIONS GIVEN ORDERED FOR PAIN AND COUGHING. 2300: PT SCREAMING LOUDLY FOR COOKIES AND REPORTING THAT, "PEOPLE HAVEN'T BEEN TAKING CARE OF HER ALL DAY." 2330: PT SCREAMING AND BAWLING, PT IS VERY ANXIOUS. THIS RN ATTEMPTED THERAPEUTIC COMMUNICATION. COMMUNICATION FAILED, PATIENT CRYING. PT REMAINS ALERT AND ORIENTED X4. VSS. 09/13/2018: 0100: PT PULLED CENTRAL LINE LUMEN FROM CATHETER. CENTRAL LINE REMOVED AT THIS TIME, CATH IN TACT. 0130: PT HAS NOT SLEPT IN TWO NIGHTS NOW, E-ICU NOTIFIED OF INSOMNIA AND PATIENT'S AGITATION AND RESTLESSNESS. SEE ORDER HISTORY. 0145: PT AT THE HEAD OF HER BED ON HER KNEES, REPORTS SHE IS, "LOOKING FOR COOKIES." PT REPOSITIONED BACK IN BED AT THIS TIME. BED IN LOWEST POSITION AND CALL LIGHT WITHIN REACH. PATIENT REMAINS ALERT AND ORIENTED X4, RESPONDING WITH EXTREME AGITATION WITH RESPONSES. 0200: E-ICU NOTIFIED OF PT'S CONTINUED RESTLESS AND AGITATION. SEE ORDER HISTORY. 0500: DR. WOLF AT BEDSIDE TO ASSESS PATIENT AND SUMMARY OF TONIGHT'S EVENTS REPORTED. NEW ORDERS RECEIVED FOR: 2 MG IV MORPHINE, 5 MG IV HALDOL, 2 MG IV ATIVAN NOW/ONCE. CALL LIGHT IS WITHIN REACH, BED ALARM IS ON, CALL LIGHT WITHIN REACH. WILL CONTINUE TO MONITOR.
--- NOTE | 2018-09-13 07:45 | NUR ---
BEDSIDE REPORT GIVEN TO HIMANSHU LEMOS ON 4TH FLOOR. PATIENT TRANSFER TO ROOM 413. PATIENT DENIES ANY NEEDS/PAIN AT THIS TIME. SAFETY PRECAUTIONS IN PLACE. MAINTAINING POC.
--- NOTE | 2018-09-13 08:05 | Diagnostic Imaging Report ---
INDICATION: Dyspnea. COMPARISON: 09/12/2018 FINDINGS: The heart size is normal. There is mild venous congestion. There is no pleural effusion, pneumothorax or pneumonia. The mediastinum is unremarkable. IMPRESSION: Mild central pulmonary venous congestion. Dictated by: Dictated on workstation # [id number]
[2018-09-13] MEDS: LACTULOSE SYRUP 10GM/15ML (ENULOSE) 30ML UDC PO SCH ×3 (09:15→20:02)
[2018-09-13] MEDS: risperiDONE 1 MG (RisperDAL) TAB PO SCH ×2 (09:15→20:02)
[2018-09-13] MEDS: VANCOMYCIN INJECTION 1,250 MG in NS (IVPB) 250 ML IV SCH ×2 (09:54→21:07)
[2018-09-13] MEDS ORDERED: RT-ALBUTEROL/IPRATROPIUM 3 ML (DUONEB) VIAL ONE (11:49)
--- NOTE | 2018-09-13 12:21 | Progress Note (SOAP) ---
Subjective Subjective/Events-last exam Pt transferred to the floor today. Has been very agitated overnight, nearly leaving AMA. Increase in wheezing this am. Review of Systems Date Seen by Provider: Sep 13, 2018 Time Seen by Provider: 11:00 Focused Exam Lactate Level 09/12/18 13:40: Lactic Acid Level 3.09*H 09/13/18 03:42: Lactic Acid Level 2.11*H 09/13/18 05:49: Lactic Acid Level 1.76 Time of Focused Exam: 05:00 Objective Exam Last Set of Vital Signs Vital Signs Date Time Temp Pulse Resp B/P (MAP) Pulse Ox O2 Delivery O2 Flow Rate FiO2 09/13/18 11:57 98 Room Air 09/13/18 07:45 98.3 76 30 133/74 (93) 09/12/18 06:59 2.00 Capillary Refill : Less Than 3 Seconds I&O Intake and Output 09/13/18 00:00 Intake Total 2420 ml Output Total 1325 ml Balance 1095 ml Intake Oral 950 ml IV Total 1470 ml Output Urine Total 1325 ml General: Other (confused) Lungs: Other (wheezing jamal, decreased air movement) Heart: Regular Rate Results/Procedures Lab Laboratory Tests 09/12/18 13:40: Lactic Acid Level 3.09*H 09/12/18 20:00: Vancomycin Level Trough 19.2 09/13/18 03:42: Lactic Acid Level 2.11*H, White Blood Count 16.2H, Red Blood Count 3.47L, Hemoglobin 9.6L, Hematocrit 28L, Mean Corpuscular Volume 82, Mean Corpuscular Hemoglobin 28, Mean Corpuscular Hemoglobin Concent 34, Red Cell Distribution Width 17.0H, Platelet Count 68L, Mean Platelet Volume 10.6H, Neutrophils (%) ( Auto) 90H, Lymphocytes (%) (Auto) 4L, Monocytes (%) (Auto) 6, Eosinophils (%) ( Auto) 0, Basophils (%) (Auto) 0, Neutrophils # (Auto) 14.5H, Lymphocytes # (Auto ) 0.6L, Monocytes # (Auto) 1.0, Eosinophils # (Auto) 0.0, Basophils # (Auto) 0.0 , Sodium Level 136, Potassium Level 3.0L, Chloride Level 113H, Carbon Dioxide Level 12L, Anion Gap 11, Blood Urea Nitrogen 24H, Creatinine 0.79, Estimat Glomerular Filtration Rate > 60, BUN/Creatinine Ratio 30, Glucose Level 128H, Calcium Level 7.4L, Corrected Calcium 8.8, Phosphorus Level 1.9L, Magnesium Level 1.9, Total Bilirubin 0.7, Aspartate Amino Transf (AST/SGOT) 47H, Alanine Aminotransferase (ALT/SGPT) 25, Alkaline Phosphatase 73, Total Protein 6.2L, Albumin 2.3L 09/13/18 05:49: Lactic Acid Level 1.76 Microbiology 09/11/18 Blood Culture - Preliminary, Resulted No growth 09/11/18 MRSA Screen - Final, Complete 09/11/18 Urine Culture - Final, Complete Enterococcus faecalis Radiology CXR 09/11: IMPRESSION: Mild cardiomegaly with possible small left pleural effusion or thickening. Otherwise, no acute abnormalities detected. Assessment/Plan Assessment/Plan (1) Septic shock Status: Acute Assessment & Plan: Suspect secondary to cellulitis. Blood pressure initially responsive to fluid, but fell again, requiring norepi drip, Pulm/Critical care consulted, appreciate recommendations. Lactic acid mildly elevated, resolved on repeat. 09/12 - Dr. Torre managing critical care; currently off Levophed but BP remains los - metabolic lactic acidosis w/ elevated lactic acid, increased to 2.36 on last draw. - wbc 24.9 09/13 - wbc 16.2, LA trending down; off Levophed; transferred to medical floor; currently on Vanc and Zosyn (2) Bilateral lower leg cellulitis Status: Acute Assessment & Plan: Suspect source of infection, treating with vancomycin and zosyn for now. (3) UTI (urinary tract infection) Status: Acute Assessment & Plan: Urine culture positive for enterococcus - sensitive to Vanco ; blood cultures neg (4) Agitation Assessment & Plan: - likely secondary to meth use and chronic mental health issues - started Risperdal 1mg BID, haldol prn (5) Chronic liver failure Status: Chronic Assessment & Plan: With anemia and thrombocytopenia and elevated INR. Monitor. Elevated ammonia level - on lactulose Qualifiers: Qualified Codes: K72.10 - Chronic hepatic failure without coma (6) Hepatitis C Status: Chronic Qualifiers: (7) Polysubstance abuse Status: Chronic (8) Hyponatremia Status: Resolved Assessment & Plan: Likely secondary to cirrhosis, monitor. RESOLVED (9) DVT prophylaxis Status: Acute Assessment & Plan: Enoxaparin Clinical Quality Measures DVT/VTE Risk/Contraindication: Risk Factor Score Per Nursin RFS Level Per Nursing on Admit: 4+=Very High ART WARNER DO Sep 13, 2018 12:21
[2018-09-13] MEDS: RT-ALBUTEROL/IPRATROPIUM 3 ML (DUONEB) VIAL INH SCH ×2 (15:01→19:16)
[2018-09-13] MEDS: ENOXAPARIN 40 MG/0.4 ML (LOVENOX) SYR SC SCH (15:01)
--- NOTE | 2018-09-13 16:30 | NUR ---
NOTE FOR SOCIAL SERVICE: Pt's daughter called this RN to check on why pt received medication last night prior to being transferred to 4th floor. This RN explained that pt had become uncontrollable and belligerent per report from night coordinator. Pt's daughter explained that pt lives with her (pts) parents who are in their 80's and they cannot take care of her if she remains in this state. Daughter also stated that she cannot take her mother into her home due to her drug use. Chi is also hoping to get help with DPOA paperwork as she feels her mother is unable to make logical decisions at this time. Daughter is hoping that social work professor may be able to help place pt either in a skilled nursing or psych/drug treatment program. Pts daughter states that there are no family members who would be capable of taking care of pt at this time with the current state that the pt is in.
[2018-09-14 00:25] VITALS: BP 111/65
[2018-09-14] MEDS: RT-ALBUTEROL/IPRATROPIUM 3 ML (DUONEB) VIAL INH SCH ×4 (01:21→21:21)
[2018-09-14] MEDS: guaiFENesin/DM (ROBITUSSIN DM) 10 ML UDC PO PRN (01:48)
[2018-09-14] MEDS: PIPERACILLIN/TAZOBACTAM (BULK) 4.5 GM in NS (IVPB) 100 ML IV SCH ×4 (03:28→23:17)
--- NOTE | 2018-09-14 03:50 | NUR ---
Assumed care of pt at this time; report rec'd from AMINTA Mane. Pt in bed with HOB in semi-[facility]; resting with eyes closed; no s/s of distress noted. Will continue to monitor.
--- NOTE | 2018-09-14 03:54 | NUR ---
BEDSIDE REPORT GIVEN TO AMINTA STEIN.
[2018-09-14 04:00] VITALS: BP 105/65
[2018-09-14] MEDS: LACTATED RINGERS 1,000 ML IV SCH (05:10)
[2018-09-14] MEDS: VANCOMYCIN INJECTION 1,250 MG in NS (IVPB) 250 ML IV SCH (05:27)
[2018-09-14 05:55] LABS: BASOPHILS % (AUTO) 0 % (0-10); EOSINOPHILS % (AUTO) 0 % (0-10); HEMATOCRIT 26 % (35-52); HEMOGLOBIN 8.6 G/DL (11.5-16.0); LYMPHOCYTES # (AUTO) 0.6 X 10^3 (1.0-4.0); LYMPHOCYTES % (AUTO) 5 % (12-44); MEAN CORPUSCULAR HEMOGLOBIN 28 PG (25-34); MEAN CORPUSCULAR HGB CONC 34 G/DL (32-36); MEAN CORPUSCULAR VOLUME 83 FL (80-99); MEAN PLATELET VOLUME 9.9 FL (7.4-10.4); MONOCYTES # (AUTO) 0.8 X 10^3 (0.0-1.0); MONOCYTES % (AUTO) 7 % (0-12); NEUTROPHILS # (AUTO) 9.2 X 10^3 (1.8-7.8); NEUTROPHILS % (AUTO) 87 % (42-75); PLATELET COUNT 75 10^3/uL (130-400); RED CELL DISTRIBUTION WIDTH 17.6 % (10.0-14.5); WHITE BLOOD COUNT 10.6 10^3/uL (4.3-11.0)
[2018-09-14 06:24] LABS: ALANINE AMINOTRANSFERASE 27 U/L (0-55); ALBUMIN 2.3 GM/DL (3.2-4.5); ALKALINE PHOSPHATASE 76 U/L (40-136); BILIRUBIN,TOTAL 0.6 MG/DL (0.1-1.0); BUN/CREATININE RATIO 28; CALCIUM 7.9 MG/DL (8.5-10.1); CARBON DIOXIDE 14 MMOL/L (21-32); CHLORIDE 115 MMOL/L (98-107); CREATININE SERUM 0.79 MG/DL (0.60-1.30); GFR ESTIMATED > 60; GLUCOSE 118 MG/DL (70-105); MAGNESIUM 1.9 MG/DL (1.8-2.4); POTASSIUM 3.3 MMOL/L (3.6-5.0); SODIUM 140 MMOL/L (135-145); TOTAL PROTEIN 6.2 GM/DL (6.4-8.2)
[2018-09-14 08:00] VITALS: BP 130/71
[2018-09-14] MEDS ORDERED: KCL 20 MEQ TAB (K-DUR) PO NR (09:15)
[2018-09-14] MEDS ORDERED: FUROSEMIDE 40 MG/4 ML INJ (LASIX) IVP NR (09:15)
[2018-09-14] MEDS ORDERED: POTASSIUM PHOSPHATE INJ 30 MM in NS (IVPB) 250 ML IV ONE (09:15)
--- NOTE | 2018-09-14 09:19 | Pulmonary Progress Note ---
Subjective Time Seen by a Provider: 09:19 Subjective/Events-last exam Pt is very wheezy and complains of SOB. Sepsis Event Evaluation Height, Weight, BMI Height: 5'2.00" Weight: 204lbs. 9.0oz. 92.315308vk; 26.52 BMI Method:Stated Focused Exam Lactate Level 09/12/18 13:40: Lactic Acid Level 3.09*H 09/13/18 03:42: Lactic Acid Level 2.11*H 09/13/18 05:49: Lactic Acid Level 1.76 Time of Focused Exam: 05:00 Exam Exam Vital Signs Date Time Temp Pulse Resp B/P (MAP) Pulse Ox O2 Delivery O2 Flow Rate FiO2 09/14/18 09:01 99 Room Air 09/14/18 08:00 99.2 84 22 130/71 (90) 99 Room Air 09/14/18 04:00 99.4 79 22 105/65 (78) 98 Room Air 09/14/18 01:21 96 Room Air 09/14/18 00:25 99.4 79 14 111/65 (80) 96 Room Air 09/13/18 20:00 98.6 75 34 125/74 (91) 98 Room Air 09/13/18 20:00 Room Air 09/13/18 19:16 96 Room Air 09/13/18 16:00 98.2 80 28 101/65 (77) 97 Room Air 09/13/18 15:13 98 Room Air 09/13/18 12:35 69 98 09/13/18 12:00 98.7 82 28 126/74 (91) 95 Room Air 09/13/18 12:00 Room Air 09/13/18 11:57 98 Room Air I & O 09/14/18 07:00 Intake Total 1960 ml Output Total 600 ml Balance 1360 ml Height & Weight Height: 5'2.00" Weight: 204lbs. 9.0oz. 92.431439yy; 26.52 BMI Method:Stated General Appearance: Anxious, Chronically ill, Mild Distress HEENT: PERRL/EOMI, Other (EXTENSIVE DENTAL DECAY--"METH MOUTH" WITH MOST TEETH MISSING AND REMAINING FEW TEETH ARE DECAYED DOWN TO GUMS. ORAL MUCOSA AND LIPS VERY DRY WITH PEELING OF LIPS) Neck: Normal Inspection Respiratory: Accessory Muscle Use, Crackles, Decreased Breath Sounds, Wheezing Cardiovascular: Regular Rate, Rhythm Capillary Refill: Less Than 3 Seconds Gastrointestinal: normal bowel sounds, non tender, soft Extremity: Normal Capillary Refill, Normal Inspection, Normal Range of Motion, Non Tender, No Calf Tenderness, No Pedal Edema, Calf Tenderness, Inflammation, Pedal Edema, Pelvis Stable, Slow Capillary Refill, Swelling, Other (3-4+ EDEMA OF BILATERAL LEGS, WITH EXTENSIVE CHRONIC VENOUS STASIS CHANGES TO BILATERAL LOWER LEGS, WITH EXTENSIVE FISSURING AND MACERATION FROM PT SCRATCHING,MANY AREAS WITH SCABS AND SCALING AND SOME AREAS WITH DRIED FLUID FROM WEEPING. WOODY INDURAITON TO BILATERAL LOWER LEGS. PT WITH SIGNFICANT ERYTHEMA, WARMTH AND TENDERNESS TO BILATERAL THIGHS--THIS HAS EXTENDED FROM LOWER LEGS, UP TO PROXIMAL THIGHS BILATERALLY. ) Neurologic/Psychiatric: Alert, No Motor/Sensory Deficits Skin: Warm/Dry, Jaundice (SLIGHT), Other ( ABOVE. SKIN WARM TO TOUCH) Lymphatic: No Adenopathy Results Lab Laboratory Tests 09/13/18 03:42 09/14/18 04:55 Assessment/Plan Assessment/Plan Severe sepsis with septic shock secondary to Cellulitis. -Chandler culture -Vanco, Zosyn -Influenza neg -Levophed - D/C Agitation/anxiety/psychosis -PRN haldol -Risperdal 1mg BID Acute bronchitis/wheezing/probable pulmonary edema -Repeat CXR -Give lasix 60mg X 1 -Start solumedrol 40 IV Q 6 Metabolic lactic acidosis -monitor Hyponatremia -monitor Anemia -Monitor UDS is positive for methamphetamines, benzos, and opioids -Education Hepatitis C with high ammonia level -Lactulose LAURIE WOLF DO Sep 14, 2018 09:19
[2018-09-14] MEDS: risperiDONE 1 MG (RisperDAL) TAB PO SCH ×2 (09:33→20:35)
[2018-09-14] MEDS: LACTULOSE SYRUP 10GM/15ML (ENULOSE) 30ML UDC PO SCH ×3 (09:33→20:37)
--- NOTE | 2018-09-14 11:08 | Progress Note-Hospitalist ---
Subjective HPI/CC On Admission Date Seen by Provider: Sep 14, 2018 Time Seen by Provider: 10:00 Subjective/Events-last exam Patient having some shortness of breath so Lasix was given and hep-locked IV fluid likely overload Daughter at the bedside She lives with her mother at home Confusion noted Solu-Medrol started Checking ammonia since it was high Improved overall less severe sepsis status Physical therapy consulted but due to shortness of breath we'll hold on Poor venous access will place midline Review of Systems General: Fatigue Pulmonary: Dyspnea Neurological: Confusion Focused Exam Lactate Level 09/12/18 13:40: Lactic Acid Level 3.09*H 09/13/18 03:42: Lactic Acid Level 2.11*H 09/13/18 05:49: Lactic Acid Level 1.76 Time of Focused Exam: 05:00 Objective Exam Vital Signs Vital Signs Date Time Temp Pulse Resp B/P (MAP) Pulse Ox O2 Delivery O2 Flow Rate FiO2 09/14/18 09:01 99 Room Air 09/14/18 08:00 99.2 84 22 130/71 (90) 09/12/18 06:59 2.00 Capillary Refill : Less Than 3 Seconds General Appearance: Anxious, Chronically ill, Mild Distress HEENT: PERRL/EOMI, Other (EXTENSIVE DENTAL DECAY--"METH MOUTH" WITH MOST TEETH MISSING AND REMAINING FEW TEETH ARE DECAYED DOWN TO GUMS. ORAL MUCOSA AND LIPS VERY DRY WITH PEELING OF LIPS) Neck: Normal Inspection Respiratory: Crackles, Decreased Breath Sounds, Wheezing Cardiovascular: Regular Rate, Rhythm Gastrointestinal: Normal Bowel Sounds, Non Tender, Soft, Distended (MILDLY DISTENDED BUT SOFT AND NON-TENDER AND NO SIGNIFICANT FLUID WAVE), Hepatomegaly Back: No CVA Tenderness Extremity: Normal Capillary Refill, Normal Inspection, Normal Range of Motion, Non Tender, No Calf Tenderness, Calf Tenderness, Inflammation, Pedal Edema, Pelvis Stable, Slow Capillary Refill, Swelling, Other (3-4+ EDEMA OF BILATERAL LEGS, WITH EXTENSIVE CHRONIC VENOUS STASIS CHANGES TO BILATERAL LOWER LEGS, WITH EXTENSIVE FISSURING AND MACERATION FROM PT SCRATCHING,MANY AREAS WITH SCABS AND SCALING AND SOME AREAS WITH DRIED FLUID FROM WEEPING. WOODY INDURAITON TO BILATERAL LOWER LEGS. PT WITH SIGNFICANT ERYTHEMA, WARMTH AND TENDERNESS TO BILATERAL THIGHS--THIS HAS EXTENDED FROM LOWER LEGS, UP TO PROXIMAL THIGHS BILATERALLY. ) Neurologic/Psychiatric: Alert, No Motor/Sensory Deficits, Disoriented Skin: Warm/Dry, Jaundice (SLIGHT), Other ( ABOVE. SKIN WARM TO TOUCH) Lymphatic: No Adenopathy Results/Procedures Lab Laboratory Tests 09/14/18 04:55 Patient resulted labs reviewed. Assessment/Plan Assessment and Plan Assess & Plan/Chief Complaint (1) Septic shock Status: Acute Assessment & Plan: Suspect secondary to cellulitis. Blood pressure initially responsive to fluid, but fell again, requiring norepi drip, Pulm/Critical care consulted, appreciate recommendations. Lactic acid mildly elevated, resolved on repeat. 09/12 - Dr. Torre managing critical care; currently off Levophed but BP remains los - metabolic lactic acidosis w/ elevated lactic acid, increased to 2.36 on last draw. - wbc 24.9 09/14 HLIVF due to overload noted (2) Bilateral lower leg cellulitis Status: Acute Assessment & Plan: Suspect source of infection, treating with vancomycin and zosyn for now. (3) UTI (urinary tract infection) Status: Acute Assessment & Plan: Possible, urine culture pending. (4) Hyponatremia Assessment & Plan: Likely secondary to cirrhosis, monitor. (5) Chronic liver failure Status: Chronic Assessment & Plan: With anemia and thrombocytopenia and elevated INR. Monitor. Elevated ammonia level - on lactulose 09/14: rechecking level Qualifiers: Qualified Codes: K72.10 - Chronic hepatic failure without coma (6) Hepatitis C Status: Chronic Qualifiers: (7) Polysubstance abuse Status: Chronic (8) DVT prophylaxis Status: Acute Assessment & Plan: Enoxaparin Severe debility Plan: Midline IV Lasix Nebs O2 Check ammonia level Diagnosis/Problems Diagnosis/Problems (1) Septic shock Status: Resolved Resolution Date/Time: 09/14/18 @ 11:32 (2) Polysubstance abuse Status: Chronic (3) Bilateral lower leg cellulitis Status: Acute (4) Chronic liver failure Status: Chronic Qualifiers: Hepatic coma status: without hepatic coma Qualified Codes: K72.10 - Chronic hepatic failure without coma (5) Hepatitis C Status: Chronic Qualifiers: Viral hepatitis chronicity: chronic (6) Hyponatremia Status: Resolved Resolution Date/Time: 09/13/18 @ 12:15 (7) Volume overload Status: Acute Qualifiers: Hypervolemia type: unspecified Qualified Codes: E87.70 - Fluid overload, unspecified (8) Debility Status: Acute (9) Confusion Status: Acute Clinical Quality Measures DVT/VTE Risk/Contraindication: Risk Factor Score Per Nursin RFS Level Per Nursing on Admit: 4+=Very High DEB NDIAYE DO Sep 14, 2018 11:08
[2018-09-14 12:00] VITALS: BP 136/74
[2018-09-14] MEDS ORDERED: methylPREDNISolone 40 MG/ML (Solu-MEDROL) VIAL IV SCH (12:00)
--- NOTE | 2018-09-14 12:19 | NUR ---
CM/SCOTT spoke with daughter Chela, . Chela stated that depending on how her mother is doing she may not be able to return to her grandparent's home, which, is where she had been residing. She stated that they could not provide 24/7 care for the patient. She stated that the patient is still using drugs from time to time and would like treatment options explored. Will speak with patient and her daughter when she is here as to what options are available.
--- NOTE | 2018-09-14 12:32 | Diagnostic Imaging Report ---
INDICATION: Shortness of breath. Comparison made with prior examination from 09/13/2018 FINDINGS: There is cardiomegaly. The mediastinum is unremarkable. There is no pleural effusion, pneumothorax or pneumonia. IMPRESSION: No acute cardiopulmonary abnormality. Minimal venous congestion. Dictated by: Dictated on workstation # [id number]
--- NOTE | 2018-09-14 13:01 | Physical Therapy Progress Note ---
Therapy Progress Note [id number] Attempted treatment, Pt adamantly refusing. Pt denies need for bathroom, sitting up to get a drink, order or eat meal. CARA SUTTON PTA Sep 14, 2018 13:01
--- NOTE | 2018-09-14 14:32 | Occupational Therapy Eval ---
OT Evaluation-General/PLF Medical Diagnosis Admission Date Sep 11, 2018 at 05:40 Medical Diagnosis: sepsis Onset Date: Sep 11, 2018 Therapy Diagnosis Therapy Diagnosis: Weakness Height/Weight Height (Feet): 5 Height (Inches): 2.00 Weight (Pounds): 204 Weight (Ounces): 9.0 Precautions Precautions/Isolations: Contact Isolation, Fall Prevention Safety Interventions: None Weight Bear Status Weight Bearing Restriction: Full Weight Bearing Location Restriction: L TEREZA, R TEREZA Referral Physician: Shaquille Torre DO Referral Reason: Activity Tolerance, Self Care, Evaluation/Treatment, Strengthening/ROM Medical History Pertinent Medical History: Smoking Additional Medical History Septic shock, Polysubstance abuse, Hyponatremia, Hepatitis C, DVT Prophylasis, Confusion, Debility , cirrhosis . Current History Pt admitted to ER 5-6 days back due to Septic shock with Fever & Malaise. Rashes on both legs for a weeks or so.. Smokes Meth once a week. Takes Mother's Opiates & Valium at times when she is'nt feel well. Reviewed History: Yes Social History Home: Single Level Current Living Status: Other Family ADL-Prior Level of Function Therapy Code Descriptions/Definitions Functional [place] Measure: 0=Not Assessed/NA 4=Minimal Assistance 1=Total Assistance 5=Supervision or Setup 2=Maximal Assistance 6=Modified [place] 3=Moderate Assistance 7=Complete [place] Therapy Quality Codes: 6 Independent with activity with or without an assistive device 5 Patient requires set up or clean up by helper. Patient completes activity by themselves 4 Supervision or touching assist (CGA). [place] provide cues , steadying assist 3 The helper provides less than half the effort to complete the activity 2 The helper provides more than half the effort to complete the activity 1 Dependent. The helper does all the effort to complete an activity 7 Patient refused to complete or attempt activity 9 The patient did not perform the activity before the current illness or injury 88 Not attempted due to Medical conditions or safety concerns Functional Abilities and Goals: Independent: Patient completed the activities by him/herself, with or without an assistive device, with no assistance from a helper. Needed Some Help: Patient needed partial assistance from another person to complete activities. Dependent: A helper completed the activities for the patient. Unknown: Not Applicable: ADL PLOF Comments Pt was Independent in all Basic self care tasks & ambulation without cane / walker at home. Self Care: Independent Functional Cognition: Independent Drive Self: No OT Current Status Subjective Pt in bed, conscious & her daughter was with her. Pt cooperative & not agitated as her daughter's presence. Pt & her daughter agree for OT assessment. Pain Numeric Pain Scale: 5-Moderate Pain Location: Lower Location Body Site: Calf Pain Description: Throbbing, Sharp Mental Status/Objective Patient Orientation: Person, Confused, Place Attachments: Central Line, Tony Catheter Current Glasses/Contacts: No Hearing Aids: No Dentures/Partials: Yes Hand Dominance: Right Upper Extremity ROM WFL Upper Extremity Coordination Intact Upper Extremity Sensation Intact Upper Extremity Strength MS in [facility] -4/5 grossly graded. ADL-Treatment ADL-Current Pt participated in OT assessment. Pt needs min A in supine to sit in bed, Pt dependent in all self care tasks at this time due to confusion . MS in [facility] -4/5 grossly graded. c/o pain calf muscles Therapy Code Descriptions/Definitions Functional [place] Measure: 0=Not Assessed/NA 4=Minimal Assistance 1=Total Assistance 5=Supervision or Setup 2=Maximal Assistance 6=Modified [place] 3=Moderate Assistance 7=Complete [place] Therapy Quality Codes: 6 Independent with activity with or without an assistive device 5 Patient requires set up or clean up by helper. Patient completes activity by themselves 4 Supervision or touching assist (CGA). [place] provide cues , steadying assist 3 The helper provides less than half the effort to complete the activity 2 The helper provides more than half the effort to complete the activity 1 Dependent. The helper does all the effort to complete an activity 7 Patient refused to complete or attempt activity 9 The patient did not perform the activity before the current illness or injury 88 Not attempted due to Medical conditions or safety concerns Grooming (FIM): 1 Bathing (FIM): 0 Upper Body Dressing (FIM): 0 Lower Body Dressing (FIM): 0 Toileting (FIM): 0 Transfers (B, C, W/C) (FIM): 0 Toilet/Commode Transfer (FIM): 0 Tub Transfer (FIM): 0 Shower Transfer (FIM): 0 Education OT Patient Education: Correct positioning Teaching Recipient: Patient Teaching Methods: Demonstration OT Short Term Goals Short Term Goals Time Frame: Sep 28, 2018 Eating(FIM): 5 Grooming(FIM): 4 Bathing(FIM): 3 Bathing Location: L Arm, R Arm, L Upper Leg, R Upper Leg, L Lower Leg ( including foot), R Lower Leg (including foot), Chest, Abdomen, Buttocks, Perineal Area Upper Body Dressing(FIM): 5 Lower Body Dressing(FIM): 4 Toileting(FIM): 4 Transfers (B,C,W/C) (FIM): 5 Toilet/Commode Transfer(FIM): 5 Tub Transfer(FIM): 0 Shower Transfer(FIM): 5 Additional Short Term Goals: 1-Demonstrate ADL Tasks, 2-Verbalize Understanding , 3-ImproveStrength/Arjun 1=Demonstrate adherence to instructed precautions during ADL tasks. 2=Patient will verbalize/demonstrate understanding of assistive devices/ modifications for ADL. 3=Patient will improve strength/tolerance for activity to enable patient to perform ADL's. OT Aircraft Cabin Cleaner Goals Group Home Goals Time Frame: Oct 12, 2018 Eating (FIM): 7 Grooming(FIM): 7 Bathing(FIM): 6 Bathing Location: L Arm, R Arm, L Upper Leg, R Upper Leg, L Lower Leg ( including foot), R Lower Leg (including foot), Chest, Abdomen, Buttocks, Perineal Area Upper Body Dressing(FIM): 7 Lower Body Dressing(FIM): 7 Toileting(FIM): 7 Transfers (B,C,W/C) (FIM): 7 Toilet/Commode Transfer(FIM): 7 Tub Transfer(FIM): 0 Shower Transfer(FIM): 7 Additional Goals: 1-Demonstrate ADL Tasks, 2-Verbalize Understanding, 3- ImproveStrength/Arjun 1=Demonstrate adherence to instructed precautions during ADL tasks. 2=Patient will verbalize/demonstrate understanding of assistive devices/ modifications for ADL. 3=Patient will improve strength/tolerance for activity to enable patient to perform ADL's. OT Education/Plan Problem List/Assessment Assessment: Decreased Activ Tolerance, Decreased Safety Aware, Decreased UE Strength, Dependent Transfers, Impaired Bed Mobility, Impaired Cognition, Impaired Funct Balance, Impaired Self-Care Skills Discharge Recommendations Plan/Recommendations: Continue POC Therapy D/C Recommendations: Home w/ Family Support Equpiment Recommendations-D/C: Extended Bath Bench, Extended Shower Sprayer, Manager Clinical Patient/Family Goals To return home Independently with mother.. Treatment Plan/Plan of Care Treatment,Training & Education: Yes Patient would benefit from OT for education, treatment and training to promote independence in ADL's, mobility, safety and/or upper extremity function for ADL' s. Plan of Care: ADL Retraining, Caregiver Training, Functional Mobility, UE Funct Exercise/Act, UE Neuromus Re-Ed/Coord Treatment Duration: Oct 12, 2018 Frequency: 5 times per week Estimated Hrs Per Day: .25 hour per day Agreement: Yes Rehab Potential: Good Time/GCodes Start Time: 13:30 Stop Time: 13:50 Total Time Billed (hr/min): 20 Billed Treatment Time 1, EVM 20 min BELA RAMIREZ OT Sep 14, 2018 14:32
[2018-09-14] MEDS: ENOXAPARIN 40 MG/0.4 ML (LOVENOX) SYR SC SCH (15:04)
--- NOTE | 2018-09-14 15:29 | NUR ---
TIMELINE NOTE: 1000: Dr. Hayden here rounding, notified both IV sites infiltrated and unable to obtain new IV access after 2 attempts by this RN. Order received for midline. Pt daughter here and questions answered by Dr Hayden at this time. 1024: Order entered for Midline and SDC notified of need. 1230: Staff to bedside for Midline placement, pt screaming and refusing at this time, Dr Hayden updated. This RN will attempt to notify pt daughter to speak with pt. 1242: Pt daughter notified of pt being agitated and she spoke with pt on the phone, dgt states she will come to visit again in about 1 hour. Pt currently agrees to placement of Midline at this time and state "get them here right now" pt informed that the staff is currently unavailable and in a procedure at this time and will be here as soon as possible. 1400: Staff here for placement of Midline at this time.
[2018-09-14 16:00] VITALS: BP 130/63
--- NOTE | 2018-09-14 19:07 | Wound Care Assessment ---
Wound Care Assessment Date Seen by Provider: Sep 14, 2018 Time Seen by Provider: 19:00 Chief Complaint Bilateral calf cellulitis. HPI The patient is a 58 year old female known to me from previous episodes of care, with chronic BLE venous insufficiency, complicated by exacerbation of chronic hepatic injury. Dressings ordered and elevation encouraged, as tolerated. Smoking Status: Former Smoker (1 PPD) Recreational Drug Use: Yes (+ IV METH USE, COCAINE, BENZODIAZEPINES--SEE OLD RECORDS) Alcohol Use: Past History (HISTORY OF ABUSE) Exam Vital Signs Date Time Temp Pulse Resp B/P (MAP) Pulse Ox O2 Delivery O2 Flow Rate FiO2 09/14/18 16:00 98.8 80 22 130/63 (85) 100 Room Air 09/12/18 06:59 2.00 Capillary Refill : Less Than 3 Seconds Results Laboratory Tests 09/14/18 04:55: White Blood Count 10.6, Red Blood Count 3.09L, Hemoglobin 8.6L, Hematocrit 26L, Mean Corpuscular Volume 83, Mean Corpuscular Hemoglobin 28, Mean Corpuscular Hemoglobin Concent 34, Red Cell Distribution Width 17.6H, Platelet Count 75L, Mean Platelet Volume 9.9, Neutrophils (%) (Auto) 87H, Lymphocytes (%) (Auto) 5L , Monocytes (%) (Auto) 7, Eosinophils (%) (Auto) 0, Basophils (%) (Auto) 0, Neutrophils # (Auto) 9.2H, Lymphocytes # (Auto) 0.6L, Monocytes # (Auto) 0.8, Eosinophils # (Auto) 0.0, Basophils # (Auto) 0.0, Sodium Level 140, Potassium Level 3.3L, Chloride Level 115H, Carbon Dioxide Level 14L, Anion Gap 11, Blood Urea Nitrogen 22H, Creatinine 0.79, Estimat Glomerular Filtration Rate > 60, BUN /Creatinine Ratio 28, Glucose Level 118H, Calcium Level 7.9L, Corrected Calcium 9.3, Phosphorus Level 2.0L, Magnesium Level 1.9, Total Bilirubin 0.6, Aspartate Amino Transf (AST/SGOT) 51H, Alanine Aminotransferase (ALT/SGPT) 27, Alkaline Phosphatase 76, B-Type Natriuretic Peptide 232.5H, Total Protein 6.2L, Albumin 2.3L 09/14/18 12:30: Ammonia 31 Microbiology 09/11/18 Blood Culture - Preliminary, Resulted No growth 09/11/18 MRSA Screen - Final, Complete 09/11/18 Urine Culture - Final, Complete Enterococcus faecalis YARY HAMILTON MD Sep 14, 2018 19:07
[2018-09-14 20:00] VITALS: BP 125/69
[2018-09-14] MEDS: methylPREDNISolone 40 MG/ML (Solu-MEDROL) VIAL IV SCH (20:35)
[2018-09-14] MEDS: morphine INJ 4 MG/ML 1 ML (VIAL/SYRINGE) IVP PRN (20:37)
[2018-09-15] VITALS: BP 124/69
[2018-09-15] MEDS: RT-ALBUTEROL/IPRATROPIUM 3 ML (DUONEB) VIAL INH SCH ×2 (02:59→07:10)
[2018-09-15] MEDS: methylPREDNISolone 40 MG/ML (Solu-MEDROL) VIAL IV SCH ×2 (03:31→08:42)
[2018-09-15 03:48] LABS: BASOPHILS % (AUTO) 0 % (0-10); EOSINOPHILS % (AUTO) 0 % (0-10); HEMATOCRIT 27 % (35-52); HEMOGLOBIN 9.1 G/DL (11.5-16.0); LYMPHOCYTES # (AUTO) 0.3 X 10^3 (1.0-4.0); LYMPHOCYTES % (AUTO) 5 % (12-44); MEAN CORPUSCULAR HEMOGLOBIN 28 PG (25-34); MEAN CORPUSCULAR HGB CONC 34 G/DL (32-36); MEAN CORPUSCULAR VOLUME 82 FL (80-99); MONOCYTES # (AUTO) 0.2 X 10^3 (0.0-1.0); MONOCYTES % (AUTO) 4 % (0-12); NEUTROPHILS # (AUTO) 5.6 X 10^3 (1.8-7.8); NEUTROPHILS % (AUTO) 91 % (42-75); PLATELET COUNT 75 10^3/uL (130-400); RED CELL DISTRIBUTION WIDTH 17.2 % (10.0-14.5); WHITE BLOOD COUNT 6.1 10^3/uL (4.3-11.0)
[2018-09-15 04:06] LABS: ALANINE AMINOTRANSFERASE 41 U/L (0-55); ALBUMIN 2.2 GM/DL (3.2-4.5); ALKALINE PHOSPHATASE 63 U/L (40-136); BILIRUBIN,TOTAL 0.8 MG/DL (0.1-1.0); BUN/CREATININE RATIO 23; CALCIUM 7.7 MG/DL (8.5-10.1); CARBON DIOXIDE 18 MMOL/L (21-32); CHLORIDE 112 MMOL/L (98-107); CREATININE SERUM 0.74 MG/DL (0.60-1.30); GFR ESTIMATED > 60; GLUCOSE 123 MG/DL (70-105); MAGNESIUM 1.6 MG/DL (1.8-2.4); PHOSPHORUS 3.3 MG/DL (2.3-4.7); POTASSIUM 3.5 MMOL/L (3.6-5.0); SODIUM 140 MMOL/L (135-145); TOTAL PROTEIN 6.4 GM/DL (6.4-8.2)
[2018-09-15] MEDS: PIPERACILLIN/TAZOBACTAM (BULK) 4.5 GM in NS (IVPB) 100 ML IV SCH (06:40)
[2018-09-15 08:00] VITALS: BP 138/69
--- NOTE | 2018-09-15 08:39 | Physical Therapy Daily Note ---
PT Daily Note-Current Subjective Patient in bed pre tx, agrees to PT, has no complaints of pain at rest. Appearance Patient in bed post tx with nurse call, phone, tray, all needs met. Legs elevated on pillows. Mental Status Patient Orientation: Person, Confused Attachments: IV Transfers Therapy Code Descriptions/Definitions Functional [place] Measure: 0=Not Assessed/NA 4=Minimal Assistance 1=Total Assistance 5=Supervision or Setup 2=Maximal Assistance 6=Modified [place] 3=Moderate Assistance 7=Complete [place] Therapy Quality Codes: 6 Independent with activity with or without an assistive device 5 Patient requires set up or clean up by helper. Patient completes activity by themselves 4 Supervision or touching assist (CGA). [place] provide cues , steadying assist 3 The helper provides less than half the effort to complete the activity 2 The helper provides more than half the effort to complete the activity 1 Dependent. The helper does all the effort to complete an activity 7 Patient refused to complete or attempt activity 9 The patient did not perform the activity before the current illness or injury 88 Not attempted due to Medical conditions or safety concerns Transfers (B, C, W/C) (FIM): 4 Scootin Rollin Supine to/from Sit: 4 Sit to/from Stand: 5 Gait Training Gait (FIM): 1 Distance: 20' Gait Level of Assist: 5 Gait Persons Needed: 1 Gait Assistive Device: FWW slow but steady ambulation, impulsive Exercises Supine Ex: Ankle pumps Supine Reps: 15 Treatments bed mobility, transfers, ambulation Assessment Current Status: Fair Progress improved ambulation PT Short Term Goals Short Term Goals Time Frame: Sep 19, 2018 Transfers (B,C,W/C) (FIM): 5 Gait (FIM): 7 Distance (FIM): 3=150 ft Gait Distance Comment: 300ft Gait Level of Assist: 7 Gait Assistive Device: None PT Plan Problem List Problem List: Activity Tolerance, Functional Strength, Safety, Balance, Gait, Transfer, Bed Mobility Treatment/Plan Treatment Plan: Continue Plan of Care Treatment Plan: Bed Mobility, Functional Activity Arjun, Gait, Safety, Therapeutic Exercise, Transfers Treatment Duration: Sep 19, 2018 Frequency: 6 times per week Estimated Hrs Per Day: .25 hour per day Patient and/or Family Agrees t: Yes Safety Risks/Education Patient Education: Gait Training, Transfer Techniques, Correct Positioning, Safety Issues Teaching Recipient: Patient Teaching Methods: Demonstration, Discussion Response to Teaching: Reinforcement Needed Time/GCodes Time In: 0820 Time Out: 0832 Total Billed Treatment Time: 12 Total Billed Treatment 1 visit FA Emperatriz' MELINA VILLAFUERTE PT Sep 15, 2018 08:39
[2018-09-15] MEDS: risperiDONE 1 MG (RisperDAL) TAB PO SCH (08:42)
[2018-09-15] MEDS: LACTULOSE SYRUP 10GM/15ML (ENULOSE) 30ML UDC PO SCH (08:42)
[2018-09-15] MEDS ORDERED: A & D OINT 60 GM TUBE TOP SCH (09:00)
--- NOTE | 2018-09-15 09:59 | NUR ---
Dr. Hayden here to see patient. Went over labs.
--- NOTE | 2018-09-15 10:24 | NUR ---
Report to AMINTA Child.
[2018-09-15] MEDS ORDERED: PRED10TA22 PO (10:59)
[2018-09-15] MEDS ORDERED: CEFD300C3 PO (10:59)
--- NOTE | 2018-09-15 11:01 | Discharge Summary-Hospitalist ---
Diagnosis/Chief Complaint Date of Admission Sep 11, 2018 at 05:40 Date of Discharge Discharge Date: Sep 15, 2018 Discharge Diagnosis (1) Septic shock Status: Resolved (2) Polysubstance abuse Status: Chronic (3) Bilateral lower leg cellulitis Status: Acute (4) Chronic liver failure Status: Chronic (5) Hepatitis C Status: Chronic (6) Hyponatremia Status: Resolved (7) Volume overload Status: Acute (8) Debility Status: Acute (9) Confusion Status: Acute Discharge Summary Discharge Physical Exam Allergies: Coded Allergies: meperidine (Unverified Adverse Reaction, Unknown, 09/17/17) Vitals & I&Os Vital Signs Date Time Temp Pulse Resp B/P (MAP) Pulse Ox O2 Delivery O2 Flow Rate FiO2 09/15/18 13:00 09/15/18 10:24 Room Air 09/15/18 08:00 98.3 91 22 94 09/12/18 06:59 2.00 General Appearance: No Apparent Distress, WD/WN, Chronically ill, Thin Respiratory: Chest Non Tender, Normal Breath Sounds, No Accessory Muscle Use, No Respiratory Distress, Wheezing (subtle) Cardiovascular: Regular Rate, Rhythm, No Edema, No Gallop, No JVD, No Murmur, Normal Peripheral Pulses Neurologic/Psychiatric: Alert, Oriented x3, No Motor/Sensory Deficits, Normal Mood/Affect Hospital Course Was the Problem List Reviewed?: Yes Hospital Course: Pt had an intense hospital course. She was admitted for sepsis and severe cellulitis of the lower extremities and immunocompromised from liver cirrhosis. She was monitored closely in the ICU with aggressive fluid resuscitation. Lactulose was initiated for elevated ammonia level from Hepatic encephalopathy. Overall she was responding to Zosyn. She was ready for DC back at her baseline which is very poor status regardless, and was given home health orders for help when she moved back into her home with her family. Overall prognosis very poor considering the severity of her liver cirrhosis. Labs (last 24 hrs) Laboratory Tests 09/15/18 03:40: White Blood Count 6.1, Red Blood Count 3.29L, Hemoglobin 9.1L, Hematocrit 27L, Mean Corpuscular Volume 82, Mean Corpuscular Hemoglobin 28, Mean Corpuscular Hemoglobin Concent 34, Red Cell Distribution Width 17.2H, Platelet Count 75L, Mean Platelet Volume 10.0, Neutrophils (%) (Auto) 91H, Lymphocytes (%) (Auto) 5L , Monocytes (%) (Auto) 4, Eosinophils (%) (Auto) 0, Basophils (%) (Auto) 0, Neutrophils # (Auto) 5.6, Lymphocytes # (Auto) 0.3L, Monocytes # (Auto) 0.2, Eosinophils # (Auto) 0.0, Basophils # (Auto) 0.0, Sodium Level 140, Potassium Level 3.5L, Chloride Level 112H, Carbon Dioxide Level 18L, Anion Gap 10, Blood Urea Nitrogen 17, Creatinine 0.74, Estimat Glomerular Filtration Rate > 60, BUN/ Creatinine Ratio 23, Glucose Level 123H, Calcium Level 7.7L, Corrected Calcium 9.1, Phosphorus Level 3.3, Magnesium Level 1.6L, Total Bilirubin 0.8, Aspartate Amino Transf (AST/SGOT) 73H, Alanine Aminotransferase (ALT/SGPT) 41, Alkaline Phosphatase 63, Total Protein 6.4, Albumin 2.2L Microbiology 09/11/18 Blood Culture - Preliminary, Resulted No growth 09/11/18 MRSA Screen - Final, Complete 09/11/18 Urine Culture - Final, Complete Enterococcus faecalis Patient resulted labs reviewed. Pending Labs Discussion & Recommendations Discharge Planning: <30 minutes discharge planning Discharge Home Medications: Active Scripts Active Cefdinir 300 Mg Capsule 300 Mg PO BID Prednisone 10 Mg Tab.ds.pk 10 Mg PO DAILY Take 6 tabs(60mg)daily,decrease by 1 tab(10MG)daily. Reported Omeprazole 40 Mg Capsule.dr 40 Mg PO BID Lactulose 10 Gm/15 Ml Solution 10 Gm PO TID Furosemide 40 Mg Tablet 40 Mg PO BID Spironolactone 100 Mg Tablet 100 Mg PO BID Instructions to patient/family Please see electronic discharge instructions given to patient. Clinical Quality Measures DVT/VTE Risk/Contraindication: Risk Factor Score Per Nursin RFS Level Per Nursing on Admit: 4+=Very High Problem Qualifiers (1) Chronic liver failure: Hepatic coma status: without hepatic coma Qualified Codes: K72.10 - Chronic hepatic failure without coma (2) Hepatitis C: Viral hepatitis chronicity: chronic (3) Volume overload: Hypervolemia type: unspecified Qualified Codes: E87.70 - Fluid overload, unspecified DEB NDIAYE DO Sep 15, 2018 11:01
--- NOTE | 2018-09-15 11:26 | D/C HH Face to Face Order ---
D/C Face to Face Orders Instructions for Patient Via [facility], Patient Instructions/FollowUp: [facility] 09/21/18 at 1:20pm Juli Solo Physician to follow Patient: [facility] Discharge Diet for Home: No Restrictions Patient Problems: Cirrhosis Cellulitis of lower legs Patient Data-Allergies,Ht & Wt Patient Allergies: Coded Allergies: meperidine (Unverified Adverse Reaction, Unknown, 09/17/17) Height (Feet): 5 Height (Inches): 2.00 Weight (Pounds): 194 Weight (Ounces): 9.0 Home Health Need/Face to Face Date of Face to Face: Sep 15, 2018 Clinical Findings: Generalized weakness and fatigue, Immune-compromised, Muscle weakness, Shortness of breath, Unsteady gait I have seen Pt [id number]: Yes Discharged To: Home Diagnosis/Conditions: Cirrhosis Cellulitis of lower legs Patient is Homebound due to: Star fall risk due to instabilty, Muscle weakness Homebound Status Due to the above stated illness, injury or surgical procedure (medical condition or diagnosis) and associated clinical findings, the patient is homebound because of his/her inability to leave home except with aid of a supportive device and/or person AND leaving the home requires a considerable and taxing effort or is medically contraindicated. Pt req the following assistanc: Walker Home Health Nursing Orders Home Health Services Order: Nursing Services, Medicine Aide-Evaluate & Treat, Physical Therapy-Evaluate & Treat, Wound Care-Eval/Treat (legs) Home Health Infusion Therapy Line Start Date: Sep 14, 2018 Line Start Time: 1400 Line Type: Midline Site Location: Arm-Upper Certify Stmt I certify that this patient is under my care and that I, a nurse practitioner or a physician; a rehab assistant working with me, had a face to face encounter that - meets the physician face to face encounter requirements with this patient as dated. DEB NDIAYE DO Sep 15, 2018 11:26
--- NOTE | 2018-09-15 12:55 | NUR ---
CM/SS spoke with patient and she stated that she was ready to go home but did want [facility]. She had no preference of providers. Via [facility] is not in network with [facility] does not take any medicaid. [facility] out of [place] does take the patient's insurance and was faxed the referral, they will contact the patient to schedule. Discussed addiction treatment options with the patient. She was aware of services available with [facility] but did not want to schedule an assessment at this time. Information was left with her about [facility] addiction services. Patient's daughter and RNing were updated.
--- NOTE | 2018-09-15 15:02 | Occupational Ther Daily Note ---
OT Current Status-Daily Note Subjective Pt in bed, alert, cooperative & agree for therapy. Pain Numeric Pain Scale: 0-No Pain Location: No Pain Reported Mental Status/Objective Patient Orientation: Person, Place Therapy Code Descriptions/Definitions Functional Fleming Measure: 0=Not Assessed/NA 4=Minimal Assistance 1=Total Assistance 5=Supervision or Setup 2=Maximal Assistance 6=Modified Fleming 3=Moderate Assistance 7=Complete Fleming Attachments: Saline Lock, SCD's ADL-Treatment Patient participated in strengthening ex to BUE. Completed 15 reps x 2 sets x 2 lb wts flexion / extension of both elbows & shoulders, 30 reps with hand gripper to improve hand drainage engineer & 15 reps with red theraband in all planes of motion to strengthen BUE to participate in all ADLs. Education OT Patient Education: Correct positioning, Safety issues Teaching Recipient: Patient Teaching Methods: Demonstration Response to Teaching: Verbalize Understanding OT Short Term Goals Short Term Goals Time Frame: Sep 28, 2018 Eating(FIM): 5 Grooming(FIM): 4 Bathing(FIM): 3 Bathing Location: L Arm, R Arm, L Upper Leg, R Upper Leg, L Lower Leg ( including foot), R Lower Leg (including foot), Chest, Abdomen, Buttocks, Perineal Area Upper Body Dressing(FIM): 5 Lower Body Dressing(FIM): 4 Toileting(FIM): 4 Transfers (B,C,W/C) (FIM): 5 Toilet/Commode Transfer(FIM): 5 Tub Transfer(FIM): 0 Shower Transfer(FIM): 5 Additional Short Term Goals: 1-Demonstrate ADL Tasks, 2-Verbalize Understanding , 3-ImproveStrength/Arjun 1=Demonstrate adherence to instructed precautions during ADL tasks. 2=Patient will verbalize/demonstrate understanding of assistive devices/ modifications for ADL. 3=Patient will improve strength/tolerance for activity to enable patient to perform ADL's. OT Usp Goals Urology Physician Goals Time Frame: Oct 12, 2018 Eating (FIM): 7 Grooming(FIM): 7 Bathing(FIM): 6 Bathing Location: L Arm, R Arm, L Upper Leg, R Upper Leg, L Lower Leg ( including foot), R Lower Leg (including foot), Chest, Abdomen, Buttocks, Perineal Area Upper Body Dressing(FIM): 7 Lower Body Dressing(FIM): 7 Toileting(FIM): 7 Transfers (B,C,W/C) (FIM): 7 Toilet/Commode Transfer(FIM): 7 Tub Transfer(FIM): 0 Shower Transfer(FIM): 7 Additional Goals: 1-Demonstrate ADL Tasks, 2-Verbalize Understanding, 3- ImproveStrength/Arjun 1=Demonstrate adherence to instructed precautions during ADL tasks. 2=Patient will verbalize/demonstrate understanding of assistive devices/ modifications for ADL. 3=Patient will improve strength/tolerance for activity to enable patient to perform ADL's. OT Education/Plan Problem List/Assessment Assessment: Decreased Activ Tolerance, Decreased Safety Aware, Decreased UE Strength, Dependent Transfers, Impaired Bed Mobility, Impaired Funct Balance, Impaired Self-Care Skills Discharge Recommendations Plan/Recommendations: Continue POC Therapy D/C Recommendations: Home w/ Family Support Equpiment Recommendations-D/C: Supervisor Residential Patient/Family Goals To return home with mother Independently with AD. Treatment Plan/Plan of Care Treatment,Training & Education: Yes Patient would benefit from OT for education, treatment and training to promote independence in ADL's, mobility, safety and/or upper extremity function for ADL' s. Plan of Care: ADL Retraining, Caregiver Training, Functional Mobility, UE Funct Exercise/Act, UE Neuromus Re-Ed/Coord Treatment Duration: Oct 12, 2018 Frequency: 5 times per week Estimated Hrs Per Day: .25 hour per day Agreement: Yes Rehab Potential: Good Time/GCodes Start Time: 08:40 Stop Time: 08:54 Total Time Billed (hr/min): 14 Billed Treatment Time 1, Ex 14 min. BELA RAMIREZ OT Sep 15, 2018 15:02
== END 2018-09-15 13:02 | disposition home health service (06) | DRG 871 ==
LOC: EDUNIT# 00:22 → ER 00:23 → ICU 05:40 → 4TH 09-13 07:32
PROVIDERS: ADMIT Family Medicine; ATTEND Family Medicine
PROC: 02HV33Z Insertion of Infusion Device into Superior Vena Cava, Percutaneous Approach (ICD-10-PCS; principal; 2018-09-11)
DX: A41.9 Sepsis, unspecified organism (principal); R65.21 Severe sepsis with septic shock; L03.115 Cellulitis of right lower limb; L03.116 Cellulitis of left lower limb; E87.2 Acidosis; E87.1 Hypo-osmolality and hyponatremia; N39.0 Urinary tract infection, site not specified; K74.60 Unspecified cirrhosis of liver; B18.2 Chronic viral hepatitis C; D64.9 Anemia, unspecified; I87.2 Venous insufficiency (chronic) (peripheral); J20.9 Acute bronchitis, unspecified; E87.70 Fluid overload, unspecified; G89.29 Other chronic pain; K21.9 Gastro-esophageal reflux disease without esophagitis; F15.10 Other stimulant abuse, uncomplicated; F11.10 Opioid abuse, uncomplicated; F13.10 Sedative, hypnotic or anxiolytic abuse, uncomplicated; R41.0 Disorientation, unspecified; Z91.19 Patient's noncompliance with other medical treatment and regimen; Z86.14 Personal history of Methicillin resistant Staphylococcus aureus infection; Z87.891 Personal history of nicotine dependence; Z87.11 Personal history of peptic ulcer disease
CPT/HCPCS: 36415; 51701; 71045; 76937; 80053; 80202; 80306; 80320; 80329; 81000; 82140; 82150; 83605; 83690; 83735; 83880; 84100; 85007; 85025; 85027; 85610; 85730; 87040; 87077; 87081; 87088; 87186; 87804; 93041; 94640; 94760; 96361; 96365; 96367

== ENCOUNTER 2019-01-03 08:47 | Observation (INO) | payer MEDICAID ==
[~2019-01-03] VITALS: Ht 162.6 cm; Wt 64.5 kg
[~2019-01-03 08:47] MED LIST changes: +CEFD300C3 PO; +LACT10SO PO; +PRED10TA22 PO
--- OUTSIDE RECORDS SUMMARY | 2019-01-03 08:52 | XMS REPORT ---
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 Active 336844722 Problem Cirrhosis of liver without ascites, unspecified hepatic cirrhosis type K74.60 Active 600492607 Problem Mild acid reflux K21.9 Active 739848870 Problem 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 Active 17459055 Problem Chronic hepatitis C without hepatic coma B18.2 Active 471244956 Problem Ascites due to alcoholic hepatitis K70.11 Active 0289386510136119 Problem Other cirrhosis of liver K74.69 Active 30509706 Problem Lymphedema in adult patient I89.0 Active 552895291 Problem Venous insufficiency of both lower extremities I87.2 Active 712328883 Problem Primary osteoarthritis, right hand M19.041 Active 1643174552679798 Problem Arthritis of hand M19.049 Active 759537709 ALLERGIES No Information ENCOUNTERS Encounter Location Date Diagnosis [facility] [address] [address] November, [facility] [id number] [place] [address] November, [facility] [id number] [place] [address] Oct, [facility] [id number] [place] [address] Oct, [facility] [id number] [place] [address] Oct, Itching L29.9 and Cirrhosis of liver without ascites, unspecified hepatic cirrhosis type K74.60 [facility] [id number] [place] [address] Oct, [facility] [id number] [place] [address] Oct, [facility] [id number] [place] [address] Oct, Cellulitis of lower extremity, unspecified laterality L03.119 ; Cirrhosis of liver without ascites, unspecified hepatic cirrhosis type K74.60 and Lymphedema in adult patient I89.0 [facility] [id number] [place] [address] Oct, [facility] [id number] [place] [address] Oct, [facility] [id number] [place] [address] Oct, [facility] [id number] [place] [address] Oct, [facility] [id number] [place] [address] Sep, Cholestatic pruritus L29.8 and Cirrhosis of liver without ascites, unspecified hepatic cirrhosis type K74.60 [facility] [id number] [place] [address] Sep, [facility] [id number] [place] [address] Sep, [facility] [id number] [place] [address] Sep, End stage liver disease K72.90 [facility] [id number] [place] [address] 14 Sep, 2018 End stage liver disease K72.90 and Ascites due to alcoholic hepatitis K70.11 [facility] [address] [address] Sep, [facility] [id number] [place] [address] Sep, [facility] [address] [address] Jun, [facility] [id number] [place] [address] Jun, [facility] [id number] [place] [address] Mar, [facility] [id number] [place] [address] Feb, [facility] [id number] [place] [address] Feb, [facility] [id number] [place] [address] Feb, [facility] [id number] [place] [address] Jan, [facility] [id number] [place] [address] Jan, Dysuria R30.0 and Cystitis N30.90 [facility] [id number] [place] [address] Jan, [facility] [address], [place] [address] Dec, Mild acid reflux K21.9 [facility] [id number] [place] [address] Dec, [facility] [address] [address] November, Cellulitis of right lower limb L03.115 ; Lymphedema in adult patient I89.0 and Venous insufficiency of both lower extremities I87.2 [facility] [address] [address] November, Lymphedema in adult patient I89.0 ; Cellulitis of right lower limb L03.115 ; Venous insufficiency of both lower extremities I87.2 ; Arthritis of hand M19.049 and Drug abuse and dependence F19.20 [facility] [id number] [place] [address] November, Cellulitis of right lower limb L03.115 [facility] [id number] [place] [address] November, [facility] [id number] [place] [address] November, [facility] [id number] [place] [address] November, Ulcer of lower extremity, unspecified laterality, unspecified ulcer stage L97.909 ; Chronic hepatitis C without hepatic coma B18.2 ; Cirrhosis of liver without ascites, unspecified hepatic cirrhosis type K74.60 and Lymphedema in adult patient I89.0 [facility] [id number] [place] [address] November, Cellulitis of left lower extremity L03.116 and Cellulitis of right lower extremity L03.115 [facility] [id number] [place] [address] Oct, Chronic hepatitis C without hepatic coma B18.2 ; Cirrhosis of liver without ascites, unspecified hepatic cirrhosis type K74.60 ; Methamphetamine dependence, 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 and Dermatitis L30.9 [facility] [address] [place] [address] Oct, [facility] [id number] [place] [address] Sep, Cirrhosis of liver without ascites, unspecified hepatic cirrhosis type K74.60 ; Chronic hepatitis C without hepatic coma B18.2 ; Methamphetamine dependence, 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 ; Psoriasis L40.9 and Encounter for immunization Z23 [facility] [id number] [place] [address] Sep, Cellulitis of right lower limb L03.115 [facility] [id number] [place] [address] 20 Sep, 2017 Cellulitis of left lower extremity L03.116 ; Cellulitis of right lower extremity L03.115 ; Cholestatic pruritus L29.8 ; Cirrhosis of liver without ascites, unspecified hepatic cirrhosis type K74.60 and Mild acid reflux K21.9 [facility] [id number] [place] [address] Sep, Cellulitis of right lower extremity L03.115 and Cellulitis of left lower extremity L03.116 [facility] [address] [address] Sep, Cellulitis of left lower extremity L03.116 and Cellulitis of right lower limb L03.115 [facility] [id number] [place] [address] Aug, [facility] [address] [address] Aug, [facility] [id number] [place] [address] Aug, Unspecified cirrhosis of liver K74.60 ; Drug abuse and dependence F19.20 and Chronic hepatitis C without hepatic coma B18.2 [facility] [id number] [place] [address] Jul, [facility] [id number] [place] [address] Jul, [facility] [id number] [place] [address] Jul, [facility] [id number] [place] [address] Apr, Other cirrhosis of liver K74.69 and Unspecified viral hepatitis C without hepatic coma B19.20 [facility] [address], [place] [address] Apr, [facility] [id number] [place] [address] Apr, [facility] [id number] [place] [address] Mar, Alopecia L65.9 ; Dysthymia F34.1 and Vision changes H53.9 [facility] [id number] [place] [address] Feb, [facility] [id number] [place] [address] November, Increased ammonia level R79.89 [facility] [id number] [place] [address] November, Cirrhosis of liver with ascites, unspecified hepatic cirrhosis type K74.60 ; Psoriasis L40.9 and Drug abuse and dependence F19.20 [facility] [id number] [place] [address] November, [facility] [id number] [place] [address] Oct, [facility] [id number] [place] [address] Jul, Cirrhosis of liver without ascites, unspecified hepatic cirrhosis type K74.60 ; Encounter for immunization Z23 ; Vision changes H53.9 and Dysthymia F34.1 [facility] [id number] [place] [address] Feb, Osteoarthritis of carpometacarpal joint of right thumb, unspecified osteoarthritis type M18.9 [facility] [address] [place] [address] Feb, Psoriasis L40.9 ; Pain of left thumb M79.645 ; Cirrhosis of liver without ascites, unspecified hepatic cirrhosis type K74.60 ; Chronic hepatitis C without hepatic coma B18.2 ; Urinary tract infection without hematuria, site unspecified N39.0 ; Vision changes H53.9 and Face pain R51 [facility] [address], [place] [address] Feb, Chronic hepatitis C without hepatic coma B18.2 [facility] [id number] [place] [address] Feb, Psoriasis L40.9 ; Pain of left thumb M79.645 ; Cirrhosis of liver without ascites, unspecified hepatic cirrhosis type K74.60 ; Chronic hepatitis C without hepatic coma B18.2 ; Urinary tract infection without hematuria, site unspecified N39.0 ; Vision changes H53.9 and Face pain R51 [facility] [id number] [place] [address] Jan, [facility] [id number] [place] [address] Sep, [facility] [id number] [place] [address] Aug, [facility] [id number] [place] [address] Jun, 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 and Unspecified cirrhosis of liver K74.60 [facility] [address] [place] [address] Feb, Eye pain 379.91 [facility] [id number] [place] [address] Oct, [facility] [id number] [place] [address] Oct, [facility] [id number] [place] [address] Jul, [facility] [id number] [place] [address] Jul, [facility] [place] [facility] [address] [id number] [place] [address] Jul, [facility] [place] [facility] [address] [id number] [place] [address] Jul, [facility] [place] [facility] [address] [id number] [place] [address] Jul, [facility] [place] [facility] [address] [id number] [place] [address] Jul, [facility] [place] [facility] [address] [id number] [place] [address] Jun, [facility] [place] [facility] [address] [id number] [place] [address] Jun, [facility] [place] [facility] [address] [id number] [place] [address] Feb, [facility] [place] [facility] [address] [id number] [place] [address] Feb, [facility] [place] [facility] [address] [id number] [place] [address] Dec, [facility] [place] [facility] [address] [id number] [place] [address] Dec, [facility] [place] [facility] [address] [id number] [place] [address] Dec, [facility] [place] [facility] [address] [id number] [address] Dec, [facility] [place] [facility] [address] [id number] [place] [address] November, [facility] [place] [facility] [address] [id number] [place] [address] November, [facility] [place] [facility] [address] [id number] [place] [address] Sep, [facility] [place] [facility] [address] [id number] [place] [address] 12 Sep, 2013 [facility] [place] [facility] [address] [id number] [place] [address] 11 Sep, 2013 [facility] [place] [facility] [address] [id number] [place] [address] Sep, [facility] [place] [facility] [address] [id number] [place] [address] Sep, [facility] [place] [facility] [address] [id number] [place] [address] Sep, [facility] [place] [facility] [address] [id number] [place] [address] Jul, [facility] [place] [facility] [address] [id number] [place] [address] Jul, [facility] [place] [facility] [address] [id number] [place] [address] Jul, [facility] [place] [facility] [address] [id number] [place] [address] Jul, [facility] [place] [facility] [address] [id number] [place] [address] Jul, [facility] [place] [facility] [address] [id number] [place] [address] Jul, [facility] [place] [facility] [address] [id number] [place] [address] Jul, [facility] [place] [facility] [address] [id number] [place] [address] Jun, [facility] [place] [facility] [address] [id number] [place] [address] Jun, [facility] [place] [facility] [address] [id number] [place] [address] Jun, [facility] [place] [facility] [address] [id number] [place] [address] Jun, [facility] [place] [facility] [address] [place] [address] Jun, [facility] [address], [place] [address] Jun, [facility] [address], [place] [address] Jun, [facility] [address], [place] [address] Jun, [facility] [address] [facility] [id number] [address] Jun, [facility] [address] [place] [address] Jul, [facility] [address], [place] [address] Jun, [facility] [address], [place] [address] Jun, [facility] [address] [place] [address] Mar, [facility] [address] [address] Jun, [facility] [address] [place] [address] Jun, [facility] [address] [address] Apr, [facility] [id number] [address] Apr, IMMUNIZATIONS No Known Immunizations SOCIAL HISTORY Never Assessed REASON FOR VISIT [facility] PLAN OF CARE VITAL SIGNS MEDICATIONS Unknown [...]
--- OUTSIDE RECORDS SUMMARY | 2019-01-03 08:53 | XMS REPORT ---
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 Active 719523463 Problem Cirrhosis of liver without ascites, unspecified hepatic cirrhosis type K74.60 Active 441438986 Problem Mild acid reflux K21.9 Active 599745501 Problem 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 Active 58623060 Problem Chronic hepatitis C without hepatic coma B18.2 Active 076783439 Problem Ascites due to alcoholic hepatitis K70.11 Active 8663095290117729 Problem Other cirrhosis of liver K74.69 Active 18519030 Problem Lymphedema in adult patient I89.0 Active 313638508 Problem Venous insufficiency of both lower extremities I87.2 Active 825421266 Problem Primary osteoarthritis, right hand M19.041 Active 5194818964859415 Problem Arthritis of hand M19.049 Active 902176276 ALLERGIES No Information ENCOUNTERS Encounter Location Date Diagnosis [place] [id number] [place] [address] Oct, [facility] [place] [id number] [place] [address] Sep, Cholestatic pruritus L29.8 and Cirrhosis of liver without ascites, unspecified hepatic cirrhosis type K74.60 [facility] [place] [id number] [place] [address] Sep, [facility] [place] [id number] [place] [address] Sep, [place] [address] [address] 19 Sep, 2018 End stage liver disease K72.90 [facility] [place] [address] [place] [id number] [place] [address] 14 Sep, 2018 End stage liver disease K72.90 and Ascites due to alcoholic hepatitis K70.11 [facility] [place] [address] [place] [id number] [place] [address] 13 Sep, 2018 [facility] [place] [address] [place] [id number] [place] [address] Sep, [facility] [place] [address] [id number] [place] [address] Jun, [facility] [place] [address] [place] [address] [id number] [place] [address] Jun, [facility] [place] [address] [place] [address] [id number] [place] [address] Mar, [facility] [place] [address] [id number] [place] [address] Feb, [facility] [place] [address] [place] [id number] [place] [address] Feb, [facility] [place] [address] [address] Feb, [facility] [place] [id number] [place] [address] Jan, [facility] [place] [id number] [place] [address] Jan, Dysuria R30.0 and Cystitis N30.90 [facility] [place] [address] [address] Jan, [facility] [place] [address] [address] Dec, Mild acid reflux K21.9 [facility] [place] [address] [place] [id number] [place] [address] Dec, [place] [address] [place] [id number] [place] [address] November, Cellulitis of right lower limb L03.115 ; Lymphedema in adult patient I89.0 and Venous insufficiency of both lower extremities I87.2 [place] [address] [address] November, Lymphedema in adult patient I89.0 ; Cellulitis of right lower limb L03.115 ; Venous insufficiency of both lower extremities I87.2 ; Arthritis of hand M19.049 and Drug abuse and dependence F19.20 [place] [address] [place] [id number] [place] [address] November, Cellulitis of right lower limb L03.115 [place] [address] [place] [id number] [place] [address] November, [place] [address] [place] [id number] [place] [address] November, [place] [address] [place] [id number] [place] [address] November, Ulcer of lower extremity, unspecified laterality, unspecified ulcer stage L97.909 ; Chronic hepatitis C without hepatic coma B18.2 ; Cirrhosis of liver without ascites, unspecified hepatic cirrhosis type K74.60 and Lymphedema in adult patient I89.0 [place] [address] [place] [id number] [place] [address] November, Cellulitis of left lower extremity L03.116 and Cellulitis of right lower extremity L03.115 [place] [address] [place] [id number] [place] [address] Oct, Chronic hepatitis C without hepatic coma B18.2 ; Cirrhosis of liver without ascites, unspecified hepatic cirrhosis type K74.60 ; Methamphetamine dependence, 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 and Dermatitis L30.9 [place] [address] [place] [id number] [place] [address] Oct, [place] [address] [place] [id number] [place] [address] Sep, Cirrhosis of liver without ascites, unspecified hepatic cirrhosis type K74.60 ; Chronic hepatitis C without hepatic coma B18.2 ; Methamphetamine dependence, 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 ; Psoriasis L40.9 and Encounter for immunization Z23 [place] [address] [address] Sep, Cellulitis of right lower limb L03.115 [place] [address] [place] [id number] [place] [address] Sep, Cellulitis of left lower extremity L03.116 ; Cellulitis of right lower extremity L03.115 ; Cholestatic pruritus L29.8 ; Cirrhosis of liver without ascites, unspecified hepatic cirrhosis type K74.60 and Mild acid reflux K21.9 [place] [address] [place] [id number] [place] [address] Sep, Cellulitis of right lower extremity L03.115 and Cellulitis of left lower extremity L03.116 [place] [address] [place] [id number] [place] [address] Sep, Cellulitis of left lower extremity L03.116 and Cellulitis of right lower limb L03.115 [place] [id number] [place] [address] Aug, [place] [address] [place] [id number] [place] [address] Aug, [place] [address] [place] [id number] [place] [address] Aug, Unspecified cirrhosis of liver K74.60 ; Drug abuse and dependence F19.20 and Chronic hepatitis C without hepatic coma B18.2 [place] [id number] [place] [address] Jul, [place] [address] [place] [address] Jul, [facility] [place] [address] [place] [id number] [place] [address] Jul, [facility] [place] [address] [place] [id number] [place] [address] Apr, Other cirrhosis of liver K74.69 and Unspecified viral hepatitis C without hepatic coma B19.20 [facility] [place] [address] [place] [id number] [place] [address] Apr, [facility] [place] [address] [address] Apr, [facility] [place] [address] [place] [id number] [place] [address] Mar, Alopecia L65.9 ; Dysthymia F34.1 and Vision changes H53.9 [place] [address] [place] [id number] [place] [address] Feb, [facility] [place] [address] [place] [id number] [place] [address] November, Increased ammonia level R79.89 [place] [address] [place] [id number] [place] [address] November, Cirrhosis of liver with ascites, unspecified hepatic cirrhosis type K74.60 ; Psoriasis L40.9 and Drug abuse and dependence F19.20 [facility] [place] [address] [place] [id number] [place] [address] November, [facility] [place] [address] [place] [id number] [place] [address] Oct, [facility] [place] [address] [place] [id number] [place] [address] Jul, Cirrhosis of liver without ascites, unspecified hepatic cirrhosis type K74.60 ; Encounter for immunization Z23 ; Vision changes H53.9 and Dysthymia F34.1 [facility] [place] [address] [place] [address] Feb, Osteoarthritis of carpometacarpal joint of right thumb, unspecified osteoarthritis type M18.9 [facility] [place] [address] [place] [id number] [place] [address] Feb, Psoriasis L40.9 ; Pain of left thumb M79.645 ; Cirrhosis of liver without ascites, unspecified hepatic cirrhosis type K74.60 ; Chronic hepatitis C without hepatic coma B18.2 ; Urinary tract infection without hematuria, site unspecified N39.0 ; Vision changes H53.9 and Face pain R51 [place] [address] [place] [id number] [place] [address] Feb, Chronic hepatitis C without hepatic coma B18.2 [place] [address] [place] [id number] [place] [address] Feb, Psoriasis L40.9 ; Pain of left thumb M79.645 ; Cirrhosis of liver without ascites, unspecified hepatic cirrhosis type K74.60 ; Chronic hepatitis C without hepatic coma B18.2 ; Urinary tract infection without hematuria, site unspecified N39.0 ; Vision changes H53.9 and Face pain R51 [place] [address] [place] [id number] [place] [address] Jan, [place] [address] [place] [id number] [place] [address] Sep, [place] [address] [place] [id number] [place] [address] Aug, [facility] [place] [address] [place] [id number] [place] [address] Jun, 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 and Unspecified cirrhosis of liver K74.60 [facility] [place] [address] [place] [id number] [place] [address] Feb, Eye pain 379.91 [place] [address] [place] [id number] [place] [address] Oct, [facility] [place] [facility] [address] [id number] [place] [address] Oct, [facility] [place] [facility] [address] [id number] [place] [address] Jul, [facility] [place] [facility] [address] [id number] [place] [address] Jul, [facility] [place] [facility] [address] [id number] [place] [address] Jul, [facility] [place] [facility] [address] [id number] [place] [address] Jul, [facility] [place] [facility] [address] [id number] [place] [address] Jul, [facility] [place] [facility] [address] [id number] [place] [address] Jul, [facility] [place] [facility] [address] [id number] [place] [address] Jun, [facility] [place] [facility] [address] [id number] [place] [address] Jun, [facility] [place] [facility] [address] [id number] [place] [address] Feb, [facility] [place] [facility] [address] [id number] [place] [address] Feb, [facility] [place] [facility] [address] [id number] [place] [address] Dec, [facility] [place] [facility] [address] [id number] [place] [address] Dec, [facility] [place] [facility] [address] [id number] [place] [address] Dec, [facility] [place] [facility] [address] [id number] [place] [address] Dec, [facility] [place] [facility] [address] [id number] [place] [address] November, [facility] [place] [facility] [address] [id number] [place] [address] November, [facility] [place] [facility] [address] [id number] [place] [address] Sep, [facility] [place] [facility] [address] [id number] [place] [address] Sep, [facility] [place] [facility] [address] [id number] [place] [address] Sep, [facility] [place] [facility] [address] [id number] [place] [address] Sep, [facility] [place] [facility] [address] [id number] [place] [address] Sep, [facility] [place] [facility] [address] [id number] [place] [address] Sep, [facility] [place] [facility] [address] [id number] [place] [address] Jul, [facility] [place] [facility] [address] [id number] [place] [address] Jul, [facility] [place] [facility] [address] [id number] [place] [address] Jul, [facility] [place] [facility] [address] [id number], [place] [address] Jul, [facility] [place] [facility] [address] [id number], [place] [address] Jul, [facility] [place] [facility] [address] [id number] [place] [address] Jul, [facility] [place] [facility] [address] [id number], [place] [address] Jul, [facility] [place] [facility] [address] [id number] [place] [address] Jun, [facility] [place] [facility] [address] [id number] [place] [address] Jun, [facility] [place] [address] [id number] [place] [address] Jun, [facility] [address] [id number] [place] [address] Jun, [facility] [address] [id number] [place] [address] Jun, [facility] [address] [id number] [place] [address] Jun, [facility] [address] [id number] [place] [address] Jun, [facility] [address] [facility] [id number] [place] [address] Jun, [facility] [address] [facility] [id number] [place] [address] Jun, [facility] [place] [address] [facility] [id number] [place] [address] Jul, [facility] [place] [address] [facility] [id number] [place] [address] Jun, [facility] [address] [facility] [id number] [place] [address] Jun, [facility] [address] [facility] [id number] [place] [address] Mar, [facility] [address] [facility] [id number], [place] [address] Jun, [facility] [address] [id number] [place] [address] Jun, [facility] [address] [facility] [id number], [place] [address] Apr, [facility] [address] [facility] [id number], [place] [address] Apr, IMMUNIZATIONS No Known Immunizations SOCIAL HISTORY Never Assessed REASON FOR VISIT [facility] [place] PLAN OF CARE VITAL SIGNS MEDICATIONS Medication Instructions Dosage Frequency Start Date End Date Duration Status Milk Thistle by oral route Jun, Active Cranberry Concentrate 140-100 mg 6 Capsule 1 time per day Jun, Active Furosemide 40 mg 1 tablet by Oral route 1 time per day for 7 days Jul, Active Spironolactone 100 mg 1 tablet by Oral route 1 time per day Jun, Active Magnesium 300 mg 1 Capsule 1 time per day takes 500mg Jun, Active Potassium Chloride 20 mEq take 1 tablet by Oral route with food 1 time per day for 7 days Jul, Active Ascorbic Acid 1,000 mg 1 Tablet 1 time per day Jun, Active Tumersaid by oral route Jun, Active RESULTS No Results PROCEDURES No Known [...]
--- OUTSIDE RECORDS SUMMARY | 2019-01-03 08:53 | XMS REPORT ---
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 Name Role Phone Migration, Doctor Unavailable Unavailable PROBLEMS Type Condition ICD9-CM Code UPL50-PE Code Onset Dates Condition Status SNOMED Code Problem Dysthymia F34.1 Active 36903205 Problem Other ascites R18.8 Active 458579508 Problem Increased ammonia level R79.89 Active 352565470 Problem Drug abuse and dependence F19.20 Active 8121133 Problem Methamphetamine dependence, 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 Active 237735217 Problem Cirrhosis of liver without ascites, unspecified hepatic cirrhosis type K74.60 Active 932087001 Problem Mild acid reflux K21.9 Active 139236609 Problem 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 Active 68375347 Problem Chronic hepatitis C without hepatic coma B18.2 Active 236444227 Problem Ascites due to alcoholic hepatitis K70.11 Active 2651349312365697 Problem Other cirrhosis of liver K74.69 Active 55889924 Problem Lymphedema in adult patient I89.0 Active 266881866 Problem Venous insufficiency of both lower extremities I87.2 Active 385243811 Problem Primary osteoarthritis, right hand M19.041 Active 9478874449984688 Problem Arthritis of hand M19.049 Active 357703893 ALLERGIES No Information ENCOUNTERS Encounter Location Date Diagnosis [facility] [id number] [address] Oct, [facility] [id number] [address] Oct, [facility] [id number] [place] [address] Oct, [facility] [id number] [place] [address] Oct, [facility] [id number] [place] [address] Sep, Cholestatic pruritus L29.8 and Cirrhosis of liver without ascites, unspecified hepatic cirrhosis type K74.60 [facility] [id number] [place] [address] Sep, [facility] [id number] [place] [address] Sep, [facility] [id number] [place] [address], [place] [address] Sep, End stage liver disease K72.90 [facility] [id number] [place] [address], [place] [address] 14 Sep, 2018 End stage liver disease K72.90 and Ascites due to alcoholic hepatitis K70.11 [facility] [id number] [place] [address] Sep, [facility] [id number] [place] [address], [place] [address] Sep, [facility] [id number] [place] [address] Jun, [facility] [id number] [place] [address] Jun, [facility] [id number] [address] Mar, [facility] [id number] [address] Feb, [facility] [id number] [address] Feb, [facility] [id number] [place] [address] Feb, [facility] [id number] [place] [address] Jan, [facility] [id number] [address] Jan, Dysuria R30.0 and Cystitis N30.90 [place] [facility] [address] [address] Jan, [facility] [id number] [place] [address] Dec, Mild acid reflux K21.9 [facility] [id number] [place] [address] Dec, [facility] [id number] [place] [address] November, Cellulitis of right lower limb L03.115 ; Lymphedema in adult patient I89.0 and Venous insufficiency of both lower extremities I87.2 [facility] [id number] [place] [address] November, Lymphedema in adult patient I89.0 ; Cellulitis of right lower limb L03.115 ; Venous insufficiency of both lower extremities I87.2 ; Arthritis of hand M19.049 and Drug abuse and dependence F19.20 [facility] [id number] [place] [address] November, Cellulitis of right lower limb L03.115 [facility] [id number] [place] [address] November, [facility] [id number] [place] [address] November, [facility] [id number] [place] [address] November, Ulcer of lower extremity, unspecified laterality, unspecified ulcer stage L97.909 ; Chronic hepatitis C without hepatic coma B18.2 ; Cirrhosis of liver without ascites, unspecified hepatic cirrhosis type K74.60 and Lymphedema in adult patient I89.0 [facility] [id number] [place] [address] November, Cellulitis of left lower extremity L03.116 and Cellulitis of right lower extremity L03.115 [place] [id number] [place] [address] Oct, Chronic hepatitis C without hepatic coma B18.2 ; Cirrhosis of liver without ascites, unspecified hepatic cirrhosis type K74.60 ; Methamphetamine dependence, 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 and Dermatitis L30.9 [facility] [id number] [place] [address] Oct, [facility] [facility] [address] [address] Sep, Cirrhosis of liver without ascites, unspecified hepatic cirrhosis type K74.60 ; Chronic hepatitis C without hepatic coma B18.2 ; Methamphetamine dependence, 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 ; Psoriasis L40.9 and Encounter for immunization Z23 [facility] [id number] [place] [address] Sep, Cellulitis of right lower limb L03.115 [facility] [id number] [place] [address] Sep, Cellulitis of left lower extremity L03.116 ; Cellulitis of right lower extremity L03.115 ; Cholestatic pruritus L29.8 ; Cirrhosis of liver without ascites, unspecified hepatic cirrhosis type K74.60 and Mild acid reflux K21.9 [facility] [facility] [id number] [place] [address] Sep, Cellulitis of right lower extremity L03.115 and Cellulitis of left lower extremity L03.116 [facility] [id number] [place] [address] Sep, Cellulitis of left lower extremity L03.116 and Cellulitis of right lower limb L03.115 [facility] [id number] [place] [address] Aug, [place] [id number] [place] [address] Aug, [place] [id number] [address] Aug, Unspecified cirrhosis of liver K74.60 ; Drug abuse and dependence F19.20 and Chronic hepatitis C without hepatic coma B18.2 [facility] [id number] [address] Jul, [facility] [id number] [place] [address] Jul, [facility] [id number] [place] [address] Jul, [facility] [id number] [place] [address] Apr, Other cirrhosis of liver K74.69 and Unspecified viral hepatitis C without hepatic coma B19.20 [facility] [id number] [place] [address] Apr, [facility] [id number] [place] [address] Apr, [facility] [id number] [place] [address] Mar, Alopecia L65.9 ; Dysthymia F34.1 and Vision changes H53.9 [facility] [id number] [place] [address] Feb, [facility] [id number] [place] [address] November, Increased ammonia level R79.89 [facility] [id number] [place] [address] November, Cirrhosis of liver with ascites, unspecified hepatic cirrhosis type K74.60 ; Psoriasis L40.9 and Drug abuse and dependence F19.20 [facility] [id number] [address] November, [facility] [id number] [place] [address] Oct, [facility] [id number] [place] [address] Jul, Cirrhosis of liver without ascites, unspecified hepatic cirrhosis type K74.60 ; Encounter for immunization Z23 ; Vision changes H53.9 and Dysthymia F34.1 [facility] [id number] [place] [address] Feb, Osteoarthritis of carpometacarpal joint of right thumb, unspecified osteoarthritis type M18.9 [place] [id number] [place] [address] Feb, Psoriasis L40.9 ; Pain of left thumb M79.645 ; Cirrhosis of liver without ascites, unspecified hepatic cirrhosis type K74.60 ; Chronic hepatitis C without hepatic coma B18.2 ; Urinary tract infection without hematuria, site unspecified N39.0 ; Vision changes H53.9 and Face pain R51 [place] [id number] [place] [address] Feb, Chronic hepatitis C without hepatic coma B18.2 [place] [id number] [place] [address] Feb, Psoriasis L40.9 ; Pain of left thumb M79.645 ; Cirrhosis of liver without ascites, unspecified hepatic cirrhosis type K74.60 ; Chronic hepatitis C without hepatic coma B18.2 ; Urinary tract infection without hematuria, site unspecified N39.0 ; Vision changes H53.9 and Face pain R51 [place] [address] [address] Jan, [place] [id number] [place] [address] Sep, [place] [id number] [place] [address] Aug, [place] [id number] [place] [address] Jun, 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 [id number] [address] Oct, [facility] [id number] [place] [address] Oct, [facility] [address] [facility] [id number] [place] [address] Jul, [facility] [id number] [place] [address], [place] [address] Jul, [facility] [id number] [place] [address] Jul, [facility] [id number] [place] [address] Jul, [facility] [id number] [place] [address] Jul, [facility] [address], [place] [address] Jul, [facility] [address], [place] [address] Jun, [facility] [address], [place] [address] Jun, [facility] [address], [place] [address] Feb, [facility] [id number] [place] [address] Feb, [facility] [address] [address] Dec, [facility] [address], [place] [address] Dec, [facility] [place] [facility] [address] [id number] [place] [address] Dec, [facility] [place] [facility] [address] [id number] [place] [address] Dec, [facility] [place] [facility] [address] [id number] [place] [address] November, [facility] [place] [facility] [address] [id number] [place] [address] November, [facility] [place] [facility] [address] [id number] [place] [address] Sep, [facility] [place] [facility] [address] [id number] [place] [address] Sep, [facility] [place] [facility] [address] [id number] [place] [address] Sep, [facility] [place] [facility] [address] [id number] [place] [address] Sep, [facility] [place] [facility] [address] [id number] [place] [address] Sep, [facility] [place] [facility] [address] [id number] [place] [address] Sep, [facility] [place] [facility] [address] [id number] [address] Jul, [facility] [place] [facility] [address] [id number] [address] Jul, [facility] [place] [facility] [address] [id number] [place] [address] Jul, [facility] [place] [facility] [address] [id number] [place] [address] Jul, [facility] [place] [facility] [address] [id number] [place] [address] Jul, [facility] [place] [facility] [address] [id number] [place] [address] Jul, 2013 [facility] [address] [id number] [place] [address] Jul, [facility] [address] [id number] [place] [address] Jun, [facility] [address] [id number] [place] [address] Jun, [facility] [address] [id number] [place] [address] Jun, [facility] [address] [id number] [place] [address] Jun, [facility] [address] [id number] [place] [address] Jun, [facility] [address] [id number] [place] [address] Jun, [facility] [address] [id number] [place] [address] Jun, [facility] [address] [id number] [place] [address] Jun, [facility] [address] [id number] [place] [address] Jun, [facility] [address] [id number] [place] [address] Jul, [facility] [address] [id number] [place] [address] Jun, [facility] [address] [id number] [place] [address] Jun, [facility] [address] [id number] [place] [address] 17 Mar, 2011 [facility] [address] [id number] [place] [address] Jun, [facility] [address] [facility] [id number] [place] [address] Jun, [facility] [address] [facility] [id number] [address] Apr, [facility] [address] [facility] [id number] [place] [address] Apr, IMMUNIZATIONS No Known Immunizations SOCIAL HISTORY Never Assessed REASON FOR VISIT EMR-[facility] PLAN OF CARE VITAL SIGNS MEDICATIONS Unknown [...]
[2019-01-03] MEDS ORDERED: THIAMINE INJECTION 100 MG, FOLIC ACID INJECTION 1 MG, VITAMIN MULTI INJECTION 10 ML, MA... IV ONE ×5 (09:00)
[2019-01-03] MEDS ORDERED: NS IV 500 ML 500 ML IV ONE (09:04)
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
[2019-01-03] MEDS ORDERED: PIPERACILLIN/TAZOBACTAM (BULK) 4.5 GM in NS (IVPB) 100 ML IV ONE (09:15)
[2019-01-03 09:18] LABS: BASOPHILS % (AUTO) 1 % (0-10); BILIRUBIN,URINE NEGATIVE (NEGATIVE); EOSINOPHILS # (AUTO) 0.1 10^3/uL (0.0-0.3); EOSINOPHILS % (AUTO) 2 % (0-10); GLUCOSE, URINE (UA) NEGATIVE (NEGATIVE); HEMATOCRIT 34 % (35-52); HEMOGLOBIN 11.5 G/DL (11.5-16.0); KETONES,URINE NEGATIVE (NEGATIVE); LEUKOCYTE ESTERASE ,URINE NEGATIVE (NEGATIVE); LYMPHOCYTES # (AUTO) 0.7 X 10^3 (1.0-4.0); LYMPHOCYTES % (AUTO) 15 % (12-44); MEAN CORPUSCULAR HEMOGLOBIN 27 PG (25-34); MEAN CORPUSCULAR HGB CONC 33 G/DL (32-36); MEAN CORPUSCULAR VOLUME 80 FL (80-99); MEAN PLATELET VOLUME 10.8 FL (7.4-10.4); MONOCYTES # (AUTO) 0.5 X 10^3 (0.0-1.0); MONOCYTES % (AUTO) 11 % (0-12); NEUTROPHILS # (AUTO) 3.2 X 10^3 (1.8-7.8); NEUTROPHILS % (AUTO) 71 % (42-75); NITRITE,URINE NEGATIVE (NEGATIVE); PH,URINE 7 (5-9); PROTEIN,URINE NEGATIVE (NEGATIVE); RED CELL DISTRIBUTION WIDTH 15.6 % (10.0-14.5); UROBILINOGEN,URINE 1 MG/DL (NORMAL); WHITE BLOOD COUNT 4.5 10^3/uL (4.3-11.0)
[2019-01-03 09:20] LABS: PLATELET COUNT 83 10^3/uL (130-400)
[2019-01-03 09:24] LABS: BACTERIA,URINE NEGATIVE /HPF; CLARITY,URINE CLEAR; COLOR,URINE YELLOW
[2019-01-03 09:28] LABS: INR 1.4 (0.8-1.4); PROTHROMBIN TIME PATIENT 17.3 SEC (12.2-14.7)
[2019-01-03 09:32] LABS: AMPHETAMINE SCREEN, URINE POSITIVE (NEGATIVE); BENZODIAZEPINES SCREEN URINE POSITIVE (NEGATIVE); CANNABINOID SCREEN, URINE NEGATIVE (NEGATIVE); COCAINE SCREEN URINE NEGATIVE (NEGATIVE); METHAMPHETAMINE SCREEN URINE S POSITIVE (NEGATIVE)
[2019-01-03 09:33] LABS: BARBITURATE SCREEN URINE NEGATIVE (NEGATIVE); METHADONE STAT NEGATIVE (NEGATIVE); OPIATE SCREEN URINE POSITIVE (NEGATIVE); OXYCODONE STAT NEGATIVE (NEGATIVE); PROPOXYPHENE STAT NEGATIVE (NEGATIVE); TRICYCLIC ANTIDEPRESSANTS SCRE NEGATIVE (NEGATIVE)
[2019-01-03 09:38] LABS: ACETAMINOPHEN < 10 UG/ML (10-30); ALANINE AMINOTRANSFERASE 41 U/L (0-55); ALBUMIN 2.9 GM/DL (3.2-4.5); ALKALINE PHOSPHATASE 72 U/L (40-136); AMMONIA 139 UMOL/L (11-32); BILIRUBIN,TOTAL 0.9 MG/DL (0.1-1.0); BUN/CREATININE RATIO 30; CALCIUM 8.2 MG/DL (8.5-10.1); CARBON DIOXIDE 18 MMOL/L (21-32); CHLORIDE 110 MMOL/L (98-107); GFR ESTIMATED > 60; GLUCOSE 92 MG/DL (70-105); MAGNESIUM 1.9 MG/DL (1.8-2.4); POTASSIUM 4.3 MMOL/L (3.6-5.0); SODIUM 136 MMOL/L (135-145); TOTAL PROTEIN 6.9 GM/DL (6.4-8.2)
[2019-01-03 09:51] LABS: ABG OXYGEN SATURATION 98 % (94-100); ABG PCO2 36 MMHG (35-45); ABG PH 7.43 (7.37-7.43); ABG PO2 87 MMHG (79-93); ABG TCO2 25.1 MMOL/L (21.0-31.0); ALLENS TEST YES-POS
[2019-01-03 09:52] LABS: INSPIRED O2 RA; PATIENT TEMP 96.8; VENTILATOR NO
--- NOTE | 2019-01-03 09:56 | NUR ---
pt parents at bedside.
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
--- NOTE | 2019-01-03 11:30 | NUR ---
JUSTICE CABELLO S admitted to room 406-1, with an admitting diagnosis of END STAGE RENAL DISEAS, on 01/03/19 from ED via STRETCHER, accompanied by STAFF AND MOTHER. JUSTICE CABELLO introduced to surroundings, call light, bed controls, phone, TV, temperature control, lights, meal times, smoking policy, visitor policy, side rail policy, bathrooms and showers. Patient Rights given to patient in the handbook. JUSTICE CABELLO verbalizes understanding that [facility] is not responsible for the loss or damage to any personal effects or valuables that are kept in the patients posession during their hospitalization. JUSTICE CABELLO verbalizes understanding of Interdisciplinary Patient Education. Patient and/or family were informed about the Rapid Response Team and its purpose.
[2019-01-03 11:38] VITALS: BP 94/58
[2019-01-03 12:00] VITALS: BP 94/58
[2019-01-03] MEDS ORDERED: SALIVA STIMULANT MOUTH SPRAY (BIOTENE) 1.5 OZ MM PRN (12:00)
[2019-01-03] MEDS ORDERED: BISACODYL 10 MG SUPP (DULCOLAX) PR PRN (12:00)
[2019-01-03] MEDS ORDERED: ATROPINE 1% OPHTHALMIC SOLN 2 ML SL PRN ×2 (12:00→12:15)
[2019-01-03] MEDS ORDERED: GLYCOPYRROLATE 0.2 MG/ML (ROBINUL) 2 ML VIAL IV PRN (12:00)
[2019-01-03] MEDS ORDERED: RT-ALBUTEROL/IPRATROPIUM 3 ML (DUONEB) VIAL IH PRN (12:00)
[2019-01-03] MEDS ORDERED: ARTIFICAL TEARS 0.4 ML UNIT DOSE (REFRESH PLUS) OU PRN (12:00)
[2019-01-03] MEDS ORDERED: ACETAMINOPHEN 650 MG SUPP (TYLENOL) PR PRN (12:00)
[2019-01-03] MEDS ORDERED: SCOPOLAMINE 1.5 MG (TRANSDERM-SCOP) PATCH TOP SCH (13:00)
[2019-01-03 14:19] VITALS: BP 94/58
[2019-01-03] MEDS: morphine INJ 4 MG/ML 1 ML (VIAL/SYRINGE) IV PRN ×2 (17:19→22:02)
[2019-01-03] MEDS: ONDANSETRON 4 MG/2 ML (SDV) Z0FRAN IV PRN ×2 (17:20→22:02)
--- NOTE | 2019-01-03 22:00 | NUR ---
[facility] NURSE TO FLOOR TO INFORM THIS RN THAT FAMILY HAD REVOKED HOSPICE WITH THEM AND WANTED HER TREATED AT THE HOSPITAL AT THIS TIME.
--- NOTE | 2019-01-03 22:05 | NUR ---
PT WAKING UP AT THIS TIME. ABLE TO ANSWER QUESTIONS BUT NOT APPROPRIATELY. THIS RN ORIENTED PT MULTIPLE TIMES BUT PT UNABLE TO REMEMBER WHAT THIS RN TOLD HER. PT CRYING AND STATING "I DONT FEEL GOOD". WHEN ASKED HOW SHE DOESNT FEEL GOOD PT ANSWERS OVER AND OVER AGAIN "I DONT FEEL GOOD". MORPHINE AND ZOFRAN GIVEN TO HELP CONTROL PAIN.
--- NOTE | 2019-01-03 22:10 | NUR ---
SPOKE WITH PTS MOTHER (DANITA BATISTA, DPOA) AT THIS TIME. DANITA CALLED TO CHECK ON THE PT. THIS RN INFORMED DANITA THAT PT WAS NOW AWAKE AND ANSWERING QUESTIONS BUT NOT ANSWERING APPROPRIATELY. THIS RN EDUCATED DANITA AT THIS TIME THAT PT IS CURRENTLY ON COMFORT CARE MEASURES AND A DNR, AND IF PTS CONDITION WERE TO WORSEN THAT WE WOULD NOT DO CPR OR INTUBATE PT, AND I ASKED HER IF THAT WAS STILL WHAT SHE WANTED. ALSO INFORMED HER THAT WE ARE NOT CURRENTLY DOING ANY INTERVENTIONS TO PROLONG THE PTS LIFE, THAT THE MEDICATIONS WE WERE GIVING HER WERE TO HELP KEEP HER COMFORTABLE POSSIBLE. THIS RN EDUCATED PT VERY EXTENSIVELY ON WHAT DNR AND COMFORT CARE MEANS. DANITA STATES "KEEP HER A DNR BUT IF HER HEALTH GETS WORSE OR SOMETHING HAPPENS, CALL ME IMMEDIATELY". PT EXPLAINS SHE WANTS TO TALK TO THE DOCTOR IN THE MORNING BEFORE SHE DECIDES ANYTHING FURTHER.
--- NOTE | 2019-01-03 23:00 | NUR ---
PTS DAUGHTER CAME IN AT THIS TIME UPSET WONDERING WHY WE WEREN'T TREATING THE PT SINCE THE FAMILY REVOKED HOSPICE CARE. EDUCATED PTS DAUGHTER THAT I HAD SPOKE WITH DANITA THE DPOA AND HER WISHES WERE TO KEEP PT ON COMFORT CARE AND A DNR AT THIS TIME UNTIL DANITA COULD SPEAK WITH THE DOCTOR IN THE AM. FROM WHAT THE DAUGHTER WAS TELLING ME THERE ARE SOME MIXED FEELINGS ON WHAT THE DPOA AND THE OTHER FAMILY IS WANTING FOR THE PTS HEALTH CARE. PT WAS ABLE TO TELL US WHAT HER DAUGHTERS NAME IS AT THIS TIME.
[2019-01-03] MEDS: LORazepam INJ 2 MG/ML (ATIVAN) VIAL IV PRN (23:03)
[2019-01-04] MEDS: LORazepam INJ 2 MG/ML (ATIVAN) VIAL IV PRN ×3 (04:04→23:19)
[2019-01-04] MEDS: ONDANSETRON 4 MG/2 ML (SDV) Z0FRAN IV PRN ×2 (08:44→14:34)
[2019-01-04] MEDS: morphine INJ 4 MG/ML 1 ML (VIAL/SYRINGE) IV PRN ×2 (08:44→14:34)
--- NOTE | 2019-01-04 09:39 | NUR ---
DID NOT SPEAK WITH THE PATIENT OR FAMILY AT THIS TIME. REVIEWED MED REC WITH THE TWO PRESCRIPTION MEDICATIONS THAT HAVE BEEN FILLED RECENTLY ACCORDING TO THE EXT MED HX.
--- NOTE | 2019-01-04 10:29 | History & Physical-Hospitalist ---
History of Present Illness HPI/Chief Complaint Chief Complaint: Found down on side of road. HPI: This is a 58yoWF who was previously on hospice but revoked that service to be admitted who was found on the side of the road after using a great deal of methamphetamine. She does have in stage liver disease and unable to have any adequate recovery so she is currently doing much better and is able to be advanced on her diet we will restart her home meds in addition to Lactulose TID to clear the ammonia level along with her Lasix and Aldactone and daughter is in correspondence with social worker delinquency prevention to set her up with skill worker at home for discharge because she must use her methamphetamine or she gets aggressive. Source: patient Exam Limitations: no limitations Date Seen 01/04/19 Time Seen by a Provider: 09:30 Attending Physician Mary Olivo MD PCP Yessy Man MD Referring Physician Date of Admission Jan 03, 2019 at 10:45 Home Medications & Allergies Home Medications Reviewed patient Home Medication Reconciliation performed by pharmacy medication reconciliations medical record technician and/or nursing. Patients Allergies have been reviewed. Allergies Allergies Coded Allergies meperidine (Unverified Adverse Reaction, Unknown, 09/17/17) Past Clutcfw-Ymsqfd-Wocdhr Hx Past Med/Social Hx: Reviewed Nursing Past Med/Soc Hx, Reviewed and Corrections made Patient Social History Marrital Status: single Employed/Student: unemployed Alcohol Use: Occasionally Uses Recreational Drug Use: Yes Drug of Choice: COCAINE, BENZODIAZEPINES, + IV METH Smoking Status: Current Everyday Smoker Former Smoker, Quit: Apr 06, 1978 Type Used: Cigarettes 2nd Hand Smoke Exposure: No Recent Foreign Travel: No Contact w/other who traveled: No Recent Hopitalizations: No Recent Infectious Disease Expo: No Immunizations Up To Date Tetanus Booster (TDap): Unknown Date of Influenza Vaccine: Apr 07, 2017 Seasonal Allergies Seasonal Allergies: No Past Medical History Surgeries: Adenoidectomy, Appendectomy, Section, Eye Surgery, Gallbladder, Orthopedic, Tonsillectomy Cardiac: Chronic Edema/Swelling Reproductive: No Menopausal Gastrointestinal: Gastroesophageal Reflux, Liver Disease/Jaundice, Gastro intestinal Bleed, Hepatitis, Ulcer, Cirrhosis, Gall Bladder Disease HEENT: Cataract Skin/Integumentary: Pruritis History of Blood Disorders: No Family History No Pertinent Family Hx Review of Systems Constitutional: see HPI, malaise, weakness EENTM: no symptoms reported Respiratory: no symptoms reported Cardiovascular: no symptoms reported Gastrointestinal: no symptoms reported Genitourinary: no symptoms reported Musculoskeletal: back pain Skin: no symptoms reported Psychiatric/Neurological: Anxiety, Depressed All Other Systems Reviewed Negative Unless Noted: Yes Physical Exam Physical Exam Vital Signs Vital Signs - First Documented 01/03/19 01/03/19 09:10 11:30 Temp 96.8 Pulse 68 Resp 18 B/P (MAP) 130/107 (115) Pulse Ox 99 O2 Delivery Room Air Capillary Refill : Less Than 3 Seconds Height, Weight, BMI Height: 5'4.00" Weight: 142lbs. 2.0oz. 64.019508fc; 26.52 BMI Method:Estimated General Appearance: WD/WN, Anxious, Chronically ill, Other (severely chronically ill) HEENT: Normal ENT Inspection, Pharynx Normal Neck: Full Range of Motion, Normal Inspection, Non Tender Respiratory: Chest Non Tender, Lungs Clear, Normal Breath Sounds, No Accessory Muscle Use, No Respiratory Distress Cardiovascular: Regular Rate, Rhythm, No Edema, No Gallop, No JVD, No Murmur, Normal Peripheral Pulses Neurologic/Psychiatric: Alert, No Motor/Sensory Deficits, Normal Mood/Affect, Disoriented Skin: Normal Color, Warm/Dry Results Results/Procedures Labs Laboratory Tests 01/03/19 08:58 Patient resulted labs reviewed. Assessment/Plan Admission Diagnosis Assessment: Found down Meth use [facility] patient Smoker Plan: Home meds SW consult Needs Hospice again Admission Status: Observation Diagnosis/Problems Diagnosis/Problems (1) Substance abuse or dependence Status: Acute (2) End stage liver disease Status: Chronic (3) Hepatitis C Status: Chronic Qualifiers: Viral hepatitis chronicity: chronic Hepatic coma status: without hepatic coma Qualified Codes: B18.2 - Chronic viral hepatitis C (4) Chronic liver failure Status: Chronic Qualifiers: Hepatic coma status: without hepatic coma Qualified Codes: K72.10 - Chronic hepatic failure without coma (5) Confusion Status: Acute (6) Agitation Status: Acute (7) Illicit drug use Status: Acute (8) Hyperammonemia Status: Chronic (9) Anasarca Status: Chronic Clinical Quality Measures DVT/VTE Risk/Contraindication: Risk Factor Score Per Nursin RFS Level Per Nursing on Admit: 3=High DEB NDIAYE DO Jan 04, 2019 10:29
[2019-01-04] MEDS: LACTULOSE SYRUP 10GM/15ML (ENULOSE) 30ML UDC PO SCH ×2 (12:28→21:23)
--- NOTE | 2019-01-04 13:00 | NUR ---
Pastoral care visit with pt and her sister, daughter and mother by bed. Pt had some confusion,pt and family seem in agreement that she will return to hospice at discharge. provided, support, encouragement and prayer.
--- NOTE | 2019-01-04 13:16 | NUR ---
Visited with patient, patient's daughter Chela, and then the patient's son also came in. Elisa et family are open about Elisa's drug problem et how this might contribute to worsening symptoms from her end stage liver disease. Elisa believes that she takes her prescribed medications as the doctor has ordered but her family at bedside are telling her that she does not d/t her mentation from her drug addiction. Family asked about SKIL for Elisa to hopefully help her with taking her medications as prescribed. They indicate that [facility] has been helping to get this service in place. F/U with [facility] ([facility]) about the process for SKIL which is what they had been trying to get into place for Elisa for sometime. They report that they have set up telephone conferences with [employer] out of [employer] for Elisa to complete and then she will not answer the phone when SS calls. I talked openly about this with Elisa et her family members as they all feel that Elisa would benefit from having SKIL and it not being a friend or family member that helps with being her SKIL worker. Her son at bedside reports that they will help take her over to [place] to fill out at the office to complete the process. [facility] has also called back to notify that Elisa will not be able to utilize them as her hospice provider at discharge d/t generalized non-compliance et high risk behaviors. Elisa has requested to explore other hospice agencies to see if they will accept her for service. It is reported by her daughter Chela et the [facility] that they patient has been compliant with their comfort care medications d/t them being kept at Chela's home locked up. Addendum: 01/04/19 at 1523 by DELVIN LIND RN Referral initiated with [facility]. They will f/u with me.
[2019-01-04 15:42] VITALS: BP 123/75
[2019-01-04 19:50] VITALS: BP 108/54
[2019-01-04] MEDS: FUROSEMIDE 40 MG (LASIX) TAB PO SCH (21:23)
[2019-01-05] MEDS: LORazepam INJ 2 MG/ML (ATIVAN) VIAL IV PRN (01:18)
[2019-01-05 01:19] VITALS: BP 108/56
[2019-01-05 08:06] VITALS: BP 107/52
[2019-01-05] MEDS ORDERED: SPIRONOLACTONE 100 MG (ALDACTONE) TABLET PO SCH (09:00)
[2019-01-05] MEDS: FUROSEMIDE 40 MG (LASIX) TAB PO SCH (09:12)
[2019-01-05] MEDS: LACTULOSE SYRUP 10GM/15ML (ENULOSE) 30ML UDC PO SCH ×2 (09:13→13:43)
--- NOTE | 2019-01-05 09:17 | NUR ---
Faxed information to [facility] per their request. They will accept the patient on their service at discharge. Spoke to Aubree about helping Elisa to obtain SKIL when working with her et they will continue to f/u on this et assist as appropriate. Spoke with Elisa et her daughter Chela via phone this morning about the comfort care medication lock box and keeping it at Chela's house. Elisa would like for it to be kept at her moms house but reinforced that this will not be possible due to her illicit drug use.
--- NOTE | 2019-01-05 10:50 | Discharge Summary-Hospitalist ---
Diagnosis/Chief Complaint Date of Admission Jan 03, 2019 at 11:20 Date of Discharge Discharge Date: Jan 05, 2019 Admission Diagnosis Assessment: Found down Meth use [facility] patient Smoker Plan: Home meds SW consult Needs Hospice again Discharge Diagnosis (1) Substance abuse or dependence Status: Acute (2) End stage liver disease Status: Chronic (3) Hepatitis C Status: Chronic (4) Chronic liver failure Status: Chronic (5) Confusion Status: Acute (6) Agitation Status: Acute (7) Illicit drug use Status: Acute (8) Hyperammonemia Status: Chronic (9) Anasarca Status: Chronic Discharge Summary Discharge Physical Exam Allergies: Coded Allergies: meperidine (Unverified Adverse Reaction, Unknown, 09/17/17) Vitals & I&Os Vital Signs Date Time Temp Pulse Resp B/P (MAP) Pulse Ox O2 Delivery O2 Flow Rate FiO2 01/05/19 14:33 01/05/19 08:06 98.8 77 22 97 Room Air General Appearance: No Apparent Distress, WD/WN, Chronically ill Respiratory: No Accessory Muscle Use Cardiovascular: Regular Rate, Rhythm, No Edema, No Gallop, No JVD, No Murmur, Normal Peripheral Pulses Neurologic/Psychiatric: Alert, Oriented x3, No Motor/Sensory Deficits, Normal Mood/Affect Hospital Course Was the Problem List Reviewed?: Yes Hospital course: patient had a brief hospital course after she was admitted after evoking hospice. Supportive care provided. Recommend Hospice due to in stage liver disease for continued care she will see [facility] in close f/u tomorrow and will be monitored closely until then. Labs (last 24 hrs) Microbiology 01/03/19 Blood Culture - Preliminary, Resulted No growth Patient resulted labs reviewed. Discussion & Recommendations Discharge Planning: <30 minutes discharge planning Discharge Home Medications: Active Scripts Active Reported Furosemide 40 Mg Tablet 40 Mg PO BID Spironolactone 100 Mg Tablet 100 Mg PO DAILY Instructions to patient/family Please see electronic discharge instructions given to patient. Clinical Quality Measures DVT/VTE Risk/Contraindication: Risk Factor Score Per Nursin RFS Level Per Nursing on Admit: 3=High Problem Qualifiers (1) Hepatitis C: Viral hepatitis chronicity: chronic Hepatic coma status: without hepatic coma Qualified Codes: B18.2 - Chronic viral hepatitis C (2) Chronic liver failure: Hepatic coma status: without hepatic coma Qualified Codes: K72.10 - Chronic hepatic failure without coma DBE NDIAYE DO Jan 05, 2019 10:50
--- NOTE | 2019-01-05 13:18 | NUR ---
CALLED PATIENT'S MOTHER REQUESTED TO NOTIFY HER THAT PATIENT HAS BEEN DISCHARGED AND IS READY TO BE PICKED UP.
--- NOTE | 2019-01-05 13:29 | NUR ---
LEFT MESSAGE ON PATIENT'S MOTHER'S PHONE REGARDING CLOTHES TO GO HOME IN.
--- NOTE | 2019-01-05 14:31 | NUR ---
CALLED [facility] REQUESTED TP REPORT THAT PATIENT IS ON HER WAY HOME
== END 2019-01-05 10:49 | disposition hospice, home (50) ==
LOC: EDUNIT# 08:47 → ER 08:48 → UNDOADMOB 10:45 → 4TH 10:45
PROVIDERS: ADMIT Family Medicine; ATTEND Family Medicine
DX: Z51.5 Encounter for palliative care (principal); K72.10 Chronic hepatic failure without coma; B18.2 Chronic viral hepatitis C; E86.0 Dehydration; F15.10 Other stimulant abuse, uncomplicated; Z66 Do not resuscitate; R41.0 Disorientation, unspecified; R45.1 Restlessness and agitation; E72.20 Disorder of urea cycle metabolism, unspecified; R60.1 Generalized edema; Z87.891 Personal history of nicotine dependence
CPT/HCPCS: 36415; 51702; 70450; 71045; 72125; 73090; 80053; 80306; 80320; 80329; 81000; 82140; 82805; 83605; 83735; 83880; 84443; 84484; 85025; 85610; 85730; 86141; 87040; 93005; 96361; 96365; G0378

== ENCOUNTER 2020-11-21 17:44 | Emergency (ER) | payer MEDICAID ==
[~2020-11-21] VITALS: Ht 157 cm; Wt 70.0 kg
[~2020-11-21 17:44] MED LIST changes: -CLIN300C11 PO; +CLIN300C12 PO; -LACT10SO PO; +LACT10SO3 PO; +OMEP40CA27 PO; +OXC5T PO; -OXYC-529 PO; +SERT-413 PO; -SERT50TA9 PO
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
--- NOTE | 2020-11-21 19:01 | Diagnostic Imaging Report ---
EXAMINATION: Right elbow at 6:49 p.m. INDICATION: Injury, arm pain Three views were obtained. There is minimal irregularity of the lateral cortex of the radial neck/head. This could represent a nondisplaced fracture. Whether this is chronic or acute however is not certain. No other fracture or acute bony abnormality is identified. The posterior fat-pad of the elbow joint is not elevated. The soft tissues are unremarkable. IMPRESSION: 1. The minimal irregularity of the lateral aspect of the radial head/neck could represent a nondisplaced fracture. Whether this is chronic or acute however is unclear. 2. There is no acute bony abnormality noted otherwise. Dictated by: Dictated on workstation # [id number]
--- NOTE | 2020-11-21 19:02 | Diagnostic Imaging Report ---
INDICATION: Right hip and leg pain. Time of exam: 6:40 PM Alignment at the hip and knee is normal. The femur appears to be intact. No fractures are seen. Soft tissues are unremarkable. IMPRESSION: No acute bony abnormality is detected. Dictated by: Dictated on workstation # [id number]
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
[2020-11-21] MEDS ORDERED: morphine INJ 10 MG/ML 1ML (SYR OR VIAL) IVP STA (19:26)
--- NOTE | 2020-11-21 20:43 | Diagnostic Imaging Report ---
PROCEDURE: CT pelvis without contrast. TECHNIQUE: Multiple contiguous axial images were obtained through the pelvis without the use of intravenous contrast. Sagittal and coronal reformations were performed. Auto Exposure Controls were utilized during the CT exam to meet ALARA standards for radiation dose reduction. INDICATION: Right hip pain The plain film examination of the pelvis performed earlier today at 6:31 PM raised the question of an age-indeterminate inferior pubic ramus fracture on the right. On this study, there does appear to be an acute slightly displaced fracture extending through the midportion of the inferior pubic ramus on the right. There is also mild irregularity of the anterior cortex of the right acetabulum. I suspect there is an acute nondisplaced fracture in this area as well. No other fracture or acute bony abnormality is appreciated. There is no pelvic mass or free fluid collection identified. IMPRESSION: 1. There is a slightly displaced fracture of the inferior pubic ramus on the right and a nondisplaced fracture of the anterior aspect of the right acetabulum. 2. There is no acute bony abnormality noted otherwise. Dictated by: Dictated on workstation # [id number]
--- NOTE | 2020-11-21 20:48 | Diagnostic Imaging Report ---
Right shoulder at 8:15 INDICATION: Shoulder pain 3 views were obtained. There are no prior studies available for comparison. There is no fracture, dislocation or acute bony abnormality evident. However, there is severe degenerative disease involving the glenohumeral joint and at least moderate degenerative disease of the acromioclavicular joint. The soft tissues are unremarkable. IMPRESSION: 1. There is no evidence for an acute bony abnormality. 2. There is severe degenerative disease of the glenohumeral joint. Dictated by: Dictated on workstation # [id number]
[2020-11-21] MEDS ORDERED: ONDANSETRON 4 MG (ZOFRAN) ORAL DISSOLVE TAB ONE (21:33)
[2020-11-21] MEDS ORDERED: ONDANSETRON 4 MG (ZOFRAN) ORAL DISSOLVE TAB PO ONE (21:45)
[2020-11-21 21:50] VITALS: BP 122/85
== END 2020-11-21 21:51 | disposition home or self-care (01) ==
LOC: EDUNIT# 17:44 → ER 17:48
DX: S32.491A Other specified fracture of right acetabulum, initial encounter for closed fracture (principal); S32.591A Other specified fracture of right pubis, initial encounter for closed fracture; M25.551 Pain in right hip; M25.521 Pain in right elbow; G89.29 Other chronic pain; Z87.891 Personal history of nicotine dependence; Z88.5 Allergy status to narcotic agent; Z79.891 Long term (current) use of opiate analgesic; V48.4XXA Person boarding or alighting a car injured in noncollision transport accident, initial encounter; Y92.481 Parking lot as the place of occurrence of the external cause
CPT/HCPCS: 72192; 73030; 73080; 73552

== ENCOUNTER 2022-02-26 23:34 | Emergency (ER) | payer MEDICARE, MEDICAID ==
[~2022-02-26] VITALS: Ht 157.4 cm; Wt 64.1 kg
[~2022-02-26 23:34] MED LIST changes: +CLIN-144 PO; -CLIN300C12 PO; -OMEP40CA27 PO; +OMEP40CA6 PO; +POTA-179 PO; -POTA20TA15 PO; -SULF1TAB35 PO; +SULF1TAB38 PO
[2022-02-27] MEDS ORDERED: NS IV 500 ML 500 ML IV ONE (01:30)
[2022-02-27 02:01] LABS: EOSINOPHILS # (AUTO) 0.2 10^3/uL (0.0-0.3); MEAN CORPUSCULAR HGB CONC 36 g/dL (32-36); PLATELET COUNT 52 10^3/uL (130-400)
[2022-02-27 02:02] LABS: BASOPHILS # (AUTO) 0.1 10^3/uL (0.0-0.1); BASOPHILS % (AUTO) 1 % (0-10); EOSINOPHILS % (AUTO) 5 % (0-10); HEMATOCRIT 36 % (35-52); HEMOGLOBIN 12.7 g/dL (11.5-16.0); LYMPHOCYTES % (AUTO) 23 % (12-44); MEAN CORPUSCULAR HEMOGLOBIN 30 pg (25-34); MEAN CORPUSCULAR VOLUME 85 fL (80-99); MEAN PLATELET VOLUME 9.4 fL (9.0-12.2); MONOCYTES # (AUTO) 0.5 10^3/uL (0.0-1.0); MONOCYTES % (AUTO) 12 % (0-12); NEUTROPHILS # (AUTO) 2.6 10^3/uL (1.8-7.8); NEUTROPHILS % (AUTO) 59 % (42-75); WHITE BLOOD COUNT 4.3 10^3/uL (4.3-11.0)
[2022-02-27 02:30] LABS: POTASSIUM 2.9 MMOL/L (3.6-5.0)
[2022-02-27 02:31] LABS: CALCIUM 8.7 MG/DL (8.5-10.1)
[2022-02-27 02:35] LABS: CREATININE SERUM 0.79 MG/DL (0.60-1.30)
[2022-02-27 02:37] LABS: MAGNESIUM 1.8 MG/DL (1.6-2.4)
[2022-02-27] MEDS ORDERED: NS (IVPB) 250 ML IV ONE (02:45)
[2022-02-27] MEDS ORDERED: POTASSIUM CL 10MEQ/50ML IVPB 50 ML IV ONE (02:45)
[2022-02-27] MEDS ORDERED: KCL 10 MEQ TAB (MICRO K) PO ONE (03:00)
--- NOTE | 2022-02-27 03:02 | ED General ---
General Chief Complaint: General Problems/Pain Stated Complaint: FEVER Nursing Triage Note: PT ARRIVAL TO ER VIA EMS WITH COMPLAINT OF RIGHT LEG CRAMPING SINCE 1600, AND LOW GRADE FEVER OF 100.0 Source of Information: Patient Exam Limitations: No Limitations History of Present Illness Date Seen by Provider: Feb 26, 2022 Time Seen by Provider: 23:36 Initial Comments This 62 year old woman presents to the ER with primary complaint of RLE cramping that started in the afternoon. She also feels like she is dehydrated. 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 She admits to recent methamphetamine use within the past 4 days. She is afebrile with a borderline temp of 100.0. She felt shaky earlier in the day. She has felt congested which she attributes to living in a moldy house. Allergies and Home Medications Allergies Coded Allergies: meperidine (Unverified Adverse Reaction, Unknown, 09/17/17) Patient Home Medication List Home Medication List Reviewed: Yes Furosemide (Furosemide) 40 Mg Tablet, 40 MG PO BID, (Reported) Entered as Reported by: LAINE WATKINS on 03/31/18 1009 Spironolactone (Spironolactone) 100 Mg Tablet, 100 MG PO DAILY, (Reported) Entered as Reported by: LAINE WATKINS on 03/31/18 1009 Review of Systems Review of Systems Constitutional: see HPI EENTM: see HPI Respiratory: no symptoms reported Cardiovascular: no symptoms reported Gastrointestinal: see HPI Genitourinary: no symptoms reported : No Musculoskeletal: see HPI Skin: no symptoms reported Psychiatric/Neurological: No Symptoms Reported Hematologic/Lymphatic: No Symptoms Reported Immunological/Allergic: no symptoms reported Past Iqzpuvj-Paaqto-Ckktpr Hx Patient Social History Tobacco Use?: No Use of E-Cig and/or Vaping dev: No Substance use?: Yes Substance type: Methamphetamine Substance frequency: Couple times a week Alcohol Use?: No Pt feels they are or have been: No Immunizations Up To Date Tetanus Booster (TDap): Unknown Influenza Vaccine Up-to-Date: No; Not Current First/Initial COVID19 Vaccinat: ANASTACIA AND ANASTACIA Second COVID19 Vaccination Riaz: ANASTACIA AND ANASTACIA Third COVID19 Vaccination Date: ANASTACIA AND ANASTACIA Seasonal Allergies Seasonal Allergies: No Past Medical History Surgeries: Yes ( X 2; BILATERAL CARPAL TUNNEL; EGD; BILATERAL CATARACT SURGERY ) Adenoidectomy, Appendectomy, Section, Eye Surgery, Gallbladder, Orthopedic, Tonsillectomy Respiratory: No Cardiac: Yes Chronic Edema/Swelling Neurological: Yes : No (Mnire's disease) Reproductive Disorders: No 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 ) Endocrine: No HEENT: Yes (POOR DENTITION/ "METH MOUTH"; QUESTIONALBLE MENIERE'S ) Cataract Cancer: No Psychosocial: No Integumentary: Yes (History of cellulitis) Pruritis Blood Disorders: No Family Medical History No Pertinent Family Hx Physical Exam Vital Signs Vital Signs - First Documented 02/26/22 23:54 Temp 37.8 Pulse 77 Resp 18 B/P (MAP) 113/57 (75) Pulse Ox 95 O2 Delivery Room Air Capillary Refill : Less Than 3 Seconds Height, Weight, BMI Height: 5'4.00" Weight: 142lbs. 2.0oz. 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 II-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 Norm as Tested Skin: Normal Color, Warm/Dry Progress/Results/Core Measures Suspected Sepsis SIRS Temperature: Pulse: 77 Respiratory Rate: 18 Laboratory Tests 02/27/22 01:48: White Blood Count 4.3 Blood Pressure 113 /57 Mean: 75 Laboratory Tests 02/27/22 01:48: Creatinine 0.79, Platelet Count 52L Results/Orders Lab Results Laboratory Tests Test 02/26/22 23:55 02/27/22 01:48 Range/Units Influenza Type A (RT-PCR) Not Detected Not Detecte Influenza Type B (RT-PCR) Not Detected Not Detecte SARS-CoV-2 RNA (RT-PCR) Not Detected Not Detecte White Blood Count 4.3 4.3-11.0 10^3/uL Red Blood Count 4.17 3.80-5.11 10^6/uL Hemoglobin 12.7 11.5-16.0 g/dL Hematocrit 36 35-52 % Mean Corpuscular Volume 85 80-99 fL Mean Corpuscular Hemoglobin 30 25-34 pg Mean Corpuscular Hemoglobin Concent 36 32-36 g/dL Red Cell Distribution Width 17.6 H 10.0-14.5 % Platelet Count 52 L 130-400 10^3/uL Mean Platelet Volume 9.4 9.0-12.2 fL Immature Granulocyte % (Auto) 0 % Neutrophils (%) (Auto) 59 42-75 % Lymphocytes (%) (Auto) 23 12-44 % Monocytes (%) (Auto) 12 0-12 % Eosinophils (%) (Auto) 5 0-10 % Basophils (%) (Auto) 1 0-10 % Neutrophils # (Auto) 2.6 1.8-7.8 10^3/uL Lymphocytes # (Auto) 1.0 1.0-4.0 10^3/uL Monocytes # (Auto) 0.5 0.0-1.0 10^3/uL Eosinophils # (Auto) 0.2 0.0-0.3 10^3/uL Basophils # (Auto) 0.1 0.0-0.1 10^3/uL Immature Granulocyte # (Auto) 0.0 0.0-0.1 10^3/uL Percent Immature Platelet Fraction 1.6 0.0-7.6 % Sodium Level 140 135-145 MMOL/L Potassium Level 2.9 L 3.6-5.0 MMOL/L Chloride Level 107 98-107 MMOL/L Carbon Dioxide Level 20 L 21-32 MMOL/L Anion Gap 13 5-14 MMOL/L Blood Urea Nitrogen 7 7-18 MG/DL Creatinine 0.79 0.60-1.30 MG/DL Estimat Glomerular Filtration Rate 84 BUN/Creatinine Ratio 9 Glucose Level 89 70-105 MG/DL Calcium Level 8.7 8.5-10.1 MG/DL Magnesium Level 1.8 1.6-2.4 MG/DL My Orders Orders - DAMIAN GRIMALDO MD Covid 19 Inhouse Test (02/26/22 23:36) Influenza A And B By Pcr (02/26/22 23:36) Ed Iv/Invasive Line Start (02/27/22 01:23) Basic Metabolic Panel (02/27/22 01:23) Cbc With Automated Diff (02/27/22 01:23) Magnesium (02/27/22 01:23) Ns Iv 500 Ml (Sodium Chloride 0.9%) (02/27/22 01:30) Potassium Cl 10meq/50ml Ivpb (Kcl 10 Meq (02/27/22 02:45) Ns (Ivpb) (Sodium Chloride 0.9%) (02/27/22 02:45) Potassium Chloride (Tablet) (Klor Con Ta (02/27/22 03:00) Ua Culture If Indicated (02/27/22 03:02) Medications Given in ED Current Medications Medications Dose Ordered Sig/Guerita Route Start Time Stop Time Status Last Admin Dose Admin Potassium Chloride 40 meq ONCE ONCE PO 02/27/22 03:00 02/27/22 03:01 DC 02/27/22 03:17 40 MEQ Potassium Chloride 50 ml @ 50 mls/hr ONCE ONCE IV 02/27/22 02:45 02/27/22 03:44 DC 02/27/22 03:16 50 MLS/HR Sodium Chloride 250 ml @ 0 mls/hr Q0M ONCE IV 02/27/22 02:45 02/27/22 02:46 DC 02/27/22 03:17 250 MLS/HR Sodium Chloride 500 ml @ 0 mls/hr Q0M ONCE IV 02/27/22 01:30 02/27/22 01:31 DC 02/27/22 01:51 500 MLS/HR Vital Signs/I&O 02/26/22 02/27/22 23:54 03:45 Temp 37.8 Pulse 77 73 Resp 18 18 B/P (MAP) 113/57 (75) 117/58 Pulse Ox 95 97 O2 Delivery Room Air Room Air Capillary Refill : Less Than 3 Seconds Blood Pressure Mean: 75 Progress Note : Progress Note Patient was hydrated with a normal saline 500 mL bolus. Labs were reviewed and she was found to have significant hypokalemia with potassium of 2.9. We will initially replace this by IV route and then give an oral dose prior to discharge. COVID-19 test was negative. Departure Impression Primary Impression: Hypokalemia Additional Impression: Muscle cramping Disposition: 01 HOME, SELF-CARE Condition: Improved Departure-Patient Inst. Referrals: FABRICIO ROSALES MD (PCP/Family) Primary Care Physician Patient Instructions: Hypokalemia Add. Discharge Instructions: Continue your medications as previously directed. Follow-up with your primary care provider to have your potassium level monitored. Return to care if you have worsening symptoms despite replacing potassium today. All discharge instructions reviewed with patient and/or family. Voiced understanding. Copy Copies To 1: FABRICIO ROSALES MD, JOSHUA T MD Feb 27, 2022 03:01
[2022-02-27 03:45] VITALS: BP 117/58
== END 2022-02-27 04:23 | disposition home or self-care (01) ==
LOC: EDUNIT# 23:34 → ER 23:35
DX: R25.2 Cramp and spasm (principal); E87.6 Hypokalemia; Z20.822 Contact with and (suspected) exposure to COVID-19
CPT/HCPCS: 36415; 80048; 83735; 85025; 87636; 96360

== ENCOUNTER 2022-02-28 15:40 | Emergency (ER) | payer MEDICARE, MEDICAID ==
[~2022-02-28] VITALS: Ht 157 cm; Wt 65.7 kg
[2022-02-28 15:59] LABS: BASOPHILS % (AUTO) 1 % (0-10); EOSINOPHILS # (AUTO) 0.2 10^3/uL (0.0-0.3); EOSINOPHILS % (AUTO) 5 % (0-10); HEMATOCRIT 38 % (35-52); LYMPHOCYTES # (AUTO) 0.9 X 10^3 (1.0-4.0); LYMPHOCYTES % (AUTO) 29 % (12-44); MEAN CORPUSCULAR HEMOGLOBIN 30 pg (25-34); MEAN CORPUSCULAR HGB CONC 34 g/dL (32-36); MEAN CORPUSCULAR VOLUME 87 fL (80-99); MEAN PLATELET VOLUME 9.3 fL (9.0-12.2); MONOCYTES # (AUTO) 0.3 X 10^3 (0.0-1.0); MONOCYTES % (AUTO) 9 % (0-12); NEUTROPHILS # (AUTO) 1.7 X 10^3 (1.8-7.8); NEUTROPHILS % (AUTO) 55 % (42-75); PLATELET COUNT 43 10^3/uL (130-400); WHITE BLOOD COUNT 3.1 10^3/uL (4.3-11.0)
--- NOTE | 2022-02-28 16:07 | ED General ---
General Chief Complaint: General Problems/Pain Stated Complaint: LETHARGIC Nursing Triage Note: PT PRESENTS TO ED VIA EMS FROM HOME WITH COMPLAINTS OF R LEG PAIN/CRAMPING. Source of Information: Patient, Old Records Exam Limitations: No Limitations History of Present Illness Date Seen by Provider: Feb 28, 2022 Time Seen by Provider: 15:56 Allergies and Home Medications Allergies Coded Allergies: meperidine (Unverified Adverse Reaction, Unknown, 09/17/17) Patient Home Medication List Furosemide (Furosemide) 40 Mg Tablet, 40 MG PO BID, (Reported) Entered as Reported by: LAINE WATKINS on 03/31/18 1009 Spironolactone (Spironolactone) 100 Mg Tablet, 100 MG PO DAILY, (Reported) Entered as Reported by: LAINE WATKINS on 03/31/18 1009 Past Aadheug-Lrogab-Embmcz Hx Patient Social History Tobacco Use?: No Substance use?: No Alcohol Use?: No Pt feels they are or have been: No Immunizations Up To Date Tetanus Booster (TDap): Unknown First/Initial COVID19 Vaccinat: ANASTACIA AND ANASTACIA Second COVID19 Vaccination Riaz: ANASTACIA AND ANASTACIA Third COVID19 Vaccination Date: ANASTACIA AND ANASTACIA Seasonal Allergies Seasonal Allergies: No Past Medical History Surgery/Hospitalization HX: HOSPICE FOR LIVER FAILURE Surgeries: Yes ( X 2; BILATERAL CARPAL TUNNEL; EGD; BILATERAL CATARACT SURGERY ) Adenoidectomy, Appendectomy, Section, Eye Surgery, Gallbladder, Orthopedic, Tonsillectomy Respiratory: No Cardiac: Yes Chronic Edema/Swelling Neurological: Yes Reproductive Disorders: No 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 ) Endocrine: No HEENT: Yes (POOR DENTITION/ "METH MOUTH"; QUESTIONALBLE MENIERE'S ) Cataract Cancer: No Psychosocial: No Integumentary: Yes (History of cellulitis) Pruritis Blood Disorders: No Family Medical History No Pertinent Family Hx Physical Exam Vital Signs Vital Signs - First Documented 02/28/22 15:54 Temp 36.8 Pulse 66 Resp 14 B/P (MAP) 116/58 (77) Pulse Ox 97 Capillary Refill : Less Than 3 Seconds Height, Weight, BMI Height: 5'4.00" Weight: 142lbs. 2.0oz. 64.395187ti; 26.00 BMI Method:Estimated Progress/Results/Core Measures Suspected Sepsis SIRS Temperature: Pulse: 66 Respiratory Rate: 14 Laboratory Tests 02/28/22 15:50: White Blood Count 3.1L Blood Pressure 116 /58 Mean: 77 Laboratory Tests 02/28/22 15:50: Creatinine 0.67, Platelet Count 43L, Total Bilirubin 3.4H Results/Orders Lab Results Laboratory Tests Test 02/28/22 15:50 Range/Units White Blood Count 3.1 L 4.3-11.0 10^3/uL Red Blood Count 4.36 3.80-5.11 10^6/uL Hemoglobin 13.0 11.5-16.0 g/dL Hematocrit 38 35-52 % Mean Corpuscular Volume 87 80-99 fL Mean Corpuscular Hemoglobin 30 25-34 pg Mean Corpuscular Hemoglobin Concent 34 32-36 g/dL Red Cell Distribution Width 17.8 H 10.0-14.5 % Platelet Count 43 L 130-400 10^3/uL Mean Platelet Volume 9.3 9.0-12.2 fL Immature Granulocyte % (Auto) 1 % Neutrophils (%) (Auto) 55 42-75 % Lymphocytes (%) (Auto) 29 12-44 % Monocytes (%) (Auto) 9 0-12 % Eosinophils (%) (Auto) 5 0-10 % Basophils (%) (Auto) 1 0-10 % Neutrophils # (Auto) 1.7 L 1.8-7.8 X 10^3 Lymphocytes # (Auto) 0.9 L 1.0-4.0 X 10^3 Monocytes # (Auto) 0.3 0.0-1.0 X 10^3 Eosinophils # (Auto) 0.2 0.0-0.3 10^3/uL Basophils # (Auto) 0.0 0.0-0.1 10^3/uL Immature Granulocyte # (Auto) 0.0 0.0-0.1 10^3/uL Sodium Level 140 135-145 MMOL/L Potassium Level 3.4 L 3.6-5.0 MMOL/L Chloride Level 109 H 98-107 MMOL/L Carbon Dioxide Level 22 21-32 MMOL/L Anion Gap 9 5-14 MMOL/L Blood Urea Nitrogen 8 7-18 MG/DL Creatinine 0.67 0.60-1.30 MG/DL Estimat Glomerular Filtration Rate 98 BUN/Creatinine Ratio 12 Glucose Level 92 70-105 MG/DL Calcium Level 8.5 8.5-10.1 MG/DL Corrected Calcium 9.5 8.5-10.1 MG/DL Total Bilirubin 3.4 H 0.1-1.0 MG/DL Aspartate Amino Transf (AST/SGOT) 60 H 5-34 U/L Alanine Aminotransferase (ALT/SGPT) 39 0-55 U/L Alkaline Phosphatase 84 40-136 U/L Total Protein 6.7 6.4-8.2 GM/DL Albumin 2.8 L 3.2-4.5 GM/DL My Orders Orders - PIPPA SILVA CUPOLA MECHANIC Cbc With Automated Diff (02/28/22 15:45) Comprehensive Metabolic Panel (02/28/22 15:45) Vital Signs/I&O 02/28/22 15:54 Temp 36.8 Pulse 66 Resp 14 B/P (MAP) 116/58 (77) Pulse Ox 97 Capillary Refill : Less Than 3 Seconds Blood Pressure Mean: 77 Departure Impression Primary Impression: Hypokalemia Additional Impression: Leg cramps Disposition: 01 HOME, SELF-CARE Condition: Stable Departure-Patient Inst. Decision time for Depature: 16:25 Referrals: FABRICIO ROSALES MD (PCP/Family) Primary Care Physician Patient Instructions: Hypokalemia (DC), Muscle Spasm ED Add. Discharge Instructions: Plan: 1. Follow up with your doctor as needed. 2. Take your potassium as previously directed. 3. Return to ER for any new, concerning, or worsening symptoms. All discharge instructions reviewed with patient and/or family. Voiced understanding. PIPPA SILVA APRN Feb 28, 2022 16:07
[2022-02-28 16:08] LABS: ALBUMIN 2.8 GM/DL (3.2-4.5); POTASSIUM 3.4 MMOL/L (3.6-5.0)
[2022-02-28 16:09] LABS: CALCIUM 8.5 MG/DL (8.5-10.1)
[2022-02-28 16:11] LABS: TOTAL PROTEIN 6.7 GM/DL (6.4-8.2)
[2022-02-28 16:12] LABS: BILIRUBIN,TOTAL 3.4 MG/DL (0.1-1.0)
[2022-02-28 16:14] LABS: CREATININE SERUM 0.67 MG/DL (0.60-1.30)
[2022-02-28] MEDS ORDERED: KCL 20 MEQ TAB (K-DUR) PO ONE (16:30)
[2022-02-28 16:53] VITALS: BP 110/82
== END 2022-02-28 16:53 | disposition home or self-care (01) ==
LOC: EDUNIT# 15:40 → ER 15:42
DX: E87.6 Hypokalemia (principal)
CPT/HCPCS: 36415; 80053; 85025; 99283

== ENCOUNTER 2022-03-30 06:31 | Emergency (ER) | payer OTHER, MEDICARE, MEDICAID ==
[~2022-03-30] VITALS: Ht 157 cm; Wt 65.7 kg
[2022-03-30] MEDS ORDERED: OMEP20CA18 (06:32)
[2022-03-30] MEDS ORDERED: OXYC-525 (06:32)
[2022-03-30] MEDS ORDERED: LIDOCAINE/EPI 2% 1:100,00 (XYLOCAINE) 20 ML VIAL INJ ONE (06:45)
[2022-03-30] MEDS ORDERED: LIDOCAINE/EPI 2% 1:200,00 (XYLOCAINE) 10 ML VIAL ONE (06:50)
[2022-03-30] MEDS ORDERED: LORazepam 0.5 MG (ATIVAN) TABLET ONE (07:19)
--- NOTE | 2022-03-30 07:46 | ED Fall/Injury ---
General Chief Complaint: Trauma-Non Activation Stated Complaint: FALL,HEAD LAC Nursing Triage Note: BROUGHT IN BY [facility] S/P UNWITNESSED FALL APPROX. 0510 LACERATION TO RIGHT UPPER FOREHEAD. DRESSING IN PLACE. Source: patient, family, EMS, residential records, old records Exam Limitations: no limitations History of Present Illness Date Seen by Provider: Mar 30, 2022 Time Seen by Provider: 06:35 Initial Comments This 62-year-old woman presents to the emergency room via EMS after falling out of bed at [facility]. She is on hospice for end-stage liver failure. This patient is known to me from a visit last month and has had a rapid decline. She appears to be in end stages of hospice care. Patient does respond to some questions. She does not indicate any localized pain. She does not appear to have tenderness to the neck, extremities, abdomen, or chest on exam. She has a large 6 to 7 cm flap laceration on the right forehead with minimal bleeding at this time. Daughter reports she has had confusion and agitation recently and hospice has been increasing Ativan usage. She had a "pain pill" at about 0500. She has had significant rigidity in recent days. Daughter reports some modest improvement in that with muscle relaxer use. Allergies and Home Medications Allergies Coded Allergies: meperidine (Unverified Adverse Reaction, Unknown, 09/17/17) Patient Home Medication List Home Medication List Reviewed: Yes Furosemide (Furosemide) 40 Mg Tablet, 40 MG PO BID, (Reported) Entered as Reported by: LAINE WATKINS on 03/31/18 100 Omeprazole (Omeprazole) 20 Mg Capsule.dr (Reported) Entered as Reported by: SARA DAVIS on 03/30/22 0632 Oxycodone HCl (Oxycodone HCl) 15 Mg Tablet, (Reported) Entered as Reported by: SARA DAVIS on 03/30/2232 Spironolactone (Spironolactone) 100 Mg Tablet, 100 MG PO DAILY, (Reported) Entered as Reported by: LAINE WATKINS on 03/31/18 1009 Review of Systems Review of Systems Constitutional: see HPI Eyes: No Symptoms Reported Ears, Nose, Mouth, Throat: see HPI Respiratory: no symptoms reported Cardiovascular: no symptoms reported Gastrointestinal: see HPI Genitourinary: no symptoms reported : No Musculoskeletal: see HPI Skin: see HPI Psychiatric/Neurological: See HPI Past Fppqhcv-Hmdnqe-Vyxepd Hx Patient Social History Tobacco Use?: No Substance use?: No Alcohol Use?: No Pt feels they are or have been: No Immunizations Up To Date Tetanus Booster (TDap): Unknown First/Initial COVID19 Vaccinat: ANASTACIA AND ANASTACIA Second COVID19 Vaccination Riaz: ANASTACIA AND ANASTACIA Third COVID19 Vaccination Date: ANASTACIA AND ANASTACIA Seasonal Allergies Seasonal Allergies: No Past Medical History Surgery/Hospitalization HX: C-SECT X2, B CARPEL TUNNEL, EGD, CATARACT, T/A, APPENDECTOMY, CHOLECYSTECTOMY, LIVER FAILURE, HYPOKALEMIA, HEPATITIS C, 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 ) Endocrine: No HEENT: Yes (POOR DENTITION/ "METH MOUTH"; QUESTIONALBLE MENIERE'S ) Cataract Cancer: No Psychosocial: No Integumentary: Yes (History of cellulitis) Pruritis Blood Disorders: No Family Medical History No Pertinent Family Hx Physical Exam Vital Signs Vital Signs - First Documented 03/30/22 06:33 Temp 36.8 Pulse 83 B/P (MAP) 118/72 (87) Pulse Ox 92 O2 Delivery Room Air Capillary Refill : Less Than 3 Seconds Height, Weight, BMI Height: 5'4.00" Weight: 142lbs. 2.0oz. 64.489180qd; 26.00 BMI Method:Estimated General Appearance: WD/WN, no apparent distress HEENT: PERRL/EOMI, other (Oropharynx dry. 6 to 7 cm flap laceration on the right forehead) Neck: non-tender, normal inspection Cardiovascular: regular rate, rhythm, no edema, no murmur Respiratory: chest non-tender, no respiratory distress, no accessory muscle use, rhonchi Gastrointestinal: non tender, soft Extremities: non-tender, other (No perceived tenderness to palpation or pain with movement of the extremities) Neurologic/Psychiatric: other (Responds to some questions verbally. Hollers out on occasion. Moves extremities spontaneously with rigidity.) Skin: warm/dry [place] Coma Score Best Eye Response: (3) Open to Voice Best Verbal Response: (3) Inappropriate Words Best Motor Response: (5) Localizes to Pain (Comments about towel on her face) Marcy Total: 11 Procedures/Interventions Wound Location: Face Other Wound Location Right forehead Wound Length (cm): 6 Wound's Depth, Shape: linear, irregular, flap, sub Q (With periosteum exposure on the skull) Wound Explored: clean Irrigated w/ Saline (ccs): 1000 Betadine Prep?: Yes Anesthesia: Lidocaine w/ Epi Volume Anesthetic (ccs): 8 Suture: Prolene Suture Size: 4-0 Other Closure Supply: Steri Strip 1/2" Number of Sutures: 8 Progress Wound was sprayed with lidocaine with epinephrine. Skin was then cleaned with alcohol and lidocaine with epinephrine injection was used for local anesthetic. Wound was then irrigated with saline and chlorhexidine soap. Betadine prep was applied. Wound was approximated with 4-0 Prolene in an interrupted fashion with 8 sutures. There was good hemostasis. Steri-Strips were applied over the sutures for additional support. Progress/Results/Core Measures Results/Orders My Orders Orders - DAMIAN GRIMALDO MD Lidocaine/Epi 2% 1:100,000 (Xylocaine/Ep (03/30/22 06:45) Lidocaine/Epi Mpf 2% 1:200,000 (Xylocain (03/30/22 06:50) Lorazepam Tablet (Ativan Tablet) (03/30/22 07:19) Lorazepam Tablet (Ativan Tablet) (03/30/22 08:00) Medications Given in ED Current Medications Medications Dose Ordered Sig/Guerita Route Start Time Stop Time Status Last Admin Dose Admin Lidocaine/ Epinephrine 10 ml STK-MED ONCE .ROUTE 03/30/22 06:50 03/30/22 06:52 DC 03/30/22 06:52 10 ML Lorazepam 1 mg ONCE ONCE PO 03/30/22 08:00 03/30/22 08:01 03/30/22 07:49 1 MG Vital Signs/I&O 03/30/22 06:33 Temp 36.8 Pulse 83 B/P (MAP) 118/72 (87) Pulse Ox 92 O2 Delivery Room Air Blood Pressure Mean: 87 Progress Progress Note : Progress Note Laceration was repaired with 4-0 Prolene. 8 interrupted sutures were applied. I discussed further evaluation with patient's daughter, Chela. Since she has had rapid decline on hospice, my estimation is that life expectancy is days, weeks at most. Imaging studies will not likely impact direction of care as she is not a surgical or procedural candidate. We also discussed tetanus vaccination which is likely to cause her discomfort and without any benefit given the very short life expectancy. After discussing these issues of care, Chela elects to decline further work-up or interventions. This decision is reasonable given the rapid decline of this patient. Ativan 1 mg was dissolved in water and given orally for agitation. Patient was transferred back to the residential via EMS as she could not safely or comfortably transport in a sitting position. Departure Impression Primary Impression: Laceration of forehead Qualified Codes: S01.81XA - Laceration without foreign body of other part of head, initial encounter Additional Impressions: Liver failure Qualified Codes: K72.10 - Chronic hepatic failure without coma Hospice care patient End of life care Disposition: 01 HOME, SELF-CARE Condition: Improved Departure-Patient Inst. Decision time for Depature: 07:52 Referrals: FABRICIO ROSALES MD (PCP/Family) Primary Care Physician Patient Instructions: Laceration Repair With Stitches (DC) Add. Discharge Instructions: Keep the wound clean and dry except for normal bathing. Do not submerge. Monitor wound for signs of infection such as increasing redness, increasing swelling, puslike drainage, or fever. Contact medical provider if the symptoms are noted. Refer to hospice orders for pain management and agitation management. Sutures should be removed in 10 to 14 days. Keep patient reclined at 45 degrees or more to prevent her from tipping forward and falling. Call hospice care or primary care provider for questions or further instructions. All discharge instructions reviewed with patient and/or family. Voiced understanding. Copy Copies To 1: FABRICIO ROSALES MD, JOSHUA T MD Mar 30, 2022 07:46
[2022-03-30] MEDS ORDERED: LORazepam 0.5 MG (ATIVAN) TABLET PO ONE (08:00)
[2022-03-30 08:12] VITALS: BP 100/58
== END 2022-03-30 08:16 | disposition home or self-care (01) ==
LOC: EDUNIT# 06:34 → ER 06:35
DX: S01.81XA Laceration without foreign body of other part of head, initial encounter (principal); K72.10 Chronic hepatic failure without coma; Z51.5 Encounter for palliative care; W06.XXXA Fall from bed, initial encounter; Y92.129 Unspecified place in nursing home as the place of occurrence of the external cause
CPT/HCPCS: 12014